=== PATIENT | female | born 1960 | race Caucasian/White ===

== ENCOUNTER 2018-09-25 16:36 | Inpatient (IN) | payer OTHER ==
[~2018-09-25] VITALS: Ht 165.1 cm; Wt 156.5 kg
[2018-09-25] VITALS (13 sets, daily range): BP systolic 122–160; BP diastolic 60–96
--- NOTE | 2018-09-25 16:57 | NUR ---
ED Nurse Note: pt walked in to ER from home due to signs of infection on Rt knee surgical site. pt aao x4 and ambulatory with a cane. skin clean and intact. calm and cooperative. Rt knee has 3 stitches and no redness but scant amount of white drainage noted. no four odor or not warm to touch. pt is in gown.
--- NOTE | 2018-09-25 17:46 | Emergency Room Report ---
History of Present Illness General Chief Complaint: Lower Extremity Injury Source: Patient Present Illness HPI Patient had recent right knee arthroscopic surgery. Since surgery a few days afterwards patient started to have oozing serous fluid from the surgical site at the right knee. Patient denies any erythema fever nausea vomiting diarrhea chills. Patient saw her orthopedic surgeon Dr. Del Angel and he put a stitch in the laparoscopic site but it continues to drain serous fluid. Therefore patient was sent here for further evaluation. Patient denies any fever nausea vomiting diarrhea chills. No other complaints are noted patient noted to be moderate. Patient does complain of pain in the area. Denies any pus discharge of bloody discharge. Denies any recent trauma. No other modifying factors. No other associated signs and symptoms. No other complaints were noted. Allergies: Coded Allergies: CELECOXIB (Verified Allergy, Severe, dyspnea, 09/25/18) HYDROCODONE (Verified Allergy, Severe, Rash, 09/25/18) Patient History Past Medical History: asthma PSxH Narrative Right knee meniscus surgery Social History: Denies: smoking, alcohol use, drug use Last Menstrual Period: na Now: No Reviewed Nursing Documentation: PMH: Agreed; PSxH: Agreed Review of Systems All Other Systems: negative except mentioned in HPI Physical Exam Vital Signs Date Time Temp Pulse Resp B/P (MAP) Pulse Ox O2 Delivery O2 Flow Rate FiO2 09/25/18 16:41 98.2 102 20 160/96 (117) 100 Room Air Sp02 EP Interpretation: reviewed, normal General Appearance: normal inspection, well appearing, no apparent distress, alert Head: atraumatic Eyes: bilateral eye normal inspection ENT: normal ENT inspection, hearing grossly normal, normal voice Neck: normal inspection, full range of motion, supple, no bony tend Respiratory: normal inspection, lungs clear, normal breath sounds, no respiratory distress, no retraction, no wheezing Cardiovascular #1: regular rate, rhythm, no edema Gastrointestinal: normal inspection, normal bowel sounds, non tender, soft, no guarding, no hernia Genitourinary: no CVA tenderness Musculoskeletal: back normal, other - Right knee status post arthroscopic surgery. Surgical wound draining serous fluid. No erythema. Neurologic: normal inspection, alert, responsive, speech normal Psychiatric: normal inspection, judgement/insight normal, mood/affect normal Medical Decision Making Diagnostic Impression: Primary Impression: Postoperative complication Additional Impression: Infection of right knee ER Course Patient presents emergency department today complaint right knee pain. Differential considerations include infections strain, seroma. Given patient's presentation patient will require admission for further evaluation. Patient amatory work-up was negative however. Patient will be cleared for surgery. I discussed this case with Dr. Vladimir Stern and Dr. Del Angel. Patient [facility] be [facility] for further treatment. Patient has been n.p.o. since last night. Labs Test 09/25/18 18:00 White Blood Count 4.5 K/UL (4.8-10.8) Red Blood Count 4.90 M/UL (4.20-5.40) Hemoglobin 14.2 G/DL (12.0-16.0) Hematocrit 42.6 % (37.0-47.0) Mean Corpuscular Volume 87 FL (80-99) Mean Corpuscular Hemoglobin 28.9 PG (27.0-31.0) Mean Corpuscular Hemoglobin Concent 33.2 G/DL (32.0-36.0) Red Cell Distribution Width 11.8 % (11.6-14.8) Platelet Count 383 K/UL (150-450) Mean Platelet Volume 5.7 FL (6.5-10.1) Neutrophils (%) (Auto) 50.8 % (45.0-75.0) Lymphocytes (%) (Auto) 35.6 % (20.0-45.0) Monocytes (%) (Auto) 7.4 % (1.0-10.0) Eosinophils (%) (Auto) 4.2 % (0.0-3.0) Basophils (%) (Auto) 2.0 % (0.0-2.0) Prothrombin Time 10.8 SEC (9.30-11.50) Prothromb Time International Ratio 1.0 (0.9-1.1) Activated Partial Thromboplast Time 31 SEC (23-33) Sodium Level 143 MMOL/L (136-145) Potassium Level 3.7 MMOL/L (3.5-5.1) Chloride Level 107 MMOL/L (98-107) Carbon Dioxide Level 25 MMOL/L (21-32) Anion Gap 11 mmol/L (5-15) Blood Urea Nitrogen 12 mg/dL (7-18) Creatinine 0.8 MG/DL (0.55-1.30) Estimat Glomerular Filtration Rate > 60 mL/min (>60) Glucose Level 133 MG/DL (74-106) Calcium Level 9.6 MG/DL (8.5-10.1) Total Bilirubin 0.3 MG/DL (0.2-1.0) Aspartate Amino Transf (AST/SGOT) 14 U/L (15-37) Alanine Aminotransferase (ALT/SGPT) 15 U/L (12-78) Alkaline Phosphatase 90 U/L (46-116) Total Protein 7.4 G/DL (6.4-8.2) Albumin 4.0 G/DL (3.4-5.0) Globulin 3.4 g/dL Albumin/Globulin Ratio 1.2 (1.0-2.7) EKG Diagnostic Results Rate: normal Rhythm: NSR ST Segments: no acute changes Rhythm Strip Diag. Results EP Interpretation: yes Rate: 89 Rhythm: NSR, no PVC's, no ectopy Chest X-Ray Diagnostic Results Chest X-Ray Diagnostic Results : Chest X-Ray Ordered: Yes # of Views/Limited/Complete: 1 View Indication: Chest Pain EP Interpretation: Yes Interpretation: no consolidation, no effusion, no pneumothorax Impression: No acute disease Electronically Signed by: Electronically signed by Bernardo Kowalski MD Last Vital Signs Date Time Temp Pulse Resp B/P (MAP) Pulse Ox O2 Delivery O2 Flow Rate FiO2 09/25/18 16:41 98.2 102 20 160/96 (117) 100 Room Air Status: improved Disposition: ADMITTED INPATIENT Condition: Serious Bernardo Kowalski MD Sep 25, 2018 17:46
[2018-09-25] MEDS ORDERED: LR 1000ml ONE ×2 (18:00→19:00)
--- NOTE | 2018-09-25 18:10 | NUR ---
ED Nurse Note: chest x-ray at bedside.
--- NOTE | 2018-09-25 18:15 | NUR ---
ED Nurse Note: pt went down for surgery by martin Engel in stable condition.
[2018-09-25 18:25] LABS: ANION GAP 11 mmol/L (5-15); BLOOD UREA NITROGEN 12 mg/dL (7-18); CALCIUM 9.6 MG/DL (8.5-10.1); CARBON DIOXIDE 25 MMOL/L (21-32); CHLORIDE 107 MMOL/L (98-107); CREATININE 0.8 MG/DL (0.55-1.30); POTASSIUM 3.7 MMOL/L (3.5-5.1); SODIUM 143 MMOL/L (136-145)
[2018-09-25 18:26] LABS: EOSINOPHILS % (AUTO) 4.2 % (0.0-3.0); HEMATOCRIT 42.6 % (37.0-47.0); HEMOGLOBIN 14.2 G/DL (12.0-16.0); LYMPHOCYTES % (AUTO) 35.6 % (20.0-45.0); MEAN CORPUSCULAR VOLUME 87 FL (80-99); MONOCYTES % (AUTO) 7.4 % (1.0-10.0); NEUTROPHILS % (AUTO) 50.8 % (45.0-75.0); PLATELET COUNT 383 K/UL (150-450); RED CELL DISTRIBUTION WIDTH 11.8 % (11.6-14.8); WHITE BLOOD COUNT 4.5 K/UL (4.8-10.8)
[2018-09-25 18:29] LABS: ALANINE AMINOTRANSFERASE 15 U/L (12-78); ALBUMIN/GLOBULIN RATIO 1.2 (1.0-2.7); ALKALINE PHOSPHATASE 90 U/L (46-116); ASPARTATE AMINO TRANSFERASE 14 U/L (15-37); BILIRUBIN,TOTAL 0.3 MG/DL (0.2-1.0)
[2018-09-25] MEDS ORDERED: fentaNYL 100 mcg/2 mL IV ONE (18:34)
[2018-09-25] MEDS ORDERED: Bacitracin 50000 Units Vial ONE (18:37)
--- NOTE | 2018-09-25 18:41 | Anethesia Preoperative Eval ---
Anesthesia Pre-op PMH/ROS General Date of Evaluation: Sep 25, 2018 Time of Evaluation: 18:51 Anesthesiologist: Domi ASA Score: ASA 3 Mallampati Score Class I : Soft palate, uvula, fauces, pillars visible Class II: Soft palate, uvula, fauces visible Class III: Soft palate, base of uvula visible Class IV: Only hard plate visible Mallampati Classification: Class III Surgeon: Bean Diagnosis: R Knee Pain Surgical Procedure: R KKnee Arthroscopy I and D Family History: no anesthesia problems Allergies: Coded Allergies: CELECOXIB (Verified Allergy, Severe, dyspnea, 09/25/18) HYDROCODONE (Verified Allergy, Severe, Rash, 09/25/18) Medications: see eMAR Patient NPO?: Yes Past Medical History Cardiovascular: Reports: HTN Pulmonary: Reports: asthma Other: obesity - Morbid BMI 56 Anesthesia Pre-op Phys. Exam Physician Exam Last Vital Signs Date Time Temp Pulse Resp B/P (MAP) Pulse Ox O2 Delivery O2 Flow Rate FiO2 09/25/18 18:20 98.2 86 19 155/78 98 Room Air Constitutional: NAD Neurologic: CN 2-12 intact Cardiovascular: RRR Respiratory: CTA Gastrointestinal: S/NT/ND Airway Exam Mallampati Score: Class III MO: limited ROM: limited Teeth: missing, intact Anesthesia Pre-op A/P Labs Hematology Test 09/25/18 18:00 White Blood Count 4.5 K/UL (4.8-10.8) L Red Blood Count 4.90 M/UL (4.20-5.40) Hemoglobin 14.2 G/DL (12.0-16.0) Hematocrit 42.6 % (37.0-47.0) Mean Corpuscular Volume 87 FL (80-99) Mean Corpuscular Hemoglobin 28.9 PG (27.0-31.0) Mean Corpuscular Hemoglobin Concent 33.2 G/DL (32.0-36.0) Red Cell Distribution Width 11.8 % (11.6-14.8) Platelet Count 383 K/UL (150-450) Mean Platelet Volume 5.7 FL (6.5-10.1) L Neutrophils (%) (Auto) 50.8 % (45.0-75.0) Lymphocytes (%) (Auto) 35.6 % (20.0-45.0) Monocytes (%) (Auto) 7.4 % (1.0-10.0) Eosinophils (%) (Auto) 4.2 % (0.0-3.0) H Basophils (%) (Auto) 2.0 % (0.0-2.0) Coagulation Test 09/25/18 18:00 Prothrombin Time 10.8 SEC (9.30-11.50) Prothromb Time International Ratio 1.0 (0.9-1.1) Activated Partial Thromboplast Time 31 SEC (23-33) Chemistry Test 09/25/18 18:00 Sodium Level 143 MMOL/L (136-145) Potassium Level 3.7 MMOL/L (3.5-5.1) Chloride Level 107 MMOL/L (98-107) Carbon Dioxide Level 25 MMOL/L (21-32) Anion Gap 11 mmol/L (5-15) Blood Urea Nitrogen 12 mg/dL (7-18) Creatinine 0.8 MG/DL (0.55-1.30) Estimat Glomerular Filtration Rate > 60 mL/min (>60) Glucose Level 133 MG/DL (74-106) H Calcium Level 9.6 MG/DL (8.5-10.1) Total Bilirubin 0.3 MG/DL (0.2-1.0) Aspartate Amino Transf (AST/SGOT) 14 U/L (15-37) L Alanine Aminotransferase (ALT/SGPT) 15 U/L (12-78) Alkaline Phosphatase 90 U/L (46-116) Total Protein 7.4 G/DL (6.4-8.2) Albumin 4.0 G/DL (3.4-5.0) Globulin 3.4 g/dL Albumin/Globulin Ratio 1.2 (1.0-2.7) Risk Assessment & Plan Assessment: ASA 3 Plan: GA, SED Pre-Antibiotics Dru Gram Vancomycin IV Given Within 1 Hr of Incision: Yes Time Given: 20:11 Josh Duron MD Sep 25, 2018 18:41
--- NOTE | 2018-09-25 18:41 | Pre-Procedure Note/Attestation ---
Pre-Procedure Note/Attestation Complete Prior to Procedure Planned Procedure: right Procedure Narrative: knee arthroscopic incision and drainage Indications for Procedure Pre-Operative Diagnosis: right knee drainage Attestation I attest that I discussed the nature of the procedure; its benefits; risks and complications; and alternatives (and the risks and benefits of such alternatives ), prior to the procedure, with the patient (or the patient's legal sales representative printing paper). I attest that, if there was a reasonable possibility of needing a blood transfusion, the patient (or the patient's legal sales representative printing paper) was given the [facility] standardized written summary, pursuant to the Jasen Monette Blood Safety Act ([place] Health and Safety Code # 1645, as amended). I attest that I re-evaluated the patient just prior to the surgery and that there has been no change in the patient's H&P, except as documented below: Atif Del Angel MD Sep 25, 2018 18:41
[2018-09-25] MEDS ORDERED: LR 1000ml 1,000 ML IVLG SCH (18:42)
--- NOTE | 2018-09-25 18:42 | Operative Note - PDOC ---
Operative Note Operative Note Pre-op Diagnosis: right knee drainage Procedure: see op report Post-op Diagnosis: same as pre-op plus Operative Findings: consistent w/pre-op dx studies Anesthesia: regional Specimen: none Complications: none Condition: stable Estimated Blood Loss: none Implant(s) used?: No Atif Del Angel MD Sep 25, 2018 18:42
[2018-09-25] MEDS ORDERED: Lidocaine 1% MPF 10mg/ml 5ml ONE (18:43)
[2018-09-25] MEDS ORDERED: Sodium Chloride 10ml vial INJ ONE (18:43)
[2018-09-25] MEDS ORDERED: Dexamethasone 4mg/ml vial ONE (18:43)
[2018-09-25] MEDS ORDERED: Propofol 200mg/20ml IV ONE (18:43)
[2018-09-25] MEDS ORDERED: Midazolam 2mg/2ml Inj IVP PRN ×2 (18:45→20:45)
[2018-09-25] MEDS ORDERED: Labetalol 5mg/ml 20ml vial IV PRN ×2 (18:45→20:45)
[2018-09-25] MEDS ORDERED: Metoclopramide 10mg/2ml Inj IVP PRN ×2 (18:45→20:45)
[2018-09-25] MEDS ORDERED: D5 1/2NS 1,000 ML IV SCH ×2 (18:45→19:00)
[2018-09-25] MEDS ORDERED: DiphenhydrAMINE 50mg/ml Inj IVP PRN ×2 (18:45→20:45)
[2018-09-25] MEDS ORDERED: LORazepam Inj 2mg/ml 1ml IV PRN ×2 (18:45→20:45)
[2018-09-25] MEDS ORDERED: HYDROcodone/Acetamin 5/325 tab ORAL PRN ×2 (18:45→19:00)
[2018-09-25] MEDS ORDERED: fentaNYL 100 mcg/2 mL IV PRN ×3 (18:45→20:45)
[2018-09-25] MEDS ORDERED: Atropine Sulfate 0.4mg/ml inj IVP PRN ×2 (18:45→20:45)
[2018-09-25] MEDS ORDERED: Meperidine 50mg/ml Inj(FOR RIGORS ONLY) IVP PRN ×2 (18:45→20:45)
[2018-09-25] MEDS ORDERED: NS Irrig 4000ml IRRIG ONE (18:45)
[2018-09-25] MEDS ORDERED: Vancomycin 1gm vial IVPB ONE ×2 (19:36→23:46)
--- NOTE | 2018-09-25 20:16 | Immediate Post-Op Evaluation ---
Immediate Post-Op Evalulation Immediate Post-Op Evalulation Procedure: R Knee Arthroscopy, I and D Date of Evaluation: Sep 25, 2018 Time of Evaluation: 20:28 IV Fluids: 100 LR Blood Products: 0 Estimated Blood Loss: 10 Urinary Output: 0 Blood Pressure Systolic: 158 Blood Pressure Diastolic: 89 Pulse Rate: 89 Respiratory Rate: 16 O2 Sat by Pulse Oximetry: 100 Temperature (Fahrenheit): 97.8 Pain Score (1-10): 2 Nausea: No Vomiting: No Complications 0 Patient Status: awake, reacts, patent, none Hydration Status: adequate Dru Graqm Vancomycin IV Given Within 1 Hr of Incision: Yes Time Given: 20:11 Josh Duron MD Sep 25, 2018 20:16
--- NOTE | 2018-09-25 21:30 | NUR ---
NURSE NOTES: Received patient from PACU. PACU staff brought patient onto the unit. No report was given prior. Patient awake and oriented x4. Pain 6/8 on right knee. PACU nurse did not have information on patient background, no admitting orders, no pain medication orders. Checked patient chart, patient not in the system. Registration notified. Placed order to admit inpatient.
--- NOTE | 2018-09-25 22:00 | NUR ---
NURSE NOTES: Notified by registration that patient is now in the system and orders can be placed on the patient.
--- NOTE | 2018-09-25 22:15 | Consultation ---
DATE OF CONSULTATION: 09/25/2018 CHIEF COMPLAINT: Right knee drainage. HISTORY OF PRESENT ILLNESS: The patient is a pleasant 58-year-old female, who has had persistent drainage along the arthroscopic portal that continued drainage despite conservative treatment to close the area, she still had persistent drainage. No signs of infection; however given the persistent drainage she was indicative of operative irrigation and debridement of the knee as well as intraoperative cultures to make sure there is no infection. The patient was told to present herself to the ER for admission and surgery. She presented to the ER earlier today and surgery is recommended. PAST MEDICAL HISTORY: Reviewed per intake chart PAST SURGICAL HISTORY: Reviewed per intake chart. MEDICATIONS: Reviewed per intake chart. PHYSICAL EXAMINATION: EXTREMITIES: Examination shows serous drainage along the inferolateral portal site. Posterior calf is soft. No fluctuance. No erythema. ASSESSMENT: Status post right knee arthroscopic medial meniscectomy, synovectomy, chondroplasty to her right knee, persistent drainage, possible infection. DISCUSSION: At this point, I am going to proceed with arthroscopic I and D of the right knee, take intraoperative cultures, and start her antibiotics. Monitor from clinical point of view to make sure that she is healing well. Risks, limitations, expectations, complications of procedure were discussed in detail. All questions addressed. Atif Del Angel M.D. DR: Tamar JOB#: [id number] CC:
--- NOTE | 2018-09-25 22:30 | NUR ---
NURSE NOTES: Received call back from Dr. Stern for admitting orders, routine med orders and percocet for pain. Placed orders in [facility].
[2018-09-25] MEDS ORDERED: Albuterol 90mcg Inhaler 8gm INH PRN (22:45)
[2018-09-25] MEDS ORDERED: traMADol 50mg tab ORAL PRN (22:45)
[2018-09-25] MEDS ORDERED: Vancomycin 1gm in D5W 275ml IVPB SCH (23:00)
--- NOTE | 2018-09-25 23:00 | NUR ---
NURSE NOTES: Notified pipeline to expedite orders for the patient.
--- NOTE | 2018-09-25 23:30 | NUR ---
NURSE NOTES: Received call from Dr. Del Angel, informed him that patient is very angry because she is in pain and orders were not given prior to patient arrival on unit. Received orders for routine medications as well as more pain medications, dilauded 0.6mg IV now and 0.4mg ivp q2hrs prn. Will place in systems and notify pipeline again.
[2018-09-26] MEDS ORDERED: Ketorolac 30mg Inj IV SCH
--- NOTE | 2018-09-26 | NUR ---
NURSE NOTES: Patient upset, states pain is now 8/10 and "it's been 2 hours and there are no fucking pain meds." Reassured patient that staff will keep checking and get her her pain meds.
--- NOTE | 2018-09-26 | NUR ---
NURSE NOTES: Notified pipeline to expedite orders in the pyxis.
--- NOTE | 2018-09-26 00:18 | NUR ---
NURSE NOTES: Notifiedd pipeline again to place orders inc pyxis so patient can get her pain medications.
--- NOTE | 2018-09-26 00:20 | NUR ---
NURSE NOTES: Advised by [employer] that there is nothing further they can do in regards to pyxis. Advised to notify corrections unit supervisor to call the hospital pharmacist. Charge nurse notified and called corrections unit supervisor. Addendum: 09/26/18 at 0155 by Keshawn Redding RN NURSE NOTES: 0120 Advised by [employer] that there is nothing further they can do in regards to pyxis. Advised to notify corrections unit supervisor to call the hospital pharmacist. Charge nurse notified and called corrections unit supervisor. Addendum: 09/26/18 at 0158 by Keshawn Redding RN Disregard the time on the amended note
--- NOTE | 2018-09-26 00:30 | NUR ---
NURSE NOTES: Attempted to place ice packs on patient, patient refused.
[2018-09-26] MEDS ORDERED: Hydromorphone 0.5mg/0.5ml inj IVP SCH ×2 (00:45)
[2018-09-26] MEDS ORDERED: HYDROmorphone 1mg/ml Carpuject ONE ×4 (01:00→06:31)
[2018-09-26] MEDS ORDERED: HYDROmorphone 1mg/ml Carpuject IVP SCH (01:00)
--- NOTE | 2018-09-26 01:37 | NUR ---
NURSE NOTES: Charge nurse from the telemetry unit was able to overide pyxis and dispense dilauded iv pain medication. Dilauded 0.6mg IVP x 1 administered to the patient as ordered. Addendum: 09/26/18 at 0618 by Keshawn Redding RN NURSE NOTES: Dilauded was administered at 0107, see MAR.
[2018-09-26] MEDS: D5 1/2NS 1,000 ML IV SCH ×2 (01:40→14:15)
[2018-09-26] MEDS ORDERED: HYDROmorphone 1mg/ml Carpuject IVP PRN (02:00)
--- NOTE | 2018-09-26 02:00 | NUR ---
NURSE NOTES: Patient laying still in bed, eyes closed, no s/s of respiratory distress or respiratory depression. Will continue to monitor.
[2018-09-26] MEDS: HYDROmorphone 1mg/ml Carpuject IVP PRN ×3 (02:42→06:53)
--- NOTE | 2018-09-26 02:42 | NUR ---
NURSE NOTES: Patient stated that the first dose of pain medication helped and she was able to sleep for awhile, administered dilauded 0.4mg IVP PRN for right knee pain.
--- NOTE | 2018-09-26 03:30 | Operative Note - Dictated ---
DATE OF OPERATION: 09/25/2018 PREOPERATIVE DIAGNOSIS: Possible right knee infection. POSTOPERATIVE DIAGNOSIS: Possible right knee infection. PROCEDURES: 1. Right knee arthroscopic I and D and lavage, bacitracin irrigation. 2. Revision partial medial meniscectomy, medial meniscus. 3. Revision chondroplasty of medial femoral condyle. 4. Revision synovectomy of medial and patellofemoral compartment. SURGEON: Atif Del Angel M.D. ANESTHESIA: General. INDICATION FOR PROCEDURE: The patient is a 58-year-old female, who underwent uncomplicated right knee arthroscopic medial meniscectomy, synovectomy, and chondroplasty. Postoperatively, she was doing relatively well. However, she had a walk back and forth and subsequently a small wound dehisced as well as she popped the suture. She continued to have persistent drainage despite conservative treatment. Therefore, it was felt that I and D and appropriate infection workup was reasonable. Risks, limitations, expectations, and complications of the procedure were discussed in detail. All questions addressed. DESCRIPTION OF PROCEDURE: After informed consent was obtained, the patient was brought to the operative room. The patient was placed under general anesthesia. Ancef was held. The right leg was prepped and draped in a sterile manner. An inferolateral stab incision was then made. Trocar introduced in the knee joint. The synovial tissue was sent off for aerobic and anaerobic cultures and Gram stain. Once that was done, Ancef was administered along with vancomycin. At this point, 6 liters of bacitracin irrigation was then used to irrigate the knee. A shaver was then placed and a complete diagnostic arthroscopy was performed. There was grade 3 and grade 4 chondral damage in the patellofemoral compartment. The medial gutter was entered free from loose bodies. Medial compartment was entered. There was some fraying of the chondral with some chondral flaps. Therefore, gentle chondroplasty of medial femoral condyle was performed. The previous meniscectomy was evaluated and partial meniscectomy was performed of the anterior edge of the leading portion of the meniscus. The synovectomy was completed in the anterior leading to the intercondylar notch. The ACL was probed and noted to be intact. Lateral compartment was entered free of meniscal chondral damage. At this point, liters of irrigation was then used to further irrigate and lavage the knee. The portal sites were closed using inverted mattress sutures. Compression dressing was applied. The patient was awoken and taken to recovery room with stable vital signs. ESTIMATED BLOOD LOSS: None. COMPLICATIONS: None. SPECIMENS: None. IMPLANTS: None. Atif Del Angel M.D. DR: HADLEY JOB#: [id number] CC:
[2018-09-26 04:00] VITALS: BP 120/70
--- NOTE | 2018-09-26 04:55 | NUR ---
NURSE NOTES: Patient states a pain level of 5/10 on right knee. Continues to refuse ice packs on the right knee.
[2018-09-26] MEDS ORDERED: traMADol 50mg tab ONE (06:35)
[2018-09-26] MEDS ORDERED: Vancomycin 1 GM in D5W 275 ML IVPB SCH ×2 (07:15→08:00)
[2018-09-26] MEDS ORDERED: traMADol 50mg tab ORAL PRN (07:30)
[2018-09-26 08:00] VITALS: BP 135/82
[2018-09-26] MEDS ORDERED: Vancomycin 1gm in D5W 275ml IVPB SCH (08:00)
[2018-09-26] MEDS ORDERED: D5 1/2NS 1,000 ML IV SCH (08:00)
--- NOTE | 2018-09-26 08:00 | NUR ---
NURSE NOTES: Report received from Keshawn RN, rounds made. Patient resting in semi-fowlers position in bed. No distress on RA. IVF infusing to left hand (D5 1/2 at 150 ml/hr), will start Vanco as ordered. Right knee dressing, CDI, secured with denis wrap, ice pack applied. Right pedal +2 pitting edema noted. Pain 2/10 to right knee. Bilateral SCDs on. Call light in reach, bed in lowest position, will continue to monitor.
[2018-09-26] MEDS: Docusate 100mg cap ORAL SCH ×3 (08:57→18:05)
[2018-09-26] MEDS: Heparin 5000 units/ml inj SUBQ SCH ×2 (08:57→21:07)
[2018-09-26] MEDS: Wixela 250/50 Inhaler - 60 dose INH SCH ×2 (09:00→18:00)
[2018-09-26] MEDS ORDERED: Enoxaparin 40mg Inj SUBQ SCH (09:00)
[2018-09-26] MEDS ORDERED: Docusate 100mg cap ORAL SCH (09:00)
[2018-09-26] MEDS ORDERED: celeBREX 200mg Cap **SURGERY PATIENTS ONLY ORAL SCH ×2 (09:00)
--- NOTE | 2018-09-26 09:13 | General Progress Note ---
Progress Note Progress Note hp dictated r/o septic knee morbid obese asthma Vladimir Stern MD Sep 26, 2018 09:13
[2018-09-26 12:00] VITALS: BP 136/81
--- NOTE | 2018-09-26 12:06 | Diagnostic Imaging Report ---
Indication: Cough Comparison: None A single view chest radiograph was obtained. Findings: Cardiomediastinal appearance is within normal limits for age. The lungs are clear. Pulmonary vascularity is appropriate. The diaphragmatic contour is smooth and costophrenic angles are sharp. No pleural effusions are identified. The bones are unremarkable. Impression: No acute findings
--- NOTE | 2018-09-26 12:30 | 48 Hour Post Anesthesia Eval ---
Post Anesthesia Evaluation Procedure: R Knee Arthroscopy, I and D Date of Evaluation: Sep 26, 2018 Time of Evaluation: 12:29 Blood Pressure Systolic: 127 0: 68 Pulse Rate: 82 Respiratory Rate: 22 Temperature (Fahrenheit): 97.6 O2 Sat by Pulse Oximetry: 98 Airway: patent Nausea: No Vomiting: No Pain Intensity: 3 Hydration Status: adequate Cardiopulmonary Status: stable Mental Status/LOC: patient returned to baseline Follow-up Care/Observations: n/a Post-Anesthesia Complications: none Follow-up care needed: N/A Christopher Pugh MD Sep 26, 2018 12:30
[2018-09-26] MEDS ORDERED: Heparin1,000 units/500ml Premix(Conc:2 units/ml) IV PRN (14:45)
[2018-09-26] MEDS ORDERED: Lidocaine 1% Plain 30 ml INJ PRN (14:45)
--- NOTE | 2018-09-26 14:45 | NUR ---
NURSE NOTES: Dr. Stern notified by Clare OWENS, unable to restart IV, orders received for PICC line placement. Will review consent with patient.
--- NOTE | 2018-09-26 15:06 | NUR ---
CASE MANAGEMENT: INITIAL REVIEW 58 YO F PRESENTED TO OUR ED FROM HOME CC: LOWER EXTREMITY INJURY PMHx: ASTHMA. SI:DRAINAGE FROM RIGHT KNEE. T 98.2 HR 102 RR 20 B/P 160/96 SATS 100% ON RA WBC 4.5 GLU 133 AST 14 CRP 2.4 IS: OR MEDS PATIENT ADMITTED TO MED/SURG 09/25/2018 @ 1700 DCP: PATIENT TO BE DISCHARGED TO HOME ONCE MEDICALLY CLEARED. PLAN OF CARE: DATE OF OPERATION: 09/25/2018 PREOPERATIVE DIAGNOSIS: Possible right knee infection. POSTOPERATIVE DIAGNOSIS: Possible right knee infection. PROCEDURES: 1. Right knee arthroscopic I and D and lavage, bacitracin irrigation. 2. Revision partial medial meniscectomy, medial meniscus. 3. Revision chondroplasty of medial femoral condyle. 4. Revision synovectomy of medial and patellofemoral compartment. 09/26/2018 SI:DRAINAGE FROM RIGHT KNEE. T 98.4 HR 98 RR 16 B/P 120/70 SATS 96% ON RA NO LABS TODAY IS: ADVAIR INH BID CELEBREX PO QD VANCO IV Q12H IVF @ 150 mL/HR TORADOL IV Q8H MED/SURG STATUS DCP: PATIENT TO BE DISCHARGED TO HOME ONCE MEDICALLY CLEARED. PLAN OF CARE: POST OP CARE Addendum: 09/27/18 at 0834 by Essence Vela CM INTERQUAL MET
--- NOTE | 2018-09-26 15:13 | NUR ---
iNSURANCE CLINICALS AND REVIEWS FAXED TO AUTH# [id number] CARPET LOOM FIXER: MARCO De La Vega FAX CLINICALS TO: [phone]
[2018-09-26 16:00] VITALS: BP 136/74
--- NOTE | 2018-09-26 17:30 | NUR ---
NURSE NOTES: Pharmacy notified of no IV access, unable to give Vancomycin. PICC line consent signed by patient. Plans for PICC line placement tomorrow 09/27, patient aware.
[2018-09-26] MEDS: Vancomycin 1.5gm Premix IVPB SCH (18:00)
[2018-09-26] MEDS: Montelukast 10mg tablet ORAL SCH (18:05)
--- NOTE | 2018-09-26 19:45 | NUR ---
NURSE NOTES:Patient received from Kateryna Krishnan Patient denies any pain at this time . no s.s of distress noted . safety. / fall Implemented call light within reach . bed in low position at all times . will continue to monitor.
--- NOTE | 2018-09-26 19:45 | NUR ---
HAND-OFF: Report given to Milagros PENA.
--- NOTE | 2018-09-26 19:50 | NUR ---
NURSE NOTES: Right knee dressing changed by Dr. Del Angel . And new orders Benadryl 50 mg po every 8 hrs as ordered by . will continue to monitor. Addendum: 09/27/18 at 0438 by ESCOBAR SHAIKH LVN Continuous ice pack applied right knee .
[2018-09-26 20:00] VITALS: BP 144/79
[2018-09-26] MEDS: Dyna-Hex 2% Top Sol 2oz TOPIC SCH (20:00)
--- NOTE | 2018-09-26 20:00 | Progress Note ---
DATE: 09/26/2018 SUBJECTIVE: The patient had no issues overnight. She did have moderate pain, which was better controlled. She has some sensitivity along the incision site which she reports previously did respond to Benadryl. No additional issues, may be able to bear weight. PHYSICAL EXAMINATION: GENERAL: The patient is alert and oriented. VITAL SIGNS: Afebrile. Stable vital signs. EXTREMITIES: Incision is clean, dry, intact. No drainage. No fluctuance. Posterior calf is soft. ASSESSMENT: Status post incision and drainage, right knee. DISCUSSION: At this point, her Gram stain results were unremarkable. Final cultures are still pending. The patient's white count is not elevated. She has normal ESR, slight elevation of C-reactive protein. Her pre-albumin was 20. At this point, what I am going do is recommend protein shakes with her meals. I am going to give her Benadryl 50 mg q. 8 h to decrease the sensitivity along the incision site. The Toradol is going to be discontinued at this point given her previous history of gastritis. We will continue narcotic medication which include Percocet as well as the morphine. We will re-evaluate the patient and follow up with the final culture results. Atif Del Angel M.D. DR: Tamar JOB#: [id number] CC:
[2018-09-26 23:43] VITALS: BP 118/65
[2018-09-27] MEDS: D5 1/2NS 1,000 ML IV SCH ×3 (03:15→18:22)
[2018-09-27 04:00] VITALS: BP 135/93
--- NOTE | 2018-09-27 04:15 | History and Physical Report ---
DATE OF ADMISSION: 09/25/2018 HISTORY OF PRESENT ILLNESS: The patient is a 58-year-old female, who was admitted secondary to drainage after having arthroscopic knee surgery. The patient apparently did not keep the wound dry after the surgery. This is a morbidly obese female with a history of PCOS. She was draining. She was on Keflex prior to getting admitted to the hospital. She denies any nausea or vomiting. She denies any chest pain. She denies any palpitation. She was seen in the emergency room. PAST MEDICAL HISTORY: Include morbid obesity, has lost 100 pounds. She was 425 pounds, now is 325 pounds. History of asthma. Internal knee derangement. Polycystic ovarian syndrome. PAST SURGICAL HISTORY: Includes arthroscopic knee surgery. FAMILY HISTORY: Noncontributory. PHYSICAL EXAMINATION: GENERAL: An obese female. LUNGS: Distant breath sounds. HEART: S1, S2. ABDOMEN: Soft. Positive bowel sounds. EXTREMITIES: Right knee has bandage around it. NEUROLOGICAL: Alert, awake, and oriented x4. LABORATORY DATA: Microbiology, laboratories are still pending on the patient, and WBC was 4.5 on admission, hematocrit 42.6. CMP was within normal range. IMPRESSION: Morbidly obese female, who at this time admitted for further evaluation status post arthroscopic knee surgery. Subsequently, the drainage coming in on Keflex might not have good culture results. Await Gram stain and culture of the joint fluid on vancomycin. Follow the patient closely. Monitor electrolytes. Case was discussed with the patient at length. Vladimir Stern M.D. DR: JORDEN JOB#: [id number] CC:
[2018-09-27] MEDS: Vancomycin 1.5gm Premix IVPB SCH ×3 (06:00→18:25)
--- NOTE | 2018-09-27 07:10 | NUR ---
NURSE NOTES: Report received from Milagros PEAN, rounds made. Patient resting in semi-fowlers position in bed, alert oriented x4, calm. Left hand heplock in place, however, painful with flushes, called down to radiology for approximate time of PICC line placement, time unknown, radiology will call with updates. No distress on RA. Pain to Right Knee 3/10, denies need for pain medication at this time. Right knee dressing remains CDI, ice pack in place, CMS+ skin warm, wiggles, +1 pitting edema to right pedal, no NT. Bilateral SCDs off. Denies NV, tolerating breakfast fair. Call light in reach, bed in lowest position, will continue to monitor.
--- NOTE | 2018-09-27 07:15 | NUR ---
HAND-OFF: Report given to Kateryna Robertson Patient on stable
[2018-09-27 08:00] VITALS: BP 121/66
--- NOTE | 2018-09-27 08:25 | NUR ---
NURSE NOTES: Patient voiced that she does not want PICC line placement for IV antibiotics because she was told she does not have an infection, explained that IV antibiotics are used in precautious measures as well, but will get clarification from Dr. Stern/Bean. Notified Dr. Stern (original order for Vancomycin), reviewed synovial fluid culture results (no white blood cells/no organisms) and WBC 4.5 on 09/25, Dr. Stern said patient still requires IV antibiotics until final culture is resulted.
[2018-09-27] MEDS: Wixela 250/50 Inhaler - 60 dose INH SCH ×2 (09:00→18:00)
[2018-09-27] MEDS: Docusate 100mg cap ORAL SCH ×3 (09:00→18:00)
--- NOTE | 2018-09-27 09:00 | NUR ---
NURSE NOTES: Called RT to assess patient and administer scheduled Advair, if needed.
[2018-09-27] MEDS: Heparin 5000 units/ml inj SUBQ SCH ×2 (09:09→21:25)
--- NOTE | 2018-09-27 09:15 | General Progress Note ---
Assessment/Plan Status Narrative s/p I an D knee had antibiotic preop keflex might get negative culture due to the fact that has been on antibiotic willfollow Subjective Date patient seen: Sep 27, 2018 Time patient seen: 09:13 Constitutional: Reports: no symptoms HEENT: Reports: no symptoms Cardiovascular: Reports: no symptoms Allergies: Coded Allergies: CELECOXIB (Verified Allergy, Severe, dyspnea, 09/25/18) HYDROCODONE (Verified Allergy, Severe, Rash, 09/25/18) Objective Last 24 Hour Vital Signs Date Time Temp Pulse Resp B/P (MAP) Pulse Ox O2 Delivery O2 Flow Rate FiO2 09/27/18 05:55 98.3 09/27/18 04:00 98.3 73 18 135/93 (107) 98 09/27/18 00:10 Room Air 09/26/18 23:43 98.4 97 18 118/65 (82) 98 09/26/18 21:00 Room Air 09/26/18 20:00 98.4 98 20 144/79 (100) 96 09/26/18 16:00 99.2 85 20 136/74 (94) 97 09/26/18 12:30 82 22 98 09/26/18 12:00 98.0 87 20 136/81 (99) 97 Intake and Output 09/26/18 09/27/18 18:59 06:59 Intake Total 748 ml 320 ml Balance 748 ml 320 ml Intake Oral 598 ml 320 ml IV Total 150 ml # Voids 3 5 Height (Feet): 5 Height (Inches): 5.00 Weight (Pounds): 326 Edema: trace edema Objective obese cta distnat s1,s2, distant heart sound soft Vladimir Stern MD Sep 27, 2018 09:14
--- NOTE | 2018-09-27 09:25 | NUR ---
NURSE NOTES: Dietary curious as to why patient on Ensure drinks, clarified that patient has poor appetite, denies NV, states she just is tired and doesn't have much of an appetite. Patient states Dr. Del Angel ordered Ensure. Encouraged patient to drink as ordered and stay hydrated, verbalized understanding.
--- NOTE | 2018-09-27 11:14 | NUR ---
CASE MANAGEMENT: REVIEW 09/27/2018 SI:DRAINAGE FROM RIGHT KNEE. POD #2 Right knee arthroscopic I and D and lavage. T 98.2 HR 73 RR 18 B/P 135/93 SATS 98% ON RA NO LABS TODAY IS: ADVAIR INH BID CELEBREX PO QD VANCO IV Q12H IVF @ 150 mL/HR TORADOL IV Q8H MED/SURG STATUS DCP: PATIENT TO BE DISCHARGED TO HOME ONCE MEDICALLY CLEARED. PLAN OF CARE: POST OP CARE IV ANTIBx
--- NOTE | 2018-09-27 11:18 | NUR ---
iNSURANCE REVIEWS FAXED TO AUTH# [id number] DRILLING ASSISTANT: MARCO De La Vega FAX CLINICALS TO: [phone]
[2018-09-27 12:00] VITALS: BP 119/65
--- NOTE | 2018-09-27 13:30 | NUR ---
NURSE NOTES: Patient refused Colace this AM and 1300 dose, last BM today at 0300 (brown, soft, moderate) per patient report. Patient states she would like to hold off on Colace doses today. Instructed patient on pain medication SE (constipation), verbalized understanding. Will endorse to next shift.
--- NOTE | 2018-09-27 14:36 | NUR ---
RD ASSESSMENT & RECOMMENDATIONS SEE CARE ACTIVITY FOR COMPLETE ASSESSMENT DAILY ESTIMATED NEEDS: Needs based on Surgery, morbid obesity 79kg adj 20-25 kcals/kg 2527-3018 total kcals 1-2 g protein/kg 79-158 g total protein 25-30 mL/kg 3999-2663 total fluid mLs NUTRITION DIAGNOSIS: 1) Increased pro needs r/t surgical wound healing as evidenced by s/p R knee I&D. 2) Obesity etiology unknown as evidenced by h/o PCOS, previous wt of 425 lbs, now 324#, @259% of [place] body weight. PO DIET RECOMMENDATIONS: Regular as tolerated ADDITIONAL RECOMMENDATIONS: 1) With >75% po intake, rec to DC order for Ensure Enlive daily 2) Monitor BG (last chem 133) 3) Add SRINI BID for surgical wound healing 4) Weekly weights as able
[2018-09-27 16:00] VITALS: BP 145/71
--- NOTE | 2018-09-27 16:02 | Cardiology Report ---
APPROVED REPORT EKG Measurement Heart [id number] Normal sinus rhythm Normal ECG
--- NOTE | 2018-09-27 17:04 | Infectious Diseases Prog Note ---
Assessment/Plan Assessment/Plan Full consult dictated: A) 1) possible right knee infection, ? wound infection with drainage, ? osteomyelitis/septic arthritis -s/p 2) DM, HTN, asthma 3) fh-+ dm, allergies - celecoxib, hydrocodone, mar noted, sh-negative 4) d/w RN 5) d/w patient P) 1) empiric vancomycin 2) f/u on cultures 3) d/w Dr. Del Angel 4) thank you Subjective Allergies: Coded Allergies: CELECOXIB (Verified Allergy, Severe, dyspnea, 09/25/18) HYDROCODONE (Verified Allergy, Severe, Rash, 09/25/18) Objective Vital Signs Last 24 Hour Vital Signs Date Time Temp Pulse Resp B/P (MAP) Pulse Ox O2 Delivery O2 Flow Rate FiO2 09/27/18 12:00 98.1 102 20 119/65 (83) 96 09/27/18 09:00 Room Air 09/27/18 08:00 98.2 89 20 121/66 (84) 94 09/27/18 05:55 98.3 09/27/18 04:00 98.3 73 18 135/93 (107) 98 09/27/18 00:10 Room Air 09/26/18 23:43 98.4 97 18 118/65 (82) 98 09/26/18 21:00 Room Air 09/26/18 20:00 98.4 98 20 144/79 (100) 96 Height (Feet): 5 Height (Inches): 5.00 Weight (Pounds): 326 Microbiology Date/Time Source Procedure Growth Status 09/25/18 19:30 Synovial Fluid Gram Stain - Final Resulted 09/25/18 19:30 Synovial Fluid Body Fluid Culture - Preliminary Resulted Current Medications Medications (Trade) Dose Ordered Sig/Andres Route PRN Reason Start Time Stop Time Status Last Admin Dose Admin Acetaminophen/ Hydrocodone Bitart ([place] 5/325) 1 tab Q4H PRN ORAL For Pain 09/25/18 19:00 10/02/18 18:44 Albuterol Sulfate (Proventil MDI) 2 puff Q6HR PRN INH Shortness of Breath 09/25/18 22:45 10/25/18 22:44 Celecoxib (CeleBREX) 200 mg DAILY ORAL 09/26/18 09:00 10/26/18 08:59 UNV Chlorhexidine Gluconate (Laverne-Hex 2%) 1 applic DAILY@2000 TOPIC 09/26/18 20:00 10/26/18 19:59 Dextrose/Sodium Chloride 1,000 ml @ 150 mls/hr Q13H IV 09/26/18 01:15 10/25/18 18:44 09/26/18 01:40 Diphenhydramine HCl (Benadryl) 50 mg Q8H ORAL 09/26/18 20:00 10/26/18 19:59 09/27/18 11:39 Docusate Sodium (Colace) 100 mg THREE TIMES A DAY ORAL 09/26/18 09:00 10/26/18 08:59 09/26/18 18:05 Heparin Sodium (Porcine) (Heparin 5000 units/ml) 5,000 units EVERY 12 HOURS SUBQ 09/26/18 09:00 10/26/18 08:59 09/27/18 09:09 Heparin Sodium/ Sodium Chloride (Heparin 1000 units/500ml Premix) 1,000 unit ONCE PRN IV PICC PLACEMENT 09/26/18 14:45 09/28/18 23:59 Hydromorphone HCl (Dilaudid) 0.4 mg Q2H PRN IVP severe pain 09/26/18 02:45 10/03/18 02:44 09/26/18 06:53 Ketorolac Tromethamine (Toradol 30mg) 30 mg Q8H IV 09/26/18 00:00 09/26/18 16:01 UNV Lidocaine HCl (Xylocaine 1% 30ml) 30 ml ONCE PRN INJ PICC PLACEMENT 09/26/18 14:45 09/28/18 23:59 Montelukast Sodium (Singulair) 10 mg QPM ORAL 09/26/18 16:30 10/26/18 16:29 09/26/18 18:05 Ondansetron HCl (Zofran) 4 mg Q6H PRN IVP Nausea & Vomiting 09/25/18 19:00 10/25/18 18:44 Oxycodone/ Acetaminophen (Percocet 10/325) 1 tab Q4H PRN ORAL Pain 09/25/18 22:45 10/02/18 22:44 09/27/18 11:40 Salmeterol Xinafoate/ Fluticasone (Advair 250/50 Diskus) 1 puffs BID INH 09/26/18 09:00 10/26/18 08:59 Temazepam (Restoril) 7.5 mg HSPRN PRN ORAL Insomnia 09/25/18 19:00 10/02/18 18:44 Tramadol HCl (Ultram) 50 mg TIDPRN PRN ORAL Severe Breakthru Pain (>7) 09/26/18 07:30 10/02/18 22:44 Vancomycin HCl (Vanco rx to dose) 1 ea DAILY PRN MISC Per rx protocol 09/25/18 19:00 10/25/18 18:44 Vancomycin HCl/ Dextrose 275 ml @ 137.5 mls/ hr Q12H IVPB 09/27/18 16:00 10/02/18 15:59 Mary Ellen Jaimes MD Sep 27, 2018 17:04
[2018-09-27] MEDS: Montelukast 10mg tablet ORAL SCH (17:24)
--- NOTE | 2018-09-27 17:55 | NUR ---
NURSE NOTES: Patient remains hesitant about having PICC line inserted. Dr. Stern discussed plan with patient. At 1430, patient changed her mind about PICC line placement again, radiology was bedside to pick her up. human service technician and RN explained need for IV access for IV antibiotic and still waiting on pending culture results. Peripheral IV insertion attempted once more, to JOSE ARMANDO, patent initially, but when flushed, was unable to push through with ease, discontinued due to discomfort for patient and unable to flush. Restarted to LW at this time, will attempt to use for IVF/Vancomycin IV.
--- NOTE | 2018-09-27 19:30 | NUR ---
NURSE NOTES:RECEIVED PATIENT LYING IN BED, AWAKE, ALERT/ORIENTED X4, ABLE TO EFFECTIVELY VERBALIZE NEEDS, IV INTACT TO LEFT WRIST, NO REDNESS/SWELLING NOTED, TOLERATING IV FLUIDS. NO SIGNS AND SYMPTOMS OF ACUTE CARDIO RESPIRATORY DISTRESS/SHORTNESS OF BREATH, DENIES CHEST PAIN, NOTED WITH +1 NON PITTED EDEMA TO BILATERAL LOWER EXTREMITIES; S/P RIGHT KNEE ARTHROSCOPY/I AND D, AMY WRAP INTACT WITH ICE PACK. NO REPORT OF GI DISCOMFORT, LAST REPORTABLE BM 09/27/18, DENIES DIARRHEA. DISCHARGE PLAN ONCE MEDICALLY CLEARED, PATIENT AWARE. SIDE RAILS UP X2 FOR MOBILITY, BED IN LOWEST POSITION FOR SAFETY, ENCOURAGED PATIENT TO UTILIZE CALL LIGHT FOR ASSISTANCE, VERBALIZED UNDERSTANDING. NAD.
--- NOTE | 2018-09-27 19:50 | NUR ---
HAND-OFF: Report given to Stephanie RODRÍGUEZ.
[2018-09-27 20:00] VITALS: BP 140/74
[2018-09-27] MEDS: Dyna-Hex 2% Top Sol 2oz TOPIC SCH (20:00)
--- NOTE | 2018-09-27 20:30 | Progress Note ---
DATE: 09/27/2018 ORTHOPEDIC CONSULT PROGRESS NOTE HISTORY OF PRESENT ILLNESS: The patient is doing relatively well. She had no issues overnight. OBJECTIVE: VITAL SIGNS: Afebrile. Stable vital signs. There is mild drainage along the incision site. No erythema. No fluctuance. ASSESSMENT: I and D, right knee. DISCUSSION: At this point, culture is negative, but she has been partially treated with Keflex. Although the Gram stain was unremarkable, oncerning as the most reasonable thing to do is treat her for possibilities of infection with intravenous antibiotics for 6 weeks. We will go ahead and set her up for a PICC line. We will await final culture results and placed her on 6 weeks intravenous antibiotics and now follow up as outpatient. Atif Del Angel M.D. DR: AURELIANO JOB#: [id number] CC:
--- NOTE | 2018-09-27 21:15 | Consultation ---
DATE OF CONSULTATION: 09/27/2018 INFECTIOUS DISEASE CONSULTATION CONSULTING PHYSICIAN: Mary Ellen Jaimes M.D. ATTENDING PHYSICIAN: Vladimir Stern M.D. REFERRING PHYSICIAN: 1. Atif Del Angel M.D. 2. Vladimir Stern M.D. REASON FOR CONSULTATION: Possible infected right knee. CHIEF COMPLAINT: The patient's chief complaint coming into the hospital is possible right knee infection. HISTORY OF PRESENT ILLNESS: This is a very pleasant 58-year-old female who comes in to [facility] with right knee drainage of possible infection. The patient had a history of a right knee arthroscopy, meniscectomy, synovectomy, and chondroplasty. Postoperatively, she noted to have drainage and was given Keflex. The patient had continued to have drainage. The patient was admitted for incision and drainage of the right knee for possible infection. An Infectious Disease consultation is requested. She is currently on vancomycin. Intraoperative cultures are pending. Case discussed with Dr. Del Angel. REVIEW OF SYSTEMS: CONSTITUTIONAL: Main issue is the right knee drainage and pain. She said there was no pussy drainage, but there was some drainage at the right knee. I discussed the history of present illness. She denies any fever or chills. HEAD AND NECK: No head pain or neck pain. CARDIAC: No chest pain. GASTROINTESTINAL: No nausea, vomiting, or diarrhea. GENITOURINARY: No dysuria or frequency. PULMONARY: No congestion or shortness of breath. SKIN: No rash. PAST MEDICAL HISTORY: The patient's past medical history includes the following. She has a history of diabetes and hypertension, both are controlled at this time. She has history of asthma. She has a history of obesity, history of right knee arthroscopy, history of polycystic ovarian syndrome, and internal knee derangement. In regards to her diabetes and hypertension, it is unclear if she still has, but she did have a history of elevated blood sugars and blood pressure, but seems to be controlled currently and I do not believe the patient to be controlled at this time, but she does have history of obesity and asthma and internal knee derangement and polycystic ovarian syndrome. MEDICATIONS: Upon reviewing the MAR, she is on the following medications. She is on vancomycin. She is on chlorhexidine. She is on Singulair. She is on heparin. She is on Celebrex. She is on Colace. She is on tramadol. She is on Dilaudid, intravenous fluids, oxycodone, albuterol, hydrocodone, and Restoril. Outside medications were noted and reconciliated. ALLERGIES: Include celecoxib and hydrocodone. SOCIAL HISTORY: Negative for smoking, alcohol, or drug abuse. 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 FAMILY HISTORY: Positive for diabetes. PHYSICAL EXAMINATION: VITAL SIGNS: Temperature 98.1, pulse 72, respiratory rate 20, blood pressure 119/65, and saturation 96%. GENERAL: Alert and responsive, in no acute distress. She is oriented x3. HEAD AND NECK: Oral exam, no thrush. Eye exam, no icterus. Neck is supple. No jugular venous distention. LUNGS: Clear bilaterally. No rhonchi or rales. HEART: Regular. No gallop or murmur. ABDOMEN: Soft. Positive bowel sounds. Nontender. SKIN: No rash. MUSCULOSKELETAL: Right knee is covered postsurgically. Legs are without cellulitis. No other rash. PERIPHERAL VASCULAR: No gangrene. NEUROLOGIC: Intact. LINE SITES: Without phlebitis. GENITOURINARY: No Casanova. LABORATORY DATA: Laboratory data is as follows: Creatinine 0.8. White count 4.5 and hemoglobin 14.2. Sedimentation rate is 20. CRP is 2.4. Right knee synovial fluid showed 91% of mononuclear cells and only 28 cells total. Body fluid cultures are negative to date. Body fluid culture is pending. Intraoperative cultures are pending. Chest x-ray is negative. No white cells or organisms seen in the aspiration. ASSESSMENT AND PLAN: 1. Possible right knee infection, rule out infected wound. Fluid analysis is not consistent with septic arthritis, questionable underlying osteo. The patient is status post recent right knee arthroscopic medial meniscectomy, synovectomy, and chondroplasty. The patient was on outpatient Keflex. At this time, continue intravenous vancomycin for the possibility of right knee infection. Follow up on intraoperative cultures. The patient again is status post debridement and revision of the right knee and I and D of the right knee. Continue vancomycin. Check cultures. Watch creatinine closely. In regards to the length of antibiotic treatment course, we will depend on the cultures and again, we will discuss with Orthopedic Surgery and also Dr. Del Angel and also Dr. Stern from primary care team and Internal Medicine. Continue vancomycin for possible right knee infected wound and possible osteo. Again, a septic arthritis is less likely. Follow up on intraoperative cultures. Monitor creatinine. 2. Questionable history of diabetes and hypertension. Per the patient, she did have a history of elevated blood pressure and blood sugars, but now controlled. 3. History of obesity, but the patient has lost weight. 4. Asthma. 5. History of right knee arthroscopy. 6. History of internal knee derangement. 7. History of polycystic ovarian syndrome. 8. Social history is negative. 9. Family history is noncontributory. 10. MAR was noted. 11. Case was discussed with RN. 12. Allergies include celecoxib and hydrocodone. 13. MAR was noted. 14. Case was discussed with the patient. 15. Continue treatment per primary consultants and Orthopedic Surgery follow up. Mary Ellen Jaimes M.D. DR: JALYN JOB#: [id number] CC:
[2018-09-28] VITALS: BP 138/74
[2018-09-28 04:00] VITALS: BP 141/72
[2018-09-28] MEDS ORDERED: D5 1/2NS 1000ml IV ONE ×3 (05:54→16:20)
[2018-09-28] MEDS ORDERED: Tubing IV Secondary IV ONE (05:54)
[2018-09-28] MEDS: Vancomycin 1.5gm Premix IVPB SCH ×2 (06:21→17:46)
--- NOTE | 2018-09-28 06:52 | NUR ---
NURSE NOTES: RESTED WELL THROUGHOUT THE NIGHT, NO SIGNIFICANT CHANGE OF CONDITION NOTED. DRESSING REMAIN DRY AND INTACT TO RIGHT KNEE. SAFETY MAINTAINED. NAD. CONTINUE WITH CURRENT PLAN OF CARE.
[2018-09-28 07:11] LABS: BASOPHILS % (AUTO) 1.2 % (0.0-2.0); EOSINOPHILS % (AUTO) 7.4 % (0.0-3.0); HEMATOCRIT 38.4 % (37.0-47.0); HEMOGLOBIN 12.8 G/DL (12.0-16.0); LYMPHOCYTES % (AUTO) 32.6 % (20.0-45.0); MEAN CORPUSCULAR VOLUME 89 FL (80-99); MONOCYTES % (AUTO) 11.1 % (1.0-10.0); NEUTROPHILS % (AUTO) 47.7 % (45.0-75.0); PLATELET COUNT 292 K/UL (150-450); RED BLOOD COUNT 4.33 M/UL (4.20-5.40); RED CELL DISTRIBUTION WIDTH 12.3 % (11.6-14.8); WHITE BLOOD COUNT 4.7 K/UL (4.8-10.8)
[2018-09-28 07:25] LABS: ANION GAP 9 mmol/L (5-15); BLOOD UREA NITROGEN 10 mg/dL (7-18); CALCIUM 8.6 MG/DL (8.5-10.1); CARBON DIOXIDE 27 MMOL/L (21-32); CHLORIDE 104 MMOL/L (98-107); CREATININE 0.7 MG/DL (0.55-1.30); POTASSIUM 3.3 MMOL/L (3.5-5.1); SODIUM 140 MMOL/L (136-145)
--- NOTE | 2018-09-28 07:31 | NUR ---
NURSE NOTES: ASLEEP. RT KNEE DRESSING DRY AND INTACT PAIN SCALE 3/10. IN NO ACUTE DISTRESS.
[2018-09-28 08:00] VITALS: BP 140/84
--- NOTE | 2018-09-28 08:17 | NUR ---
NURSE NOTES: K 3.3 DR Homer WESTON CALLED LEFT MESSAGE TO RETURN CALL.
[2018-09-28] MEDS: Docusate 100mg cap ORAL SCH ×4 (08:49→17:46)
[2018-09-28] MEDS: Heparin 5000 units/ml inj SUBQ SCH ×2 (08:51→20:08)
[2018-09-28] MEDS: Wixela 250/50 Inhaler - 60 dose INH SCH ×2 (09:53→22:48)
[2018-09-28 12:00] VITALS: BP 130/69
--- NOTE | 2018-09-28 14:17 | NUR ---
CASE MANAGEMENT: REVIEW 09/28/2018 SI:DRAINAGE FROM RIGHT KNEE. Right knee arthroscopic I and D and lavage. T 98.3 HR 91 RR 20 B/P 130/69 SATS 92% ON RA WBC 4.7 K 3.3 GLU 176 IS: ADVAIR INH BID CELEBREX PO QD VANCO IV Q12H IVF @ 150 mL/HR TORADOL IV Q8H MED/SURG STATUS DCP: PATIENT TO BE DISCHARGED TO HOME ONCE MEDICALLY CLEARED. PLAN OF CARE: POST OP CARE IV ANTIBx
[2018-09-28] MEDS: D5 1/2NS 1,000 ML IV SCH (14:18)
--- NOTE | 2018-09-28 15:07 | NUR ---
NURSE NOTES: dr heriberto boles called re k 3.3 with order.
[2018-09-28 16:00] VITALS: BP 124/78
[2018-09-28] MEDS: Montelukast 10mg tablet ORAL SCH (16:32)
--- NOTE | 2018-09-28 19:07 | NUR ---
NURSE NOTES: resting in bed. in no apparent distress.
--- NOTE | 2018-09-28 19:08 | NUR ---
HAND-OFF: Report given to Homer RODRIGUEZ.BECKY.
--- NOTE | 2018-09-28 19:30 | NUR ---
NURSE NOTES: RECEIVED PATIENT LYING IN BED, AWAKE, ALERT/ORIENTED X4, VERBALLY RESPONSIVE, DENIES PAIN. NO SIGNS AND SYMPTOMS OF ACUTE CARDIO RESPIRATORY DISTRESS/SHORTNESS OF BREATH, DENIES CHEST PAIN. S/P RIGHT KNEE ARTHROSCOPY, I AND D/ DRESSING DRY AND INTACT / ICE PACK REINFORCED. NO COMPLAINTS OF GI DISCOMFORT, NO N/V/D, BEDSIDE COMMODE AVAILABLE. SIDE RAILS UP X2 FOR MOBILITY, BED IN LOWEST POSITION FOR SAFETY, ENCOURAGED PATIENT TO UTILIZE CALL LIGHT FOR ASSISTANCE, VERBALIZED UNDERSTANDING. NAD.
[2018-09-28 20:00] VITALS: BP 129/78
[2018-09-28] MEDS: Dyna-Hex 2% Top Sol 2oz TOPIC SCH (20:00)
--- NOTE | 2018-09-28 21:35 | General Progress Note ---
Assessment/Plan Assessment/Plan: monoarthritis post knee arthroscopy on antibotic oper id willfollow renal parameters donig ok dvt ptrophyalxis. picc line sunday Subjective Date patient seen: Sep 28, 2018 Time patient seen: 21:33 Constitutional: Reports: no symptoms HEENT: Reports: no symptoms Cardiovascular: Reports: no symptoms Respiratory: Reports: no symptoms Allergies: Coded Allergies: CELECOXIB (Verified Allergy, Severe, dyspnea, 09/25/18) HYDROCODONE (Verified Allergy, Severe, Rash, 09/25/18) Objective Last 24 Hour Vital Signs Date Time Temp Pulse Resp B/P (MAP) Pulse Ox O2 Delivery O2 Flow Rate FiO2 09/28/18 20:00 98.7 101 18 129/78 (95) 94 09/28/18 16:00 98.5 103 18 124/78 (93) 93 09/28/18 12:00 98.3 91 20 130/69 (89) 92 09/28/18 10:46 97.8 09/28/18 09:33 Room Air 09/28/18 08:00 97.8 96 140/84 (102) 94 09/28/18 04:00 98.7 95 19 141/72 (95) 93 09/28/18 00:00 98.0 91 18 138/74 (95) 94 Intake and Output 09/27/18 09/28/18 19:00 07:00 Intake Total 1430 ml 1140 ml Balance 1430 ml 1140 ml Intake Oral 1430 ml 240 ml IV Total 900 ml # Voids 3 3 # Bowel Movements 1 Laboratory Tests 09/28/18 06:20: White Blood Count 4.7L, Red Blood Count 4.33, Hemoglobin 12.8, Hematocrit 38.4, Mean Corpuscular Volume 89, Mean Corpuscular Hemoglobin 29.7, Mean Corpuscular Hemoglobin Concent 33.4, Red Cell Distribution Width 12.3, Platelet Count 292, Mean Platelet Volume 5.9L, Neutrophils (%) (Auto) 47.7, Lymphocytes (%) (Auto) 32.6, Monocytes (%) (Auto) 11.1H, Eosinophils (%) (Auto) 7.4H, Basophils (%) ( Auto) 1.2, Sodium Level 140, Potassium Level 3.3L, Chloride Level 104, Carbon Dioxide Level 27, Anion Gap 9, Blood Urea Nitrogen 10, Creatinine 0.7, Estimat Glomerular Filtration Rate > 60, Glucose Level 176H, Calcium Level 8.6 Height (Feet): 5 Height (Inches): 5.00 Weight (Pounds): 326 Objective obese female not in cute diostress s1,s2,rrr distant breat sounds no clubbing Vladimir Stern MD Sep 28, 2018 21:35
[2018-09-29] VITALS: BP 109/66
[2018-09-29 04:00] VITALS: BP 114/72
[2018-09-29] MEDS: Vancomycin 1.5gm Premix IVPB SCH (06:04)
--- NOTE | 2018-09-29 07:30 | NUR ---
HAND-OFF: Report given to ANNE DELGADILLO.
--- NOTE | 2018-09-29 07:51 | NUR ---
NURSE NOTES: received report from BECKY Lopez. patient in bed. alert. oriented. verbally responsive. no respiratory distress noted on room air. pain on rt knee. IV on Lt hand 24g heplock. intact. vanco tx 1700. bed in the lowest position . call light within reach. will continue to provide plan of care.
[2018-09-29 08:00] VITALS: BP 124/79
[2018-09-29] MEDS: Docusate 100mg cap ORAL SCH ×4 (09:00→17:28)
[2018-09-29] MEDS: Heparin 5000 units/ml inj SUBQ SCH ×2 (09:14→20:29)
--- NOTE | 2018-09-29 09:53 | NUR ---
SENIOR MATERIALS PLANNERFINISHED GOODS STOCK CLERK SI:ACHROMOBACTER RIGHT KNEE INFECTED WOUND VS: BP 148/79, P 92, T 97.4, RR 20 SpO2 94 IS:VANCOMYCIN 275ml IVPB CEFEPIME 100ml IVPB SINGULAIR 10mg MEROPENEM 55ml IVPB OXYCODONE 1tab FLUTICASONE 1puff INH 3E MED/SURG STATUS
[2018-09-29] MEDS: Wixela 250/50 Inhaler - 60 dose INH SCH ×2 (10:20→20:25)
--- NOTE | 2018-09-29 11:24 | NUR ---
NURSE NOTES: received call from pharmacy for clarifying medications. patient has order of Celecoxib and toradol PRN. patient has allergy with those medications. notified Bean De Jesus regarding medication order and waiting for further directions.
[2018-09-29 12:00] VITALS: BP 136/88
[2018-09-29] MEDS: Meropenem 1gm in NS 55ml IVPB SCH ×2 (14:00→21:30)
--- NOTE | 2018-09-29 14:31 | Infectious Diseases Prog Note ---
Assessment/Plan Assessment/Plan ASSESSMENT AND PLAN: 1. achromobacter right knee infected wound with possible septic arthritis and ? osteomyelitis - meropenem started - day # 1 - check on ertapenem sensitivities - monitor labs - likely will need 4-6 weeks iv antibiotics - d/w pharmacy 2. Questionable history of diabetes and hypertension. Per the patient, she did have a history of elevated blood pressure and blood sugars, but now controlled. 3. History of obesity, but the patient has lost weight. 4. Asthma. 5. History of right knee arthroscopy. 6. History of internal knee derangement. 7. History of polycystic ovarian syndrome. 8. Social history is negative. 9. Family history is noncontributory. 10. MAR was noted. 11. Case was discussed with RN. 12. Allergies include celecoxib and hydrocodone. 13. MAR was noted. 14. Case was discussed with the patient and answered questions Subjective Constitutional: Reports: other - no fevers ; Denies: fever HEENT: Denies: congestion Respiratory: Denies: shortness of breath Cardiovascular: Denies: chest pain Gastrointestinal/Abdominal: Denies: nausea, vomiting, diarrhea Genitourinary: Reports: other - no novoa Neurologic: Denies: headache Psychiatric: Denies: depression Skin: Denies: rash Hematologic: Denies: bleeding Musculoskeletal: Reports: pain - controlled Allergies: Coded Allergies: CELECOXIB (Verified Allergy, Severe, dyspnea, 09/25/18) HYDROCODONE (Verified Allergy, Severe, Rash, 09/25/18) Objective Vital Signs Last 24 Hour Vital Signs Date Time Temp Pulse Resp B/P (MAP) Pulse Ox O2 Delivery O2 Flow Rate FiO2 09/29/18 12:00 97.5 92 20 136/88 (104) 94 09/29/18 10:22 86 18 97 Room Air 21 09/29/18 10:20 85 18 97 Room Air 21 09/29/18 09:00 Room Air 09/29/18 08:00 97.9 94 18 124/79 (94) 96 09/29/18 04:00 98.3 98 18 114/72 (86) 94 09/29/18 00:00 98.0 100 18 109/66 (80) 93 09/28/18 21:00 Room Air 09/28/18 20:00 98.7 101 18 129/78 (95) 94 09/28/18 16:00 98.5 103 18 124/78 (93) 93 Height (Feet): 5 Height (Inches): 5.00 Weight (Pounds): 326 General Appearance: no acute distress HEENT: normocephalic, atraumatic, anicteric, mucous membranes moist Respiratory/Chest: lungs clear, normal breath sounds, no respiratory distress, no accessory muscle use Cardiovascular: normal rate, regular rhythm, no gallop/murmur, no JVD Abdomen: normal bowel sounds, non distended Genitourinary: other - no novoa Extremities: no cyanosis, other - no cellulitis Skin: no rash Neurologic/Psychiatric: 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 grossly normal, alert, oriented x 3, responsive Lymphatic: no neck adenopathy Musculoskeletal: other - right knee covered Objective Chest x-ray - nad Microbiology Date/Time Source Procedure Growth Status 09/25/18 19:31 Synovial Fluid Anaerobic Culture - Preliminary NO GROWTH AFTER 72 HOURS Resulted Microbiology Date/Time Source Procedure Growth Status 09/25/18 19:31 Synovial Fluid Anaerobic Culture - Preliminary NO GROWTH AFTER 72 HOURS Resulted Labs Test 09/28/18 06:20 White Blood Count 4.7 K/UL (4.8-10.8) Red Blood Count 4.33 M/UL (4.20-5.40) Hemoglobin 12.8 G/DL (12.0-16.0) Hematocrit 38.4 % (37.0-47.0) Mean Corpuscular Volume 89 FL (80-99) Mean Corpuscular Hemoglobin 29.7 PG (27.0-31.0) Mean Corpuscular Hemoglobin Concent 33.4 G/DL (32.0-36.0) Red Cell Distribution Width 12.3 % (11.6-14.8) Platelet Count 292 K/UL (150-450) Mean Platelet Volume 5.9 FL (6.5-10.1) Neutrophils (%) (Auto) 47.7 % (45.0-75.0) Lymphocytes (%) (Auto) 32.6 % (20.0-45.0) Monocytes (%) (Auto) 11.1 % (1.0-10.0) Eosinophils (%) (Auto) 7.4 % (0.0-3.0) Basophils (%) (Auto) 1.2 % (0.0-2.0) Sodium Level 140 MMOL/L (136-145) Potassium Level 3.3 MMOL/L (3.5-5.1) Chloride Level 104 MMOL/L (98-107) Carbon Dioxide Level 27 MMOL/L (21-32) Anion Gap 9 mmol/L (5-15) Blood Urea Nitrogen 10 mg/dL (7-18) Creatinine 0.7 MG/DL (0.55-1.30) Estimat Glomerular Filtration Rate > 60 mL/min (>60) Glucose Level 176 MG/DL (74-106) Calcium Level 8.6 MG/DL (8.5-10.1) Current Medications Medications (Trade) Dose Ordered Sig/Andres Route PRN Reason Start Time Stop Time Status Last Admin Dose Admin Acetaminophen/ Hydrocodone Bitart ([place] 5/325) 1 tab Q4H PRN ORAL For Pain 09/25/18 19:00 10/02/18 18:44 Albuterol Sulfate (Proventil MDI) 2 puff Q6HR PRN INH Shortness of Breath 09/25/18 22:45 10/25/18 22:44 Celecoxib (CeleBREX) 200 mg DAILY ORAL 09/26/18 09:00 10/26/18 08:59 UNV Chlorhexidine Gluconate (Laverne-Hex 2%) 1 applic DAILY@1999 TOPIC 09/26/18 20:00 10/26/18 19:59 Diphenhydramine HCl (Benadryl) 50 mg Q8H ORAL 09/26/18 20:00 10/26/18 19:59 09/29/18 12:12 Docusate Sodium (Colace) 100 mg THREE TIMES A DAY ORAL 09/26/18 09:00 10/26/18 08:59 09/26/18 18:05 Heparin Sodium (Porcine) (Heparin 5000 units/ml) 5,000 units EVERY 12 HOURS SUBQ 09/26/18 09:00 10/26/18 08:59 09/29/18 09:14 Hydromorphone HCl (Dilaudid) 0.4 mg Q2H PRN IVP severe pain 09/26/18 02:45 10/03/18 02:44 09/26/18 06:53 Ketorolac Tromethamine (Toradol 30mg) 30 mg Q8H IV 09/26/18 00:00 09/26/18 16:01 UNV Meropenem 1 gm/ Sodium Chloride 55 ml @ 110 mls/hr Q8HR IVPB 09/29/18 14:00 10/04/18 13:59 09/29/18 14:00 Montelukast Sodium (Singulair) 10 mg QPM ORAL 09/26/18 16:30 10/26/18 16:29 09/28/18 16:32 Ondansetron HCl (Zofran) 4 mg Q6H PRN IVP Nausea & Vomiting 09/25/18 19:00 10/25/18 18:44 Oxycodone/ Acetaminophen (Percocet 10/325) 1 tab Q4H PRN ORAL Pain 09/25/18 22:45 10/02/18 22:44 09/29/18 07:38 Salmeterol Xinafoate/ Fluticasone (Advair 250/50 Diskus) 1 puffs Q12HR INH 09/28/18 21:00 10/26/18 08:59 09/29/18 10:20 Temazepam (Restoril) 7.5 mg HSPRN PRN ORAL Insomnia 09/25/18 19:00 10/02/18 18:44 Tramadol HCl (Ultram) 50 mg TIDPRN PRN ORAL Severe Breakthru Pain (>7) 09/26/18 07:30 10/02/18 22:44 Mary Ellen Jaimes MD Sep 29, 2018 14:31
[2018-09-29 16:00] VITALS: BP 130/70
--- NOTE | 2018-09-29 16:25 | NUR ---
NURSE NOTES: Dr. Stern ordered warm pack 5x a day on Lt. arm, Motrin 200mg BID for 5 days, Lactobacillus 1 tab BID. Noted and carried out.
--- NOTE | 2018-09-29 16:27 | General Progress Note ---
Assessment/Plan Assessment/Plan: septic knee ................................................................................ ................ Lashaun Romero MD, PhD, Laboratory Cnc Machine Setter Specimen Inquiry Report PATIENT: BARBARA JORDAN RIKA LOC: 3E U # : [id number] AGE/SX: 58/F ROOM: [facility] REG : 09/25/[address]: Vladimir Stern MD : 1960 BED: 1 DIS : STATUS: ADM IN TLOC: SPEC #: [id number] ALLEN: 09/25/18 STATUS: COMP REQ #: [id number] RECD: 09/25/[address]: Bernardo Kowalski MD SOURCE: SYN FLD ENTR: 09/25/[address]: NON PHYSICIAN SPDESC: TAYLOR RHODES ORDERED: BODY FLD CUL&GS QUERIES: SPECIMEN SOURCE RT KNEE ASPIRATION Procedure Result GRAM STAIN Final GRAM STAIN RESULT NO WHITE BLOOD CELLS NO ORGANISMS SEEN CULTURE BODY FLUID RESULT Final Organism 1 ACHROMOBACTER XYLOSOXIDANS GROWTH: 1+ A.XYLOSOXI M.I.C. RX --------- --- CEFTAZIDIME 4 S CEFTRIAXONE >=64 R CEFEPIME 16 I CIPROFLOXACIN 2 I GENTAMICIN >=16 R LEVOFLOXACIN 2 S IMIPENEM 1 S TRIMETHOPRIM/SULFA <=20 S AMIKACIN >=64 R PIPERACILLIN/TAZOBACTAM <=4 S above culture antibiotic per id no historyuof seizure disorder starther on probiotics ..................................................... monitor closely dvt prophyalxis ........................................................... RIGHT WRIST NOTED TO HAVE SUPERFICIAL PHELEBITIS WILL HAV EHR PLACED ON MOTRIN 200 BID FOR [address] WARM OPACK NAD FOLLOW ......................................................... Subjective Date patient seen: Sep 29, 2018 Time patient seen: 16:23 Allergies: Coded Allergies: CELECOXIB (Verified Allergy, Severe, dyspnea, 09/25/18) HYDROCODONE (Verified Allergy, Severe, Rash, 09/25/18) Subjective Lashaun Romero MD, PhD, Laboratory Cnc Machine Setter Specimen Inquiry Report PATIENT: BARBARA JORDAN LOC: 3E U # : [id number] AGE/SX: 58/F ROOM: [facility] REG : 09/25/[address]: Vladimir Stern MD : 1960 BED: 1 DIS : STATUS: ADM IN TLOC: SPEC #: [id number] ALLEN: 09/25/18 STATUS: COMP REQ #: [id number] RECD: 09/25/[address]: Bernardo Kowalski MD SOURCE: SYN FLD ENTR: 09/25/[address] [facility] [address]: [place] PHYSICIAN SPDESC: TAYLOR RHODES ORDERED: BODY FLD CUL&GS QUERIES: SPECIMEN SOURCE RT KNEE ASPIRATION Procedure Result GRAM STAIN Final GRAM STAIN RESULT NO WHITE BLOOD CELLS NO ORGANISMS SEEN CULTURE BODY FLUID RESULT Final Organism 1 ACHROMOBACTER XYLOSOXIDANS GROWTH: 1+ A.XYLOSOXI M.I.C. RX --------- --- CEFTAZIDIME 4 S CEFTRIAXONE >=64 R CEFEPIME 16 I CIPROFLOXACIN 2 I GENTAMICIN >=16 R LEVOFLOXACIN 2 S IMIPENEM 1 S TRIMETHOPRIM/SULFA <=20 S AMIKACIN >=64 R PIPERACILLIN/TAZOBACTAM <=4 S above culture is noted has no fever no chills no chest pain taking percocet for pain no chills Objective Last 24 Hour Vital Signs Date Time Temp Pulse Resp B/P (MAP) Pulse Ox O2 Delivery O2 Flow Rate FiO2 09/29/18 12:00 97.5 92 20 136/88 (104) 94 09/29/18 10:22 86 18 97 Room Air 21 09/29/18 10:20 85 18 97 Room Air 21 09/29/18 09:00 Room Air 09/29/18 08:00 97.9 94 18 124/79 (94) 96 09/29/18 04:00 98.3 98 18 114/72 (86) 94 09/29/18 00:00 98.0 100 18 109/66 (80) 93 09/28/18 21:00 Room Air 09/28/18 20:00 98.7 101 18 129/78 (95) 94 Intake and Output 09/28/18 09/29/18 19:00 07:00 Intake Total 1787.5 ml 460 ml Balance 1787.5 ml 460 ml Intake Oral 600 ml 360 ml IV Total 1187.5 ml 100 ml # Voids 4 3 Height (Feet): 5 Height (Inches): 5.00 Weight (Pounds): 326 General Appearance: WD/WN Cardiovascular: normal rate Respiratory/Chest: lungs clear Objective obese female not in cute diostress s1,s2,rrr distant breat sounds no clubbing Vladimir Stern MD Sep 29, 2018 16:26
--- NOTE | 2018-09-29 16:42 | NUR ---
NURSE NOTES: Seen by Dr. Stern. Dr. Stern ordered motrin for pain. patient said she has a severe allergy to NSAIDS medication. notified dr. stern and canceled the order.
[2018-09-29] MEDS: Montelukast 10mg tablet ORAL SCH (16:47)
[2018-09-29] MEDS: Lactobacillus-GG tablet ORAL SCH (17:28)
--- NOTE | 2018-09-29 19:02 | NUR ---
HAND-OFF: Report given to BECKY Lopez.
--- NOTE | 2018-09-29 19:43 | NUR ---
NURSE NOTES: RECEIVED PATIENT LYING IN BED, AWAKE, ALERT/ORIENTED X4, VERBALLY RESPONSIVE, DENIES PAIN. NO SIGNS AND SYMPTOMS OF ACUTE CARDIO RESPIRATORY DISTRESS/SHORTNESS OF BREATH, DENIES CHEST PAIN. S/P RIGHT KNEE ARTHROSCOPY, I AND D, AMY WRAP INTACT, REAPPLIED ICE PACK - WARM COMPRESS TO LEFT WRIST, TOLERATING WELL. NO REPOT OF GI DISCOMFORT, NO N/V/D. SIDE RAILS UP X2 FOR MOBILITY, BED IN LOWEST POSITION FOR SAFETY. ENCOURAGED PATIENT TO UTILIZE CALL LIGHT FOR ASSISTANCE, VERBALIZED UNDERSTANDING. NAD.
[2018-09-29 20:00] VITALS: BP 148/79
[2018-09-29] MEDS: Dyna-Hex 2% Top Sol 2oz TOPIC SCH (20:00)
--- NOTE | 2018-09-29 21:28 | NUR ---
NURSE NOTES: APPLIED WARM COMPRESS TO LEFT WRIST, TOLERATED WELL-
[2018-09-30] VITALS: BP 125/66
[2018-09-30 04:00] VITALS: BP 122/70
[2018-09-30] MEDS: Meropenem 1gm in NS 55ml IVPB SCH ×3 (05:18→21:34)
--- NOTE | 2018-09-30 06:46 | NUR ---
NURSE NOTES: RESTED WELL, NO SIGNIFICANT CHANGE OF CONDITION NOTED THROUGHOUT THE NIGHT. SAFETY MAINTAINED. NAD.
[2018-09-30 08:00] VITALS: BP 127/83
[2018-09-30 08:01] LABS: BASOPHILS % (AUTO) 1.3 % (0.0-2.0); EOSINOPHILS % (AUTO) 9.9 % (0.0-3.0); HEMATOCRIT 40.8 % (37.0-47.0); HEMOGLOBIN 13.5 G/DL (12.0-16.0); LYMPHOCYTES % (AUTO) 29.7 % (20.0-45.0); MEAN CORPUSCULAR VOLUME 90 FL (80-99); NEUTROPHILS % (AUTO) 52.2 % (45.0-75.0); PLATELET COUNT 273 K/UL (150-450); RED BLOOD COUNT 4.55 M/UL (4.20-5.40); RED CELL DISTRIBUTION WIDTH 12.4 % (11.6-14.8); WHITE BLOOD COUNT 6.1 K/UL (4.8-10.8)
--- NOTE | 2018-09-30 08:16 | NUR ---
NURSE NOTES: Pt awake able to verbalize known needs. Bandage is clean and intact , Denies pain at this time. Current plan of care , will be followed
[2018-09-30 08:26] LABS: ALANINE AMINOTRANSFERASE 22 U/L (12-78); ALBUMIN/GLOBULIN RATIO 0.9 (1.0-2.7); ALKALINE PHOSPHATASE 80 U/L (46-116); ANION GAP 9 mmol/L (5-15); ASPARTATE AMINO TRANSFERASE 23 U/L (15-37); BLOOD UREA NITROGEN 10 mg/dL (7-18); CALCIUM 9.1 MG/DL (8.5-10.1); CARBON DIOXIDE 26 MMOL/L (21-32); CHLORIDE 104 MMOL/L (98-107); CREATININE 0.8 MG/DL (0.55-1.30); POTASSIUM 4.1 MMOL/L (3.5-5.1); SODIUM 139 MMOL/L (136-145)
[2018-09-30] MEDS ORDERED: Lidocaine 1% Plain 30 ml INJ PRN (08:30)
[2018-09-30] MEDS ORDERED: Heparin1,000 units/500ml Premix(Conc:2 units/ml) IV PRN (08:30)
[2018-09-30] MEDS: Lactobacillus-GG tablet ORAL SCH ×2 (08:52→18:01)
[2018-09-30] MEDS: Heparin 5000 units/ml inj SUBQ SCH ×2 (08:52→20:27)
[2018-09-30 08:53] LABS: BILIRUBIN,TOTAL 0.5 MG/DL (0.2-1.0)
[2018-09-30] MEDS: Docusate 100mg cap ORAL SCH ×3 (09:00→18:00)
[2018-09-30] MEDS: Wixela 250/50 Inhaler - 60 dose INH SCH ×2 (09:03→20:23)
--- NOTE | 2018-09-30 10:00 | NUR ---
RADIOLOGY: RT SIDE PICC PLACED
--- NOTE | 2018-09-30 10:15 | NUR ---
CAPACITOR TESTERBOAT LABORER SI:ACHROMOBACTER RIGHT KNEE INFECTED WOUND VS: BP 127/83, P 101, T 98.0, RR 19, SpO2 93 Glucose 153, Albumin 3.0Total Protein 6.3 IS:FLUTICASONE 1puffs INH HEPARIN SUBQ PERCOCET 10/325 1tab MEROPENEM 55ml IVPB SINGULAIR 10mg 3E MED/SURG STATUS
--- NOTE | 2018-09-30 10:32 | Pre-Procedure Note/Attestation ---
Pre-Procedure Note/Attestation Complete Prior to Procedure Planned Procedure: not applicable Procedure Narrative: PICC Indications for Procedure Pre-Operative Diagnosis: iinfection Attestation I attest that I discussed the nature of the procedure; its benefits; risks and complications; and alternatives (and the risks and benefits of such alternatives ), prior to the procedure, with the patient (or the patient's legal surgical device sales representative). I attest that, if there was a reasonable possibility of needing a blood transfusion, the patient (or the patient's legal surgical device sales representative) was given the [facility] standardized written summary, pursuant to the Jasen [place] Blood Safety Act ([place] Health and Safety Code # 1645, as amended). I attest that I re-evaluated the patient just prior to the surgery and that there has been no change in the patient's H&P, except as documented below: Ben Duron MD Sep 30, 2018 10:32
--- NOTE | 2018-09-30 10:32 | NUR ---
NURSE NOTES: Pt returned from receiving PICC line.
--- NOTE | 2018-09-30 10:33 | Brief Operative Note ---
Immediate Post Operative Note Operative Note Pre-op Diagnosis: iinfection Procedure: PICC Post-op Diagnosis: same as pre-op Surgeon: Patricio White Anesthesia: local Specimen: none Complications: none Fluids: NONE Implant(s) used?: No Ben White MD Sep 30, 2018 10:33
--- NOTE | 2018-09-30 10:47 | Diagnostic Imaging Report ---
Indications: Needs long-term IV access Technique: Ultrasound confirms patent compressible right basilic vein. Total sterile technique, including sterile probe cover and sterile gel, hat, mask, sterile gown, large sterile drape, and preparation with 2% chlorhexidine utilized. Local anesthesia with 1% lidocaine. Under real-time ultrasound guidance, puncture basilic vein using 21-gauge needle, documented and archived, passage 0.018 guidewire under direct fluoroscopy, which was used to determine appropriate catheter length, exchange for 4 Albanian peel-away sheath. 4 Albanian Bard dual-lumen power PICC cut to 46 cm. It was inserted through the peel-away sheath. Peel-away sheath and guidewire removed. Catheter fixed to the skin. Both catheter ports aspirated and flushed. Patient tolerated procedure well, without immediate complication. Digital radiograph documents satisfactory catheter tip position, at the cavoatrial junction. Total fluoroscopy time 20.3 seconds. Total dose area product 6.2 mGym2 Total number of images: 1 Impression: Successful placement of right arm PICC under sonographic and fluoroscopic guidance, as described above.
[2018-09-30 12:00] VITALS: BP 129/75
--- NOTE | 2018-09-30 14:17 | NUR ---
iNSURANCE REVIEWS FAXED TO AUTH# [id number] ELEVATOR REPAIRER APPRENTICE: MARCO De La Vega FAX CLINICALS TO: [phone]
--- NOTE | 2018-09-30 15:00 | NUR ---
NURSE NOTES: Pt provided with antibiotic no possible side effects noted or reported. Skin is clear no presence of possible dermatological side effect
--- NOTE | 2018-09-30 15:35 | NUR ---
NURSE NOTES: Pt is doing well states feels better after oxygen is placed
[2018-09-30 16:00] VITALS: BP 144/88
--- NOTE | 2018-09-30 17:17 | Diagnostic Imaging Report ---
Indication: Shortness of breath Technique: One view of the chest Comparison: 09/25/2017 Findings: Heart is enlarged. Lungs and pleural spaces are clear. There is no significant interim change Impression: No acute process
[2018-09-30] MEDS: Montelukast 10mg tablet ORAL SCH (18:01)
--- NOTE | 2018-09-30 18:37 | NUR ---
NURSE NOTES: Dr Stern phoned to report abnormal EKG that states ischemia and sinus tachycardia. Pt stated that she might feel better with respiratory . Awaiting return phone call. Pt is breathing slightly labored , charge nurse made aware . Pt is not diaphoretic at this time and able to speak without catching her breathe. Call light is in reach.
--- NOTE | 2018-09-30 19:31 | NUR ---
HAND-OFF: Report given to Jm PENA made aware of abnormal EKG and that Dr Stern was phoned awaiting return phone call.
--- NOTE | 2018-09-30 19:31 | NUR ---
NURSE NOTES:Patient received from MADHAV Robertson patient A/A/A X4 . Patient denies any pain at this time . patient on o2 2 Lvia n/c in place .JOSE ARMANDO Picc line double lumen in place . Right knee dressing C/D/I patient assisted to BSC and assisted back to bed with out catching her breathing at this time and able to speak . safety . fall implemented .Call light within reach. bed in low position . Alarm on .will continue to monitor .
--- NOTE | 2018-09-30 19:53 | NUR ---
NURSE NOTES:DR. Stern called back stated "he's coming to see patient shortly":
[2018-09-30 20:00] VITALS: BP 138/78
[2018-09-30] MEDS ORDERED: Dyna-Hex 2% Top Sol 2oz TOPIC SCH (20:00)
--- NOTE | 2018-09-30 21:50 | General Progress Note ---
Assessment/Plan Assessment/Plan: shortness of breath in a female with abnormal ekg tachy cardic as well plan troponin q8 x3 transfer to monitor bed r/o pe get ct angio chest get venous douplex and will follow check bnp ... septic knee ................................................................................ ................ Lashaun Romero MD, PhD, Laboratory Loft Worker Specimen Inquiry Report PATIENT: BARBARA JORDAN LOC: 3E U # : [id number] AGE/SX: 58/F ROOM: [facility] REG : 09/25/[address]: Vladimir Stern MD : 1960 BED: 1 DIS : STATUS: ADM IN TLOC: SPEC #: [id number] ALLEN: 09/25/18 STATUS: COMP REQ #: [id number] RECD: 09/25/18 [facility] DR: Bernardo Kowalski MD SOURCE: SYN FLD ENTR: 09/25/18 [facility] DR: BIB[place] PHYSICIAN SPDESC: TAYLOR RHODES ORDERED: BODY FLD CUL&GS QUERIES: SPECIMEN SOURCE RT KNEE ASPIRATION Procedure Result GRAM STAIN Final GRAM STAIN RESULT NO WHITE BLOOD CELLS NO ORGANISMS SEEN CULTURE BODY FLUID RESULT Final Organism 1 ACHROMOBACTER XYLOSOXIDANS GROWTH: 1+ A.XYLOSOXI M.I.C. RX --------- --- CEFTAZIDIME 4 S CEFTRIAXONE >=64 R CEFEPIME 16 I CIPROFLOXACIN 2 I GENTAMICIN >=16 R LEVOFLOXACIN 2 S IMIPENEM 1 S TRIMETHOPRIM/SULFA <=20 S AMIKACIN >=64 R PIPERACILLIN/TAZOBACTAM <=4 S above culture antibiotic per id no historyuof seizure disorder starther on probiotics ..................................................... monitor closely dvt prophyalxis ........................................................... RIGHT WRIST NOTED TO HAVE SUPERFICIAL PHELEBITIS WILL HAV EHR PLACED ON MOTRIN 200 BID FOR [address] WARM OPACK NAD FOLLOW ......................................................... Subjective Date patient seen: Sep 30, 2018 Time patient seen: 21:47 Constitutional: Reports: no symptoms Allergies: Coded Allergies: CELECOXIB (Verified Allergy, Severe, dyspnea, 09/25/18) HYDROCODONE (Verified Allergy, Severe, Rash, 09/25/18) NSAIDS (NON-STEROIDAL ANTI-INFLAMMA (Verified Allergy, Severe, Shortness of Breath, 09/29/18) Subjective Lashaun Romero MD, PhD, Laboratory Loft Worker Specimen Inquiry Report PATIENT: BARBARA JORDAN RIKA LOC: 3E U # : [id number] AGE/SX: 58/F ROOM: 308 REG : 09/25/[address]: Vladimir Stern MD : 1960 BED: 1 DIS : STATUS: ADM IN TLOC: SPEC #: [id number] ALLEN: 09/25/18 STATUS: DIOGENES REQ #: [id number] RECD: 09/25/[address]: Bernardo Kowalski MD SOURCE: SYN FLD ENTR: 09/25/18 [facility] DR: NON PHYSICIAN SPDESC: TAYLOR RHODES ORDERED: BODY FLD CUL&GS QUERIES: SPECIMEN SOURCE RT KNEE ASPIRATION Procedure Result GRAM STAIN Final GRAM STAIN RESULT NO WHITE BLOOD CELLS NO ORGANISMS SEEN CULTURE BODY FLUID RESULT Final Organism 1 ACHROMOBACTER XYLOSOXIDANS GROWTH: 1+ A.XYLSVETLANAOXI M.I.C. RX --------- --- CEFTAZIDIME 4 S CEFTRIAXONE >=64 R CEFEPIME 16 I CIPROFLOXACIN 2 I GENTAMICIN >=16 R LEVOFLOXACIN 2 S IMIPENEM 1 S TRIMETHOPRIM/SULFA <=20 S AMIKACIN >=64 R PIPERACILLIN/TAZOBACTAM <=4 S has been short of breath no fever nohcills ches txray and ekg noted Objective Last 24 Hour Vital Signs Date Time Temp Pulse Resp B/P (MAP) Pulse Ox O2 Delivery O2 Flow Rate FiO2 09/30/18 21:13 Room Air 09/30/18 21:13 Room Air 09/30/18 20:58 Nasal Cannula 2.0 09/30/18 17:52 113 20 94 Nasal Cannula 3.0 09/30/18 17:50 113 20 94 Nasal Cannula 3.0 09/30/18 16:00 98.0 144/88 (106) 09/30/18 12:00 98.4 99 129/75 (93) 09/30/18 09:20 Room Air 09/30/18 09:20 Room Air 09/30/18 09:00 Room Air 09/30/18 08:00 98.9 99 19 127/83 (98) 09/30/18 04:00 98.3 100 20 122/70 (87) 93 09/30/18 01:08 98.0 09/30/18 00:00 98.0 101 20 125/66 (85) 93 Intake and Output 09/29/18 09/30/18 19:00 07:00 Intake Total 410 ml 535 ml Balance 410 ml 535 ml Intake Oral 300 ml 480 ml IV Total 110 ml 55 ml # Voids 2 4 Laboratory Tests 09/30/18 06:28: White Blood Count 6.1, Red Blood Count 4.55, Hemoglobin 13.5, Hematocrit 40.8, Mean Corpuscular Volume 90, Mean Corpuscular Hemoglobin 29.6, Mean Corpuscular Hemoglobin Concent 33.0, Red Cell Distribution Width 12.4, Platelet Count 273, Mean Platelet Volume 6.3L, Neutrophils (%) (Auto) 52.2, Lymphocytes (%) (Auto) 29.7, Monocytes (%) (Auto) 7.0, Eosinophils (%) (Auto) 9.9H, Basophils (%) (Auto ) 1.3, Sodium Level 139, Potassium Level 4.1, Chloride Level 104, Carbon Dioxide Level 26, Anion Gap 9, Blood Urea Nitrogen 10, Creatinine 0.8, Estimat Glomerular Filtration Rate > 60, Glucose Level 153H, Calcium Level 9.1, Total Bilirubin 0.5, Aspartate Amino Transf (AST/SGOT) 23, Alanine Aminotransferase ( ALT/SGPT) 22, Alkaline Phosphatase 80, Total Protein 6.3L, Albumin 3.0L, Globulin 3.3, Albumin/Globulin Ratio 0.9L Height (Feet): 5 Height (Inches): 5.00 Weight (Pounds): 326 General Appearance: WD/WN Objective obese female not in cute diostress s1,s2,rrr distant breat sounds no clubbing left hand the phelibits is reduced Vladimir Stern MD Sep 30, 2018 21:50
[2018-09-30] MEDS ORDERED: Isovue-300 100ml vial INJ PRN (22:00)
--- NOTE | 2018-09-30 22:00 | NUR ---
NURSE NOTES:Patient seen by DR. Jarred Gilbert with new orders transfer patient to [address] [place] [address] due to abnormal result EKG result sinus tachycardia and shortness of breath activity.
[2018-09-30] MEDS ORDERED: Isovue-370 150ml vial INJ PRN (22:15)
--- NOTE | 2018-09-30 22:30 | NUR ---
HAND-OFF: Report given to Alexia Krishnan Patient transfer from 308 bed 1 to 218 bed 2 .Endorsed Patient personal belongings and medications. family members notified patient location 218 bed 2.
--- NOTE | 2018-09-30 22:30 | NUR ---
NURSE NOTES:Patient Consent for injection of contrast and patient went down for CTA Chest with contrast . endorsed to Alexia Arnold
[2018-09-30 22:51] LABS: ANION GAP 8 mmol/L (5-15); BLOOD UREA NITROGEN 15 mg/dL (7-18); CALCIUM 9.2 MG/DL (8.5-10.1); CARBON DIOXIDE 28 MMOL/L (21-32); CHLORIDE 100 MMOL/L (98-107); CREATININE 0.9 MG/DL (0.55-1.30); POTASSIUM 4.3 MMOL/L (3.5-5.1); SODIUM 136 MMOL/L (136-145)
--- NOTE | 2018-09-30 23:00 | NUR ---
NURSE NOTES: received patient from John Paul Linares. patient in no acute distress at this time. patient complains of no pain at this time. patient awake alert and oriented x4. patient in no acute distress at this time. patient on 2L NC. patient short of breath. patient IV intact patient and asymptomatic. Patient dressing on knee dry and intact. ice is currently on surgical site. bed in lowest position and locked. call light within reach. bed alarm on. will continue to monitor.
--- NOTE | 2018-09-30 23:50 | NUR ---
NURSE NOTES: Dr. Stern was called. i let him know the troponin level is .249. said to recheck 6am and to have morning shift nurse inform him of the level. will endorse to morning shift nurse.
[2018-10-01] VITALS (14 sets, daily range): BP systolic 99–151; BP diastolic 61–119
--- NOTE | 2018-10-01 00:22 | NUR ---
NURSE NOTES: patient CTA came back positive for PE. Dr boles was informed. will put in the orders .
[2018-10-01] MEDS ORDERED: Heparin 25,000u/D5W 500ml 500 ML IV SCH ×2 (00:30→14:38)
[2018-10-01 01:02] LABS: INR 1.1 (0.9-1.1)
[2018-10-01] MEDS ORDERED: Heparin 25,000u/D5W 500ml (VTE/AF) IV SCH ×3 (01:30→09:35)
[2018-10-01] MEDS: Meropenem 1gm in NS 55ml IVPB SCH ×2 (05:46→13:46)
--- NOTE | 2018-10-01 07:24 | NUR ---
HAND-OFF: Report given to wolf hernández.
[2018-10-01 07:27] LABS: BASOPHILS % (AUTO) 1.5 % (0.0-2.0); EOSINOPHILS % (AUTO) 7.1 % (0.0-3.0); HEMATOCRIT 42.2 % (37.0-47.0); LYMPHOCYTES % (AUTO) 26.2 % (20.0-45.0); MEAN CORPUSCULAR VOLUME 89 FL (80-99); MONOCYTES % (AUTO) 9.6 % (1.0-10.0); NEUTROPHILS % (AUTO) 55.7 % (45.0-75.0); PLATELET COUNT 261 K/UL (150-450); RED BLOOD COUNT 4.72 M/UL (4.20-5.40); RED CELL DISTRIBUTION WIDTH 12.3 % (11.6-14.8); WHITE BLOOD COUNT 6.2 K/UL (4.8-10.8)
[2018-10-01 07:30] LABS: ALANINE AMINOTRANSFERASE 22 U/L (12-78); ALBUMIN 2.5 G/DL (3.4-5.0); ALBUMIN/GLOBULIN RATIO 0.7 (1.0-2.7); ALKALINE PHOSPHATASE 78 U/L (46-116); ANION GAP 8 mmol/L (5-15); ASPARTATE AMINO TRANSFERASE 23 U/L (15-37); BILIRUBIN,TOTAL 0.4 MG/DL (0.2-1.0); BLOOD UREA NITROGEN 10 mg/dL (7-18); CALCIUM 8.7 MG/DL (8.5-10.1); CARBON DIOXIDE 26 MMOL/L (21-32); CHLORIDE 100 MMOL/L (98-107); CREATININE 0.9 MG/DL (0.55-1.30); POTASSIUM 3.9 MMOL/L (3.5-5.1); SODIUM 134 MMOL/L (136-145)
[2018-10-01] MEDS ORDERED: Tubing IV Secondary IV ONE (07:31)
[2018-10-01] MEDS ORDERED: NS 500ML ONE (07:31)
--- NOTE | 2018-10-01 07:44 | NUR ---
NURSE NOTES: Left message with Dr. Matthew regarding troponin level of 0.316; awaiting response.
--- NOTE | 2018-10-01 07:53 | NUR ---
NURSE NOTES: Nurse report given by ANNE Austin. Patient is awake and at bedside. Denies pain. No sign of distress or SOB. PICC at Right upper arm. Bed at lowest position, break engaged, will continue to monitor. Addendum: 10/01/18 at 0757 by Sasha Peoples RN IV site is intact, patent and asymptomatic. Surgical site is dry and intact, no sign of redness or tenderness.
--- NOTE | 2018-10-01 08:11 | NUR ---
NURSE NOTES: Dr. Matthew returned phone call. He is aware of troponin and ordered a 2D echo for today.
[2018-10-01] MEDS: Docusate 100mg cap ORAL SCH ×3 (08:31→17:52)
[2018-10-01] MEDS: Lactobacillus-GG tablet ORAL SCH ×2 (08:31→17:58)
[2018-10-01] MEDS: Wixela 250/50 Inhaler - 60 dose INH SCH ×2 (09:00→21:14)
[2018-10-01] MEDS ORDERED: Heparin 5000 units/ml inj IV SCH (09:35)
--- NOTE | 2018-10-01 11:24 | Diagnostic Imaging Report ---
ndication: Shortness of breath and chest pain Technique: IV administration nonionic contrast. Spiral acquisitions obtained from the lung bases to the lung apices. Multiplanar and 3-D reconstructions were generated. Total dose length product 1207.47 mGycm. CTDIvol(s) 35.75 mGy. Dose reduction achieved using automated exposure control Comparison: none Findings: Body habitus limits evaluation. Pulmonary arterial evaluation is suboptimal, despite the use of PICC for injection. Despite the poor quality opacification, multiple bilateral pulmonary emboli are visible, seen within right upper lobe lobar branches, right lower lobe segmental branches, left lower lobe lobar branch and multiple segmental branches, and left upper lobe segmental branches. The main pulmonary artery is ectatic, measuring 13 mm diameter, as is the right main pulmonary artery which measures 29 mm in diameter. There is also dilatation of the right ventricle, with the right ventricular luminal diameter greater than the left ventricle suggestive of right heart strain. Focal area of patchy infiltrate is seen in the peripheral perihilar right lower lobe. Scattered small opacities are seen in the posterior inferior right lower lobe. The left lung and right upper lobe are clear. No effusions. There is minimal anterior wall pericardial thickening versus fluid. No mediastinal or hilar mass or adenopathy. The included thyroid demonstrates enlargement of the left lobe. There is a right arm PICC in place. No axillary or chest wall mass or adenopathy. Included upper abdominal anatomy demonstrates marked fatty replacement of the pancreas, hepatic low attenuation, and cholelithiasis. Impression: Bilateral pulmonary emboli. Presence of pulmonary arterial dilatation and right ventricular dilatation indicates right heart strain consistent with submassive pulmonary embolus Focal right lower lobe infiltrate. This could represent an area of pneumonia or could represent area of pulmonary infarction. Other patchy opacities are also seen in the right lower lobe, most likely representing focal areas of inflammation. Finding of pulmonary embolus and right lower lobe parenchymal disease is in agreement with the [facility] full report. Findings of possible right heart strain was not described on the preliminary report. This discrepant findings phoned to Dr. Bernal at the time of interpretation, and [facility] was notified via their website of the discrepancy The CT scanner at [facility] is accredited by the [employer] and the scans are performed using protocols designed to limit radiation exposure to as low as reasonably achievable to attain images of sufficient resolution adequate for diagnostic evaluation.
--- NOTE | 2018-10-01 11:44 | NUR ---
BILLIARD TABLE MECHANICADMINISTRATIVE MANAGER SI:SEPTIC RIGHT KNEE . VS: BP 107/71, P 117, T 98.7, RR 22, SpO2 92 on 3.0 NC NS 134, GLUCOSE 359 IS:BENADRYL 50mg HEPARIN SUBQ MEROPENEM 55ml IVPB PLAN: 4-6 WKS IV ANTIBIOTICS 2D ECHO VENOUS DUPLEX TELE STATUS Addendum: 10/01/18 at 1153 by Jina [facility] TROPONIN I 0.316
--- NOTE | 2018-10-01 11:56 | Cardiac Electrophysiology PN ---
Subjective Subjective [id number] Objective Last 24 Hour Vital Signs Date Time Temp Pulse Resp B/P (MAP) Pulse Ox O2 Delivery O2 Flow Rate FiO2 10/01/18 09:41 Room Air 10/01/18 09:41 Room Air 10/01/18 09:00 Nasal Cannula 2.0 10/01/18 08:00 97.6 100 19 120/75 (90) 95 10/01/18 08:00 104 10/01/18 04:00 98.2 110 20 107/71 (83) 95 10/01/18 04:00 109 10/01/18 00:00 98.7 117 22 122/72 (89) 96 10/01/18 00:00 115 09/30/18 21:15 100 20 92 Nasal Cannula 3.0 32 09/30/18 21:13 Room Air 09/30/18 21:13 Room Air 09/30/18 20:58 Nasal Cannula 2.0 09/30/18 20:00 97.9 22 138/78 (98) 95 09/30/18 17:52 113 20 94 Nasal Cannula 3.0 09/30/18 17:50 113 20 94 Nasal Cannula 3.0 09/30/18 16:00 98.0 144/88 (106) 09/30/18 12:00 98.4 99 129/75 (93) Intake and Output 09/30/18 10/01/18 19:00 07:00 Intake Total 295 ml 613 ml Output Total 650 ml Balance 295 ml -37 ml Intake Oral 240 ml 558 ml IV Total 55 ml 55 ml Output Urine Total 650 ml # Voids 1 2 # Bowel Movements 1 Laboratory Tests Test 09/30/18 22:20 10/01/18 00:33 10/01/18 06:20 10/01/18 06:35 Sodium Level 136 MMOL/L (136-145) 134 MMOL/L (136-145) L Potassium Level 4.3 MMOL/L (3.5-5.1) 3.9 MMOL/L (3.5-5.1) Chloride Level 100 MMOL/L (98-107) 100 MMOL/L (98-107) Carbon Dioxide Level 28 MMOL/L (21-32) 26 MMOL/L (21-32) Anion Gap 8 mmol/L (5-15) 8 mmol/L (5-15) Blood Urea Nitrogen 15 mg/dL (7-18) 10 mg/dL (7-18) Creatinine 0.9 MG/DL (0.55-1.30) 0.9 MG/DL (0.55-1.30) Estimat Glomerular Filtration Rate > 60 mL/min (>60) > 60 mL/min (>60) Glucose Level 183 MG/DL (74-106) H 359 MG/DL (74-106) #H Calcium Level 9.2 MG/DL (8.5-10.1) 8.7 MG/DL (8.5-10.1) Troponin I 0.249 ng/mL (0.000-0.056) 0.316 ng/mL (0.000-0.056) Pro-B-Type Natriuretic Peptide 1571 pg/mL (0-125) H Prothrombin Time 11.3 SEC (9.30-11.50) Prothromb Time International Ratio 1.1 (0.9-1.1) Activated Partial Thromboplast Time 32 SEC (23-33) Total Bilirubin 0.4 MG/DL (0.2-1.0) Aspartate Amino Transf (AST/SGOT) 23 U/L (15-37) Alanine Aminotransferase (ALT/SGPT) 22 U/L (12-78) Alkaline Phosphatase 78 U/L (46-116) Total Protein 6.3 G/DL (6.4-8.2) L Albumin 2.5 G/DL (3.4-5.0) L Globulin 3.8 g/dL Albumin/Globulin Ratio 0.7 (1.0-2.7) L White Blood Count 6.2 K/UL (4.8-10.8) Red Blood Count 4.72 M/UL (4.20-5.40) Hemoglobin 14.0 G/DL (12.0-16.0) Hematocrit 42.2 % (37.0-47.0) Mean Corpuscular Volume 89 FL (80-99) Mean Corpuscular Hemoglobin 29.6 PG (27.0-31.0) Mean Corpuscular Hemoglobin Concent 33.1 G/DL (32.0-36.0) Red Cell Distribution Width 12.3 % (11.6-14.8) Platelet Count 261 K/UL (150-450) Mean Platelet Volume 6.3 FL (6.5-10.1) L Neutrophils (%) (Auto) 55.7 % (45.0-75.0) Lymphocytes (%) (Auto) 26.2 % (20.0-45.0) Monocytes (%) (Auto) 9.6 % (1.0-10.0) Eosinophils (%) (Auto) 7.1 % (0.0-3.0) H Basophils (%) (Auto) 1.5 % (0.0-2.0) Test 10/01/18 09:00 Activated Partial Thromboplast Time 37 SEC (23-33) H Home Castaneda MD Oct 01, 2018 11:56
--- NOTE | 2018-10-01 12:09 | NUR ---
NURSE NOTES: Called Sandra the environmental field services technician about the venous duplex. She said patient refused it earlier when she came to see her. Asked the patient and she said she did say no because she did not understand what the test was. I explained the test to her again and she said she will take the test now. Called Sandra and she said she will be here shortly.
--- NOTE | 2018-10-01 12:55 | Consultation ---
History of Present Illness General Date patient seen: Oct 01, 2018 Chief Complaint: Lower Extremity Injury Present Illness HPI 58 year old lady who was admitted a few days ago to [place] for drainage of her right knee. She had acute onset of SOB yesterday. A CTA of chest showed massive PE. She was started on IV heparin. Currently she looks comfortable and doesn't have any dyspnea any more. Allergies: Coded Allergies: CELECOXIB (Verified Allergy, Severe, dyspnea, 09/25/18) HYDROCODONE (Verified Allergy, Severe, Rash, 09/25/18) NSAIDS (NON-STEROIDAL ANTI-INFLAMMA (Verified Allergy, Severe, Shortness of Breath, 09/29/18) Patient History Healthcare decision maker Resuscitation status Full Code Advanced Directive on File Past Medical/Surgical History Past Medical/Surgical History: (1) S/P right knee surgery Review of Systems All Other Systems: negative except mentioned in HPI Physical Exam General Appearance: WD/WN, alert Lines, tubes and drains: peripheral HEENT: normocephalic, atraumatic Neck: non-tender, normal alignment Respiratory/Chest: chest wall non-tender, lungs clear Cardiovascular/Chest: normal peripheral pulses, normal rate Abdomen: normal bowel sounds, non tender Extremities: normal range of motion, non-tender Skin Exam: normal pigmentation Last 24 Hour Vital Signs Date Time Temp Pulse Resp B/P (MAP) Pulse Ox O2 Delivery O2 Flow Rate FiO2 10/01/18 11:55 97.2 101 19 114/81 (92) 94 10/01/18 09:41 Room Air 10/01/18 09:41 Room Air 10/01/18 09:00 Nasal Cannula 2.0 10/01/18 08:00 97.6 100 19 120/75 (90) 95 10/01/18 08:00 104 10/01/18 04:00 98.2 110 20 107/71 (83) 95 10/01/18 04:00 109 10/01/18 00:00 98.7 117 22 122/72 (89) 96 10/01/18 00:00 115 09/30/18 21:15 100 20 92 Nasal Cannula 3.0 32 09/30/18 21:13 Room Air 09/30/18 21:13 Room Air 09/30/18 20:58 Nasal Cannula 2.0 09/30/18 20:00 97.9 22 138/78 (98) 95 09/30/18 17:52 113 20 94 Nasal Cannula 3.0 09/30/18 17:50 113 20 94 Nasal Cannula 3.0 09/30/18 16:00 98.0 144/88 (106) Intake and Output 09/30/18 10/01/18 19:00 07:00 Intake Total 295 ml 613 ml Output Total 650 ml Balance 295 ml -37 ml Intake Oral 240 ml 558 ml IV Total 55 ml 55 ml Output Urine Total 650 ml # Voids 1 2 # Bowel Movements 1 Laboratory Tests Test 09/30/18 22:20 10/01/18 00:33 10/01/18 06:20 10/01/18 06:35 Sodium Level 136 MMOL/L (136-145) 134 MMOL/L (136-145) L Potassium Level 4.3 MMOL/L (3.5-5.1) 3.9 MMOL/L (3.5-5.1) Chloride Level 100 MMOL/L (98-107) 100 MMOL/L (98-107) Carbon Dioxide Level 28 MMOL/L (21-32) 26 MMOL/L (21-32) Anion Gap 8 mmol/L (5-15) 8 mmol/L (5-15) Blood Urea Nitrogen 15 mg/dL (7-18) 10 mg/dL (7-18) Creatinine 0.9 MG/DL (0.55-1.30) 0.9 MG/DL (0.55-1.30) Estimat Glomerular Filtration Rate > 60 mL/min (>60) > 60 mL/min (>60) Glucose Level 183 MG/DL (74-106) H 359 MG/DL (74-106) #H Calcium Level 9.2 MG/DL (8.5-10.1) 8.7 MG/DL (8.5-10.1) Troponin I 0.249 ng/mL (0.000-0.056) 0.316 ng/mL (0.000-0.056) Pro-B-Type Natriuretic Peptide 1571 pg/mL (0-125) H Prothrombin Time 11.3 SEC (9.30-11.50) Prothromb Time International Ratio 1.1 (0.9-1.1) Activated Partial Thromboplast Time 32 SEC (23-33) Total Bilirubin 0.4 MG/DL (0.2-1.0) Aspartate Amino Transf (AST/SGOT) 23 U/L (15-37) Alanine Aminotransferase (ALT/SGPT) 22 U/L (12-78) Alkaline Phosphatase 78 U/L (46-116) Total Protein 6.3 G/DL (6.4-8.2) L Albumin 2.5 G/DL (3.4-5.0) L Globulin 3.8 g/dL Albumin/Globulin Ratio 0.7 (1.0-2.7) L White Blood Count 6.2 K/UL (4.8-10.8) Red Blood Count 4.72 M/UL (4.20-5.40) Hemoglobin 14.0 G/DL (12.0-16.0) Hematocrit 42.2 % (37.0-47.0) Mean Corpuscular Volume 89 FL (80-99) Mean Corpuscular Hemoglobin 29.6 PG (27.0-31.0) Mean Corpuscular Hemoglobin Concent 33.1 G/DL (32.0-36.0) Red Cell Distribution Width 12.3 % (11.6-14.8) Platelet Count 261 K/UL (150-450) Mean Platelet Volume 6.3 FL (6.5-10.1) L Neutrophils (%) (Auto) 55.7 % (45.0-75.0) Lymphocytes (%) (Auto) 26.2 % (20.0-45.0) Monocytes (%) (Auto) 9.6 % (1.0-10.0) Eosinophils (%) (Auto) 7.1 % (0.0-3.0) H Basophils (%) (Auto) 1.5 % (0.0-2.0) Test 10/01/18 09:00 Activated Partial Thromboplast Time 37 SEC (23-33) H Height (Feet): 5 Height (Inches): 5.00 Weight (Pounds): 326 Medications Current Medications Medications (Trade) Dose Ordered Sig/Andres Route PRN Reason Start Time Stop Time Status Last Admin Dose Admin Acetaminophen/ Hydrocodone Bitart ([place] 5/325) 1 tab Q4H PRN ORAL For Pain 09/25/18 19:00 10/02/18 18:44 Albuterol Sulfate (Proventil MDI) 2 puff Q6HR PRN INH Shortness of Breath 09/25/18 22:45 10/25/18 22:44 09/30/18 17:50 Chlorhexidine Gluconate (Laverne-Hex 2%) 1 applic DAILY@2000 TOPIC 09/30/18 20:00 10/30/18 19:59 09/30/18 20:22 Diphenhydramine HCl (Benadryl) 50 mg Q8H ORAL 09/26/18 20:00 10/26/18 19:59 10/01/18 11:33 Docusate Sodium (Colace) 100 mg THREE TIMES A DAY ORAL 09/26/18 09:00 10/26/18 08:59 10/01/18 08:31 Heparin Sodium/ Dextrose 500 ml @ 35.838 mls/ hr ADJUST PER PROTOCOL IV 10/01/18 09:35 10/31/18 09:34 10/01/18 09:54 Heparin Sodium/ Sodium Chloride (Heparin 1000 units/500ml Premix) 1,000 unit ONCE PRN IV PICC PLACEMENT 09/30/18 08:30 10/02/18 23:59 Hydromorphone HCl (Dilaudid) 0.4 mg Q2H PRN IVP severe pain 09/26/18 02:45 10/03/18 02:44 09/26/18 06:53 Iopamidol (Isovue-300 100ml) 100 ml NOW PRN INJ Radiology Procedure 09/30/18 22:00 10/02/18 21:53 Iopamidol (Isovue-370 150ml) 150 ml NOW PRN INJ Radiology Procedure 09/30/18 22:15 10/02/18 22:12 Lactobacillus Acidophilus (Culturelle) 1 tab TWICE A DAY ORAL 09/29/18 18:00 10/29/18 17:59 10/01/18 08:31 Lidocaine HCl (Xylocaine 1% 30ml) 30 ml ONCE PRN INJ PICC PLACEMENT 09/30/18 08:30 10/02/18 02:35 Meropenem 1 gm/ Sodium Chloride 55 ml @ 110 mls/hr Q8HR IVPB 09/29/18 14:00 10/27/18 23:59 10/01/18 05:46 Metoprolol Tartrate (Lopressor) 12.5 mg Q12HR ORAL 10/01/18 21:00 10/31/18 20:59 Montelukast Sodium (Singulair) 10 mg QPM ORAL 09/26/18 16:30 10/26/18 16:29 09/30/18 18:01 Ondansetron HCl (Zofran) 4 mg Q6H PRN IVP Nausea & Vomiting 09/25/18 19:00 10/25/18 18:44 Oxycodone/ Acetaminophen (Percocet 10/325) 1 tab Q4H PRN ORAL Pain 09/25/18 22:45 10/02/18 22:44 09/30/18 07:04 Salmeterol Xinafoate/ Fluticasone (Advair 250/50 Diskus) 1 puffs Q12HR INH 09/28/18 21:00 10/26/18 08:59 09/30/18 20:23 Temazepam (Restoril) 7.5 mg HSPRN PRN ORAL Insomnia 09/25/18 19:00 10/02/18 18:44 Tramadol HCl (Ultram) 50 mg TIDPRN PRN ORAL Severe Breakthru Pain (>7) 09/26/18 07:30 10/02/18 22:44 Assessment/Plan Problem List: (1) Acute massive pulmonary embolism ICD Codes: I26.99 - Other pulmonary embolism without acute cor pulmonale SNOMED: 603747929 (2) S/P right knee surgery ICD Codes: Z98.890 - Other specified postprocedural states SNOMED: 910881250 Assessment/Plan: transfer to ICU on Heparin drip already try to transfer to [facility] for embolectomy symptomatic treatment echo reviewed D/w attending. Mili Urbina MD Oct 01, 2018 12:55
--- NOTE | 2018-10-01 13:00 | NUR ---
NURSE NOTES: EKG done. Pt is
--- NOTE | 2018-10-01 13:17 | NUR ---
NURSE NOTES: Pt getting 2Decho done in room; will transfer when test is finished.
--- NOTE | 2018-10-01 13:55 | NUR ---
NURSE NOTES: Face sheet faxed to [facility].
--- NOTE | 2018-10-01 13:59 | General Progress Note ---
Assessment/Plan Assessment/Plan: massive pulmonary embolism on heparin drip pharmacy to dose try to transfer to [facility] await final result of venous douplex septic knee post arthroscopy with ACHROMOBACTER XYLOSOXIDANS per id ................................................................................ ................ Lashaun Romero MD, PhD, Laboratory Supervisor Evaporator Specimen Inquiry Report PATIENT: BARBARA JORDAN LOC: 3E U # : [id number] AGE/SX: 58/F ROOM: [facility] REG : 09/25/[address]: Vladimir Stern MD : 1960 BED: 1 DIS : STATUS: ADM IN TLOC: SPEC #: [id number] ALLEN: 09/25/18 STATUS: COMP REQ #: [id number] RECD: 09/25/[address]: Bernardo Kowalski MD SOURCE: SYN FLD ENTR: 09/25/[address]: NON PHYSICIAN SPDESC: TAYLOR RHODES ORDERED: BODY FLD CUL&GS QUERIES: SPECIMEN SOURCE RT KNEE ASPIRATION Procedure Result GRAM STAIN Final GRAM STAIN RESULT NO WHITE BLOOD CELLS NO ORGANISMS SEEN CULTURE BODY FLUID RESULT Final Organism 1 ACHROMOBACTER XYLOSOXIDANS GROWTH: 1+ A.XYLOSOXI M.I.C. RX --------- --- CEFTAZIDIME 4 S CEFTRIAXONE >=64 R CEFEPIME 16 I CIPROFLOXACIN 2 I GENTAMICIN >=16 R LEVOFLOXACIN 2 S IMIPENEM 1 S TRIMETHOPRIM/SULFA <=20 S AMIKACIN >=64 R PIPERACILLIN/TAZOBACTAM <=4 S ......................................................... Subjective Date patient seen: Oct 01, 2018 Time patient seen: 13:49 Allergies: Coded Allergies: CELECOXIB (Verified Allergy, Severe, dyspnea, 09/25/18) HYDROCODONE (Verified Allergy, Severe, Rash, 09/25/18) NSAIDS (NON-STEROIDAL ANTI-INFLAMMA (Verified Allergy, Severe, Shortness of Breath, 09/29/18) Subjective had severe sob was on heparin sub q dvt prophyalxis developed pulmonary embolism was transfered started on heparin drip she is massively morbidly obese and needs to be eval by pulmonary embolism team she is not short of breath how ever she does not allow us to remove the dressing from surgery to et ultrasound douplex of the leg below Lashaun Romero MD, PhD, Laboratory Supervisor Evaporator Specimen Inquiry Report PATIENT: BARBARA JORDAN LOC: 3E U # : [id number] AGE/SX: 58/F ROOM: [facility] REG : 09/25/[address]: Vladimir Stern MD : 1960 BED: 1 DIS : STATUS: ADM IN TLOC: SPEC #: [id number] ALLEN: 09/25/18 STATUS: COMP REQ #: [id number] RECD: 09/25/[address]: Bernardo Kowalski MD SOURCE: SYN FLD ENTR: 09/25/[address]: NON PHYSICIAN SPDESC: TAYLOR RHODES ORDERED: BODY FLD CUL&GS QUERIES: SPECIMEN SOURCE RT KNEE ASPIRATION Procedure Result GRAM STAIN Final GRAM STAIN RESULT NO WHITE BLOOD CELLS NO ORGANISMS SEEN CULTURE BODY FLUID RESULT Final Organism 1 ACHROMOBACTER XYLOSOXIDANS GROWTH: 1+ A.XYLOSOXI M.I.C. RX --------- --- CEFTAZIDIME 4 S CEFTRIAXONE >=64 R CEFEPIME 16 I CIPROFLOXACIN 2 I GENTAMICIN >=16 R LEVOFLOXACIN 2 S IMIPENEM 1 S TRIMETHOPRIM/SULFA <=20 S AMIKACIN >=64 R PIPERACILLIN/TAZOBACTAM <=4 S has been short of breath no fever no[place]ills ches txray and ekg noted Objective Last 24 Hour Vital Signs Date Time Temp Pulse Resp B/P (MAP) Pulse Ox O2 Delivery O2 Flow Rate FiO2 10/01/18 11:55 97.2 101 19 114/81 (92) 94 10/01/18 09:41 Room Air 10/01/18 09:41 Room Air 10/01/18 09:00 Nasal Cannula 2.0 10/01/18 08:00 97.6 100 19 120/75 (90) 95 10/01/18 08:00 104 10/01/18 04:00 98.2 110 20 107/71 (83) 95 10/01/18 04:00 109 10/01/18 00:00 98.7 117 22 122/72 (89) 96 10/01/18 00:00 115 09/30/18 21:15 100 20 92 Nasal Cannula 3.0 32 09/30/18 21:13 Room Air 09/30/18 21:13 Room Air 09/30/18 20:58 Nasal Cannula 2.0 09/30/18 20:00 97.9 22 138/78 (98) 95 09/30/18 17:52 113 20 94 Nasal Cannula 3.0 09/30/18 17:50 113 20 94 Nasal Cannula 3.0 09/30/18 16:00 98.0 144/88 (106) Intake and Output 09/30/18 10/01/18 19:00 07:00 Intake Total 295 ml 613 ml Output Total 650 ml Balance 295 ml -37 ml Intake Oral 240 ml 558 ml IV Total 55 ml 55 ml Output Urine Total 650 ml # Voids 1 2 # Bowel Movements 1 Laboratory Tests 09/30/18 22:20: Sodium Level 136, Potassium Level 4.3, Chloride Level 100, Carbon Dioxide Level 28, Anion Gap 8, Blood Urea Nitrogen 15, Creatinine 0.9, Estimat Glomerular Filtration Rate > 60, Glucose Level 183H, Calcium Level 9.2, Troponin I 0.249H, Pro-B-Type Natriuretic Peptide 1571H 10/01/18 00:33: Prothrombin Time 11.3, Prothromb Time International Ratio 1.1, Activated Partial Thromboplast Time 32 10/01/18 06:20: Sodium Level 134L, Potassium Level 3.9, Chloride Level 100, Carbon Dioxide Level 26, Anion Gap 8, Blood Urea Nitrogen 10, Creatinine 0.9, Estimat Glomerular Filtration Rate > 60, Glucose Level 359#H, Calcium Level 8.7, Troponin I 0.316H, Total Bilirubin 0.4, Aspartate Amino Transf (AST/SGOT) 23, Alanine Aminotransferase (ALT/SGPT) 22, Alkaline Phosphatase 78, Total Protein 6.3L, Albumin 2.5L, Globulin 3.8, Albumin/Globulin Ratio 0.7L 10/01/18 06:35: White Blood Count 6.2, Red Blood Count 4.72, Hemoglobin 14.0, Hematocrit 42.2, Mean Corpuscular Volume 89, Mean Corpuscular Hemoglobin 29.6, Mean Corpuscular Hemoglobin Concent 33.1, Red Cell Distribution Width 12.3, Platelet Count 261, Mean Platelet Volume 6.3L, Neutrophils (%) (Auto) 55.7, Lymphocytes (%) (Auto) 26.2, Monocytes (%) (Auto) 9.6, Eosinophils (%) (Auto) 7.1H, Basophils (%) (Auto ) 1.5 10/01/18 09:00: Activated Partial Thromboplast Time 37H Height (Feet): 5 Height (Inches): 5.00 Weight (Pounds): 326 Objective not in distress lying in bed falat s1,s2,rrr distant breat sounds soft no erythma of the legs MIPS Medication Reconciliation 130 Medication Reconciliation keep monitor bed will follow has right hear strain cards adn pulmonary seen elevated bnp Vladimir Stern MD Oct 01, 2018 13:59
--- NOTE | 2018-10-01 14:10 | NUR ---
INSURANCE UPDATED CLINICALS and REVIEW HAVE BEEN FAXED TO: [facility] PLEASE FAX THE REVIEW AND CLINICAL TO COURIER DRIVER: MARCO De La Vega FAX CLINICALS TO: [phone]
--- NOTE | 2018-10-01 14:15 | NUR ---
NURSE NOTES: Pt transferred safely to ICU. Pt has all of her belongings on transfer. Report given to Renato. Pt is in stable condition. Plan of care endorsed.
--- NOTE | 2018-10-01 14:16 | NUR ---
NURSE NOTES: RECEIVED PATIENT FROM [facility]IA HOSPITAL BED. REPORT RECEIVED FROM Miguel NICOLE RN. PATIENT IS SEEN LYING IN BED, AWAKE, ALERT AND ORIENTED. HOOKED TO PROTECTIVE SERVICES OFFICER. NOTED HR OF 107, MD AWARE. O2 ON 3L VIA NC. DENIES ANY PAIN OF THE MOMENT. SURGICAL SITE DRESSING ON RIGHT KNEE DRY AND INTACT. PICC ON R UA, INTACT AND RUNNING HEPARIN DRIP ON 12.111'U'/KG/HR FOLLOWING HOSPITAL PROTOCOL. ORIENTED TO ROOM. BELONGINGS CHECKED AND PATIENT REFUSED TO PUT BELONGINGS IN THE SAFE. AWAITING RESPONSE FROM [facility] FOR THE TRANSFER. CALL LIGHT WITHIN REACH. BED AT LOWEST POSITION. SIDE RAIL SUP. WILL CONTINUE TO MONITOR.
[2018-10-01] MEDS ORDERED: HYDROcodone/Acetamin 5/325 tab ORAL PRN (14:41)
[2018-10-01] MEDS ORDERED: HYDROmorphone 1mg/ml Carpuject IVP PRN (14:44)
[2018-10-01] MEDS ORDERED: traMADol 50mg tab ORAL PRN (14:44)
[2018-10-01] MEDS ORDERED: Lidocaine 1% Plain 30 ml INJ ONE (14:45)
[2018-10-01] MEDS ORDERED: Heparin1,000 units/500ml Premix(Conc:2 units/ml) IV ONE (14:45)
--- NOTE | 2018-10-01 14:57 | Infectious Diseases Prog Note ---
Assessment/Plan Assessment/Plan ASSESSMENT AND PLAN: 1. achromobacter right knee infected wound with possible septic arthritis and ? osteomyelitis massive PE - CT noted, ? pna but not presenting clinically like pna - meropenem started - day # 3 - await ertapenem sensitivities - monitor labs and chest x-ray - likely will need 4-6 weeks iv antibiotics - d/w pharmacy - PE treatment per primary and pulmonary medicine, heparin, transfer to [facility] for embolectomy 2. Questionable history of diabetes and hypertension. Per the patient, she did have a history of elevated blood pressure and blood sugars, but now controlled. 3. History of obesity, but the patient has lost weight. 4. Asthma. 5. History of right knee arthroscopy. 6. History of internal knee derangement. 7. History of polycystic ovarian syndrome. 8. Social history is negative. 9. Family history is noncontributory. 10. MAR was noted. 11. Case was discussed with RN. 12. Allergies include celecoxib and hydrocodone. 13. MAR was noted. 14. Case was discussed with the patient and answered questions Subjective Constitutional: Reports: fatigue; Denies: fever HEENT: Reports: congestion - mild Respiratory: Reports: shortness of breath - mild Cardiovascular: Reports: chest pain Gastrointestinal/Abdominal: Denies: nausea, vomiting, diarrhea Genitourinary: Reports: other - no novoa Neurologic: Denies: headache Psychiatric: Denies: depression Skin: Denies: rash Hematologic: Denies: bleeding Musculoskeletal: Denies: pain Allergies: Coded Allergies: CELECOXIB (Verified Allergy, Severe, dyspnea, 09/25/18) HYDROCODONE (Verified Allergy, Severe, Rash, 09/25/18) NSAIDS (NON-STEROIDAL ANTI-INFLAMMA (Verified Allergy, Severe, Shortness of Breath, 09/29/18) Objective Vital Signs Last 24 Hour Vital Signs Date Time Temp Pulse Resp B/P (MAP) Pulse Ox O2 Delivery O2 Flow Rate FiO2 10/01/18 12:00 103 10/01/18 11:55 97.2 101 19 114/81 (92) 94 10/01/18 09:41 Room Air 10/01/18 09:41 Room Air 10/01/18 09:00 Nasal Cannula 2.0 10/01/18 08:00 97.6 100 19 120/75 (90) 95 10/01/18 08:00 104 10/01/18 04:00 98.2 110 20 107/71 (83) 95 10/01/18 04:00 109 10/01/18 00:00 98.7 117 22 122/72 (89) 96 10/01/18 00:00 115 09/30/18 21:15 100 20 92 Nasal Cannula 3.0 32 09/30/18 21:13 Room Air 09/30/18 21:13 Room Air 09/30/18 20:58 Nasal Cannula 2.0 09/30/18 20:00 97.9 22 138/78 (98) 95 09/30/18 17:52 113 20 94 Nasal Cannula 3.0 09/30/18 17:50 113 20 94 Nasal Cannula 3.0 09/30/18 16:00 98.0 144/88 (106) Height (Feet): 5 Height (Inches): 5.00 Weight (Pounds): 326 General Appearance: no acute distress HEENT: normocephalic, atraumatic, anicteric, mucous membranes moist Respiratory/Chest: lungs clear, normal breath sounds, no respiratory distress, no accessory muscle use Cardiovascular: normal rate, regular rhythm, no gallop/murmur, no JVD Abdomen: normal bowel sounds, soft, non tender, no organomegaly, non distended Genitourinary: other - no novoa Extremities: no cyanosis Skin: no rash Neurologic/Psychiatric: seat installer II-XII grossly normal, alert, responsive Lymphatic: no neck adenopathy Musculoskeletal: no effusion Objective Chest x-ray - nad Microbiology Date/Time Source Procedure Growth Status 09/25/18 19:31 Synovial Fluid Anaerobic Culture - Final NO ANAEROBES ISOLATED Complete right knee culture - achromobacter - sensitivities noted Laboratory Tests Test 09/30/18 22:20 10/01/18 00:33 10/01/18 06:20 10/01/18 06:35 Sodium Level 136 MMOL/L (136-145) 134 MMOL/L (136-145) L Potassium Level 4.3 MMOL/L (3.5-5.1) 3.9 MMOL/L (3.5-5.1) Chloride Level 100 MMOL/L (98-107) 100 MMOL/L (98-107) Carbon Dioxide Level 28 MMOL/L (21-32) 26 MMOL/L (21-32) Anion Gap 8 mmol/L (5-15) 8 mmol/L (5-15) Blood Urea Nitrogen 15 mg/dL (7-18) 10 mg/dL (7-18) Creatinine 0.9 MG/DL (0.55-1.30) 0.9 MG/DL (0.55-1.30) Estimat Glomerular Filtration Rate > 60 mL/min (>60) > 60 mL/min (>60) Glucose Level 183 MG/DL (74-106) H 359 MG/DL (74-106) #H Calcium Level 9.2 MG/DL (8.5-10.1) 8.7 MG/DL (8.5-10.1) Troponin I 0.249 ng/mL (0.000-0.056) 0.316 ng/mL (0.000-0.056) Pro-B-Type Natriuretic Peptide 1571 pg/mL (0-125) H Prothrombin Time 11.3 SEC (9.30-11.50) Prothromb Time International Ratio 1.1 (0.9-1.1) Activated Partial Thromboplast Time 32 SEC (23-33) Total Bilirubin 0.4 MG/DL (0.2-1.0) Aspartate Amino Transf (AST/SGOT) 23 U/L (15-37) Alanine Aminotransferase (ALT/SGPT) 22 U/L (12-78) Alkaline Phosphatase 78 U/L (46-116) Total Protein 6.3 G/DL (6.4-8.2) L Albumin 2.5 G/DL (3.4-5.0) L Globulin 3.8 g/dL Albumin/Globulin Ratio 0.7 (1.0-2.7) L White Blood Count 6.2 K/UL (4.8-10.8) Red Blood Count 4.72 M/UL (4.20-5.40) Hemoglobin 14.0 G/DL (12.0-16.0) Hematocrit 42.2 % (37.0-47.0) Mean Corpuscular Volume 89 FL (80-99) Mean Corpuscular Hemoglobin 29.6 PG (27.0-31.0) Mean Corpuscular Hemoglobin Concent 33.1 G/DL (32.0-36.0) Red Cell Distribution Width 12.3 % (11.6-14.8) Platelet Count 261 K/UL (150-450) Mean Platelet Volume 6.3 FL (6.5-10.1) L Neutrophils (%) (Auto) 55.7 % (45.0-75.0) Lymphocytes (%) (Auto) 26.2 % (20.0-45.0) Monocytes (%) (Auto) 9.6 % (1.0-10.0) Eosinophils (%) (Auto) 7.1 % (0.0-3.0) H Basophils (%) (Auto) 1.5 % (0.0-2.0) Test 10/01/18 09:00 10/01/18 14:30 Activated Partial Thromboplast Time 37 SEC (23-33) H Troponin I Pending Current Medications Medications (Trade) Dose Ordered Sig/Andres Route PRN Reason Start Time Stop Time Status Last Admin Dose Admin Acetaminophen/ Hydrocodone Bitart ([place] 5/325) 1 tab Q4H PRN ORAL MILD PAIN 10/01/18 14:41 10/08/18 14:40 Albuterol Sulfate (Proventil MDI) 2 puff Q6H PRN INH Shortness of Breath 10/01/18 14:40 10/31/18 14:39 Chlorhexidine Gluconate (Laverne-Hex 2%) 1 applic DAILY@1999 TOPIC 10/01/18 20:00 10/30/18 19:59 Diphenhydramine HCl (Benadryl) 50 mg Q8H ORAL 10/01/18 20:00 10/26/18 19:59 Docusate Sodium (Colace) 100 mg THREE TIMES A DAY ORAL 10/01/18 18:00 10/26/18 08:59 Heparin Sodium/ Dextrose 500 ml @ 35.838 mls/ hr ADJUST PER PROTOCOL IV 10/01/18 14:38 10/31/18 14:37 Hydromorphone HCl (Dilaudid) 0.4 mg Q2H PRN IVP severe pain 10/01/18 14:44 10/08/18 14:43 Iopamidol (Isovue-300 100ml) 100 ml NOW PRN INJ Radiology Procedure 10/01/18 22:00 10/02/18 21:53 Iopamidol (Isovue-370 150ml) 150 ml NOW PRN INJ Radiology Procedure 10/01/18 22:15 10/02/18 22:12 Lactobacillus Acidophilus (Culturelle) 1 tab TWICE A DAY ORAL 10/01/18 18:00 10/29/18 17:59 Meropenem 1 gm/ Sodium Chloride 55 ml @ 110 mls/hr Q8HR IVPB 10/01/18 22:00 10/27/18 23:59 Metoprolol Tartrate (Lopressor) 12.5 mg Q12HR ORAL 10/01/18 21:00 10/31/18 20:59 Montelukast Sodium (Singulair) 10 mg QPM ORAL 10/01/18 16:30 10/26/18 16:29 Ondansetron HCl (Zofran) 4 mg Q6H PRN IVP Nausea & Vomiting 10/01/18 14:43 10/31/18 14:42 Oxycodone/ Acetaminophen (Percocet 10/325) 1 tab Q4H PRN ORAL moderate pain 10/01/18 14:45 10/02/18 22:44 Salmeterol Xinafoate/ Fluticasone (Advair 250/50 Diskus) 1 puffs Q12HR INH 10/01/18 21:00 10/26/18 08:59 Temazepam (Restoril) 7.5 mg HSPRN PRN ORAL Insomnia 10/01/18 19:00 10/02/18 18:44 Tramadol HCl (Ultram) 50 mg TIDPRN PRN ORAL Severe Breakthru Pain (>7) 10/01/18 14:44 10/08/18 14:43 Mary Ellen Jaimes MD Oct 01, 2018 14:57
[2018-10-01 16:16] LABS: BASOPHILS % (AUTO) 1.9 % (0.0-2.0); EOSINOPHILS % (AUTO) 7.6 % (0.0-3.0); HEMATOCRIT 42.3 % (37.0-47.0); HEMOGLOBIN 14.3 G/DL (12.0-16.0); LYMPHOCYTES % (AUTO) 30.6 % (20.0-45.0); MEAN CORPUSCULAR VOLUME 87 FL (80-99); MONOCYTES % (AUTO) 7.8 % (1.0-10.0); NEUTROPHILS % (AUTO) 52.1 % (45.0-75.0); PLATELET COUNT 265 K/UL (150-450); RED BLOOD COUNT 4.89 M/UL (4.20-5.40); RED CELL DISTRIBUTION WIDTH 11.8 % (11.6-14.8); WHITE BLOOD COUNT 7.4 K/UL (4.8-10.8)
--- NOTE | 2018-10-01 16:30 | NUR ---
NURSE NOTES: PATIENT SEEN RESTING COMFORTABLY IN THE BED. DENIES ANY PAIN OF THE MOMENT. STILL ON O2 3L VIA NC. WILL CONTINUE TO MONITOR.
[2018-10-01 16:31] LABS: ALANINE AMINOTRANSFERASE 23 U/L (12-78); ALBUMIN 2.8 G/DL (3.4-5.0); ALBUMIN/GLOBULIN RATIO 0.7 (1.0-2.7); ALKALINE PHOSPHATASE 88 U/L (46-116); ANION GAP 6 mmol/L (5-15); ASPARTATE AMINO TRANSFERASE 21 U/L (15-37); BILIRUBIN,TOTAL 0.5 MG/DL (0.2-1.0); BLOOD UREA NITROGEN 10 mg/dL (7-18); CALCIUM 9.3 MG/DL (8.5-10.1); CARBON DIOXIDE 26 MMOL/L (21-32); CHLORIDE 104 MMOL/L (98-107); CREATININE 0.8 MG/DL (0.55-1.30); POTASSIUM 3.9 MMOL/L (3.5-5.1); SODIUM 136 MMOL/L (136-145)
[2018-10-01] MEDS: Montelukast 10mg tablet ORAL SCH (16:45)
[2018-10-01] MEDS: Heparin 25,000u/D5W 500ml 500 ML IV SCH ×2 (17:51→22:08)
--- NOTE | 2018-10-01 18:06 | Cardiology Report ---
APPROVED REPORT EXAM: Two-dimensional and M-mode echocardiogram with Doppler and color Doppler. INDICATION S.O.B M-Mode DIMENSIONS IVSd1.1 (0.7-1.1cm)Left Atrium (MM)2.9 (1.6-4.0cm) LVDd4.6 (3.5-5.6cm)Aortic Root3.4 (2.0-3.7cm) PWd0.8 (0.7-1.1cm)Aortic Cusp Exc.2.1 (1.5-2.0cm) IVSs1.4 cm LVDs3.1 (2.5-4.0cm) PWs1.5 cm Other Information Technically limited study due to body habitus. Technically diffiuclt study Normal left ventricular chamber size, systolic function and wall motion . Left ventricular ejection fraction estimated to be 65-70%. Mild left ventricular hypertrophy by 2-D. Anterior Echo-free space, may be due to pericardial fat or effusion. Normal left atrial chamber size . Normal right atrial chamber size . Right ventricular appear hyokinetic and dilated Aortic valve calcification with normal cusp excursion . Mildly thickened mitral valve leaflets with normal excursion. Mild mitral annulus and aortic root calcification. Pulmonic valve not well visualized. IVC at normal size with physiologic collapse . A color flow and spectral Doppler study was performed and revealed: Trace aortic insufficiency . Mitral diastolic velocities suggest reduced left ventricular relaxation c/w mild LV diastolic dysfunction (Grade I ) Mild mitral regurgitation. Trace tricuspid regurgitation. Tricuspid systolic velocities suggests peak right ventricular systolic pressure of 20mmHg.
--- NOTE | 2018-10-01 18:46 | NUR ---
NURSE NOTES: PATIENT C/O N/V, IV ZOFRAN WAS GIVEN. VITALS TAKEN, NOTED HR OF 112. BG TAKEN AT 219. NO SIGNS OF RESPI DISTRESS OF THE MOMENT. WILL CONTINUE TO MONITOR.
--- NOTE | 2018-10-01 18:49 | Cardiology Report ---
APPROVED REPORT EKG Measurement Heart [id number] 130P55 [id number] Sinus tachycardia Abnormal ECG
--- NOTE | 2018-10-01 18:51 | Cardiology Report ---
APPROVED REPORT EKG Measurement Heart [id number] [id number] [id number] Sinus tachycardia Abnormal ECG
--- NOTE | 2018-10-01 19:30 | Consultation ---
DATE OF CONSULTATION: 10/01/2018 CARDIAC ELECTROPHYSIOLOGY CONSULTATION CONSULTING PHYSICIAN: Home Castaneda M.D. REFERRING PHYSICIAN: Vladimir Stern M.D. REASON FOR CONSULTATION: Tachycardia in the setting of acute bilateral pulmonary embolism. HISTORY OF PRESENT ILLNESS: The patient is a very pleasant 58-year-old lady who presented to [facility] with right knee drainage and possible infection. The patient has history of right knee arthroscopy with meniscectomy, synovectomy, and chondroplasty. Postoperatively, the patient was noted to have drainage and was given Keflex, but continued to have drainage. The patient was admitted for incision and drainage of the right knee for possible infection. While the patient was on non-monitored bed yesterday, she developed acute shortness of breath and tachycardia. A stat chest CT angio was ordered that is suggestive of bilateral pulmonary embolism. The patient was started on heparin drip. Cardiac electrophysiology consultation was obtained for further evaluation and management. REVIEW OF SYSTEMS: Review of systems was negative other than what was mentioned in history of present illness. PAST MEDICAL HISTORY: Hypertension, borderline diabetes controlled, history of asthma, obesity, and history of right knee arthroscopy, history of polycystic ovarian syndrome. PHYSICAL EXAMINATION: VITAL SIGNS: Show blood pressure of 110/75, pulse 110, respirations 18, and temperature 97.6. HEAD AND NECK: Showed no JVD. LUNGS: Clear. CARDIOVASCULAR: Tachycardic. S1 and S2 regular. ABDOMEN: Soft. EXTREMITIES: No pitting edema, status post right knee surgery. LABORATORY AND DIAGNOSTIC DATA: Her labs show white count of 6.2, hemoglobin of 14, hematocrit 42.2, and platelet count of 261. Sodium is 134, potassium 3.9, BUN of 10, creatinine 0.9, and glucose of 359. Troponin September 30, 2018 at 22:20 was 0.249 and today at 06:20 . Her echocardiogram showed normal left ventricular systolic function with ejection fraction of 55%, right ventricular systolic pressure was 20. Her CT angio of the chest showed multiple bilateral pulmonary emboli in the bilateral distal right and left main pulmonary arteries. Her EKG shows sinus tachycardia, rate of [address]-T wave abnormality. ASSESSMENT AND PLAN: 1. Tachycardia, sinus tachycardia with no evidence of atrial fibrillation or supraventricular tachycardia. This is likely due to the patient's acute pulmonary embolism. The patient already on heparin drip. 2. Acute pulmonary embolism, on heparin drip. The patient Bilateral lower extremity duplex is pending. 3. Troponin elevation, levels are low. EKG has nonischemic ST wave abnormality, likely due to the patient's acute bilateral pulmonary embolism. Troponin will be repeated as well as EKG will be repeated. At this time, start the patient on low-dose beta-felice as well as aspirin. We will check a fasting lipid profile as well. 4. Right knee infection with possible septic arthritis. The patient on IV antibiotic per ID, status post incision and drainage by Dr. Del Angel on September 25, 2018. Thank you very much, Dr. Stern, for allowing me to participate in the care of this patient. Please do not hesitate to contact me for any questions regarding my evaluation. Sincerely, Home Castaneda M.D. DR: Patrick JOB#: [id number] CC:
--- NOTE | 2018-10-01 19:30 | NUR ---
NURSE NOTES:resceived pt awake and alert AOx4. craig x4,ST low 100s on the monitor. Bp stable. afebrile.Pt on at 2L/nc resp. even and spont, 02 sat >92%. pt on Heparin drip at 9.111u/kg /hr, infusing to JOSE ARMANDO PICC line. Site with drsg dry and intact. NO SOB noted at this time, RT knee drsg dry and intact. pts call light within reach. place on fall precaution. Will continue to monitor.
--- NOTE | 2018-10-01 19:38 | NUR ---
HAND-OFF: Report given to Patience Brown RN. Patient is still noxious after zofran was given. Not in respi or cardio stress as of the moment. Endorsed accordingly.
[2018-10-01] MEDS: Dyna-Hex 2% Top Sol 2oz TOPIC SCH (20:15)
[2018-10-01] MEDS ORDERED: Metoprolol Tartrate 12.5mg TAB ORAL SCH (21:00)
[2018-10-01] MEDS: Albuterol 90mcg Inhaler 8gm INH PRN (21:19)
[2018-10-01] MEDS: Metoprolol Tartrate 12.5mg TAB ORAL SCH (21:23)
--- NOTE | 2018-10-01 21:30 | NUR ---
NURSE NOTES:voiding well per bedpan adequate amt of isamar yellow urine. , HS care done.
[2018-10-01] MEDS: Meropenem 1 GM in NS 55 ML IVPB SCH (21:46)
[2018-10-01] MEDS ORDERED: Isovue-300 100ml vial INJ PRN (22:00)
[2018-10-01] MEDS ORDERED: Isovue-370 150ml vial INJ PRN (22:15)
[2018-10-02] VITALS (24 sets, daily range): BP systolic 101–130; BP diastolic 61–91
--- NOTE | 2018-10-02 00:10 | NUR ---
NURSE NOTES:Heparin protocol was followed per PTT result.
--- NOTE | 2018-10-02 00:30 | NUR ---
NURSE NOTES:Spoke to [facility] candelario and aware pharm. that PTT is 50. pharm. verbalized that she has to figure out first the amt of heparin to bolus the Pt.
[2018-10-02] MEDS ORDERED: Heparin 5000 units/ml inj IV ONE (01:00)
[2018-10-02] MEDS ORDERED: Heparin 25,000u/D5W 500ml 500 ML IV SCH ×2 (01:15→09:30)
--- NOTE | 2018-10-02 02:00 | NUR ---
NURSE NOTES:Dozing on and off VSS.
--- NOTE | 2018-10-02 04:00 | NUR ---
NURSE NOTES:Heparin drip at 13.1 u/kg /hr on progress. no sob noted.
[2018-10-02] MEDS: Meropenem 1 GM in NS 55 ML IVPB SCH ×3 (05:43→22:23)
--- NOTE | 2018-10-02 06:00 | NUR ---
NURSE NOTES: No CP nor SOB, vss.
--- NOTE | 2018-10-02 07:13 | NUR ---
HAND-OFF: Report given to Jackelyn RODRÍGUEZ.
--- NOTE | 2018-10-02 07:30 | NUR ---
NURSE NOTES: Received report from Page RODRÍGUEZ. pt resting in bed. responsive to name. AOx4. connected to school lunch monitor HR 90, BP 122/91, RR 27, 02SAT 90. afebrile AT 98. Pt on 2L NC. bilateral lungs diminished. pt report coughing phlegm clear with pink streaks. abdomen round, non tender. no bm. bladder non distended. voids. JOSE ARMANDO PICC. pt on Heparin drip at 9.1u/kg /hr. Site with drsg dry and intact. NO SOB noted at this time, RT knee drsg dry and intact, elevated on pillow. pts call light within reach. fall precautions in place. Will continue to monitor.
--- NOTE | 2018-10-02 08:30 | NUR ---
NURSE NOTES: Heparin drip changed to 9.1 u/kg /hr per pharm adjustment. no sob noted. pt in no distress.
[2018-10-02] MEDS: Lactobacillus-GG tablet ORAL SCH ×2 (08:38→17:18)
[2018-10-02] MEDS: Docusate 100mg cap ORAL SCH ×3 (08:38→17:18)
[2018-10-02] MEDS: Metoprolol Tartrate 12.5mg TAB ORAL SCH ×2 (08:39→20:42)
[2018-10-02] MEDS ORDERED: Aspirin EC 81mg tab ORAL SCH (09:00)
[2018-10-02] MEDS: Wixela 250/50 Inhaler - 60 dose INH SCH ×2 (09:07→21:13)
--- NOTE | 2018-10-02 10:14 | Pulmonolgy Critical Care Note ---
Critical Care - Asmt/Plan Problems: (1) Acute massive pulmonary embolism (2) S/P right knee surgery Respiratory: monitor respiratory rate, adjust FIO2, CXR Cardiac: continue to monitor HR/BP Renal: F/U I&O Infectious Disease: check cultures, continue antibiotics Gastrointestinal: continue feedings/current rate Hematologic: monitor H/H, transfuse if hgb<8.5 Neurologic: PRN Morphine, keep patient comfortable Prophylaxis: Protonix, Heparin Time Spent (Minutes): 40 Notes Reviewed: pick up operator, cardio Discussed with: nurses, consultants, wrapper casercattle manager - Objective Last 24 Hour Vital Signs Date Time Temp Pulse Resp B/P (MAP) Pulse Ox O2 Delivery O2 Flow Rate FiO2 10/02/18 09:00 83 26 122/91 (101) 93 10/02/18 08:39 91 122/75 10/02/18 08:00 90 28 122/75 (91) 96 10/02/18 07:00 93 27 114/74 (87) 97 10/02/18 06:00 95 27 118/73 (88) 97 10/02/18 05:00 94 27 110/77 (88) 98 10/02/18 04:00 98.2 95 27 111/77 (88) 98 10/02/18 04:00 95 10/02/18 03:00 95 27 102/66 (78) 98 10/02/18 02:00 96 29 104/64 (77) 93 10/02/18 01:00 97 28 101/63 (76) 93 10/02/18 00:00 100 28 102/65 (77) 94 10/02/18 00:00 98.4 97 30 106/63 (77) 93 10/02/18 00:00 97 10/01/18 23:00 98 30 99/63 (75) 94 10/01/18 22:00 98.6 100 28 102/65 (77) 94 10/01/18 21:23 105 107/65 10/01/18 21:22 108 26 95 Nasal Cannula 3.0 32 10/01/18 21:19 112 25 95 Nasal Cannula 2.0 28 10/01/18 21:16 102 30 95 Nasal Cannula 2.0 28 10/01/18 21:14 102 26 94 Nasal Cannula 2.0 28 10/01/18 21:13 94 Nasal Cannula 2.0 28 10/01/18 21:00 Nasal Cannula 2.0 10/01/18 21:00 106 27 107/65 (79) 92 10/01/18 20:00 98.6 106 30 122/75 (91) 93 10/01/18 20:00 106 10/01/18 19:00 113 28 110/67 (81) 93 10/01/18 18:00 108 26 119/86 (97) 95 10/01/18 17:00 99.3 105 33 111/61 (78) 97 10/01/18 16:00 Nasal Cannula 3.0 10/01/18 16:00 104 29 142/119 (127) 97 10/01/18 15:43 105 10/01/18 15:00 106 27 151/69 (96) 96 10/01/18 14:15 97.5 108 29 143/77 (99) 94 10/01/18 14:15 Nasal Cannula 3.0 10/01/18 14:13 109 10/01/18 12:00 103 10/01/18 11:55 97.2 101 19 114/81 (92) 94 Status: awake Condition: critical, improving HEENT: atraumatic Neck: full ROM Heart: HR/BP stable Abdomen: soft, non-tender, active bowel sounds Extremities: no C/C/E Decubiti: location Critical Care - Subjective ROS Limited/Unobtainable: No Interval Events: no new complains Condition: critical FI02: 32 Sputum Amount: None I&O: Intake and Output 10/01/18 10/02/18 19:00 07:00 Intake Total 355.3771 ml 792.389 ml Output Total 420 ml Balance 355.3771 ml 372.389 ml Intake Oral 150 ml 370 ml IV Total 205.3771 ml 422.389 ml Output Urine Total 420 ml # Voids 1 2 CXR: echo reviewed Labs: Laboratory Tests Test 10/01/18 14:30 10/01/18 16:00 10/02/18 00:10 10/02/18 07:27 Troponin I 0.185 ng/mL (0.000-0.056) 0.057 ng/mL (0.000-0.056) White Blood Count 7.4 K/UL (4.8-10.8) Red Blood Count 4.89 M/UL (4.20-5.40) Hemoglobin 14.3 G/DL (12.0-16.0) Hematocrit 42.3 % (37.0-47.0) Mean Corpuscular Volume 87 FL (80-99) Mean Corpuscular Hemoglobin 29.3 PG (27.0-31.0) Mean Corpuscular Hemoglobin Concent 33.9 G/DL (32.0-36.0) Red Cell Distribution Width 11.8 % (11.6-14.8) Platelet Count 265 K/UL (150-450) Mean Platelet Volume 6.1 FL (6.5-10.1) L Neutrophils (%) (Auto) 52.1 % (45.0-75.0) Lymphocytes (%) (Auto) 30.6 % (20.0-45.0) Monocytes (%) (Auto) 7.8 % (1.0-10.0) Eosinophils (%) (Auto) 7.6 % (0.0-3.0) H Basophils (%) (Auto) 1.9 % (0.0-2.0) Activated Partial Thromboplast Time 145 SEC (23-33) H 50 SEC (23-33) H > 150 SEC (23-33) *H Sodium Level 136 MMOL/L (136-145) Potassium Level 3.9 MMOL/L (3.5-5.1) Chloride Level 104 MMOL/L (98-107) Carbon Dioxide Level 26 MMOL/L (21-32) Anion Gap 6 mmol/L (5-15) Blood Urea Nitrogen 10 mg/dL (7-18) Creatinine 0.8 MG/DL (0.55-1.30) Estimat Glomerular Filtration Rate > 60 mL/min (>60) Glucose Level 196 MG/DL (74-106) #H Calcium Level 9.3 MG/DL (8.5-10.1) Total Bilirubin 0.5 MG/DL (0.2-1.0) Aspartate Amino Transf (AST/SGOT) 21 U/L (15-37) Alanine Aminotransferase (ALT/SGPT) 23 U/L (12-78) Alkaline Phosphatase 88 U/L (46-116) Total Protein 6.7 G/DL (6.4-8.2) Albumin 2.8 G/DL (3.4-5.0) L Globulin 3.9 g/dL Albumin/Globulin Ratio 0.7 (1.0-2.7) L Mili Urbina MD Oct 02, 2018 10:14
--- NOTE | 2018-10-02 10:20 | NUR ---
NURSE NOTES: MD VALENCIA HERE TO SEE PT. RECEIVED ORDER TO PLACE PROTONIX DAILY 40MG, A1C AND DIET ORDER CCHO MEDIUM. BASED ON SLAG MOTOR OPERATOR RECOMMENDATIONS.
--- NOTE | 2018-10-02 11:00 | NUR ---
NURSE NOTES: voiding per bedpan adequate amt of isamar yellow urine. hob>30. pt resting in bed, t.v on. call light in place. will continue to monitor pt.
--- NOTE | 2018-10-02 11:36 | NUR ---
SCOOP MACHINE OPERATORPOWER LINE LINEMAN SI:ACUTE MASSIVE PULMONARY EMBOLISM . S/P RIGHT KNEE SURGERY . RIGHT KNEE INFECTION VS: BP 122/91, P 100, T 98.4, RR 30, SpO2 93 on 2.0L O2 NC TROPONIN I 0.057 CHEST/THORAX CTA: Bilateral pulmonary emboli. IS:HEPARIN 500ml IV ADVAIR 1puff INH LOPRESSOR 12.5mg CULTURELLE 1tab MEROPENEM 55ml IVPB PLAN: TRANSFER TO [facility] FOR HIGHER LEVEL OF CARE REPEAT EKG START ON LOW DOSE BETA RYAN START ON ASPIRIN FASTING LIPID PROFILE HEPARIN DRIP CONT. ABX ICU STATUS
--- NOTE | 2018-10-02 11:44 | NUR ---
*-* INSURANCE *-* ALL CLINICALS AND REVIEWS HAVE BEEN FAXED TO: [employer] AUTH# [id number] AFTER SCHOOL COUNSELOR: MARCO De La Vega FAX CLINICALS TO: [phone]
--- NOTE | 2018-10-02 11:52 | NUR ---
INSURANCE FAXED REVIEWS AND CLINICALS FOR SEPTEMBER 28, , 15, & TO MARCO Monique [phone]
--- NOTE | 2018-10-02 12:03 | NUR ---
RD ASSESSMENT & RECOMMENDATIONS SEE CARE ACTIVITY FOR COMPLETE ASSESSMENT DAILY ESTIMATED NEEDS: Needs based on Surgery, morbid obesity 79kg adj 20-25 kcals/kg 8151-3268 total kcals 1-2 g protein/kg 79-158 g total protein 25-30 mL/kg 0276-5479 total fluid mLs NUTRITION DIAGNOSIS: 1) Increased pro needs r/t surgical wound healing as evidenced by s/p R knee I&D. 2) Obesity etiology unknown as evidenced by h/o PCOS, previous wt of 425 lbs, now 324#, @259% of [place] body weight. 3) Altered nutrition related lab values R/T hyperglycemia as evidenced by elev BGs (196 359 183) CURRENT DIET: Regular PO DIET RECOMMENDATIONS: CHANGE -> CCHO MED ADDITIONAL RECOMMENDATIONS: 1) With >75% po intake, rec to DC HPN 2) A1C for eval of glycemic control 3) Rec Accucheck w/ SSI: BGs elev @ 196, 359, 183 4) Jm 1pkt BID for surgical wound healing 5) Weekly weights as able
--- NOTE | 2018-10-02 13:13 | NUR ---
NURSE NOTES: MD Castaneda here to see pt. no new orders at this time.
--- NOTE | 2018-10-02 13:24 | NUR ---
SECTION [employer]ANG DEBRA RECEIVED AUTHORIZATION FOR PATIENT TO TRANSFER TO [facility] [id number], CALLED DOROTHEA AT [facility] FINANCIAL OFFICE AND PROVIDED HER THAT AUTHORIZATION CODE AND THE SECTION GANG ADONAY AT [facility] PHONE NUMBER [phone] [id number]. NOW AWAITING A CALL BACK WITH PATIENTS BED NUMBER.
--- NOTE | 2018-10-02 13:40 | Cardiac Electrophysiology PN ---
Assessment/Plan Assessment/Plan 1. Sinus tachycardia with no evidence of atrial fibrillation or supraventricular tachycardia. This is likely due to the patient's acute pulmonary embolism. 2. Acute pulmonary embolism, on heparin drip. Bilateral lower extremity duplex showed no PE 3. Troponin elevation, levels are low. EKG has nonischemic ST wave abnormality, likely due to the patient's acute bilateral pulmonary embolism. EKG No cute ischemia. On low-dose beta-felice 4. Right knee infection with possible septic arthritis. The patient on IV antibiotic per ID, status post incision and drainage by Dr. Del Angel on September 25, 2018. Subjective Subjective In ICU on heparin drip for acute bilateral PE. LE duplex no DVT. NoCP or SOB Objective Last 24 Hour Vital Signs Date Time Temp Pulse Resp B/P (MAP) Pulse Ox O2 Delivery O2 Flow Rate FiO2 10/02/18 13:00 91 25 121/79 (93) 98 10/02/18 12:00 89 10/02/18 12:00 97.8 88 32 116/68 (84) 99 10/02/18 11:00 84 25 111/72 (85) 98 10/02/18 10:00 82 26 122/91 (101) 97 10/02/18 09:10 96 20 96 Nasal Cannula 2.0 28 10/02/18 09:10 96 Nasal Cannula 2.0 28 10/02/18 09:10 96 20 96 Nasal Cannula 2.0 28 10/02/18 09:00 Nasal Cannula 2.0 10/02/18 09:00 83 26 122/91 (101) 93 10/02/18 08:39 91 122/75 10/02/18 08:00 92 10/02/18 08:00 90 28 122/75 (91) 96 10/02/18 07:00 93 27 114/74 (87) 97 10/02/18 06:00 95 27 118/73 (88) 97 10/02/18 05:00 94 27 110/77 (88) 98 10/02/18 04:00 98.2 95 27 111/77 (88) 98 10/02/18 04:00 95 10/02/18 03:00 95 27 102/66 (78) 98 10/02/18 02:00 96 29 104/64 (77) 93 10/02/18 01:00 97 28 101/63 (76) 93 10/02/18 00:00 100 28 102/65 (77) 94 10/02/18 00:00 98.4 97 30 106/63 (77) 93 10/02/18 00:00 97 10/01/18 23:00 98 30 99/63 (75) 94 10/01/18 22:00 98.6 100 28 102/65 (77) 94 10/01/18 21:23 105 107/65 10/01/18 21:22 108 26 95 Nasal Cannula 3.0 32 10/01/18 21:19 112 25 95 Nasal Cannula 2.0 28 10/01/18 21:16 102 30 95 Nasal Cannula 2.0 28 10/01/18 21:14 102 26 94 Nasal Cannula 2.0 28 10/01/18 21:13 94 Nasal Cannula 2.0 28 10/01/18 21:00 Nasal Cannula 2.0 10/01/18 21:00 106 27 107/65 (79) 92 10/01/18 20:00 98.6 106 30 122/75 (91) 93 10/01/18 20:00 106 10/01/18 19:00 113 28 110/67 (81) 93 10/01/18 18:00 108 26 119/86 (97) 95 10/01/18 17:00 99.3 105 33 111/61 (78) 97 10/01/18 16:00 Nasal Cannula 3.0 10/01/18 16:00 104 29 142/119 (127) 97 10/01/18 15:43 105 10/01/18 15:00 106 27 151/69 (96) 96 10/01/18 14:15 97.5 108 29 143/77 (99) 94 10/01/18 14:15 Nasal Cannula 3.0 10/01/18 14:13 109 Intake and Output 10/01/18 10/02/18 19:00 07:00 Intake Total 355.3771 ml 792.389 ml Output Total 420 ml Balance 355.3771 ml 372.389 ml Intake Oral 150 ml 370 ml IV Total 205.3771 ml 422.389 ml Output Urine Total 420 ml # Voids 1 2 Laboratory Tests Test 10/01/18 14:30 10/01/18 16:00 10/02/18 00:10 10/02/18 07:27 Troponin I 0.185 ng/mL (0.000-0.056) 0.057 ng/mL (0.000-0.056) White Blood Count 7.4 K/UL (4.8-10.8) Red Blood Count 4.89 M/UL (4.20-5.40) Hemoglobin 14.3 G/DL (12.0-16.0) Hematocrit 42.3 % (37.0-47.0) Mean Corpuscular Volume 87 FL (80-99) Mean Corpuscular Hemoglobin 29.3 PG (27.0-31.0) Mean Corpuscular Hemoglobin Concent 33.9 G/DL (32.0-36.0) Red Cell Distribution Width 11.8 % (11.6-14.8) Platelet Count 265 K/UL (150-450) Mean Platelet Volume 6.1 FL (6.5-10.1) L Neutrophils (%) (Auto) 52.1 % (45.0-75.0) Lymphocytes (%) (Auto) 30.6 % (20.0-45.0) Monocytes (%) (Auto) 7.8 % (1.0-10.0) Eosinophils (%) (Auto) 7.6 % (0.0-3.0) H Basophils (%) (Auto) 1.9 % (0.0-2.0) Activated Partial Thromboplast Time 145 SEC (23-33) H 50 SEC (23-33) H > 150 SEC (23-33) *H Sodium Level 136 MMOL/L (136-145) Potassium Level 3.9 MMOL/L (3.5-5.1) Chloride Level 104 MMOL/L (98-107) Carbon Dioxide Level 26 MMOL/L (21-32) Anion Gap 6 mmol/L (5-15) Blood Urea Nitrogen 10 mg/dL (7-18) Creatinine 0.8 MG/DL (0.55-1.30) Estimat Glomerular Filtration Rate > 60 mL/min (>60) Glucose Level 196 MG/DL (74-106) #H Calcium Level 9.3 MG/DL (8.5-10.1) Total Bilirubin 0.5 MG/DL (0.2-1.0) Aspartate Amino Transf (AST/SGOT) 21 U/L (15-37) Alanine Aminotransferase (ALT/SGPT) 23 U/L (12-78) Alkaline Phosphatase 88 U/L (46-116) Total Protein 6.7 G/DL (6.4-8.2) Albumin 2.8 G/DL (3.4-5.0) L Globulin 3.9 g/dL Albumin/Globulin Ratio 0.7 (1.0-2.7) L Objective HEAD AND NECK: Showed no JVD. LUNGS: Clear. CARDIOVASCULAR: Tachycardic. S1 and S2 regular. ABDOMEN: Soft. EXTREMITIES: No pitting edema, status post right knee surgery. Home Castaneda MD Oct 02, 2018 13:40
--- NOTE | 2018-10-02 16:00 | NUR ---
NURSE NOTES: Heparin drip changed to 11.1 u/kg /hr per pharm adjustment. no sob noted. pt in no distress. Addendum: 10/02/18 at 1934 by Jackelyn Duff RN 6,000 u hep ivp bolus given. next timed aptt for 2300
[2018-10-02] MEDS ORDERED: Heparin 5000 units/ml inj IV SCH (17:00)
--- NOTE | 2018-10-02 17:07 | Cardiology Report ---
APPROVED REPORT EKG Measurement Heart [id number] Sinus tachycardia Rightward axis Abnormal ECG
[2018-10-02] MEDS: Montelukast 10mg tablet ORAL SCH (17:18)
[2018-10-02] MEDS: Heparin 25,000u/D5W 500ml 500 ML IV SCH (17:23)
--- NOTE | 2018-10-02 18:38 | Diagnostic Imaging Report ---
APPROVED REPORT CPT Code: 12227 Present Symptoms Lower Extremity Pain: Right Comments: Post Op right knee Past History Pulmonary Embolism RIGHT LEG: Venous imaging reveals a patent deep venous system. There is no evidence of thrombus within the femoral, and tibial segments. The greater saphenous vein is also within normal limits. Doppler indicates normal spontaneous flow within these segments. The popliteal vein was not imaged. Free fluid was seen near anterior right knee area. LEFT LEG: Venous imaging reveals a patent deep venous system. There is no evidence of thrombus within the femoral, popliteal or tibial segments. The greater saphenous vein is also within normal limits. Doppler indicates normal spontaneous flow within these segments. Note: Patient refused to be scanned, right popliteal area.
--- NOTE | 2018-10-02 19:00 | NUR ---
HAND-OFF: Report given to Page RODRÍGUEZ. pt in no acute distress.
--- NOTE | 2018-10-02 19:30 | NUR ---
NURSE NOTES:Received pt awake and alert AOx4 COLLIER x4,, On Heparin drip at 11.1 u/kg/hr infusing to RUAS PICC line. site with drsg dry and intact, SR on the monitor, bp stable afebrile. NO cp nor sob noted. Pt on 02 at 2l/nc, 02 sat >92%. HOB kept elevated watch for any resp. distress. Will continue to monitor.
[2018-10-02] MEDS: Dyna-Hex 2% Top Sol 2oz TOPIC SCH (20:08)
--- NOTE | 2018-10-02 21:00 | NUR ---
NURSE NOTES:Voiding well per bedpan lg amt of isamar yellow color urine. Partial bath given after voiding.
--- NOTE | 2018-10-02 22:45 | NUR ---
NURSE NOTES:Dr Stern was here and Examined pt. with orders given and carried out.
--- NOTE | 2018-10-02 23:02 | Critical Care Progress Note ---
Assessment/Plan Assessment/Plan massive pulmonary embolism on heparin drip pharmacy to dose try to transfer to [facility] they mihg tnot accept her on heparin drip ? ronaldo will keep in icu has she has right side collapse septic knee post arthroscopy with ACHROMOBACTER XYLOSOXIDANS per id ................................................................................ ................ Lashaun Romero MD, PhD, Laboratory Pipe Stem Aligner Specimen Inquiry Report PATIENT: BARBARA JORDAN LOC: 3E U # : [id number] AGE/SX: 58/F ROOM: [facility] REG : 09/25/[address]: Vladimir Stern MD : 1960 BED: 1 DIS : STATUS: ADM IN TLOC: SPEC #: [id number] ALLEN: 09/25/18 STATUS: COMP REQ #: [id number] RECD: 09/25/[address]: Bernardo Kowalski MD SOURCE: SYN FLD ENTR: 09/25/[address]: NON PHYSICIAN SPDESC: TAYLOR RHODES ORDERED: BODY FLD CUL&GS QUERIES: SPECIMEN SOURCE RT KNEE ASPIRATION Procedure Result GRAM STAIN Final GRAM STAIN RESULT NO WHITE BLOOD CELLS NO ORGANISMS SEEN CULTURE BODY FLUID RESULT Final Organism 1 ACHROMOBACTER XYLOSOXIDANS GROWTH: 1+ A.XYLOSOXI M.I.C. RX --------- --- CEFTAZIDIME 4 S CEFTRIAXONE >=64 R CEFEPIME 16 I CIPROFLOXACIN 2 I GENTAMICIN >=16 R LEVOFLOXACIN 2 S IMIPENEM 1 S TRIMETHOPRIM/SULFA <=20 S AMIKACIN >=64 R PIPERACILLIN/TAZOBACTAM <=4 S ......................................................... antibiotic as is ................................................. she will benenfit from continuous rehab will monito rnad follow Critical Care - Subjective Interval Events: all noted discussed case with ICU staff gettign another heparin ROS Limited/Unobtainable: Yes I&O: Intake and Output 10/01/18 10/02/18 18:59 06:59 Intake Total 328.4161 ml 780.586 ml Output Total 420 ml Balance 328.4161 ml 360.586 ml Intake Oral 150 ml 370 ml IV Total 178.4161 ml 410.586 ml Output Urine Total 420 ml # Voids 1 2 Critical Care - Objective Last 24 Hour Vital Signs Date Time Temp Pulse Resp B/P (MAP) Pulse Ox O2 Delivery O2 Flow Rate FiO2 10/02/18 21:13 93 39 98 Nasal Cannula 2.0 28 10/02/18 21:13 91 21 99 Nasal Cannula 2.0 28 10/02/18 21:00 89 10/02/18 20:42 95 124/63 10/02/18 19:41 96 17 100 Nasal Cannula 2.0 28 10/02/18 19:34 100 Nasal Cannula 2.0 28 10/02/18 19:00 99 37 122/84 (97) 98 10/02/18 18:00 99 25 122/82 (95) 95 10/02/18 17:00 94 29 125/75 (92) 98 10/02/18 16:00 98.9 90 37 130/75 (93) 97 10/02/18 16:00 91 10/02/18 15:00 90 36 121/79 (93) 96 10/02/18 14:00 91 25 121/79 (93) 98 10/02/18 13:00 91 25 121/79 (93) 98 10/02/18 12:00 89 10/02/18 12:00 97.8 88 32 116/68 (84) 99 10/02/18 11:00 84 25 111/72 (85) 98 10/02/18 10:00 82 26 122/91 (101) 97 10/02/18 09:10 96 20 96 Nasal Cannula 2.0 28 10/02/18 09:10 96 Nasal Cannula 2.0 28 10/02/18 09:10 96 20 96 Nasal Cannula 2.0 28 10/02/18 09:00 Nasal Cannula 2.0 10/02/18 09:00 83 26 122/91 (101) 93 10/02/18 08:39 91 122/75 10/02/18 08:00 92 10/02/18 08:00 90 28 122/75 (91) 96 10/02/18 07:00 93 27 114/74 (87) 97 10/02/18 06:00 95 27 118/73 (88) 97 10/02/18 05:00 94 27 110/77 (88) 98 10/02/18 04:00 98.2 95 27 111/77 (88) 98 10/02/18 04:00 95 10/02/18 03:00 95 27 102/66 (78) 98 10/02/18 02:00 96 29 104/64 (77) 93 10/02/18 01:00 97 28 101/63 (76) 93 10/02/18 00:00 100 28 102/65 (77) 94 10/02/18 00:00 98.4 97 30 106/63 (77) 93 10/02/18 00:00 97 Status: awake Lungs: other - distatn breat shound Heart: other - noraml rate distant heart sound Vladimir Stern MD Oct 02, 2018 23:02
--- NOTE | 2018-10-02 23:53 | NUR ---
NURSE NOTES:PTT 91 secs- pharmacy [facility] was notified. Spoke to Pharmacist Althea and verbalized to do another ptt Sunday morning.10/04/18. aware auditor in charge Smitha.
[2018-10-03] VITALS (24 sets, daily range): BP systolic 90–135; BP diastolic 55–85
--- NOTE | 2018-10-03 01:11 | NUR ---
NURSE NOTES:Sleeping well at this time. No SOB noted.
--- NOTE | 2018-10-03 02:00 | NUR ---
NURSE NOTES:[facility] called updated with pts condition. No bed available.
--- NOTE | 2018-10-03 03:30 | NUR ---
NURSE NOTES:Sleeping well at this time VSS.
--- NOTE | 2018-10-03 04:55 | NUR ---
NURSE NOTES:Tramadol 50 mg PO was given per pt request for RT knee pain scale of 8.
[2018-10-03 04:57] LABS: BASOPHILS % (AUTO) 1.8 % (0.0-2.0); EOSINOPHILS % (AUTO) 11.1 % (0.0-3.0); HEMATOCRIT 38.9 % (37.0-47.0); LYMPHOCYTES % (AUTO) 34.5 % (20.0-45.0); MEAN CORPUSCULAR VOLUME 90 FL (80-99); MONOCYTES % (AUTO) 8.2 % (1.0-10.0); NEUTROPHILS % (AUTO) 44.3 % (45.0-75.0); PLATELET COUNT 272 K/UL (150-450); RED BLOOD COUNT 4.33 M/UL (4.20-5.40); RED CELL DISTRIBUTION WIDTH 12.4 % (11.6-14.8); WHITE BLOOD COUNT 6.7 K/UL (4.8-10.8)
[2018-10-03 05:21] LABS: ALANINE AMINOTRANSFERASE 21 U/L (12-78); ALBUMIN/GLOBULIN RATIO 1.1 (1.0-2.7); ALKALINE PHOSPHATASE 76 U/L (46-116); ANION GAP 9 mmol/L (5-15); ASPARTATE AMINO TRANSFERASE 22 U/L (15-37); BILIRUBIN,TOTAL 0.4 MG/DL (0.2-1.0); BLOOD UREA NITROGEN 11 mg/dL (7-18); CARBON DIOXIDE 26 MMOL/L (21-32); CHLORIDE 103 MMOL/L (98-107); CREATININE 0.7 MG/DL (0.55-1.30); PHOSPHORUS 3.8 MG/DL (2.5-4.9); POTASSIUM 4.1 MMOL/L (3.5-5.1); SODIUM 138 MMOL/L (136-145)
--- NOTE | 2018-10-03 05:32 | NUR ---
NURSE NOTES:Pain meds re assesment , pain level is 3
[2018-10-03] MEDS: Meropenem 1 GM in NS 55 ML IVPB SCH ×3 (05:33→21:27)
--- NOTE | 2018-10-03 06:00 | NUR ---
NURSE NOTES:No resp. distress noted. vSS
--- NOTE | 2018-10-03 07:21 | NUR ---
HAND-OFF: Report given to Jackelyn RODRÍGUEZ.
--- NOTE | 2018-10-03 07:26 | NUR ---
NURSE NOTES: radiology here to do CXR
--- NOTE | 2018-10-03 07:34 | NUR ---
NURSE NOTES: Received report from Page RODRÍGUEZ. pt awake in bed. no c/o pain. AOx4. connected to hospital monitor HR 91, BP 122/74, RR 29, 02SAT 96. afebrile. Pt on 2L NC. bilateral lungs diminished. no phlegm at this time. abdomen round, non tender. no bm. bladder non distended. voids, uses bedpan. JOSE ARMANDO PICC. pt on Heparin drip at 11.1u/kg /hr. Site with drsg dry and intact. NO SOB noted at this time, RT knee drsg dry and intact, elevated on pillow. pts call light within reach. fall precautions in place. Will continue to monitor.
[2018-10-03] MEDS: Docusate 100mg cap ORAL SCH ×3 (08:28→17:34)
[2018-10-03] MEDS: Lactobacillus-GG tablet ORAL SCH ×2 (08:29→17:32)
[2018-10-03] MEDS: Metoprolol Tartrate 12.5mg TAB ORAL SCH ×2 (08:29→21:27)
[2018-10-03] MEDS: Wixela 250/50 Inhaler - 60 dose INH SCH ×2 (08:34→20:48)
--- NOTE | 2018-10-03 08:58 | NUR ---
RADIOLOGY DEPT., CHEST X-RAY DONE.-P.DYE
--- NOTE | 2018-10-03 09:30 | NUR ---
NURSE NOTES: Sleeping well at this time VSS.
[2018-10-03] MEDS: Heparin 25,000u/D5W 500ml 500 ML IV SCH (10:42)
--- NOTE | 2018-10-03 12:00 | NUR ---
NURSE NOTES: Pt in bed, vss. Hep drip @ 11.1u/kg/h. No s/s of bleeding. pt requested bedpan. Voided 1x large amt of isamar yellow color urine. Partial bath given after voiding. Pt refused noon medications. Lunch tray given. HOB>30. Pt in no acute distress. will continue to monitor pt and implement plan of care.
--- NOTE | 2018-10-03 13:18 | Diagnostic Imaging Report ---
Indication: Dyspnea Comparison: 09/30/2018 A single view chest radiograph was obtained. Findings: No definite infiltrate or pulmonary vascular congestion identified. PICC line is stable. The heart is enlarged. The aorta is mildly enlarged consistent with atherosclerotic vascular disease. The bones are osteopenic. Impression: No acute disease
--- NOTE | 2018-10-03 14:39 | NUR ---
*-* INSURANCE *-* UPDATED CLINICALS HAVE BEEN FAXED TO: [facility] AUTH# [id number] [employer]: MARCO De La Vega FAX CLINICALS TO: [phone]
--- NOTE | 2018-10-03 15:00 | NUR ---
NURSE NOTES: Pt resting in bed. Bed bath complete. Tolerating 2L NC. No c/o chest pain or SOB. Afebrile, BP stable. NSR.
--- NOTE | 2018-10-03 15:30 | NUR ---
Social Service Note Patient from home prior to admission status post rt knee surgery. Patient returned to ER due to drainage of surgical site per patient. Patient may require transfer to a higher level of care. CM working with insurance. Once medically stable patient will require rehab services. Emotional support provided to patient. Will continue to monitor and be available as needed.
--- NOTE | 2018-10-03 16:56 | Cardiac Electrophysiology PN ---
Assessment/Plan Assessment/Plan 1. Sinus tachycardia with no evidence of atrial fibrillation or supraventricular tachycardia due to acute pulmonary embolism. 2. Acute pulmonary embolism, on heparin drip. Bilateral lower extremity duplex showed no DVT 3. Troponin elevation, levels are low. EKG has nonischemic ST wave abnormality, likely due to the patient's acute bilateral pulmonary embolism. EKG No cute ischemia. On low-dose beta-felice 4. Right knee infection with possible septic arthritis. The patient on IV antibiotic per ID, status post incision and drainage by Dr. Del Angel on September 25, 2018. Subjective Subjective In ICU on heparin drip. No CP or SOB Objective Last 24 Hour Vital Signs Date Time Temp Pulse Resp B/P (MAP) Pulse Ox O2 Delivery O2 Flow Rate FiO2 10/03/18 15:00 93 35 124/73 (90) 94 10/03/18 14:00 96 35 120/71 (87) 94 10/03/18 13:00 95 32 110/65 (80) 96 10/03/18 12:00 86 10/03/18 12:00 98.6 86 26 103/55 (71) 96 10/03/18 11:00 85 30 110/62 (78) 98 10/03/18 10:00 84 32 115/73 (87) 95 10/03/18 09:00 98.7 90 34 120/72 (88) 95 10/03/18 09:00 Nasal Cannula 2.0 10/03/18 08:36 87 20 97 Nasal Cannula 2.0 28 10/03/18 08:36 97 Nasal Cannula 2.0 28 10/03/18 08:35 93 20 97 Nasal Cannula 2.0 28 10/03/18 08:29 89 122/74 10/03/18 08:00 90 32 122/74 (90) 95 10/03/18 08:00 90 10/03/18 07:00 91 31 122/74 (90) 95 10/03/18 06:00 89 27 118/67 (84) 95 10/03/18 05:00 90 32 115/67 (83) 95 10/03/18 04:00 98.0 91 32 123/71 (88) 95 10/03/18 04:00 88 10/03/18 03:00 90 28 115/74 (88) 95 10/03/18 02:00 87 28 112/74 (87) 95 10/03/18 01:00 87 27 90/62 (71) 94 10/03/18 00:00 98.2 87 28 110/69 (83) 93 10/02/18 23:00 89 31 109/65 (80) 95 10/02/18 22:00 90 28 115/61 (79) 96 10/02/18 21:13 93 39 98 Nasal Cannula 2.0 28 10/02/18 21:13 91 21 99 Nasal Cannula 2.0 28 10/02/18 21:00 90 35 115/61 (79) 95 10/02/18 21:00 Nasal Cannula 2.0 10/02/18 21:00 89 10/02/18 20:42 95 124/63 10/02/18 20:00 95 34 122/78 (93) 97 10/02/18 19:41 96 17 100 Nasal Cannula 2.0 28 10/02/18 19:34 100 Nasal Cannula 2.0 28 10/02/18 19:00 99 37 122/84 (97) 98 10/02/18 18:00 99 25 122/82 (95) 95 10/02/18 17:00 94 29 125/75 (92) 98 Intake and Output 10/02/18 10/03/18 19:00 07:00 Intake Total 627.668 ml 553.2 ml Output Total 770 ml Balance 627.668 ml -216.8 ml Intake Oral 345 ml 420 ml IV Total 282.668 ml 133.2 ml Output Urine Total 770 ml # Voids 2 1 Laboratory Tests Test 10/02/18 22:50 10/03/18 04:00 Activated Partial Thromboplast Time 91 SEC (23-33) H 75 SEC (23-33) H White Blood Count 6.7 K/UL (4.8-10.8) Red Blood Count 4.33 M/UL (4.20-5.40) Hemoglobin 13.0 G/DL (12.0-16.0) Hematocrit 38.9 % (37.0-47.0) Mean Corpuscular Volume 90 FL (80-99) Mean Corpuscular Hemoglobin 30.0 PG (27.0-31.0) Mean Corpuscular Hemoglobin Concent 33.4 G/DL (32.0-36.0) Red Cell Distribution Width 12.4 % (11.6-14.8) Platelet Count 272 K/UL (150-450) Mean Platelet Volume 5.9 FL (6.5-10.1) L Neutrophils (%) (Auto) 44.3 % (45.0-75.0) L Lymphocytes (%) (Auto) 34.5 % (20.0-45.0) Monocytes (%) (Auto) 8.2 % (1.0-10.0) Eosinophils (%) (Auto) 11.1 % (0.0-3.0) H Basophils (%) (Auto) 1.8 % (0.0-2.0) Erythrocyte Sedimentation Rate 25 MM/HR (0-30) Sodium Level 138 MMOL/L (136-145) Potassium Level 4.1 MMOL/L (3.5-5.1) Chloride Level 103 MMOL/L (98-107) Carbon Dioxide Level 26 MMOL/L (21-32) Anion Gap 9 mmol/L (5-15) Blood Urea Nitrogen 11 mg/dL (7-18) Creatinine 0.7 MG/DL (0.55-1.30) Estimat Glomerular Filtration Rate > 60 mL/min (>60) Glucose Level 161 MG/DL (74-106) H Hemoglobin A1c 7.1 % (4.3-6.0) H Calcium Level 9.0 MG/DL (8.5-10.1) Phosphorus Level 3.8 MG/DL (2.5-4.9) Magnesium Level 2.3 MG/DL (1.8-2.4) Total Bilirubin 0.4 MG/DL (0.2-1.0) Aspartate Amino Transf (AST/SGOT) 22 U/L (15-37) Alanine Aminotransferase (ALT/SGPT) 21 U/L (12-78) Alkaline Phosphatase 76 U/L (46-116) Troponin I 0.029 ng/mL (0.000-0.056) Total Protein 5.7 G/DL (6.4-8.2) L Albumin 3.0 G/DL (3.4-5.0) L Globulin 2.7 g/dL Albumin/Globulin Ratio 1.1 (1.0-2.7) Objective HEAD AND NECK: No JVD. LUNGS: Clear. CARDIOVASCULAR: Tachycardic. S1 and S2 regular. ABDOMEN: Soft. EXTREMITIES: No pitting edema, status post right knee surgery. Home Castaneda MD Oct 03, 2018 16:56
--- NOTE | 2018-10-03 17:00 | NUR ---
NURSE NOTES: pt requested bedpan. cleaned and repositioned. hob>30. will continue to monitor pt.
--- NOTE | 2018-10-03 17:04 | Pulmonolgy Critical Care Note ---
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 Discussed with: nurses, consultants, community case managermanager personal - Objective Last 24 Hour Vital Signs Date Time Temp Pulse Resp B/P (MAP) Pulse Ox O2 Delivery O2 Flow Rate FiO2 10/03/18 15:00 93 35 124/73 (90) 94 10/03/18 14:00 96 35 120/71 (87) 94 10/03/18 13:00 95 32 110/65 (80) 96 10/03/18 12:00 86 10/03/18 12:00 98.6 86 26 103/55 (71) 96 10/03/18 11:00 85 30 110/62 (78) 98 10/03/18 10:00 84 32 115/73 (87) 95 10/03/18 09:00 98.7 90 34 120/72 (88) 95 10/03/18 09:00 Nasal Cannula 2.0 10/03/18 08:36 87 20 97 Nasal Cannula 2.0 28 10/03/18 08:36 97 Nasal Cannula 2.0 28 10/03/18 08:35 93 20 97 Nasal Cannula 2.0 28 10/03/18 08:29 89 122/74 10/03/18 08:00 90 32 122/74 (90) 95 10/03/18 08:00 90 10/03/18 07:00 91 31 122/74 (90) 95 10/03/18 06:00 89 27 118/67 (84) 95 10/03/18 05:00 90 32 115/67 (83) 95 10/03/18 04:00 98.0 91 32 123/71 (88) 95 10/03/18 04:00 88 10/03/18 03:00 90 28 115/74 (88) 95 10/03/18 02:00 87 28 112/74 (87) 95 10/03/18 01:00 87 27 90/62 (71) 94 10/03/18 00:00 98.2 87 28 110/69 (83) 93 10/02/18 23:00 89 31 109/65 (80) 95 10/02/18 22:00 90 28 115/61 (79) 96 10/02/18 21:13 93 39 98 Nasal Cannula 2.0 28 10/02/18 21:13 91 21 99 Nasal Cannula 2.0 28 10/02/18 21:00 90 35 115/61 (79) 95 10/02/18 21:00 Nasal Cannula 2.0 10/02/18 21:00 89 10/02/18 20:42 95 124/63 10/02/18 20:00 95 34 122/78 (93) 97 10/02/18 19:41 96 17 100 Nasal Cannula 2.0 28 10/02/18 19:34 100 Nasal Cannula 2.0 28 10/02/18 19:00 99 37 122/84 (97) 98 10/02/18 18:00 99 25 122/82 (95) 95 Status: awake Condition: critical HEENT: atraumatic, normocephalic Neck: full ROM Lungs: clear Heart: HR/BP stable Abdomen: soft, non-tender Extremities: no C/C/E Accucheck: 154 Critical Care - Subjective ROS Limited/Unobtainable: Yes FI02: 28 Sputum Amount: None I&O: Intake and Output 10/02/18 10/03/18 19:00 07:00 Intake Total 627.668 ml 553.2 ml Output Total 770 ml Balance 627.668 ml -216.8 ml Intake Oral 345 ml 420 ml IV Total 282.668 ml 133.2 ml Output Urine Total 770 ml # Voids 2 1 Labs: Laboratory Tests Test 10/02/18 22:50 10/03/18 04:00 Activated Partial Thromboplast Time 91 SEC (23-33) H 75 SEC (23-33) H White Blood Count 6.7 K/UL (4.8-10.8) Red Blood Count 4.33 M/UL (4.20-5.40) Hemoglobin 13.0 G/DL (12.0-16.0) Hematocrit 38.9 % (37.0-47.0) Mean Corpuscular Volume 90 FL (80-99) Mean Corpuscular Hemoglobin 30.0 PG (27.0-31.0) Mean Corpuscular Hemoglobin Concent 33.4 G/DL (32.0-36.0) Red Cell Distribution Width 12.4 % (11.6-14.8) Platelet Count 272 K/UL (150-450) Mean Platelet Volume 5.9 FL (6.5-10.1) L Neutrophils (%) (Auto) 44.3 % (45.0-75.0) L Lymphocytes (%) (Auto) 34.5 % (20.0-45.0) Monocytes (%) (Auto) 8.2 % (1.0-10.0) Eosinophils (%) (Auto) 11.1 % (0.0-3.0) H Basophils (%) (Auto) 1.8 % (0.0-2.0) Erythrocyte Sedimentation Rate 25 MM/HR (0-30) Sodium Level 138 MMOL/L (136-145) Potassium Level 4.1 MMOL/L (3.5-5.1) Chloride Level 103 MMOL/L (98-107) Carbon Dioxide Level 26 MMOL/L (21-32) Anion Gap 9 mmol/L (5-15) Blood Urea Nitrogen 11 mg/dL (7-18) Creatinine 0.7 MG/DL (0.55-1.30) Estimat Glomerular Filtration Rate > 60 mL/min (>60) Glucose Level 161 MG/DL (74-106) H Hemoglobin A1c 7.1 % (4.3-6.0) H Calcium Level 9.0 MG/DL (8.5-10.1) Phosphorus Level 3.8 MG/DL (2.5-4.9) Magnesium Level 2.3 MG/DL (1.8-2.4) Total Bilirubin 0.4 MG/DL (0.2-1.0) Aspartate Amino Transf (AST/SGOT) 22 U/L (15-37) Alanine Aminotransferase (ALT/SGPT) 21 U/L (12-78) Alkaline Phosphatase 76 U/L (46-116) Troponin I 0.029 ng/mL (0.000-0.056) Total Protein 5.7 G/DL (6.4-8.2) L Albumin 3.0 G/DL (3.4-5.0) L Globulin 2.7 g/dL Albumin/Globulin Ratio 1.1 (1.0-2.7) Mili Urbina MD Oct 03, 2018 17:04
[2018-10-03] MEDS: Albuterol 90mcg Inhaler 8gm INH PRN (17:12)
--- NOTE | 2018-10-03 17:32 | NUR ---
FIBERGLASS FINISHERCARPENTRY PROFESSIONAL SI:ACUTE MASSIVE PULMONARY EMBOLISM . S/P RIGHT KNEE SURGERY . RIGHT KNEE INFECTION VS: BP 103/55,P 96, T 98.6, RR 36, SpO2 94 on 2.0 NC A1c 7.1 IS:PROVENTIL INH MEROPENEM 55ml IVPB FLUTICASONE INH LOPRESSOR 12.5mg ULTRAM 50mg PLAN: CONT. HEPARIN DRIP CONT. ABX ICU STATUS
[2018-10-03] MEDS: Montelukast 10mg tablet ORAL SCH (17:33)
--- NOTE | 2018-10-03 17:58 | Infectious Diseases Prog Note ---
Assessment/Plan Assessment/Plan ASSESSMENT AND PLAN: 1. achromobacter right knee infected wound with possible septic arthritis and ? osteomyelitis massive PE - CT noted, ? pna but not presenting clinically like pna - meropenem started - day # 5 - await ertapenem sensitivities - d/w micro to set up - monitor labs and chest x-ray - likely will need 4-6 weeks iv antibiotics - d/w pharmacy - PE treatment per primary and pulmonary medicine, heparin, transfer to [facility] for embolectomy 2. Questionable history of diabetes and hypertension. Per the patient, she did have a history of elevated blood pressure and blood sugars, but now controlled. 3. History of obesity, but the patient has lost weight. 4. Asthma. 5. History of right knee arthroscopy. 6. History of internal knee derangement. 7. History of polycystic ovarian syndrome. 8. Social history is negative. 9. Family history is noncontributory. 10. MAR was noted. 11. Case was discussed with RN. 12. Allergies include celecoxib and hydrocodone. 13. MAR was noted. 14. Case was discussed with the patient and answered questions Subjective Constitutional: Denies: fever HEENT: Denies: congestion Respiratory: Denies: shortness of breath Cardiovascular: Denies: chest pain Gastrointestinal/Abdominal: Denies: nausea, vomiting, diarrhea Neurologic: Denies: headache Psychiatric: Denies: depression Skin: Denies: rash Hematologic: Denies: bleeding Musculoskeletal: Reports: pain - right knee pain controlled Allergies: Coded Allergies: CELECOXIB (Verified Allergy, Severe, dyspnea, 09/25/18) HYDROCODONE (Verified Allergy, Severe, Rash, 09/25/18) NSAIDS (NON-STEROIDAL ANTI-INFLAMMA (Verified Allergy, Severe, Shortness of Breath, 09/29/18) Objective Vital Signs Last 24 Hour Vital Signs Date Time Temp Pulse Resp B/P (MAP) Pulse Ox O2 Delivery O2 Flow Rate FiO2 10/03/18 17:13 89 20 99 Nasal Cannula 3.0 32 10/03/18 17:12 92 20 97 Nasal Cannula 2.0 28 10/03/18 15:00 93 35 124/73 (90) 94 10/03/18 14:00 96 35 120/71 (87) 94 10/03/18 13:00 95 32 110/65 (80) 96 10/03/18 12:00 86 10/03/18 12:00 98.6 86 26 103/55 (71) 96 18 11:00 85 30 110/62 (78) 98 18 10:00 84 32 115/73 (87) 95 10/03/18 09:00 98.7 90 34 120/72 (88) 95 10/03/18 09:00 Nasal Cannula 2.0 10/03/18 08:36 87 20 97 Nasal Cannula 2.0 28 10/03/18 08:36 97 Nasal Cannula 2.0 28 10/03/18 08:35 93 20 97 Nasal Cannula 2.0 28 10/03/18 08:29 89 122/74 10/03/18 08:00 90 32 122/74 (90) 95 10/03/18 08:00 90 10/03/18 07:00 91 31 122/74 (90) 95 10/03/18 06:00 89 27 118/67 (84) 95 10/03/18 05:00 90 32 115/67 (83) 95 10/03/18 04:00 98.0 91 32 123/71 (88) 95 10/03/18 04:00 88 10/03/18 03:00 90 28 115/74 (88) 95 10/03/ 02:00 87 28 112/74 (87) 95 10/03/18 01:00 87 27 90/62 (71) 94 18 00:00 98.2 87 28 110/69 (83) 93 10/02/18 23:00 89 31 109/65 (80) 95 10/02/18 22:00 90 28 115/61 (79) 96 10/02/18 21:13 93 39 98 Nasal Cannula 2.0 28 10/02/18 21:13 91 21 99 Nasal Cannula 2.0 28 10/02/18 21:00 90 35 115/61 (79) 95 10/02/18 21:00 Nasal Cannula 2.0 10/02/18 21:00 89 19 20:42 95 124/63 10/02/18 20:00 95 34 122/78 (93) 97 10/02/18 19:41 96 17 100 Nasal Cannula 2.0 28 10/02/18 19:34 100 Nasal Cannula 2.0 28 10/02/18 19:00 99 37 122/84 (97) 98 10/02/18 18:00 99 25 122/82 (95) 95 Height (Feet): 5 Height (Inches): 5.00 Weight (Pounds): 321 General Appearance: no acute distress HEENT: normocephalic, atraumatic, anicteric Respiratory/Chest: lungs clear, normal breath sounds, no respiratory distress, no accessory muscle use Cardiovascular: normal rate, regular rhythm, no gallop/murmur, no JVD Abdomen: normal bowel sounds, soft, non tender, no organomegaly, non distended Genitourinary: other - no novoa Extremities: no cyanosis, other - right knee - covered Skin: no rash Neurologic/Psychiatric: bean viner II-XII grossly normal, alert, responsive Lymphatic: no neck adenopathy Musculoskeletal: no effusion Objective Chest x-ray - nad Microbiology Date/Time Source Procedure Growth Status 09/25/18 19:31 Synovial Fluid Anaerobic Culture - Final NO ANAEROBES ISOLATED Complete right knee culture - achromobacter Laboratory Tests Test 10/02/18 22:50 10/03/18 04:00 Activated Partial Thromboplast Time 91 SEC (23-33) H 75 SEC (23-33) H White Blood Count 6.7 K/UL (4.8-10.8) Red Blood Count 4.33 M/UL (4.20-5.40) Hemoglobin 13.0 G/DL (12.0-16.0) Hematocrit 38.9 % (37.0-47.0) Mean Corpuscular Volume 90 FL (80-99) Mean Corpuscular Hemoglobin 30.0 PG (27.0-31.0) Mean Corpuscular Hemoglobin Concent 33.4 G/DL (32.0-36.0) Red Cell Distribution Width 12.4 % (11.6-14.8) Platelet Count 272 K/UL (150-450) Mean Platelet Volume 5.9 FL (6.5-10.1) L Neutrophils (%) (Auto) 44.3 % (45.0-75.0) L Lymphocytes (%) (Auto) 34.5 % (20.0-45.0) Monocytes (%) (Auto) 8.2 % (1.0-10.0) Eosinophils (%) (Auto) 11.1 % (0.0-3.0) H Basophils (%) (Auto) 1.8 % (0.0-2.0) Erythrocyte Sedimentation Rate 25 MM/HR (0-30) Sodium Level 138 MMOL/L (136-145) Potassium Level 4.1 MMOL/L (3.5-5.1) Chloride Level 103 MMOL/L (98-107) Carbon Dioxide Level 26 MMOL/L (21-32) Anion Gap 9 mmol/L (5-15) Blood Urea Nitrogen 11 mg/dL (7-18) Creatinine 0.7 MG/DL (0.55-1.30) Estimat Glomerular Filtration Rate > 60 mL/min (>60) Glucose Level 161 MG/DL (74-106) H Hemoglobin A1c 7.1 % (4.3-6.0) H Calcium Level 9.0 MG/DL (8.5-10.1) Phosphorus Level 3.8 MG/DL (2.5-4.9) Magnesium Level 2.3 MG/DL (1.8-2.4) Total Bilirubin 0.4 MG/DL (0.2-1.0) Aspartate Amino Transf (AST/SGOT) 22 U/L (15-37) Alanine Aminotransferase (ALT/SGPT) 21 U/L (12-78) Alkaline Phosphatase 76 U/L (46-116) Troponin I 0.029 ng/mL (0.000-0.056) Total Protein 5.7 G/DL (6.4-8.2) L Albumin 3.0 G/DL (3.4-5.0) L Globulin 2.7 g/dL Albumin/Globulin Ratio 1.1 (1.0-2.7) Current Medications Medications (Trade) Dose Ordered Sig/Andres Route PRN Reason Start Time Stop Time Status Last Admin Dose Admin Acetaminophen/ Hydrocodone Bitart ([place] 5/325) 1 tab Q4H PRN ORAL MILD PAIN 10/01/18 14:41 10/08/18 14:40 Albuterol Sulfate (Proventil MDI) 2 puff Q6H PRN INH Shortness of Breath 10/01/18 14:40 10/31/18 14:39 10/03/18 17:12 Chlorhexidine Gluconate (Laverne-Hex 2%) 1 applic DAILY@1999 TOPIC 10/01/18 20:00 10/30/18 19:59 10/02/18 20:08 Diphenhydramine HCl (Benadryl) 50 mg Q8H ORAL 10/01/18 20:00 10/26/18 19:59 10/03/18 03:36 Docusate Sodium (Colace) 100 mg THREE TIMES A DAY ORAL 10/01/18 18:00 10/26/18 08:59 10/03/18 08:28 Heparin Sodium/ Dextrose 500 ml @ 32.846 mls/ hr ADJUST PER PROTOCOL IV 10/02/18 17:00 11/01/18 16:59 10/03/18 10:42 Hydromorphone HCl (Dilaudid) 0.4 mg Q2H PRN IVP severe pain 10/01/18 14:44 10/08/18 14:43 Lactobacillus Acidophilus (Culturelle) 1 tab TWICE A DAY ORAL 10/01/18 18:00 10/29/18 17:59 10/03/18 17:32 Meropenem 1 gm/ Sodium Chloride 55 ml @ 110 mls/hr Q8HR IVPB 10/01/18 22:00 10/27/18 23:59 10/03/18 14:42 Metoprolol Tartrate (Lopressor) 12.5 mg Q12HR ORAL 10/01/18 21:00 10/31/18 20:59 10/03/18 08:29 Montelukast Sodium (Singulair) 10 mg QPM ORAL 10/01/18 16:30 10/26/18 16:29 10/03/18 17:33 Ondansetron HCl (Zofran) 4 mg Q6H PRN IVP Nausea & Vomiting 10/01/18 14:43 10/31/18 14:42 10/01/18 18:41 Pantoprazole (Protonix) 40 mg DAILY ORAL 10/03/18 09:00 11/02/18 08:59 10/03/18 08:29 Salmeterol Xinafoate/ Fluticasone (Advair 250/50 Diskus) 1 puffs Q12HR INH 10/01/18 21:00 10/26/18 08:59 10/03/18 08:34 Tramadol HCl (Ultram) 50 mg TIDPRN PRN ORAL Severe Breakthru Pain (>7) 10/01/18 14:44 10/08/18 14:43 10/03/18 04:55 Mary Ellen Jaimes MD Oct 03, 2018 17:58
--- NOTE | 2018-10-03 19:26 | NUR ---
HAND-OFF: Report given to Elaine RODRÍGUEZ. pt in no acute distress.
--- NOTE | 2018-10-03 19:27 | NUR ---
NURSE NOTES: Endorsement received from ANNE Hayden. Patient awake and oriented x4. No complain of pain at this time. On oxygen 2LPM. No shortness of breath. With right upper arm PICC. On Heparin 11.1 units/kg/hr. Settings at infusion pump rechecked. Right knee covered with denis bandage, dry and intact. Elevated leg on pillow. Head of bed elevated. Call light within reach, reminded patient to use call light for assistance. Verbalized understanding. Bed alarm on. Bed locked and in low position.
[2018-10-03] MEDS: Dyna-Hex 2% Top Sol 2oz TOPIC SCH (20:02)
--- NOTE | 2018-10-03 21:00 | NUR ---
NURSE NOTES: Blood sugar checked for monitorinmg/dl. No sliding scale.
--- NOTE | 2018-10-03 22:41 | General Progress Note ---
Assessment/Plan Assessment/Plan: massive pulmonary embolism on heparin drip pharmacy to dose she is on therapeutic dose she hashfaby right heart collapse will continue to monitor in ICU setting supplement oxygen ? xarelto she will need [facility] post arthroscopy with ACHROMOBACTER XYLOSOXIDANS per id ................................................................................ ................ Lashaun Romero MD, PhD, [facility] [place] [facility] [employer]imen Inquiry Report PATIENT: BARBARA JORDAN LOC: 3E U # : [id number] AGE/SX: 58/F ROOM: [facility] REG : 09/25/[address]: Vladimir Stern MD : 1960 BED: 1 DIS : STATUS: ADM IN TLOC: SPEC #: [id number] ALLEN: 09/25/18 STATUS: COMP REQ #: [id number] RECD: 09/25/[address]: Bernardo Kowalski MD SOURCE: SYN FLD ENTR: 09/25/[address]: NON PHYSICIAN [facility]: [facility]AYL[facility] RHODES ORDERED: BODY FLD CUL&GS QUERIES: SPECIMEN SOURCE RT KNEE ASPIRATION Procedure Result GRAM STAIN Final GRAM STAIN RESULT NO WHITE BLOOD CELLS NO ORGANISMS SEEN CULTURE BODY FLUID RESULT Final Organism 1 ACHROMOBACTER XYLOSOXIDANS GROWTH: 1+ A.XYLOSOXI M.I.C. RX --------- --- CEFTAZIDIME 4 S CEFTRIAXONE >=64 R CEFEPIME 16 I CIPROFLOXACIN 2 I GENTAMICIN >=16 R LEVOFLOXACIN 2 S IMIPENEM 1 S TRIMETHOPRIM/SULFA <=20 S AMIKACIN >=64 R PIPERACILLIN/TAZOBACTAM <=4 S ......................................................... antibiotic as is ................................................. she will benenfit from continuous rehab will monito rnad follow ........................................ diabetes hgba1c is 7.1 start her on januvia 100 daily she is a good candidate for victoza as out patinet. Subjective Date patient seen: Oct 03, 2018 Time patient seen: 22:38 Constitutional: Reports: no symptoms HEENT: Reports: no symptoms Allergies: Coded Allergies: CELECOXIB (Verified Allergy, Severe, dyspnea, 09/25/18) HYDROCODONE (Verified Allergy, Severe, Rash, 09/25/18) NSAIDS (NON-STEROIDAL ANTI-INFLAMMA (Verified Allergy, Severe, Shortness of Breath, 09/29/18) Subjective shorntess of berath is less in ICU no chills has minimal drain from the knee. Objective Last 24 Hour Vital Signs Date Time Temp Pulse Resp B/P (MAP) Pulse Ox O2 Delivery O2 Flow Rate FiO2 10/03/18 21:27 91 108/62 10/03/18 20:48 90 30 97 Nasal Cannula 2.0 28 10/03/18 20:48 92 26 98 Nasal Cannula 2.0 28 10/03/18 20:00 Nasal Cannula 2.0 10/03/18 19:02 97 Nasal Cannula 2.0 28 10/03/18 18:00 99 29 135/85 (102) 96 10/03/18 17:13 89 20 99 Nasal Cannula 3.0 32 10/03/18 17:12 92 20 97 Nasal Cannula 2.0 28 10/03/18 17:00 98.5 91 26 116/74 (88) 96 10/03/18 16:00 94 10/03/18 16:00 95 10/03/18 16:00 93 35 124/73 (90) 94 10/03/18 15:00 93 35 124/73 (90) 94 10/03/18 14:00 96 35 120/71 (87) 94 10/03/18 13:00 95 32 110/65 (80) 96 10/03/18 12:00 86 10/03/18 12:00 98.6 86 26 103/55 (71) 96 10/03/18 11:00 85 30 110/62 (78) 98 10/03/18 10:00 84 32 115/73 (87) 95 10/03/18 09:00 98.7 90 34 120/72 (88) 95 10/03/18 09:00 Nasal Cannula 2.0 10/03/18 08:36 87 20 97 Nasal Cannula 2.0 28 10/03/18 08:36 97 Nasal Cannula 2.0 28 10/03/18 08:35 93 20 97 Nasal Cannula 2.0 28 10/03/18 08:29 89 122/74 10/03/18 08:00 90 32 122/74 (90) 95 10/03/18 08:00 90 10/03/18 07:00 91 31 122/74 (90) 95 10/03/18 06:00 89 27 118/67 (84) 95 10/03/18 05:00 90 32 115/67 (83) 95 10/03/18 04:00 98.0 91 32 123/71 (88) 95 10/03/18 04:00 88 10/03/18 03:00 90 28 115/74 (88) 95 10/03/18 02:00 87 28 112/74 (87) 95 10/03/18 01:00 87 27 90/62 (71) 94 10/03/18 00:00 98.2 87 28 110/69 (83) 93 10/02/18 23:00 89 31 109/65 (80) 95 Intake and Output 10/02/18 10/03/18 18:59 06:59 Intake Total 666.432 ml 542.1 ml Output Total 770 ml Balance 666.432 ml -227.9 ml Intake Oral 345 ml 420 ml IV Total 321.432 ml 122.1 ml Output Urine Total 770 ml # Voids 2 1 Laboratory Tests 10/02/18 22:50: Activated Partial Thromboplast Time 91H 10/03/18 04:00: Activated Partial Thromboplast Time 75H, White Blood Count 6.7, Red Blood Count 4.33, Hemoglobin 13.0, Hematocrit 38.9, Mean Corpuscular Volume 90, Mean Corpuscular Hemoglobin 30.0, Mean Corpuscular Hemoglobin Concent 33.4, Red Cell Distribution Width 12.4, Platelet Count 272, Mean Platelet Volume 5.9L, Neutrophils (%) (Auto) 44.3L, Lymphocytes (%) (Auto) 34.5, Monocytes (%) (Auto) 8.2, Eosinophils (%) (Auto) 11.1H, Basophils (%) (Auto) 1.8, Erythrocyte Sedimentation Rate 25, Sodium Level 138, Potassium Level 4.1, Chloride Level 103 , Carbon Dioxide Level 26, Anion Gap 9, Blood Urea Nitrogen 11, Creatinine 0.7, Estimat Glomerular Filtration Rate > 60, Glucose Level 161H, Hemoglobin A1c 7.1H , Calcium Level 9.0, Phosphorus Level 3.8, Magnesium Level 2.3, Total Bilirubin 0.4, Aspartate Amino Transf (AST/SGOT) 22, Alanine Aminotransferase (ALT/SGPT) 21, Alkaline Phosphatase 76, Troponin I 0.029, Total Protein 5.7L, Albumin 3.0L , Globulin 2.7, Albumin/Globulin Ratio 1.1 Height (Feet): 5 Height (Inches): 5.00 Weight (Pounds): 321 Objective some distress unable to assess JV pulse s1,s2,regular distant breath sound soft knee minimal Vladimir Benitez MD Oct 03, 2018 22:41
--- NOTE | 2018-10-03 23:00 | NUR ---
NURSE NOTES: Patient seen and examined by Dr. Stern, with new order for Januvia before breakfast.
[2018-10-04] VITALS (24 sets, daily range): BP systolic 58–129; BP diastolic 49–88
--- NOTE | 2018-10-04 | NUR ---
NURSE NOTES: Patient awake, watching TV. Calm and comfortable, reported no pain. Assisted with bedpan and perineal care.
[2018-10-04] MEDS: Heparin 25,000u/D5W 500ml 500 ML IV SCH ×2 (01:58→17:43)
--- NOTE | 2018-10-04 02:00 | NUR ---
NURSE NOTES: Patient asleep at this time. No bleeding, no shortness of breath.
--- NOTE | 2018-10-04 04:00 | NUR ---
NURSE NOTES: Patient asleep. Vital signs stable. Right leg kept elevated, denis bandage intact, clean and dry.
[2018-10-04 04:41] LABS: BASOPHILS % (AUTO) 1.5 % (0.0-2.0); EOSINOPHILS % (AUTO) 11.7 % (0.0-3.0); HEMATOCRIT 36.8 % (37.0-47.0); HEMOGLOBIN 12.3 G/DL (12.0-16.0); LYMPHOCYTES % (AUTO) 36.1 % (20.0-45.0); MEAN CORPUSCULAR VOLUME 89 FL (80-99); NEUTROPHILS % (AUTO) 41.7 % (45.0-75.0); PLATELET COUNT 272 K/UL (150-450); RED BLOOD COUNT 4.12 M/UL (4.20-5.40); RED CELL DISTRIBUTION WIDTH 12.2 % (11.6-14.8)
--- NOTE | 2018-10-04 05:00 | NUR ---
NURSE NOTES: Patient awake. Assisted with morning care, oral care and change of linens.
[2018-10-04 05:04] LABS: ANION GAP 8 mmol/L (5-15); BLOOD UREA NITROGEN 11 mg/dL (7-18); CALCIUM 8.9 MG/DL (8.5-10.1); CARBON DIOXIDE 27 MMOL/L (21-32); CHLORIDE 105 MMOL/L (98-107); CREATININE 0.6 MG/DL (0.55-1.30); POTASSIUM 4.1 MMOL/L (3.5-5.1); SODIUM 140 MMOL/L (136-145)
--- NOTE | 2018-10-04 05:30 | NUR ---
NURSE NOTES: PTT 67. No rate change for the heparin drip and next PTT tomorrow morning as confirmed by [employer] Pharmacist TIFFANY CARRASCO.
[2018-10-04] MEDS: Meropenem 1 GM in NS 55 ML IVPB SCH ×3 (05:33→21:36)
--- NOTE | 2018-10-04 07:25 | NUR ---
NURSE NOTES: Received report from Elaine RODRÍGUEZ. pt resting in bed. opens eyes spontaneously. No c/o pain. AOx4. Pt connected to monitor worker HR 84 , BP 104/61, RR 27, 02SAT 97%. Afebrile. Pt on 2L NC. Bilateral lungs diminished. No secretions. Abdomen round, non tender. No bm since 09/27/18. Bladder non distended. Voids via bedpan. JOSE ARMANDO PICC, dressing dry and intact, running Heparin drip at 11.1u/kg /hr. Next PTT 10/05 @0400. RT knee drsg dry and intact, denis bandage in place. leg elevated on pillow. Call light within reach. Fall precautions in place. Bed alarm on. Informed of plan of care. pt states understanding. Will continue to monitor.
--- NOTE | 2018-10-04 07:25 | NUR ---
HAND-OFF: Report given to ANNE Hayden.
--- NOTE | 2018-10-04 08:00 | NUR ---
NURSE NOTES: pt very drowsy c/o not being able to sleep last night d/t noise level. willing to take A.M medications but requests not to be disturbed unless absolutely have t, very tired today. Informed pt monitoring on hourly basis is necessary but will cluster activities/procedures/interactions as much as possible today. Efforts made to decrease environmental stimuli to promote rest: lights out, doors closed, TV off. HOB>30. VSS. Will monitor pt and implement plan of care. Addendum: 10/04/18 at 0936 by Jackelyn Duff RN pt refused colace and breakfast tray. r/o not much appetite.
[2018-10-04] MEDS: Wixela 250/50 Inhaler - 60 dose INH SCH ×2 (08:41→21:33)
[2018-10-04] MEDS: Lactobacillus-GG tablet ORAL SCH ×2 (08:45→17:20)
[2018-10-04] MEDS: Metoprolol Tartrate 12.5mg TAB ORAL SCH ×2 (08:46→21:36)
[2018-10-04] MEDS: Docusate 100mg cap ORAL SCH ×3 (08:48→17:20)
--- NOTE | 2018-10-04 10:08 | NUR ---
NURSE NOTES: MD VALENCIA HERE TO SEE PT. PT C/O LOUD NOISES AND BEEPING AND INABILITY TO GET REST. WOULD LIKE A CHANGE. MD WILL CONSIDER TRANSFER TO SHORTY FOR SPACE, DIFFERENT STIMULI AND NOISE CONTROL FROM MONITORS. PREVENTION OF ICU DELIRIUM. PT CURRENT MOOD MORE WITHDRAWN, INCREASED DROWSINESS.
--- NOTE | 2018-10-04 10:25 | Pulmonolgy Critical Care Note ---
Critical Care - Asmt/Plan Problems: (1) Acute massive pulmonary embolism (2) S/P right knee surgery Respiratory: monitor respiratory rate, adjust FIO2, CXR Cardiac: continue to monitor HR/BP Renal: F/U I&O, keep IV fluid, check electrolytes Infectious Disease: check cultures, continue antibiotics Gastrointestinal: continue feedings/current rate Endocrine: monitor blood sugar Hematologic: monitor H/H, transfuse if hgb<8.5 Neurologic: PRN Ativan, keep patient comfortable Affect: PRN ativan Prophylaxis: Protonix Time Spent (Minutes): 40 Notes Reviewed: cardio, renal Discussed with: consultants, case briefersub plant manager - Objective Last 24 Hour Vital Signs Date Time Temp Pulse Resp B/P (MAP) Pulse Ox O2 Delivery O2 Flow Rate FiO2 10/04/18 08:46 84 104/61 10/04/18 08:42 88 20 100 Nasal Cannula 2.0 28 10/04/18 08:42 100 Nasal Cannula 2.0 28 10/04/18 08:41 85 20 99 Nasal Cannula 2.0 28 10/04/18 08:00 84 10/04/18 08:00 Nasal Cannula 2.0 10/04/18 08:00 98.8 87 30 104/61 (75) 97 10/04/18 07:00 82 26 108/67 (81) 95 10/04/18 06:00 83 27 118/64 (82) 97 10/04/18 05:00 84 27 110/61 (77) 100 10/04/18 04:00 98.8 86 27 111/81 (91) 98 10/04/18 04:00 Nasal Cannula 2.0 10/04/18 04:00 82 10/04/18 04:00 86 27 111/81 (91) 98 10/04/18 03:00 84 28 106/51 (69) 98 10/04/18 02:00 81 26 96/54 (68) 96 10/04/18 01:00 75 26 112/88 (96) 94 10/04/18 00:00 Nasal Cannula 2.0 10/04/18 00:00 99.0 85 29 109/56 (73) 96 10/04/18 00:00 89 10/03/18 23:00 88 30 112/63 (79) 95 10/03/18 22:00 91 34 117/64 (81) 96 10/03/18 21:27 91 108/62 10/03/18 21:00 92 33 107/59 (75) 96 10/03/18 20:48 90 30 97 Nasal Cannula 2.0 28 10/03/18 20:48 92 26 98 Nasal Cannula 2.0 28 10/03/18 20:00 Nasal Cannula 2.0 10/03/18 20:00 94 10/03/18 20:00 99.1 93 31 116/65 (82) 95 10/03/18 19:02 97 Nasal Cannula 2.0 28 10/03/18 19:00 94 33 107/60 (76) 96 10/03/18 18:00 99 29 135/85 (102) 96 10/03/18 17:13 89 20 99 Nasal Cannula 3.0 32 10/03/18 17:12 92 20 97 Nasal Cannula 2.0 28 10/03/18 17:00 98.5 91 26 116/74 (88) 96 10/03/18 16:00 94 10/03/18 16:00 95 10/03/18 16:00 93 35 124/73 (90) 94 10/03/18 15:00 93 35 124/73 (90) 94 10/03/18 14:00 96 35 120/71 (87) 94 10/03/18 13:00 95 32 110/65 (80) 96 10/03/18 12:00 86 10/03/18 12:00 98.6 86 26 103/55 (71) 96 10/03/18 11:00 85 30 110/62 (78) 98 Status: awake Condition: improving Lungs: clear Heart: HR/BP stable Abdomen: soft, non-tender, feeding tube Extremities: edema Accucheck: 151 Critical Care - Subjective ROS Limited/Unobtainable: No Interval Events: no new complains FI02: 28 Sputum Amount: None I&O: Intake and Output 10/03/18 10/04/18 19:00 07:00 Intake Total 985.254 ml 704.152 ml Balance 985.254 ml 704.152 ml Intake Oral 580 ml 200 ml IV Total 405.254 ml 504.152 ml # Voids 3 2 Labs: Laboratory Tests Test 10/04/18 04:10 White Blood Count 6.0 K/UL (4.8-10.8) Red Blood Count 4.12 M/UL (4.20-5.40) L Hemoglobin 12.3 G/DL (12.0-16.0) Hematocrit 36.8 % (37.0-47.0) L Mean Corpuscular Volume 89 FL (80-99) Mean Corpuscular Hemoglobin 29.9 PG (27.0-31.0) Mean Corpuscular Hemoglobin Concent 33.5 G/DL (32.0-36.0) Red Cell Distribution Width 12.2 % (11.6-14.8) Platelet Count 272 K/UL (150-450) Mean Platelet Volume 5.7 FL (6.5-10.1) L Neutrophils (%) (Auto) 41.7 % (45.0-75.0) L Lymphocytes (%) (Auto) 36.1 % (20.0-45.0) Monocytes (%) (Auto) 9.0 % (1.0-10.0) Eosinophils (%) (Auto) 11.7 % (0.0-3.0) H Basophils (%) (Auto) 1.5 % (0.0-2.0) Activated Partial Thromboplast Time 67 SEC (23-33) H Sodium Level 140 MMOL/L (136-145) Potassium Level 4.1 MMOL/L (3.5-5.1) Chloride Level 105 MMOL/L (98-107) Carbon Dioxide Level 27 MMOL/L (21-32) Anion Gap 8 mmol/L (5-15) Blood Urea Nitrogen 11 mg/dL (7-18) Creatinine 0.6 MG/DL (0.55-1.30) Estimat Glomerular Filtration Rate > 60 mL/min (>60) Glucose Level 145 MG/DL (74-106) H Hemoglobin A1c 6.8 % (4.3-6.0) H Calcium Level 8.9 MG/DL (8.5-10.1) Mili Urbina MD Oct 04, 2018 10:24
[2018-10-04 10:49] LABS: INR 1.1 (0.9-1.1)
[2018-10-04] MEDS ORDERED: Tubing IV Secondary IV ONE (11:03)
[2018-10-04] MEDS ORDERED: NS 275ml ONE (11:03)
--- NOTE | 2018-10-04 12:12 | NUR ---
NURSE NOTES: Pt in bed, VSS. Hep drip @ 11.1u/kg/h. No s/s of bleeding. Pt requested bedpan. Voided 1x large amt of isamar yellow color urine. Partial bath given after voiding. Pt accepted noon medication. Lunch tray given. HOB>30. Pt in no acute distress. Will continue to monitor pt and implement plan of care.
--- NOTE | 2018-10-04 13:33 | NUR ---
*-* INSURANCE *-* UPDATED CLINICALS HAVE BEEN FAXED TO: [employer] AUTH# [id number] [employer] ARCHITECT: MARCO De La Vega FAX CLINICALS TO: [phone]
--- NOTE | 2018-10-04 13:59 | NUR ---
NURSE NOTES: HERE TO SEE PT. NO C/O CHEST PAIN, SOB. MILD COUGH, NO SPUTUM. FEELING BETTER SINCE RESTING. 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 MD WAS INFORMED PT HAS STEPDOWN ORDER, WAITING TO GET APPROVAL FROM PRIMARY MD WESTON.
--- NOTE | 2018-10-04 14:23 | Cardiac Electrophysiology PN ---
Assessment/Plan Assessment/Plan 1. Sinus tachycardia with no evidence of atrial fibrillation or supraventricular tachycardia due to acute pulmonary embolism. HR betetr now 2. Acute pulmonary embolism, on heparin drip and coumadin Bilateral lower extremity duplex showed no DVT 3. Troponin elevation, levels are low. EKG has nonischemic ST wave abnormality, likely due to the patient's acute bilateral pulmonary embolism. EKG No cute ischemia. On Lopressor 25 bid 4. Right knee infection with possible septic arthritis. The patient on IV antibiotic per ID, status post incision and drainage by Dr. Del Angel on September 25, 2018. AZEEM RN Subjective Subjective In ICU on heparin drip. No CP or SOB. In SR Objective Last 24 Hour Vital Signs Date Time Temp Pulse Resp B/P (MAP) Pulse Ox O2 Delivery O2 Flow Rate FiO2 10/04/18 13:00 90 29 73/60 (64) 94 112/62 (79) 10/04/18 12:00 Nasal Cannula 2.0 10/04/18 12:00 85 10/04/18 12:00 98.7 83 31 111/70 (84) 94 10/04/18 11:00 86 23 119/73 (88) 95 10/04/18 10:00 84 32 89/53 (65) 97 10/04/18 09:00 83 27 108/67 (81) 95 10/04/18 08:46 84 104/61 10/04/18 08:42 88 20 100 Nasal Cannula 2.0 28 10/04/18 08:42 100 Nasal Cannula 2.0 28 10/04/18 08:41 85 20 99 Nasal Cannula 2.0 28 10/04/18 08:00 84 10/04/18 08:00 Nasal Cannula 2.0 10/04/18 08:00 98.8 87 30 104/61 (75) 97 10/04/18 07:00 82 26 108/67 (81) 95 10/04/18 06:00 83 27 118/64 (82) 97 10/04/18 05:00 84 27 110/61 (77) 100 10/04/18 04:00 98.8 86 27 111/81 (91) 98 10/04/18 04:00 Nasal Cannula 2.0 10/04/18 04:00 82 10/04/18 04:00 86 27 111/81 (91) 98 10/04/18 03:00 84 28 106/51 (69) 98 10/04/18 02:00 81 26 96/54 (68) 96 10/04/18 01:00 75 26 112/88 (96) 94 10/04/18 00:00 Nasal Cannula 2.0 10/04/18 00:00 99.0 85 29 109/56 (73) 96 10/04/18 00:00 89 10/03/18 23:00 88 30 112/63 (79) 95 10/03/18 22:00 91 34 117/64 (81) 96 10/03/18 21:27 91 108/62 10/03/18 21:00 92 33 107/59 (75) 96 10/03/18 20:48 90 30 97 Nasal Cannula 2.0 28 10/03/18 20:48 92 26 98 Nasal Cannula 2.0 28 10/03/18 20:00 Nasal Cannula 2.0 10/03/18 20:00 94 10/03/18 20:00 99.1 93 31 116/65 (82) 95 10/03/18 19:02 97 Nasal Cannula 2.0 28 10/03/18 19:00 94 33 107/60 (76) 96 10/03/18 18:00 99 29 135/85 (102) 96 10/03/18 17:13 89 20 99 Nasal Cannula 3.0 32 10/03/18 17:12 92 20 97 Nasal Cannula 2.0 28 10/03/18 17:00 98.5 91 26 116/74 (88) 96 10/03/18 16:00 94 10/03/18 16:00 95 10/03/18 16:00 93 35 124/73 (90) 94 10/03/18 15:00 93 35 124/73 (90) 94 Intake and Output 10/03/18 10/04/18 19:00 07:00 Intake Total 985.254 ml 704.152 ml Balance 985.254 ml 704.152 ml Intake Oral 580 ml 200 ml IV Total 405.254 ml 504.152 ml # Voids 3 2 Laboratory Tests Test 10/04/18 04:10 White Blood Count 6.0 K/UL (4.8-10.8) Red Blood Count 4.12 M/UL (4.20-5.40) L Hemoglobin 12.3 G/DL (12.0-16.0) Hematocrit 36.8 % (37.0-47.0) L Mean Corpuscular Volume 89 FL (80-99) Mean Corpuscular Hemoglobin 29.9 PG (27.0-31.0) Mean Corpuscular Hemoglobin Concent 33.5 G/DL (32.0-36.0) Red Cell Distribution Width 12.2 % (11.6-14.8) Platelet Count 272 K/UL (150-450) Mean Platelet Volume 5.7 FL (6.5-10.1) L Neutrophils (%) (Auto) 41.7 % (45.0-75.0) L Lymphocytes (%) (Auto) 36.1 % (20.0-45.0) Monocytes (%) (Auto) 9.0 % (1.0-10.0) Eosinophils (%) (Auto) 11.7 % (0.0-3.0) H Basophils (%) (Auto) 1.5 % (0.0-2.0) Prothrombin Time 11.3 SEC (9.30-11.50) Prothromb Time International Ratio 1.1 (0.9-1.1) Activated Partial Thromboplast Time 67 SEC (23-33) H Sodium Level 140 MMOL/L (136-145) Potassium Level 4.1 MMOL/L (3.5-5.1) Chloride Level 105 MMOL/L (98-107) Carbon Dioxide Level 27 MMOL/L (21-32) Anion Gap 8 mmol/L (5-15) Blood Urea Nitrogen 11 mg/dL (7-18) Creatinine 0.6 MG/DL (0.55-1.30) Estimat Glomerular Filtration Rate > 60 mL/min (>60) Glucose Level 145 MG/DL (74-106) H Hemoglobin A1c 6.8 % (4.3-6.0) H Calcium Level 8.9 MG/DL (8.5-10.1) Objective HEAD AND NECK: No JVD. LUNGS: Clear. CARDIOVASCULAR: Tachycardic. S1 and S2 regular. ABDOMEN: Soft. EXTREMITIES: No pitting edema, status post right knee surgery. Home Castaneda MD Oct 04, 2018 14:23
--- NOTE | 2018-10-04 15:27 | NUR ---
CASE MANAGEMENT:REVIEW 10/04/18 SI: ACUTE MASSIVE PULMONARY EMBOLISM 98.7 85 31 117/74 94% ON 2L/NC PT=11.3 INR-1.1 APTT+67 IS: HEPARIN GTT COUMADIN 7.5MG PO X1 IV MEROPENEM Q8HRS : ICU STATUS
[2018-10-04] MEDS: Montelukast 10mg tablet ORAL SCH (16:09)
--- NOTE | 2018-10-04 16:24 | NUR ---
NURSE NOTES: Pt resting in bed. Bed bath complete. Tolerating 2L NC. No c/o chest pain or SOB. Afebrile, BP stable. NSR. Accuck 122, trending down. Appetite improving.
[2018-10-04] MEDS ORDERED: Warfarin Sodium 7.5mg ORAL ONE (17:00)
--- NOTE | 2018-10-04 17:33 | NUR ---
NURSE NOTES: Patient awake in bed watching tv. Vital signs stable. Right leg kept elevated, denis bandage intact, clean and dry. assisted with dinner tray. pm medications administered. call light in reach. bed alarm on. fall precautions in place.
--- NOTE | 2018-10-04 19:30 | NUR ---
NURSE NOTES: Patient seen and examined by Dr. Stern, with new order for Echo, venous duplex, and CBC and CMP in the morning.
--- NOTE | 2018-10-04 19:42 | NUR ---
HAND-OFF: Report given to Elaine RODRÍGUEZ. pt in no acute distress
--- NOTE | 2018-10-04 19:43 | NUR ---
NURSE NOTES: Endorsement received from ANNE Hayden. Patient awake and oriented x4. On oxygen 2LPM. With right upper arm PICC. On Heparin 11.1 units/kg/hr. Settings at infusion pump rechecked. Right knee covered with denis bandage, dry and intact. Kept elevated leg on pillow. Head of bed elevated. Call light within reach, reminded patient to use call light for assistance. Verbalized understanding. Bed alarm on. Bed locked and in low position.
[2018-10-04] MEDS: Dyna-Hex 2% Top Sol 2oz TOPIC SCH (20:14)
--- NOTE | 2018-10-04 21:00 | NUR ---
NURSE NOTES: Painter Spring at bedside for venous duplex.
--- NOTE | 2018-10-04 23:00 | NUR ---
NURSE NOTES: Assisted patient with bed castellon. Pericare done.
[2018-10-05] VITALS (20 sets, daily range): BP systolic 95–130; BP diastolic 46–89
--- NOTE | 2018-10-05 01:00 | NUR ---
NURSE NOTES: Patient asleep. Vital signs stable.
--- NOTE | 2018-10-05 02:56 | NUR ---
NURSE NOTES: Patient asleep. Continues on Heparin 11.1 unit/kg/hr. No signs and symptoms of bleeding. Head of bed kept elevated. Call light within reach.
--- NOTE | 2018-10-05 04:00 | NUR ---
NURSE NOTES: Lobby Porter at bedside for PTT and morning labs.
--- NOTE | 2018-10-05 05:00 | NUR ---
NURSE NOTES: Assisted patient with oral care, sponge bath and change of linens.
--- NOTE | 2018-10-05 05:30 | NUR ---
NURSE NOTES: [employer] pharmacist called about any update for the PTT, informed her that blood sample has been drawn but no results yet.
--- NOTE | 2018-10-05 05:45 | NUR ---
NURSE NOTES: Account Underwriter in the unit, followed up regarding PTT result.
--- NOTE | 2018-10-05 06:16 | NUR ---
NURSE NOTES: Followed up with the lab, spoke with Page regarding result for PTT, timed draw at 0400H. As per her she will call me back.
[2018-10-05] MEDS: Meropenem 1 GM in NS 55 ML IVPB SCH ×3 (06:27→21:42)
--- NOTE | 2018-10-05 07:00 | NUR ---
NURSE NOTES: Received pt from ANNE Henry. Pt is A/Ox4 watching television. Denies any discomfort or pain at this time. 2LNC, spo2 100%. Breathing even and unlabored. Bilateral b/s clear. x2 steri-strips on right knee, clean and intact. Sinus rhythm on phototypesetting equipment monitor. Wrapped with denis wrap. JOSE ARMANDO PICC running heparin at 11.1 units/hr. Next PTT draw tomorrow 0400. No signs of bleeding. Bed locked, alarmed and in lowest position. Will continue to plan of care.
--- NOTE | 2018-10-05 07:00 | NUR ---
HAND-OFF: Report given to ANNE Neal.
[2018-10-05 07:07] LABS: ALANINE AMINOTRANSFERASE 19 U/L (12-78); ALBUMIN 3.2 G/DL (3.4-5.0); ALBUMIN/GLOBULIN RATIO 0.8 (1.0-2.7); ALKALINE PHOSPHATASE 81 U/L (46-116); ANION GAP 12 mmol/L (5-15); ASPARTATE AMINO TRANSFERASE 22 U/L (15-37); BILIRUBIN,TOTAL 0.5 MG/DL (0.2-1.0); BLOOD UREA NITROGEN 13 mg/dL (7-18); CALCIUM 9.7 MG/DL (8.5-10.1); CARBON DIOXIDE 25 MMOL/L (21-32); CHLORIDE 102 MMOL/L (98-107); CREATININE 0.8 MG/DL (0.55-1.30); POTASSIUM 3.8 MMOL/L (3.5-5.1); SODIUM 139 MMOL/L (136-145)
[2018-10-05 07:09] LABS: BASOPHILS % (AUTO) 1.4 % (0.0-2.0); EOSINOPHILS % (AUTO) 8.9 % (0.0-3.0); HEMATOCRIT 41.2 % (37.0-47.0); HEMOGLOBIN 13.5 G/DL (12.0-16.0); LYMPHOCYTES % (AUTO) 36.1 % (20.0-45.0); MEAN CORPUSCULAR VOLUME 90 FL (80-99); MONOCYTES % (AUTO) 6.5 % (1.0-10.0); NEUTROPHILS % (AUTO) 47.1 % (45.0-75.0); PLATELET COUNT 305 K/UL (150-450); RED BLOOD COUNT 4.57 M/UL (4.20-5.40); RED CELL DISTRIBUTION WIDTH 12.5 % (11.6-14.8); WHITE BLOOD COUNT 6.3 K/UL (4.8-10.8)
[2018-10-05] MEDS: Lactobacillus-GG tablet ORAL SCH ×2 (08:13→17:29)
[2018-10-05] MEDS: Docusate 100mg cap ORAL SCH ×3 (08:14→17:29)
[2018-10-05] MEDS: Wixela 250/50 Inhaler - 60 dose INH SCH ×2 (08:14→21:22)
[2018-10-05] MEDS: Metoprolol Tartrate 12.5mg TAB ORAL SCH ×2 (08:14→20:17)
--- NOTE | 2018-10-05 08:23 | NUR ---
NURSE NOTES: Clarified with SEAN Enriquez regarding transfer to [facility]. Received orders to carry out order. She will talk to Dr. Stern and Dr. Urbina.
--- NOTE | 2018-10-05 09:05 | NUR ---
NURSE NOTES: Patient refused Colace this morning, educated risks and benefits x3 but patient still refused.
--- NOTE | 2018-10-05 09:42 | Pulmonolgy Critical Care Note ---
Critical Care - Asmt/Plan Assessment/Plan: ASSESSMENT Acute massive PE Right knee infection with Achromobacter Possible septic arthritis Status post right knee arthroscopic I&D Prior history of right knee arthroscopy Elevated troponin Right heart strain Sinus tachycardia-resolved Asthma Diabetes mellitus Morbid obesity PLAN OF CARE ICU CTA chest bilateral PE Heparin drip and Coumadin to bring INR to therapeutic range (still subtherapeutic) Consider switching to Xarelto soon Echocardiogram with pEF 65-70%, RV hypokinetic and dilatated Troponin minimally elevated, levels flat, last normal, likely due to acute massive PE Abx as per ID, likely will need 6 weeks of antibiotic, has PICC Supplemental oxygen, HHN as needed Advair, Singular-continue Doubt pneumonia ST resolved, on low dose BB BS management with Januvia, HgbA1c at goal Pain management GI prophylaxis Bowel regimen transfer to [facility] case discussed and evaluated by supervising physician Critical Care - Objective Last 24 Hour Vital Signs Date Time Temp Pulse Resp B/P (MAP) Pulse Ox O2 Delivery O2 Flow Rate FiO2 10/05/18 09:10 Nasal Cannula 2.0 28 10/05/18 09:10 Nasal Cannula 2.0 28 10/05/18 08:14 81 102/89 10/05/18 08:00 Nasal Cannula 2.0 10/05/18 07:03 97 Nasal Cannula 2.0 28 10/05/18 06:00 81 32 102/89 (93) 95 10/05/18 05:00 82 31 124/68 (86) 98 10/05/18 04:00 98.7 82 29 126/62 (83) 96 10/05/18 04:00 81 10/05/18 04:00 Nasal Cannula 2.0 10/05/18 03:00 79 18 100/64 (76) 97 10/05/18 02:00 81 27 95/59 (71) 93 10/05/18 01:00 82 28 110/64 (79) 96 10/05/18 00:00 84 10/05/18 00:00 98.9 80 27 106/68 (81) 93 10/05/18 00:00 Nasal Cannula 2.0 10/04/18 23:00 88 33 124/64 (84) 94 10/04/18 22:00 92 32 117/69 (85) 97 10/04/18 21:36 91 120/65 10/04/18 21:34 93 22 99 Nasal Cannula 2.0 28 10/04/18 21:33 92 22 99 Nasal Cannula 2.0 28 10/04/18 21:00 93 33 125/73 (90) 94 10/04/18 20:00 95 10/04/18 20:00 Nasal Cannula 2.0 10/04/18 20:00 98.7 95 38 129/84 (99) 94 10/04/18 19:09 96 Nasal Cannula 2.0 28 10/04/18 19:00 97 37 123/80 (94) 93 10/04/18 18:00 97 29 121/73 (89) 94 10/04/18 17:00 94 29 112/65 (81) 94 10/04/18 16:00 93 10/04/18 16:00 98.5 91 29 58/49 (52) 99 10/04/18 16:00 Nasal Cannula 2.0 10/04/18 15:00 92 29 112/62 (79) 94 10/04/18 14:00 90 35 112/62 (79) 95 10/04/18 13:00 90 29 73/60 (64) 94 112/62 (79) 10/04/18 12:00 Nasal Cannula 2.0 10/04/18 12:00 85 10/04/18 12:00 98.7 83 31 111/70 (84) 94 10/04/18 11:00 86 23 119/73 (88) 95 10/04/18 10:00 84 32 89/53 (65) 97 Status: other - A/A/O x 4 female in NAD Condition: improving HEENT: atraumatic, normocephalic Neck: full ROM Lungs: clear Heart: HR/BP stable Abdomen: soft, non-tender - obese, active bowel sounds Extremities: other - R knee with edema, dressing and AMY wrap, C/D/I, incision itself with small 2 steri-strips, no drainage Accucheck: 127 Critical Care - Subjective Interval Events: denies CP, some SOB no fever, no leukocytosis still on heparin gtt, INR subtherapeutic Condition: improving IV Access: PICC - RUE intact EKG Rhythm: Sinus Rhythm FI02: 28 Sputum Amount: None Drips: heparin gtt I&O: Intake and Output 10/04/18 10/05/18 19:00 07:00 Intake Total 914.152 ml 478.460 ml Output Total 1 ml Balance 913.152 ml 478.460 ml Intake Oral 310 ml 95 ml IV Total 504.152 ml 383.460 ml Other 100 ml Output Urine Total 1 ml # Voids 1 2 CXR: 10/03 -No acute disease Zoe Austin NP Oct 05, 2018 09:42
[2018-10-05] MEDS ORDERED: Albuterol/Ipratropium 3ml neb HHN PRN ×2 (09:45→17:45)
[2018-10-05] MEDS: Heparin 25,000u/D5W 500ml 500 ML IV SCH ×2 (09:45→16:44)
--- NOTE | 2018-10-05 10:30 | NUR ---
NURSE NOTES: Pt watching television. No signs of distress noted. Denies any discomfort at this time.
--- NOTE | 2018-10-05 13:44 | NUR ---
NURSE NOTES: Tolerated 75% of lunch. On going heparin drip at 11.1units/kg/hr, no signs of bleeding.
--- NOTE | 2018-10-05 14:16 | NUR ---
NURSE NOTES: Pt voided in bedpan, complete linen change provided. Kept dry and clean.
--- NOTE | 2018-10-05 14:52 | Cardiac Electrophysiology PN ---
Assessment/Plan Assessment/Plan 1. Sinus tachycardia with no evidence of atria fibrillation or SVT due to acute pulmonary embolism. HR better now 2. Acute pulmonary embolism, on heparin drip and Coumadin Bilateral lower extremity duplex showed no DVT 3. Troponin elevation, levels are low. EKG has nonischemic ST wave abnormality, likely due to the patient's acute bilateral pulmonary embolism. EKG No cute ischemia. On Lopressor 25 bid 4. Right knee infection with possible septic arthritis. The patient on IV antibiotic per ID, status post incision and drainage by Dr. Del Angel on September 25, 2018. AZEEM RN Subjective Subjective In ICU on heparin drip and coumadin. No CP or SOB. In SR Objective Last 24 Hour Vital Signs Date Time Temp Pulse Resp B/P (MAP) Pulse Ox O2 Delivery O2 Flow Rate FiO2 10/05/18 13:00 83 29 107/46 (66) 98 10/05/18 12:00 98.9 81 22 123/73 (90) 98 10/05/18 12:00 80 10/05/18 12:00 Nasal Cannula 2.0 10/05/18 11:00 78 29 115/67 (83) 98 10/05/18 10:00 77 29 111/66 (81) 97 10/05/18 09:10 Nasal Cannula 2.0 28 10/05/18 09:10 Nasal Cannula 2.0 28 10/05/18 09:00 81 29 120/69 (86) 97 10/05/18 08:14 81 102/89 10/05/18 08:00 83 10/05/18 08:00 84 32 123/78 (93) 95 10/05/18 08:00 Nasal Cannula 2.0 10/05/18 07:03 97 Nasal Cannula 2.0 28 10/05/18 07:00 98.2 84 29 105/56 (72) 97 10/05/18 06:00 81 32 102/89 (93) 95 10/05/18 05:00 82 31 124/68 (86) 98 10/05/18 04:00 98.7 82 29 126/62 (83) 96 10/05/18 04:00 81 10/05/18 04:00 Nasal Cannula 2.0 10/05/18 03:00 79 18 100/64 (76) 97 10/05/18 02:00 81 27 95/59 (71) 93 10/05/18 01:00 82 28 110/64 (79) 96 10/05/18 00:00 84 10/05/18 00:00 98.9 80 27 106/68 (81) 93 10/05/18 00:00 Nasal Cannula 2.0 10/04/18 23:00 88 33 124/64 (84) 94 10/04/18 22:00 92 32 117/69 (85) 97 10/04/18 21:36 91 120/65 10/04/18 21:34 93 22 99 Nasal Cannula 2.0 28 10/04/18 21:33 92 22 99 Nasal Cannula 2.0 28 10/04/18 21:00 93 33 125/73 (90) 94 10/04/18 20:00 95 10/04/18 20:00 Nasal Cannula 2.0 10/04/18 20:00 98.7 95 38 129/84 (99) 94 10/04/18 19:09 96 Nasal Cannula 2.0 28 10/04/18 19:00 97 37 123/80 (94) 93 10/04/18 18:00 97 29 121/73 (89) 94 10/04/18 17:00 94 29 112/65 (81) 94 10/04/18 16:00 93 10/04/18 16:00 98.5 91 29 58/49 (52) 99 10/04/18 16:00 Nasal Cannula 2.0 10/04/18 15:00 92 29 112/62 (79) 94 Intake and Output 10/04/18 10/05/18 19:00 07:00 Intake Total 914.152 ml 478.460 ml Output Total 1 ml Balance 913.152 ml 478.460 ml Intake Oral 310 ml 95 ml IV Total 504.152 ml 383.460 ml Other 100 ml Output Urine Total 1 ml # Voids 1 2 Laboratory Tests Test 10/05/18 04:08 White Blood Count 6.3 K/UL (4.8-10.8) Red Blood Count 4.57 M/UL (4.20-5.40) Hemoglobin 13.5 G/DL (12.0-16.0) Hematocrit 41.2 % (37.0-47.0) Mean Corpuscular Volume 90 FL (80-99) Mean Corpuscular Hemoglobin 29.5 PG (27.0-31.0) Mean Corpuscular Hemoglobin Concent 32.7 G/DL (32.0-36.0) Red Cell Distribution Width 12.5 % (11.6-14.8) Platelet Count 305 K/UL (150-450) Mean Platelet Volume 5.0 FL (6.5-10.1) L Neutrophils (%) (Auto) 47.1 % (45.0-75.0) Lymphocytes (%) (Auto) 36.1 % (20.0-45.0) Monocytes (%) (Auto) 6.5 % (1.0-10.0) Eosinophils (%) (Auto) 8.9 % (0.0-3.0) H Basophils (%) (Auto) 1.4 % (0.0-2.0) Prothrombin Time 11.0 SEC (9.30-11.50) Prothromb Time International Ratio 1.0 (0.9-1.1) Activated Partial Thromboplast Time 69 SEC (23-33) H Sodium Level 139 MMOL/L (136-145) Potassium Level 3.8 MMOL/L (3.5-5.1) Chloride Level 102 MMOL/L (98-107) Carbon Dioxide Level 25 MMOL/L (21-32) Anion Gap 12 mmol/L (5-15) Blood Urea Nitrogen 13 mg/dL (7-18) Creatinine 0.8 MG/DL (0.55-1.30) Estimat Glomerular Filtration Rate > 60 mL/min (>60) Glucose Level 136 MG/DL (74-106) H Calcium Level 9.7 MG/DL (8.5-10.1) Total Bilirubin 0.5 MG/DL (0.2-1.0) Aspartate Amino Transf (AST/SGOT) 22 U/L (15-37) Alanine Aminotransferase (ALT/SGPT) 19 U/L (12-78) Alkaline Phosphatase 81 U/L (46-116) Total Protein 7.0 G/DL (6.4-8.2) Albumin 3.2 G/DL (3.4-5.0) L Globulin 3.8 g/dL Albumin/Globulin Ratio 0.8 (1.0-2.7) L Objective HEAD AND NECK: No JVD. LUNGS: Clear. CARDIOVASCULAR: Tachycardic. S1 and S2 regular. ABDOMEN: Soft. EXTREMITIES: No pitting edema, status post right knee surgery. Home Castaneda MD Oct 05, 2018 14:52
--- NOTE | 2018-10-05 14:59 | NUR ---
NURSE NOTES: [facility] Bed available for patient. Notified Dr. Stern, he said its okay for transfer.
--- NOTE | 2018-10-05 16:13 | Infectious Diseases Prog Note ---
Assessment/Plan Assessment/Plan ASSESSMENT AND PLAN: 1. achromobacter right knee infected wound with possible septic arthritis and ? osteomyelitis massive PE - CT noted, ? pna but not presenting clinically like pna - meropenem started - day # 7 - await ertapenem sensitivities - d/w micro to set up - monitor labs and chest x-ray - likely will need 4-6 weeks iv antibiotics - d/w pharmacy - PE treatment per primary and pulmonary medicine, heparin, transfer to [facility] for embolectomy 2. Questionable history of diabetes and hypertension. Per the patient, she did have a history of elevated blood pressure and blood sugars, but now controlled. 3. History of obesity, but the patient has lost weight. 4. Asthma. 5. History of right knee arthroscopy. 6. History of internal knee derangement. 7. History of polycystic ovarian syndrome. 8. Social history is negative. 9. Family history is noncontributory. 10. MAR was noted. 11. Case was discussed with RN. 12. Allergies include celecoxib and hydrocodone. 13. MAR was noted. 14. Case was discussed with the patient and answered questions Subjective Constitutional: Reports: fatigue; Denies: fever HEENT: Denies: congestion Respiratory: Denies: shortness of breath Cardiovascular: Denies: chest pain Gastrointestinal/Abdominal: Denies: nausea, vomiting, diarrhea Genitourinary: Reports: other - no novoa Neurologic: Denies: headache Psychiatric: Denies: depression Skin: Denies: rash Hematologic: Denies: bleeding Musculoskeletal: Denies: pain Allergies: Coded Allergies: CELECOXIB (Verified Allergy, Severe, dyspnea, 09/25/18) HYDROCODONE (Verified Allergy, Severe, Rash, 09/25/18) NSAIDS (NON-STEROIDAL ANTI-INFLAMMA (Verified Allergy, Severe, Shortness of Breath, 09/29/18) Objective Vital Signs Last 24 Hour Vital Signs Date Time Temp Pulse Resp B/P (MAP) Pulse Ox O2 Delivery O2 Flow Rate FiO2 10/05/18 16:00 Nasal Cannula 2.0 10/05/18 15:00 80 29 112/58 (76) 98 10/05/18 14:00 83 29 118/62 (80) 98 10/05/18 13:00 83 29 107/46 (66) 98 10/05/18 12:00 98.9 81 22 123/73 (90) 98 10/05/18 12:00 80 10/05/18 12:00 Nasal Cannula 2.0 10/05/18 11:00 78 29 115/67 (83) 98 10/05/18 10:00 77 29 111/66 (81) 97 10/05/18 09:10 Nasal Cannula 2.0 28 10/05/18 09:10 Nasal Cannula 2.0 28 10/05/18 09:00 81 29 120/69 (86) 97 10/05/18 08:14 81 102/89 10/05/18 08:00 83 10/05/18 08:00 84 32 123/78 (93) 95 10/05/18 08:00 Nasal Cannula 2.0 10/05/18 07:03 97 Nasal Cannula 2.0 28 10/05/18 07:00 98.2 84 29 105/56 (72) 97 10/05/18 06:00 81 32 102/89 (93) 95 10/05/18 05:00 82 31 124/68 (86) 98 10/05/18 04:00 98.7 82 29 126/62 (83) 96 10/05/18 04:00 81 10/05/18 04:00 Nasal Cannula 2.0 10/05/18 03:00 79 18 100/64 (76) 97 10/05/18 02:00 81 27 95/59 (71) 93 10/05/18 01:00 82 28 110/64 (79) 96 10/05/18 00:00 84 10/05/18 00:00 98.9 80 27 106/68 (81) 93 10/05/18 00:00 Nasal Cannula 2.0 10/04/18 23:00 88 33 124/64 (84) 94 10/04/18 22:00 92 32 117/69 (85) 97 10/04/18 21:36 91 120/65 10/04/18 21:34 93 22 99 Nasal Cannula 2.0 28 10/04/18 21:33 92 22 99 Nasal Cannula 2.0 28 10/04/18 21:00 93 33 125/73 (90) 94 10/04/18 20:00 95 10/04/18 20:00 Nasal Cannula 2.0 10/04/18 20:00 98.7 95 38 129/84 (99) 94 10/04/18 19:09 96 Nasal Cannula 2.0 28 10/04/18 19:00 97 37 123/80 (94) 93 10/04/18 18:00 97 29 121/73 (89) 94 10/04/18 17:00 94 29 112/65 (81) 94 Height (Feet): 5 Height (Inches): 5.00 Weight (Pounds): 322 General Appearance: no acute distress HEENT: normocephalic, atraumatic, anicteric, mucous membranes moist Respiratory/Chest: lungs clear, normal breath sounds, no respiratory distress, no accessory muscle use Cardiovascular: normal rate, regular rhythm, no gallop/murmur, no JVD Abdomen: normal bowel sounds, soft, non tender, no organomegaly, non distended Genitourinary: other - no novoa Extremities: other - right knee covered Skin: no rash Neurologic/Psychiatric: campus recruiting intern II-XII grossly normal, alert, oriented x 3, responsive Lymphatic: no neck adenopathy Musculoskeletal: no effusion Objective Chest x-ray - nad knee culture - + achromobacter Laboratory Tests Test 10/05/18 04:08 White Blood Count 6.3 K/UL (4.8-10.8) Red Blood Count 4.57 M/UL (4.20-5.40) Hemoglobin 13.5 G/DL (12.0-16.0) Hematocrit 41.2 % (37.0-47.0) Mean Corpuscular Volume 90 FL (80-99) Mean Corpuscular Hemoglobin 29.5 PG (27.0-31.0) Mean Corpuscular Hemoglobin Concent 32.7 G/DL (32.0-36.0) Red Cell Distribution Width 12.5 % (11.6-14.8) Platelet Count 305 K/UL (150-450) Mean Platelet Volume 5.0 FL (6.5-10.1) L Neutrophils (%) (Auto) 47.1 % (45.0-75.0) Lymphocytes (%) (Auto) 36.1 % (20.0-45.0) Monocytes (%) (Auto) 6.5 % (1.0-10.0) Eosinophils (%) (Auto) 8.9 % (0.0-3.0) H Basophils (%) (Auto) 1.4 % (0.0-2.0) Prothrombin Time 11.0 SEC (9.30-11.50) Prothromb Time International Ratio 1.0 (0.9-1.1) Activated Partial Thromboplast Time 69 SEC (23-33) H Sodium Level 139 MMOL/L (136-145) Potassium Level 3.8 MMOL/L (3.5-5.1) Chloride Level 102 MMOL/L (98-107) Carbon Dioxide Level 25 MMOL/L (21-32) Anion Gap 12 mmol/L (5-15) Blood Urea Nitrogen 13 mg/dL (7-18) Creatinine 0.8 MG/DL (0.55-1.30) Estimat Glomerular Filtration Rate > 60 mL/min (>60) Glucose Level 136 MG/DL (74-106) H Calcium Level 9.7 MG/DL (8.5-10.1) Total Bilirubin 0.5 MG/DL (0.2-1.0) Aspartate Amino Transf (AST/SGOT) 22 U/L (15-37) Alanine Aminotransferase (ALT/SGPT) 19 U/L (12-78) Alkaline Phosphatase 81 U/L (46-116) Total Protein 7.0 G/DL (6.4-8.2) Albumin 3.2 G/DL (3.4-5.0) L Globulin 3.8 g/dL Albumin/Globulin Ratio 0.8 (1.0-2.7) L Current Medications Medications (Trade) Dose Ordered Sig/Andres Route PRN Reason Start Time Stop Time Status Last Admin Dose Admin Acetaminophen/ Hydrocodone Bitart ([place] 5/325) 1 tab Q4H PRN ORAL MILD PAIN 10/05/18 18:45 10/08/18 14:40 UNV Albuterol/ Ipratropium (Albuterol/ Ipratropium) 3 ml Q4H PRN HHN Shortness of Breath 10/05/18 17:45 10/10/18 09:44 UNV Chlorhexidine Gluconate ([place]-Hex 2%) 1 applic DAILY@1999 TOPIC 10/05/18 20:00 10/30/18 19:59 UNV Diphenhydramine HCl (Benadryl) 50 mg Q8H ORAL 10/05/18 20:00 10/26/18 19:59 UNV Docusate Sodium (Colace) 100 mg THREE TIMES A DAY ORAL 10/05/18 18:00 10/26/18 08:59 UNV Heparin Sodium/ Dextrose 500 ml @ 32.846 mls/ hr ADJUST PER PROTOCOL IV 10/05/18 17:00 11/01/18 16:59 Hydromorphone HCl (Dilaudid) 0.4 mg Q2H PRN IVP severe pain 10/05/18 16:45 10/08/18 14:43 UNV Lactobacillus Acidophilus (Culturelle) 1 tab TWICE A DAY ORAL 10/05/18 18:00 10/29/18 17:59 UNV Meropenem 1 gm/ Sodium Chloride 55 ml @ 110 mls/hr Q8HR IVPB 10/05/18 22:00 10/27/18 23:59 UNV Metoprolol Tartrate (Lopressor) 12.5 mg Q12HR ORAL 10/05/18 21:00 10/31/18 20:59 UNV Montelukast Sodium (Singulair) 10 mg QPM ORAL 10/05/18 16:30 10/26/18 16:29 Ondansetron HCl (Zofran) 4 mg Q6H PRN IVP Nausea & Vomiting 10/05/18 20:45 10/31/18 14:42 UNV Pantoprazole (Protonix) 40 mg DAILY ORAL 10/06/18 09:00 11/02/18 08:59 UNV Salmeterol Xinafoate/ Fluticasone (Advair 250/50 Diskus) 1 puffs Q12HR INH 10/05/18 21:00 10/26/18 08:59 UNV Sitagliptin Phosphate (Januvia) 100 mg ACBREAKFAST ORAL 10/06/18 06:30 11/03/18 06:29 UNV Tramadol HCl (Ultram) 50 mg TIDPRN PRN ORAL Severe Breakthru Pain (>7) 10/06/18 14:45 10/08/18 14:43 UNV Warfarin Sodium (Coumadin per pharmacy) 1 ea DAILY PRN MISC Per rx protocol 10/06/18 09:00 11/03/18 10:29 UNV Warfarin Sodium (Coumadin) 7.5 mg COUMADIN ONCE ORAL 10/05/18 17:00 7/20/19 17:01 Alkasspooles,Salam MD Oct 05, 2018 16:13
[2018-10-05] MEDS: Montelukast 10mg tablet ORAL SCH (16:44)
[2018-10-05] MEDS ORDERED: HYDROmorphone 1mg/ml Carpuject IVP PRN (16:45)
[2018-10-05] MEDS ORDERED: Warfarin Sodium 7.5mg ORAL ONE ×2 (17:00)
--- NOTE | 2018-10-05 17:41 | NUR ---
NURSE NOTES: Transfer to [facility] will occur next shift per warehouse manager. Pt had x2 void in bedpan total during shift. Addendum: 10/05/18 at 1756 by JOSS JASON RN correction: will transfer at 6:45pm and give report to night nurse.
[2018-10-05] MEDS ORDERED: HYDROcodone/Acetamin 5/325 tab ORAL PRN (18:45)
[2018-10-05] MEDS ORDERED: traMADol 50mg tab ORAL PRN (19:00)
--- NOTE | 2018-10-05 19:17 | NUR ---
TRANSFER TO FLOOR: Patient transferred to [facility], per . Report given to ANNE Henry. Belongings checklist gone through with patient and receiving nurse. Patient said one of her earring was misplaced after I&D surgery in OR.
--- NOTE | 2018-10-05 19:18 | NUR ---
NURSE NOTES: Endorsement received from ANNE Neal. Patient awake and oriented x4. On oxygen 2LPM. With right upper arm PICC. On Heparin 11.1 units/kg/hr. Settings at infusion pump rechecked. No signs and symptoms of bleeding. No complain of pain at this time. No shortness of breath. Right knee covered with denis bandage, dry and intact. Kept elevated leg on pillow. Head of bed elevated. Call light within reach, reminded patient to use call light for assistance. Verbalized understanding. Bed alarm on. Bed locked and in low position.
--- NOTE | 2018-10-05 19:20 | NUR ---
NURSE NOTES: Patient continues on heparin 11.1 unit/kg/hr, heparin bag from ICU not yet finished.
[2018-10-05] MEDS: Dyna-Hex 2% Top Sol 2oz TOPIC SCH (20:17)
[2018-10-06] VITALS: BP 118/65
--- NOTE | 2018-10-06 | NUR ---
NURSE NOTES: Patient awake, watching TV. No shortness of breath. No complains of pain at this time. Right knee dressing changed, steristrips intact,covered with gauze. Assisted with bedpan, passed good amount of urine. Bed locked and in low position, call light within reach. Bed alarm on.
[2018-10-06] MEDS: Heparin 25,000u/D5W 500ml 500 ML IV SCH ×2 (01:03→15:12)
[2018-10-06 04:00] VITALS: BP 106/61
--- NOTE | 2018-10-06 04:00 | NUR ---
NURSE NOTES: Necktie Turner at bedside to draw blood for timed PTT.
--- NOTE | 2018-10-06 05:00 | NUR ---
NURSE NOTES: Assisted patient with morning care and oral care. Passed urine per bedpan. Pericare done, change of linens.
[2018-10-06] MEDS: Meropenem 1 GM in NS 55 ML IVPB SCH ×3 (05:51→21:56)
[2018-10-06 06:08] LABS: BASOPHILS % (AUTO) 1.3 % (0.0-2.0); EOSINOPHILS % (AUTO) 7.6 % (0.0-3.0); HEMATOCRIT 39.2 % (37.0-47.0); HEMOGLOBIN 12.9 G/DL (12.0-16.0); LYMPHOCYTES % (AUTO) 35.9 % (20.0-45.0); MEAN CORPUSCULAR VOLUME 89 FL (80-99); MONOCYTES % (AUTO) 7.3 % (1.0-10.0); NEUTROPHILS % (AUTO) 47.9 % (45.0-75.0); PLATELET COUNT 258 K/UL (150-450); RED BLOOD COUNT 4.41 M/UL (4.20-5.40); RED CELL DISTRIBUTION WIDTH 12.4 % (11.6-14.8); WHITE BLOOD COUNT 6.2 K/UL (4.8-10.8)
[2018-10-06 06:24] LABS: ANION GAP 9 mmol/L (5-15); BLOOD UREA NITROGEN 13 mg/dL (7-18); CALCIUM 9.1 MG/DL (8.5-10.1); CARBON DIOXIDE 26 MMOL/L (21-32); CHLORIDE 106 MMOL/L (98-107); CREATININE 0.6 MG/DL (0.55-1.30); POTASSIUM 3.7 MMOL/L (3.5-5.1); SODIUM 141 MMOL/L (136-145)
[2018-10-06 06:50] LABS: INR 1.1 (0.9-1.1)
--- NOTE | 2018-10-06 06:57 | NUR ---
NURSE NOTES: PTT result: 81. To continue same dose and next PTT tomorrow morning as verified by Kemi pharmacist: MADELINE HANEY
--- NOTE | 2018-10-06 07:02 | NUR ---
HAND-OFF: Report given to ANNE Guardado.
--- NOTE | 2018-10-06 07:30 | NUR ---
NURSE NOTES: received patient report from Elaine RODRÍGUEZ. patient is on bed asleep. not in acute distress. comfortable. no arrythmias reported during the night. bed is low and locked for safety. will follow plan of care.
--- NOTE | 2018-10-06 07:33 | NUR ---
NURSE NOTES: patient is noted to be on hep drip running at prescribed rate. aptt ordered on 10/07 @ 0400. no active bleeding. will continue to monitor.
--- NOTE | 2018-10-06 07:55 | Pulmonology Progress Note ---
Assessment/Plan Assessment/Plan ASSESSMENT Acute massive PE Right knee infection with Achromobacter Possible septic arthritis Status post right knee arthroscopic I&D Prior history of right knee arthroscopy Elevated troponin Right heart strain Sinus tachycardia-resolved Asthma Diabetes mellitus Morbid obesity PLAN OF CARE SHORTY CTA chest bilateral PE Heparin drip and Coumadin to bring INR to therapeutic range (still subtherapeutic) Consider switching to Xarelto soon Echocardiogram with pEF 65-70%, RV hypokinetic and dilatated Troponin minimally elevated, levels flat, last normal, likely due to acute massive PE Abx as per ID, likely will need 6 weeks of antibiotic, has PICC Supplemental oxygen, HHN as needed Advair, Singular-continue Doubt pneumonia ST resolved, on low dose BB BS management with Januvia, HgbA1c at goal Pain management GI prophylaxis Bowel regimen case discussed and evaluated by supervising physician Subjective Allergies: Coded Allergies: CELECOXIB (Verified Allergy, Severe, dyspnea, 09/25/18) HYDROCODONE (Verified Allergy, Severe, Rash, 09/25/18) NSAIDS (NON-STEROIDAL ANTI-INFLAMMA (Verified Allergy, Severe, Shortness of Breath, 09/29/18) Subjective transferred to SHORTY remains afebrile, no leukocytosis no signs of resp distress, no chest pain INR still subtherapeutic Objective Last 24 Hour Vital Signs Date Time Temp Pulse Resp B/P (MAP) Pulse Ox O2 Delivery O2 Flow Rate FiO2 10/06/18 07:07 68 16 97 Nasal Cannula 2.0 28 10/06/18 07:07 97 Nasal Cannula 2.0 28 10/06/18 04:00 84 10/06/18 04:00 Nasal Cannula 2.0 10/06/18 04:00 98.3 80 20 106/61 (76) 97 10/06/18 00:00 98.8 85 20 118/65 (82) 97 10/06/18 00:00 Nasal Cannula 2.0 10/06/18 00:00 84 10/05/18 21:23 76 20 99 Nasal Cannula 2.0 10/05/18 21:22 78 18 98 Nasal Cannula 2.0 28 10/05/18 21:22 98 Nasal Cannula 2.0 28 10/05/18 21:22 78 20 98 Nasal Cannula 2.0 28 10/05/18 20:17 91 126/79 10/05/18 20:00 98.0 91 20 126/79 (95) 96 10/05/18 20:00 95 10/05/18 20:00 Nasal Cannula 2.0 10/05/18 18:00 94 18 130/79 (96) 99 10/05/18 17:00 96 29 97/65 (76) 98 10/05/18 16:00 88 10/05/18 16:00 Nasal Cannula 2.0 10/05/18 16:00 98.6 88 18 112/69 (83) 98 10/05/18 15:00 80 29 112/58 (76) 98 10/05/18 14:00 83 29 118/62 (80) 98 10/05/18 13:00 83 29 107/46 (66) 98 10/05/18 12:00 98.9 81 22 123/73 (90) 98 10/05/18 12:00 80 10/05/18 12:00 Nasal Cannula 2.0 10/05/18 11:00 78 29 115/67 (83) 98 10/05/18 10:00 77 29 111/66 (81) 97 10/05/18 09:10 Nasal Cannula 2.0 28 10/05/18 09:10 Nasal Cannula 2.0 28 10/05/18 09:00 81 29 120/69 (86) 97 10/05/18 08:14 81 102/89 10/05/18 08:00 83 10/05/18 08:00 84 32 123/78 (93) 95 10/05/18 08:00 Nasal Cannula 2.0 Intake and Output 10/05/18 10/06/18 18:59 06:59 Intake Total 380 ml 394.152 ml Output Total 800 ml Balance -420 ml 394.152 ml Intake Oral 380 ml 0 ml IV Total 394.152 ml Output Urine Total 800 ml # Voids 2 2 Objective Status: A/A/O x 4 female in NAD Condition: improving HEENT: atraumatic, normocephalic, EOMI, sclera anicteric, OP clear, Neck: supple, full ROM Lungs: CTAB Heart: Regular, SR on monitor Abdomen: soft, non-tender - obese, active bowel sounds Extremities: R knee with edema, dressing and AMY wrap, C/D/I, incision itself with small 2 steri-strips, no drainage Laboratory Tests 10/06/18 04:00: White Blood Count 6.2, Red Blood Count 4.41, Hemoglobin 12.9, Hematocrit 39.2, Mean Corpuscular Volume 89, Mean Corpuscular Hemoglobin 29.2, Mean Corpuscular Hemoglobin Concent 32.9, Red Cell Distribution Width 12.4, Platelet Count 258, Mean Platelet Volume 5.5L, Neutrophils (%) (Auto) 47.9, Lymphocytes (%) (Auto) 35.9, Monocytes (%) (Auto) 7.3, Eosinophils (%) (Auto) 7.6H, Basophils (%) (Auto ) 1.3, Prothrombin Time 11.9H, Prothromb Time International Ratio 1.1, Activated Partial Thromboplast Time 81H, Sodium Level 141, Potassium Level 3.7, Chloride Level 106, Carbon Dioxide Level 26, Anion Gap 9, Blood Urea Nitrogen 13 , Creatinine 0.6, Estimat Glomerular Filtration Rate > 60, Glucose Level 133H, Calcium Level 9.1 Current Medications Medications (Trade) Dose Ordered Sig/Andres Route PRN Reason Start Time Stop Time Status Last Admin Dose Admin Acetaminophen/ Hydrocodone Bitart ([place] 5/325) 1 tab Q4H PRN ORAL MILD PAIN 10/05/18 18:45 10/08/18 14:40 Albuterol/ Ipratropium (Albuterol/ Ipratropium) 3 ml Q4H PRN HHN Shortness of Breath 10/05/18 17:45 10/10/18 09:44 10/05/18 21:13 Chlorhexidine Gluconate (Laverne-Hex 2%) 1 applic DAILY@2000 TOPIC 10/05/18 20:00 10/30/18 19:59 10/05/18 20:17 Diphenhydramine HCl (Benadryl) 50 mg Q8H ORAL 10/05/18 20:00 10/26/18 19:59 10/06/18 04:19 Docusate Sodium (Colace) 100 mg THREE TIMES A DAY ORAL 10/05/18 18:00 10/26/18 08:59 Heparin Sodium/ Dextrose 500 ml @ 32.846 mls/ hr ADJUST PER PROTOCOL IV 10/05/18 17:00 11/01/18 16:59 10/06/18 01:03 Hydromorphone HCl (Dilaudid) 0.4 mg Q2H PRN IVP severe pain 10/05/18 16:45 10/08/18 14:43 Lactobacillus Acidophilus (Culturelle) 1 tab TWICE A DAY ORAL 10/05/18 18:00 10/29/18 17:59 Meropenem 1 gm/ Sodium Chloride 55 ml @ 110 mls/hr Q8HR IVPB 10/05/18 22:00 10/27/18 23:59 10/06/18 05:51 Metoprolol Tartrate (Lopressor) 12.5 mg Q12HR ORAL 10/05/18 21:00 10/31/18 20:59 10/05/18 20:17 Montelukast Sodium (Singulair) 10 mg QPM ORAL 10/05/18 16:30 10/26/18 16:29 10/05/18 16:44 Ondansetron HCl (Zofran) 4 mg Q6H PRN IVP Nausea & Vomiting 10/05/18 20:45 10/31/18 14:42 Pantoprazole (Protonix) 40 mg DAILY ORAL 10/06/18 09:00 11/02/18 08:59 Salmeterol Xinafoate/ Fluticasone (Advair 250/50 Diskus) 1 puffs Q12HR INH 10/05/18 21:00 10/26/18 08:59 10/05/18 21:22 Sitagliptin Phosphate (Januvia) 100 mg ACBREAKFAST ORAL 10/06/18 06:30 11/03/18 06:29 10/06/18 05:52 Tramadol HCl (Ultram) 50 mg TIDPRN PRN ORAL Severe Breakthru Pain (>7) 10/05/18 19:00 10/12/18 18:59 Warfarin Sodium (Coumadin per pharmacy) 1 ea DAILY PRN MISC Per rx protocol 10/06/18 09:00 11/03/18 10:29 Warfarin Sodium (Coumadin) 9 mg COUMADIN ONCE PO 10/06/18 17:00 10/06/18 17:01 Zoe Austin NP Oct 06, 2018 07:55
[2018-10-06 08:00] VITALS: BP 101/64
[2018-10-06] MEDS: Docusate 100mg cap ORAL SCH (08:23)
[2018-10-06] MEDS: Metoprolol Tartrate 12.5mg TAB ORAL SCH ×2 (08:24→20:04)
[2018-10-06] MEDS: Lactobacillus-GG tablet ORAL SCH ×2 (08:24→17:07)
--- NOTE | 2018-10-06 08:37 | NUR ---
RESPIRATORY NOTE: Went to admin Advair, pt states that she refuses to take it because she wants to wait an hour. Pt is very rude and dismissive. Will re-attempt administration of rx at later time. RnDebby fully aware.
[2018-10-06] MEDS: Wixela 250/50 Inhaler - 60 dose INH SCH ×2 (09:43→21:45)
--- NOTE | 2018-10-06 10:56 | General Progress Note ---
Assessment/Plan Assessment/Plan: massive pulmonary embolism on heparin drip pharmacy to dose she is on therapeutic dose she has had right heart collapse out of icu supplement oxygen On heparin driop and coumadin she will need to be placed [facility] discussed with nursing staff constipated start mom prn and colace 1250 bid septic knee post arthroscopy with ACHROMOBACTER XYLOSOXIDANS per id ................................................................................ ................ Lashaun Romero MD, PhD, Laboratory Pumping Station Supervisor Specimen Inquiry Report PATIENT: BARBARA JORDAN LOC: 3E U # : [id number] AGE/SX: 58/F ROOM: [facility] REG : 09/25/[address]: Vladimir Stern MD : [id number] BED: 1 DIS : STATUS: ADM IN TLOC: SPEC #: [id number] ALLEN: 09/25/18 STATUS: COMP REQ #: [id number] RECD: 09/25/[address]: Bernardo Kowalski MD SOURCE: SYN FLD ENTR: 09/25/[address]: NON PHYSICIAN [facility]: TAYLOR RHODES ORDERED: BODY FLD CUL&GS QUERIES: SPECIMEN SOURCE RT KNEE ASPIRATION Procedure Result GRAM STAIN Final GRAM STAIN RESULT NO WHITE BLOOD CELLS NO ORGANISMS SEEN CULTURE BODY FLUID RESULT Final Organism 1 ACHROMOBACTER XYLOSOXIDANS GROWTH: 1+ A.XYLOSOXI M.I.C. RX --------- --- CEFTAZIDIME 4 S CEFTRIAXONE >=64 R CEFEPIME 16 I CIPROFLOXACIN 2 I GENTAMICIN >=16 R LEVOFLOXACIN 2 S IMIPENEM 1 S TRIMETHOPRIM/SULFA <=20 S AMIKACIN >=64 R PIPERACILLIN/TAZOBACTAM <=4 S ......................................................... antibiotic as is ................................................. she will benenfit from continuous rehab will monito rnad follow ........................................ diabetes hgba1c is 7.1 start her on januvia 100 daily she is a good candidate for victoza as out patinet. Subjective Date patient seen: Oct 06, 2018 Time patient seen: 10:53 Allergies: Coded Allergies: CELECOXIB (Verified Allergy, Severe, dyspnea, 09/25/18) HYDROCODONE (Verified Allergy, Severe, Rash, 09/25/18) NSAIDS (NON-STEROIDAL ANTI-INFLAMMA (Verified Allergy, Severe, Shortness of Breath, 09/29/18) Subjective out of oicu has bveen started on coum,filipe has not ssat inthe chair constipated Objective Last 24 Hour Vital Signs Date Time Temp Pulse Resp B/P (MAP) Pulse Ox O2 Delivery O2 Flow Rate FiO2 10/06/18 09:43 80 20 98 Nasal Cannula 2.0 28 10/06/18 09:43 80 20 98 Nasal Cannula 2.0 28 10/06/18 08:24 82 101/64 10/06/18 08:00 Nasal Cannula 2.0 10/06/18 08:00 96.3 82 19 101/64 (76) 99 10/06/18 07:52 81 10/06/18 07:07 68 16 97 Nasal Cannula 2.0 28 10/06/18 07:07 97 Nasal Cannula 2.0 28 10/06/18 04:00 84 10/06/18 04:00 Nasal Cannula 2.0 10/06/18 04:00 98.3 80 20 106/61 (76) 97 10/06/18 00:00 98.8 85 20 118/65 (82) 97 10/06/18 00:00 Nasal Cannula 2.0 10/06/18 00:00 84 10/05/18 21:23 76 20 99 Nasal Cannula 2.0 28 10/05/18 21:22 78 18 98 Nasal Cannula 2.0 28 10/05/18 21:22 98 Nasal Cannula 2.0 28 10/05/18 21:22 78 20 98 Nasal Cannula 2.0 28 10/05/18 20:17 91 126/79 10/05/18 20:00 98.0 91 20 126/79 (95) 96 10/05/18 20:00 95 10/05/18 20:00 Nasal Cannula 2.0 10/05/18 18:00 94 18 130/79 (96) 99 10/05/18 17:00 96 29 97/65 (76) 98 10/05/18 16:00 88 10/05/18 16:00 Nasal Cannula 2.0 10/05/18 16:00 98.6 88 18 112/69 (83) 98 10/05/18 15:00 80 29 112/58 (76) 98 10/05/18 14:00 83 29 118/62 (80) 98 10/05/18 13:00 83 29 107/46 (66) 98 10/05/18 12:00 98.9 81 22 123/73 (90) 98 10/05/18 12:00 80 10/05/18 12:00 Nasal Cannula 2.0 10/05/18 11:00 78 29 115/67 (83) 98 Intake and Output 10/05/18 10/06/18 18:59 06:59 Intake Total 380 ml 394.152 ml Output Total 800 ml Balance -420 ml 394.152 ml Intake Oral 380 ml 0 ml IV Total 394.152 ml Output Urine Total 800 ml # Voids 2 2 Laboratory Tests 10/06/18 04:00: White Blood Count 6.2, Red Blood Count 4.41, Hemoglobin 12.9, Hematocrit 39.2, Mean Corpuscular Volume 89, Mean Corpuscular Hemoglobin 29.2, Mean Corpuscular Hemoglobin Concent 32.9, Red Cell Distribution Width 12.4, Platelet Count 258, Mean Platelet Volume 5.5L, Neutrophils (%) (Auto) 47.9, Lymphocytes (%) (Auto) 35.9, Monocytes (%) (Auto) 7.3, Eosinophils (%) (Auto) 7.6H, Basophils (%) (Auto ) 1.3, Prothrombin Time 11.9H, Prothromb Time International Ratio 1.1, Activated Partial Thromboplast Time 81H, Sodium Level 141, Potassium Level 3.7, Chloride Level 106, Carbon Dioxide Level 26, Anion Gap 9, Blood Urea Nitrogen 13 , Creatinine 0.6, Estimat Glomerular Filtration Rate > 60, Glucose Level 133H, Calcium Level 9.1 Height (Feet): 5 Height (Inches): 5.00 Weight (Pounds): 320 Objective has nasal canula getting oxygen supplement distant heart sound distant brat sounds soft Vladimir Stern MD Oct 06, 2018 10:56
[2018-10-06] MEDS ORDERED: Milk of Magnesia 30ml Ud ORAL SCH (11:15)
--- NOTE | 2018-10-06 11:49 | NUR ---
NURSE NOTES: patient remains stable. dr boles came by to seee the patient. no active bleeding. not in acute distress. will continue to monitor.
[2018-10-06 12:00] VITALS: BP 107/57
--- NOTE | 2018-10-06 12:53 | Cardiac Electrophysiology PN ---
Assessment/Plan Assessment/Plan 1. Sinus tachycardia. No evidence of atrial fibrillation or SVT due to acute pulmonary embolism. 2. Acute pulmonary embolism, on heparin drip and Coumadin Bilateral lower extremity duplex showed no DVT 3. Troponin elevation, levels are low. EKG has nonischemic ST wave abnormality, likely due to the patient's acute bilateral pulmonary embolism. EKG No cute ischemia. On Lopressor 25 bid 4. Right knee infection with possible septic arthritis. The patient on IV antibiotic per ID, status post incision and drainage by Dr. Del Angel on September 25, 2018. AZEEM RN Subjective Subjective In SDU on heparin drip and Coumadin. No CP or SOB. In SR Objective Last 24 Hour Vital Signs Date Time Temp Pulse Resp B/P (MAP) Pulse Ox O2 Delivery O2 Flow Rate FiO2 10/06/18 12:00 Nasal Cannula 2.0 10/06/18 09:43 80 20 98 Nasal Cannula 2.0 28 10/06/18 09:43 80 20 98 Nasal Cannula 2.0 28 10/06/18 08:24 82 101/64 10/06/18 08:00 Nasal Cannula 2.0 10/06/18 08:00 96.3 82 19 101/64 (76) 99 10/06/18 07:52 81 10/06/18 07:07 68 16 97 Nasal Cannula 2.0 10/06/18 07:07 97 Nasal Cannula 2.0 28 10/06/18 04:00 84 10/06/18 04:00 Nasal Cannula 2.0 10/06/18 04:00 98.3 80 20 106/61 (76) 97 10/06/18 00:00 98.8 85 20 118/65 (82) 97 10/06/18 00:00 Nasal Cannula 2.0 10/06/18 00:00 84 10/05/18 21:23 76 20 99 Nasal Cannula 2.0 28 10/05/18 21:22 78 18 98 Nasal Cannula 2.0 28 10/05/18 21:22 98 Nasal Cannula 2.0 28 10/05/18 21:22 78 20 98 Nasal Cannula 2.0 28 10/05/18 20:17 91 126/79 10/05/18 20:00 98.0 91 20 126/79 (95) 96 10/05/18 20:00 95 10/05/18 20:00 Nasal Cannula 2.0 10/05/18 18:00 94 18 130/79 (96) 99 10/05/18 17:00 96 29 97/65 (76) 98 10/05/18 16:00 88 10/05/18 16:00 Nasal Cannula 2.0 10/05/18 16:00 98.6 88 18 112/69 (83) 98 10/05/18 15:00 80 29 112/58 (76) 98 10/05/18 14:00 83 29 118/62 (80) 98 10/05/18 13:00 83 29 107/46 (66) 98 Intake and Output 10/05/18 10/06/18 19:00 07:00 Intake Total 377.846 ml 394.152 ml Output Total 800 ml Balance -422.154 ml 394.152 ml Intake Oral 345 ml IV Total 32.846 ml 394.152 ml Output Urine Total 800 ml # Voids 2 2 Laboratory Tests Test 10/06/18 04:00 White Blood Count 6.2 K/UL (4.8-10.8) Red Blood Count 4.41 M/UL (4.20-5.40) Hemoglobin 12.9 G/DL (12.0-16.0) Hematocrit 39.2 % (37.0-47.0) Mean Corpuscular Volume 89 FL (80-99) Mean Corpuscular Hemoglobin 29.2 PG (27.0-31.0) Mean Corpuscular Hemoglobin Concent 32.9 G/DL (32.0-36.0) Red Cell Distribution Width 12.4 % (11.6-14.8) Platelet Count 258 K/UL (150-450) Mean Platelet Volume 5.5 FL (6.5-10.1) L Neutrophils (%) (Auto) 47.9 % (45.0-75.0) Lymphocytes (%) (Auto) 35.9 % (20.0-45.0) Monocytes (%) (Auto) 7.3 % (1.0-10.0) Eosinophils (%) (Auto) 7.6 % (0.0-3.0) H Basophils (%) (Auto) 1.3 % (0.0-2.0) Prothrombin Time 11.9 SEC (9.30-11.50) H Prothromb Time International Ratio 1.1 (0.9-1.1) Activated Partial Thromboplast Time 81 SEC (23-33) H Sodium Level 141 MMOL/L (136-145) Potassium Level 3.7 MMOL/L (3.5-5.1) Chloride Level 106 MMOL/L (98-107) Carbon Dioxide Level 26 MMOL/L (21-32) Anion Gap 9 mmol/L (5-15) Blood Urea Nitrogen 13 mg/dL (7-18) Creatinine 0.6 MG/DL (0.55-1.30) Estimat Glomerular Filtration Rate > 60 mL/min (>60) Glucose Level 133 MG/DL (74-106) H Calcium Level 9.1 MG/DL (8.5-10.1) Objective HEAD AND NECK: No JVD. LUNGS: Clear. CARDIOVASCULAR: Tachycardic. S1 and S2 regular. ABDOMEN: Soft. EXTREMITIES: No pitting edema, status post right knee surgery. Home Castaneda MD Oct 06, 2018 12:53
--- NOTE | 2018-10-06 14:23 | NUR ---
NURSE NOTES: patient is up on chair per order by dr boles. had 1 normal bm. no presence of blood. negative bleeding so far. SR on the monitor. patient is comfortable watching TV. will continue to monitor.
[2018-10-06] MEDS ORDERED: Milk of Magnesia 30ml Ud ORAL PRN (15:00)
--- NOTE | 2018-10-06 15:25 | Diagnostic Imaging Report ---
APPROVED REPORT CPT Code: 56476 Present Symptoms Comments: BILATERAL LEGS PAIN. RIGHT LEG: Venous imaging reveals a patent deep venous system. There is no evidence of thrombus within the femoral or tibial segments. The greater saphenous vein is also within normal limits. Doppler indicates normal spontaneous flow within these segments. popliteal segments not imaged due to the bandage. LEFT LEG: Venous imaging reveals a patent deep venous system. There is no evidence of thrombus within the femoral, popliteal or tibial segments. The greater saphenous vein is also within normal limits. Doppler indicates normal spontaneous flow within these segments.
[2018-10-06 16:00] VITALS: BP 121/83
[2018-10-06] MEDS ORDERED: Warfarin Sod 4 MG, Warfarin Sod 5 MG PO ONE ×2 (17:00)
[2018-10-06] MEDS: Montelukast 10mg tablet ORAL SCH (17:06)
[2018-10-06] MEDS: Docusate 250mg cap ORAL SCH (17:07)
--- NOTE | 2018-10-06 17:51 | NUR ---
NURSE NOTES: patient still up on chair, comfortably eating breakfast. had another BM. negative bleeding. will continue to monitor. Addendum: 10/06/18 at 1813 by RAHEL BACK RN disregard above note. entered in error.
--- NOTE | 2018-10-06 18:13 | NUR ---
NURSE NOTES: patient still up on chair, comfortably eating dinner. had another BM. negative bleeding. will continue to monitor.
--- NOTE | 2018-10-06 19:13 | NUR ---
HAND-OFF: Report given to catherine bloom.
--- NOTE | 2018-10-06 19:14 | NUR ---
NURSE NOTES: Received bedside report from ANNE Hart.Patient stable,in a bed watching TV,A&Ox4,no c/o pain,no respiratory distress noted,SR on school traffic guard,2 L/min via N/C tolerated well,BS active in all quadrants,IV on JOSE ARMANDO PICC line heparin drips 11.1ml/kg/hr or 32.846 ml/hr,next PTT 10/07@0400,bed secured,call light within a reach,will continue to monitor and follow POC.
[2018-10-06 20:00] VITALS: BP 130/56
[2018-10-06] MEDS: Dyna-Hex 2% Top Sol 2oz TOPIC SCH (20:03)
[2018-10-07] VITALS: BP 136/61
[2018-10-07 04:00] VITALS: BP 118/60
[2018-10-07 04:52] LABS: HEMATOCRIT 37.7 % (37.0-47.0); HEMOGLOBIN 12.4 G/DL (12.0-16.0); LYMPHOCYTES % (AUTO) 31.4 % (20.0-45.0); MEAN CORPUSCULAR VOLUME 90 FL (80-99); MONOCYTES % (AUTO) 9.5 % (1.0-10.0); NEUTROPHILS % (AUTO) 50.1 % (45.0-75.0); PLATELET COUNT 251 K/UL (150-450); RED CELL DISTRIBUTION WIDTH 12.3 % (11.6-14.8); WHITE BLOOD COUNT 6.4 K/UL (4.8-10.8)
[2018-10-07 04:58] LABS: ANION GAP 7 mmol/L (5-15); BLOOD UREA NITROGEN 13 mg/dL (7-18); CALCIUM 9.2 MG/DL (8.5-10.1); CARBON DIOXIDE 27 MMOL/L (21-32); CHLORIDE 105 MMOL/L (98-107); CREATININE 0.6 MG/DL (0.55-1.30); POTASSIUM 4.4 MMOL/L (3.5-5.1); SODIUM 139 MMOL/L (136-145)
[2018-10-07 05:07] LABS: INR 1.3 (0.9-1.1)
--- NOTE | 2018-10-07 05:30 | NUR ---
NURSE NOTES: Received PTT result 85 and called [facility],received an order from pharmacy for next PTT 10/08/18 @ 0400,charge nurse aware,will endorse next shift.
[2018-10-07] MEDS: Meropenem 1 GM in NS 55 ML IVPB SCH ×3 (06:13→21:53)
[2018-10-07] MEDS: Heparin 25,000u/D5W 500ml 500 ML IV SCH ×2 (06:44→20:07)
--- NOTE | 2018-10-07 07:17 | NUR ---
HAND-OFF: Report given to ANNE Garcia.Patient stable,in a bed ,no c/o pain.
--- NOTE | 2018-10-07 07:18 | NUR ---
NURSE NOTES: Received pt from ANNE Wells in stable condition with no cardiopulmonary distress noted. Pt is awake in bed, AAOx4, hooked to surveillance system monitor currently SR 76 bpm, on 2L O2 via NC. Bedside commode noted at bedside; however, pt instructed to use call light before getting up from bed and educated on fall education and bleeding precaution- pt verbalized understanding. Sterile strips noted on right knee- pt is s/p R knee surgery, Pt has a JOSE ARMANDO PICC running Heparin drip at 11.1 units/kg/hr (32.846 cc/hr). Bed is in lowest position with alarm on, side rails up x 2, call light within reach. Will continue to monitor pt.
[2018-10-07 08:00] VITALS: BP 111/62
[2018-10-07] MEDS: Lactobacillus-GG tablet ORAL SCH ×2 (08:07→17:26)
[2018-10-07] MEDS: Docusate 250mg cap ORAL SCH ×2 (08:07→16:25)
[2018-10-07] MEDS: Metoprolol Tartrate 12.5mg TAB ORAL SCH ×2 (08:07→20:05)
--- NOTE | 2018-10-07 09:00 | NUR ---
NURSE NOTES: Called Dr. Del Angel's office to clarify PT order and request order for surgical wound dressing change. Spoke to Shahnaz who [place] for [place], she states "Dr. Del Angel doesn't have any patients in the hospital." I called Dr. Stern (attending) at [phone] however I was directed to an automated message and waited for someone to pick out hand the phone for 10 minutes. Will reattempt phone call in an hour. PT is currently in the room w/ pt.
--- NOTE | 2018-10-07 09:30 | NUR ---
NURSE NOTES: Clarified attending physician is Vladimir Hassan. correct phone number is [phone]. Was able to get in touch with Dr. Stern with new orders.
--- NOTE | 2018-10-07 09:30 | NUR ---
PT EVALUATION NOTE Patient seen for initial evaluation, see complete evaluation for details. Patient presents with impaired functional mobility and weakness s/p R knee arthroscopic I & D. Patient requires SBA for bed mobility and transfers and was able to ambulate 15 ft with a FWW and CGA. Patient will benefit from skilled inpatient PT intervention to address strength, safety and mobility to improve level of function. Recommend discharge to ARU as patient lives alone and has multiple stairs in her townhouse once medically cleared by MD. Patient will benefit from FWW for home use. Addendum: 10/07/18 at 1327 by IRVING KOENIG PT Amended: Links added.
[2018-10-07] MEDS: Wixela 250/50 Inhaler - 60 dose INH SCH ×2 (09:51→21:44)
--- NOTE | 2018-10-07 10:51 | Pulmonology Progress Note ---
Assessment/Plan Problems: (1) Acute massive pulmonary embolism (2) S/P right knee surgery Assessment/Plan on heparin drip and Coumadin check INR daily once INR is 2.5. will dc heparin drip 24 hours later. symptomatic treatment wound care Subjective ROS Limited/Unobtainable: No Constitutional: Reports: no symptoms HEENT: Repors: no symptoms Respiratory: Reports: no symptoms Cardiovascular: Reports: no symptoms Allergies: Coded Allergies: CELECOXIB (Verified Allergy, Severe, dyspnea, 09/25/18) HYDROCODONE (Verified Allergy, Severe, Rash, 09/25/18) NSAIDS (NON-STEROIDAL ANTI-INFLAMMA (Verified Allergy, Severe, Shortness of Breath, 09/29/18) Objective Last 24 Hour Vital Signs Date Time Temp Pulse Resp B/P (MAP) Pulse Ox O2 Delivery O2 Flow Rate FiO2 10/07/18 09:50 71 20 98 Nasal Cannula 2.0 10/07/18 09:48 98 Nasal Cannula 2.0 10/07/18 09:48 72 20 98 Nasal Cannula 2.0 10/07/18 09:47 72 20 98 Nasal Cannula 2.0 10/07/18 08:07 80 111/62 10/07/18 08:00 97.7 80 18 111/62 (78) 97 10/07/18 08:00 Nasal Cannula 2.0 10/07/18 08:00 77 10/07/18 04:00 97.3 77 18 118/60 (79) 96 10/07/18 04:00 Nasal Cannula 2.0 10/07/18 03:49 78 10/07/18 00:00 Nasal Cannula 2.0 10/07/18 00:00 97.7 81 22 136/61 (86) 96 10/06/18 23:25 76 10/06/18 21:48 83 20 97 Nasal Cannula 2.0 10/06/18 21:48 83 20 97 Nasal Cannula 2.0 10/06/18 20:04 87 130/56 10/06/18 20:00 97.9 87 20 130/56 (80) 97 10/06/18 20:00 Nasal Cannula 2.0 10/06/18 19:28 96 Nasal Cannula 2.0 10/06/18 19:28 79 16 96 Nasal Cannula 2.0 10/06/18 19:24 85 10/06/18 16:00 89 10/06/18 16:00 98.0 90 22 121/83 (96) 95 10/06/18 16:00 Nasal Cannula 2.0 10/06/18 12:00 97.5 83 23 107/57 (74) 96 10/06/18 12:00 Nasal Cannula 2.0 10/06/18 11:45 90 Intake and Output 10/06/18 10/07/18 19:00 07:00 Intake Total 1271.306 ml 566.340 ml Balance 1271.306 ml 566.340 ml Intake Oral 800 ml 60 ml IV Total 471.306 ml 506.340 ml # Voids 3 1 # Bowel Movements 2 1 General Appearance: WD/WN HEENT: normocephalic, atraumatic Respiratory/Chest: chest wall non-tender, lungs clear Cardiovascular: normal peripheral pulses, normal rate Abdomen: normal bowel sounds, soft, non tender Genitourinary: normal external genitalia Extremities: no cyanosis Skin: no rash Neurologic/Psychiatric: skid man II-XII grossly normal Laboratory Tests 10/07/18 03:50: White Blood Count 6.4, Red Blood Count 4.20, Hemoglobin 12.4, Hematocrit 37.7, Mean Corpuscular Volume 90, Mean Corpuscular Hemoglobin 29.6, Mean Corpuscular Hemoglobin Concent 33.0, Red Cell Distribution Width 12.3, Platelet Count 251, Mean Platelet Volume 5.6L, Neutrophils (%) (Auto) 50.1, Lymphocytes (%) (Auto) 31.4, Monocytes (%) (Auto) 9.5, Eosinophils (%) (Auto) 7.0H, Basophils (%) (Auto ) 2.0, Prothrombin Time 14.0H, Prothromb Time International Ratio 1.3H, Activated Partial Thromboplast Time 85H, Sodium Level 139, Potassium Level 4.4, Chloride Level 105, Carbon Dioxide Level 27, Anion Gap 7, Blood Urea Nitrogen 13 , Creatinine 0.6, Estimat Glomerular Filtration Rate > 60, Glucose Level 130H, Calcium Level 9.2 Current Medications Medications (Trade) Dose Ordered Sig/Andres Route PRN Reason Start Time Stop Time Status Last Admin Dose Admin Albuterol/ Ipratropium (Albuterol/ Ipratropium) 3 ml Q4H PRN HHN Shortness of Breath 10/05/18 17:45 10/10/18 09:44 10/05/18 21:13 Chlorhexidine Gluconate (Laverne-Hex 2%) 1 applic DAILY@2000 TOPIC 10/05/18 20:00 10/30/18 19:59 10/06/18 20:03 Docusate Sodium (Colace) 250 mg BID ORAL 10/06/18 18:00 11/05/18 17:59 Heparin Sodium/ Dextrose 500 ml @ 32.846 mls/ hr ADJUST PER PROTOCOL IV 10/05/18 17:00 11/01/18 16:59 10/07/18 06:44 Hydromorphone HCl (Dilaudid) 0.4 mg Q2H PRN IVP severe pain 10/05/18 16:45 10/08/18 14:43 10/06/18 20:05 Lactobacillus Acidophilus (Culturelle) 1 tab TWICE A DAY ORAL 10/05/18 18:00 10/29/18 17:59 10/07/18 08:07 Magnesium Hydroxide (Mom) 30 ml DAILYPRN PRN ORAL Constipation 10/06/18 15:00 11/05/18 14:59 Meropenem 1 gm/ Sodium Chloride 55 ml @ 110 mls/hr Q8HR IVPB 10/05/18 22:00 10/27/18 23:59 10/07/18 06:13 Metoprolol Tartrate (Lopressor) 12.5 mg Q12HR ORAL 10/05/18 21:00 10/31/18 20:59 10/07/18 08:07 Montelukast Sodium (Singulair) 10 mg QPM ORAL 10/05/18 16:30 10/26/18 16:29 10/06/18 17:06 Ondansetron HCl (Zofran) 4 mg Q6H PRN IVP Nausea & Vomiting 10/05/18 20:45 10/31/18 14:42 Pantoprazole (Protonix) 40 mg DAILY ORAL 10/06/18 09:00 11/02/18 08:59 10/07/18 08:07 Salmeterol Xinafoate/ Fluticasone (Advair 250/50 Diskus) 1 puffs Q12HR INH 10/05/18 21:00 10/26/18 08:59 10/07/18 09:51 Sitagliptin Phosphate (Januvia) 100 mg ACBREAKFAST ORAL 10/07/18 06:30 11/06/18 06:29 10/07/18 06:13 Tramadol HCl (Ultram) 50 mg TIDPRN PRN ORAL Severe Breakthru Pain (>7) 10/05/18 19:00 10/12/18 18:59 Warfarin Sodium (Coumadin per pharmacy) 1 ea DAILY PRN MISC Per rx protocol 10/06/18 09:00 11/03/18 10:29 Warfarin Sodium (Coumadin) 10 mg ONCE ORAL 10/07/18 17:00 10/07/18 19:00 Mili Urbina MD Oct 07, 2018 10:51
--- NOTE | 2018-10-07 10:56 | NUR ---
RD ASSESSMENT & RECOMMENDATIONS SEE CARE ACTIVITY FOR COMPLETE ASSESSMENT DAILY ESTIMATED NEEDS: Needs based on Surgery, morbid obesity 79kg adj 20-25 kcals/kg 4163-2837 total kcals 1-2 g protein/kg 79-158 g total protein 25-30 mL/kg 7574-6191 total fluid mLs NUTRITION DIAGNOSIS: 1) Increased pro needs r/t surgical wound healing as evidenced by s/p R knee I&D. 2) Obesity etiology unknown as evidenced by h/o PCOS, previous wt of 425 lbs, now 324#, @259% of [place] body weight. 3) Altered nutrition related lab values R/T diabetes as evidenced by elev BGs (196 359 183), A1C 7.1. CURRENT DIET: CCHO MED + glucerna PO DIET RECOMMENDATIONS--->>> CCHO LOW w/ DOUBLE PROTEIN PORTIONS ADDITIONAL RECOMMENDATIONS: 1) With >75% po intake, rec to DC HPN 2) A1C for eval of glycemic control (7.1, 6.8) 3) Rec Accucheck w/ SSI: BGs elev @ 196, 359, 183 4) Jm 1pkt BID for surgical wound healing 5) Weekly weights as able
[2018-10-07 12:00] VITALS: BP 112/60
--- NOTE | 2018-10-07 12:20 | Infectious Diseases Prog Note ---
Assessment/Plan Assessment/Plan ASSESSMENT AND PLAN: 1. achromobacter right knee infected wound with possible septic arthritis and ? osteomyelitis massive PE - CT noted, ? pna but not presenting clinically like pna - meropenem started - day # 9 - sensitive to ertapenem - can give at home once patient stable clinically - monitor labs and chest x-ray - likely will need 4-6 weeks iv antibiotics - d/w microbiology - PE treatment per primary and pulmonary medicine, heparin, transfer to [facility] for embolectomy 2. Questionable history of diabetes and hypertension. Per the patient, she did have a history of elevated blood pressure and blood sugars, but now controlled. 3. History of obesity, but the patient has lost weight. 4. Asthma. 5. History of right knee arthroscopy. 6. History of internal knee derangement. 7. History of polycystic ovarian syndrome. 8. Social history is negative. 9. Family history is noncontributory. 10. MAR was noted. 11. Case was discussed with RN. 12. Allergies include celecoxib and hydrocodone. 13. MAR was noted. 14. Case was discussed with the patient and answered questions Subjective Constitutional: Denies: fever Respiratory: Denies: shortness of breath Cardiovascular: Denies: chest pain Gastrointestinal/Abdominal: Denies: nausea, vomiting Genitourinary: Reports: other - no novoa Neurologic: Denies: headache Psychiatric: Denies: depression Skin: Denies: rash Hematologic: Denies: bleeding Musculoskeletal: Reports: pain - right knee without significant pain Allergies: Coded Allergies: CELECOXIB (Verified Allergy, Severe, dyspnea, 09/25/18) HYDROCODONE (Verified Allergy, Severe, Rash, 09/25/18) NSAIDS (NON-STEROIDAL ANTI-INFLAMMA (Verified Allergy, Severe, Shortness of Breath, 09/29/18) Objective Vital Signs Last 24 Hour Vital Signs Date Time Temp Pulse Resp B/P (MAP) Pulse Ox O2 Delivery O2 Flow Rate FiO2 10/07/18 12:00 97.9 77 16 112/60 (77) 97 10/07/18 09:50 71 20 98 Nasal Cannula 2.0 28 10/07/18 09:48 98 Nasal Cannula 2.0 28 10/07/18 09:48 72 20 98 Nasal Cannula 2.0 28 10/07/18 09:47 72 20 98 Nasal Cannula 2.0 28 10/07/18 08:07 80 111/62 7/22/19 08:00 97.7 80 18 111/62 (78) 97 10/07/18 08:00 Nasal Cannula 2.0 10/07/18 08:00 77 10/07/18 04:00 97.3 77 18 118/60 (79) 96 10/07/18 04:00 Nasal Cannula 2.0 10/07/18 03:49 78 10/07/18 00:00 Nasal Cannula 2.0 10/07/18 00:00 97.7 81 22 136/61 (86) 96 10/06/18 23:25 76 10/06/18 21:48 83 20 97 Nasal Cannula 2.0 28 10/06/18 21:48 83 20 97 Nasal Cannula 2.0 28 10/06/18 20:04 87 130/56 10/06/18 20:00 97.9 87 20 130/56 (80) 97 10/06/18 20:00 Nasal Cannula 2.0 10/06/18 19:28 96 Nasal Cannula 2.0 28 10/06/18 19:28 79 16 96 Nasal Cannula 2.0 28 10/06/18 19:24 85 10/06/18 16:00 89 10/06/18 16:00 98.0 90 22 121/83 (96) 95 10/06/18 16:00 Nasal Cannula 2.0 Height (Feet): 5 Height (Inches): 5.00 Weight (Pounds): 344 General Appearance: no acute distress HEENT: normocephalic, atraumatic, anicteric, mucous membranes moist Respiratory/Chest: lungs clear, normal breath sounds, no respiratory distress, no accessory muscle use Cardiovascular: normal rate, regular rhythm, no gallop/murmur, no JVD Abdomen: normal bowel sounds, soft, non tender, no organomegaly, non distended Genitourinary: other - no novoa Extremities: no cyanosis Skin: no rash Neurologic/Psychiatric: javascript front end developer II-XII grossly normal, alert, responsive Lymphatic: no neck adenopathy Musculoskeletal: no effusion Objective Chest x-ray - nad Microbiology Date/Time Source Procedure Growth Status 09/25/18 19:31 Synovial Fluid Anaerobic Culture - Final NO ANAEROBES ISOLATED Complete right knee culture - + achromobacter, sensitivities noted Laboratory Tests Test 10/07/18 03:50 White Blood Count 6.4 K/UL (4.8-10.8) Red Blood Count 4.20 M/UL (4.20-5.40) Hemoglobin 12.4 G/DL (12.0-16.0) Hematocrit 37.7 % (37.0-47.0) Mean Corpuscular Volume 90 FL (80-99) Mean Corpuscular Hemoglobin 29.6 PG (27.0-31.0) Mean Corpuscular Hemoglobin Concent 33.0 G/DL (32.0-36.0) Red Cell Distribution Width 12.3 % (11.6-14.8) Platelet Count 251 K/UL (150-450) Mean Platelet Volume 5.6 FL (6.5-10.1) L Neutrophils (%) (Auto) 50.1 % (45.0-75.0) Lymphocytes (%) (Auto) 31.4 % (20.0-45.0) Monocytes (%) (Auto) 9.5 % (1.0-10.0) Eosinophils (%) (Auto) 7.0 % (0.0-3.0) H Basophils (%) (Auto) 2.0 % (0.0-2.0) Prothrombin Time 14.0 SEC (9.30-11.50) H Prothromb Time International Ratio 1.3 (0.9-1.1) H Activated Partial Thromboplast Time 85 SEC (23-33) H Sodium Level 139 MMOL/L (136-145) Potassium Level 4.4 MMOL/L (3.5-5.1) Chloride Level 105 MMOL/L (98-107) Carbon Dioxide Level 27 MMOL/L (21-32) Anion Gap 7 mmol/L (5-15) Blood Urea Nitrogen 13 mg/dL (7-18) Creatinine 0.6 MG/DL (0.55-1.30) Estimat Glomerular Filtration Rate > 60 mL/min (>60) Glucose Level 130 MG/DL (74-106) H Calcium Level 9.2 MG/DL (8.5-10.1) Current Medications Medications (Trade) Dose Ordered Sig/Andres Route PRN Reason Start Time Stop Time Status Last Admin Dose Admin Albuterol/ Ipratropium (Albuterol/ Ipratropium) 3 ml Q4H PRN HHN Shortness of Breath 7/20/19 17:45 10/10/18 09:44 10/05/18 21:13 Chlorhexidine Gluconate (Laverne-Hex 2%) 1 applic DAILY@2000 TOPIC 10/05/18 20:00 10/30/18 19:59 10/06/18 20:03 Docusate Sodium (Colace) 250 mg BID ORAL 10/06/18 18:00 11/05/18 17:59 Heparin Sodium/ Dextrose 500 ml @ 32.846 mls/ hr ADJUST PER PROTOCOL IV 10/05/18 17:00 11/01/18 16:59 10/07/18 06:44 Hydromorphone HCl (Dilaudid) 0.4 mg Q2H PRN IVP severe pain 10/05/18 16:45 10/08/18 14:43 10/06/18 20:05 Lactobacillus Acidophilus (Culturelle) 1 tab TWICE A DAY ORAL 10/05/18 18:00 10/29/18 17:59 10/07/18 08:07 Magnesium Hydroxide (Mom) 30 ml DAILYPRN PRN ORAL Constipation 10/06/18 15:00 11/05/18 14:59 Meropenem 1 gm/ Sodium Chloride 55 ml @ 110 mls/hr Q8HR IVPB 10/05/18 22:00 10/27/18 23:59 10/07/18 06:13 Metoprolol Tartrate (Lopressor) 12.5 mg Q12HR ORAL 10/05/18 21:00 10/31/18 20:59 10/07/18 08:07 Montelukast Sodium (Singulair) 10 mg QPM ORAL 10/05/18 16:30 10/26/18 16:29 10/06/18 17:06 Ondansetron HCl (Zofran) 4 mg Q6H PRN IVP Nausea & Vomiting 10/05/18 20:45 10/31/18 14:42 Pantoprazole (Protonix) 40 mg DAILY ORAL 10/06/18 09:00 11/02/18 08:59 10/07/18 08:07 Salmeterol Xinafoate/ Fluticasone (Advair 250/50 Diskus) 1 puffs Q12HR INH 10/05/18 21:00 8/10/19 08:59 10/07/18 09:51 Sitagliptin Phosphate (Januvia) 100 mg ACBREAKFAST ORAL 10/07/18 06:30 11/06/18 06:29 10/07/18 06:13 Tramadol HCl (Ultram) 50 mg TIDPRN PRN ORAL Severe Breakthru Pain (>7) 10/05/18 19:00 10/12/18 18:59 Warfarin Sodium (Coumadin per pharmacy) 1 ea DAILY PRN MISC Per rx protocol 10/06/18 09:00 11/03/18 10:29 Warfarin Sodium (Coumadin) 10 mg ONCE ORAL 10/07/18 17:00 10/07/18 19:00 Mary Ellen Jaimes MD Oct 07, 2018 12:20
--- NOTE | 2018-10-07 12:52 | NUR ---
SCALES INSPECTORDYNAMOMETER TESTER SI: PULMONARY EMBOLI T. 97.9 HR 77 RR 16 B/P 112/60 N/C @ 2L PT 16.0 INR 1.3 PTT 85 IS: MEROPENEM IV HEPARIN GTT COUMADIN PO DUONEB HHN DCP TO CRI STEP DOWN STATUS
--- NOTE | 2018-10-07 15:49 | NUR ---
*-* INSURANCE *-* UPDATED CLINICALS HAVE BEEN FAXED TO: [facility] AUTH# [id number] [employer] MANAGER: MARCO De La Vega FAX CLINICALS TO: [phone]
[2018-10-07 15:52] VITALS: BP 116/58
[2018-10-07] MEDS: Montelukast 10mg tablet ORAL SCH (16:18)
[2018-10-07] MEDS ORDERED: Warfarin Sodium 10mg ORAL SCH (17:00)
--- NOTE | 2018-10-07 19:09 | NUR ---
HAND-OFF: Report given to ANNE Wells. Pt in stable condition.
--- NOTE | 2018-10-07 19:10 | NUR ---
NURSE NOTES: Received bedside report from ANNE Garcia.Patient stable,in a bed watching TV,A&Ox4,no c/o pain,no respiratory distress noted,SR on school lunch monitor,2 L/min via N/C tolerated well,BS active in all quadrants,IV on JOSE ARMANDO PICC line heparin drips 11.1 units/kg/hr or 32.846 ml/hr,next PTT 10/08@0400,bed secured,call light within a reach,will continue to monitor and follow POC.
--- NOTE | 2018-10-07 19:41 | Cardiac Electrophysiology PN ---
Assessment/Plan Assessment/Plan 1. Sinus tachycardia. No atrial fibrillation or SVT due to acute pulmonary embolism. 2. Acute pulmonary embolism, on heparin drip and Coumadin Bilateral lower extremity duplex showed no DVT 3. Troponin elevation, levels are low. EKG has nonischemic ST wave abnormality, likely due to the patient's acute bilateral pulmonary embolism. EKG No acute ischemia. On Lopressor 25 bid 4. Right knee infection with possible septic arthritis. The patient on IV antibiotic per ID, status post incision and drainage by Dr. Del Angel on September 25, 2018. AZEEM RN Subjective Subjective In SDU on heparin drip and Coumadin. No CP or SOB. In SR. INR not therapeutic yet. Objective Last 24 Hour Vital Signs Date Time Temp Pulse Resp B/P (MAP) Pulse Ox O2 Delivery O2 Flow Rate FiO2 10/07/18 16:00 96 10/07/18 16:00 Nasal Cannula 2.0 10/07/18 15:52 98.2 83 20 116/58 (77) 96 10/07/18 12:00 97.9 77 16 112/60 (77) 97 10/07/18 12:00 78 10/07/18 12:00 Nasal Cannula 2.0 10/07/18 09:50 71 20 98 Nasal Cannula 2.0 28 10/07/18 09:48 98 Nasal Cannula 2.0 28 10/07/18 09:48 72 20 98 Nasal Cannula 2.0 28 10/07/18 09:47 72 20 98 Nasal Cannula 2.0 28 10/07/18 08:07 80 111/62 10/07/18 08:00 97.7 80 18 111/62 (78) 97 10/07/18 08:00 Nasal Cannula 2.0 10/07/18 08:00 77 10/07/18 04:00 97.3 77 18 118/60 (79) 96 10/07/18 04:00 Nasal Cannula 2.0 10/07/18 03:49 78 10/07/18 00:00 Nasal Cannula 2.0 10/07/18 00:00 97.7 81 22 136/61 (86) 96 10/06/18 23:25 76 10/06/18 21:48 83 20 97 Nasal Cannula 2.0 28 10/06/18 21:48 83 20 97 Nasal Cannula 2.0 28 10/06/18 20:04 87 130/56 10/06/18 20:00 97.9 87 20 130/56 (80) 97 10/06/18 20:00 Nasal Cannula 2.0 Intake and Output 10/06/18 10/07/18 18:59 06:59 Intake Total 1304.152 ml 557.582 ml Balance 1304.152 ml 557.582 ml Intake Oral 800 ml 60 ml IV Total 504.152 ml 497.582 ml # Voids 3 1 # Bowel Movements 2 1 Laboratory Tests Test 10/07/18 03:50 White Blood Count 6.4 K/UL (4.8-10.8) Red Blood Count 4.20 M/UL (4.20-5.40) Hemoglobin 12.4 G/DL (12.0-16.0) Hematocrit 37.7 % (37.0-47.0) Mean Corpuscular Volume 90 FL (80-99) Mean Corpuscular Hemoglobin 29.6 PG (27.0-31.0) Mean Corpuscular Hemoglobin Concent 33.0 G/DL (32.0-36.0) Red Cell Distribution Width 12.3 % (11.6-14.8) Platelet Count 251 K/UL (150-450) Mean Platelet Volume 5.6 FL (6.5-10.1) L Neutrophils (%) (Auto) 50.1 % (45.0-75.0) Lymphocytes (%) (Auto) 31.4 % (20.0-45.0) Monocytes (%) (Auto) 9.5 % (1.0-10.0) Eosinophils (%) (Auto) 7.0 % (0.0-3.0) H Basophils (%) (Auto) 2.0 % (0.0-2.0) Prothrombin Time 14.0 SEC (9.30-11.50) H Prothromb Time International Ratio 1.3 (0.9-1.1) H Activated Partial Thromboplast Time 85 SEC (23-33) H Sodium Level 139 MMOL/L (136-145) Potassium Level 4.4 MMOL/L (3.5-5.1) Chloride Level 105 MMOL/L (98-107) Carbon Dioxide Level 27 MMOL/L (21-32) Anion Gap 7 mmol/L (5-15) Blood Urea Nitrogen 13 mg/dL (7-18) Creatinine 0.6 MG/DL (0.55-1.30) Estimat Glomerular Filtration Rate > 60 mL/min (>60) Glucose Level 130 MG/DL (74-106) H Calcium Level 9.2 MG/DL (8.5-10.1) Objective HEAD AND NECK: No JVD. LUNGS: Clear. CARDIOVASCULAR: Tachycardic. S1 and S2 regular. ABDOMEN: Soft. EXTREMITIES: No pitting edema, status post right knee surgery. Home Castaneda MD Oct 07, 2018 19:41
--- NOTE | 2018-10-07 19:54 | Cardiology Report ---
APPROVED REPORT EXAM: Two-dimensional and M-mode echocardiogram with Doppler and color Doppler. INDICATION Chest Pain M-Mode DIMENSIONS IVSd1.4 (0.7-1.1cm)Left Atrium (MM)3.3 (1.6-4.0cm) LVDd4.9 (3.5-5.6cm)Aortic Root3.7 (2.0-3.7cm) PWd1.1 (0.7-1.1cm)Aortic Cusp Exc.2.2 (1.5-2.0cm) LVDs2.8 (2.5-4.0cm) PWs1.8 cm Other Information Technically limited study due to patient body habitus Limited study. Poor apical windows. Normal left ventricular chamber size, systolic function and wall motion. Left ventricular ejection fraction estimated to be 60-65 %. Mild left ventricular hypertrophy. No evidence of pericardial effusion. All other cardiac chamber sizes are within normal limits. Focal aortic valve sclerosis with adequate cusp excursion. Thickened mitral valve leaflets with normal excursion. Mild mitral annulus and aortic root calcification. Normal pulmonic valve structure. Normal tricuspid valve structure. IVC is normal in size with physiological collapse. A color flow and spectral Doppler study was performed and revealed: No aortic regurgitation. No mitral regurgitation. Mitral diastolic velocities suggest mild left ventricular diastolic dysfunction (Grade I). Mild tricuspid regurgitation. Tricuspid systolic velocities suggests peak right ventricular systolic pressure of 37 mmHg, consistent with mild pulmonary hypertension. Mild pulmonic regurgitation present.
[2018-10-07 20:00] VITALS: BP 135/58
[2018-10-07] MEDS: Dyna-Hex 2% Top Sol 2oz TOPIC SCH (20:05)
--- NOTE | 2018-10-07 21:26 | General Progress Note ---
Assessment/Plan Assessment/Plan: massive pulmonary embolism on heparin drip pharmacy to dose she is on therapeutic dose she has had right heart collapse out of icu supplement oxygen On heparin driop and coumadin she will need to be [facility] discussed with nursing staff constipated start mom prn and colace 1250 bid septic knee post arthroscopy with ACHROMOBACTER XYLOSOXIDANS per id ................................................................................ ................ Lashaun Romero MD, PhD, Laboratory Egg Producer Specimen Inquiry Report PATIENT: BARBARA JORDAN LOC: 3E U # : [id number] AGE/SX: 58/F ROOM: [facility] REG : 09/25/[address]: Vladimir Stern MD : 1960 BED: 1 DIS : STATUS: ADM IN TLOC: SPEC #: [id number] ALLEN: 09/25/18 STATUS: COMP REQ #: [id number] RECD: 09/25/[address]: Bernardo Kowalski MD SOURCE: SYN FLD ENTR: 09/25/[address]: NON PHYSICIAN [facility]: TAYLOR RHODES ORDERED: BODY FLD CUL&GS QUERIES: SPECIMEN SOURCE RT KNEE ASPIRATION Procedure Result GRAM STAIN Final GRAM STAIN RESULT NO WHITE BLOOD CELLS NO ORGANISMS SEEN CULTURE BODY FLUID RESULT Final Organism 1 ACHROMOBACTER XYLOSOXIDANS GROWTH: 1+ A.XYLOSOXI M.I.C. RX --------- --- CEFTAZIDIME 4 S CEFTRIAXONE >=64 R CEFEPIME 16 I CIPROFLOXACIN 2 I GENTAMICIN >=16 R LEVOFLOXACIN 2 S IMIPENEM 1 S TRIMETHOPRIM/SULFA <=20 S AMIKACIN >=64 R PIPERACILLIN/TAZOBACTAM <=4 S ......................................................... antibiotic as is ................................................. she will benenfit from continuous rehab will monito rnad follow ........................................ diabetes hgba1c is 7.1 start her on januvia 100 daily she is a good candidate for victoza as out patinet. ...............................................................await lalitha to [facility] Subjective Date patient seen: Oct 07, 2018 Time patient seen: 21:25 Allergies: Coded Allergies: CELECOXIB (Verified Allergy, Severe, dyspnea, 09/25/18) HYDROCODONE (Verified Allergy, Severe, Rash, 09/25/18) NSAIDS (NON-STEROIDAL ANTI-INFLAMMA (Verified Allergy, Severe, Shortness of Breath, 09/29/18) Subjective doimng betteer had bm no fever Objective Last 24 Hour Vital Signs Date Time Temp Pulse Resp B/P (MAP) Pulse Ox O2 Delivery O2 Flow Rate FiO2 10/07/18 20:05 89 135/58 10/07/18 20:00 Nasal Cannula 2.0 10/07/18 20:00 98.6 89 20 135/58 (83) 100 10/07/18 19:58 88 10/07/18 16:00 96 10/07/18 16:00 Nasal Cannula 2.0 10/07/18 15:52 98.2 83 20 116/58 (77) 96 10/07/18 12:00 97.9 77 16 112/60 (77) 97 10/07/18 12:00 78 10/07/18 12:00 Nasal Cannula 2.0 10/07/18 09:50 71 20 98 Nasal Cannula 2.0 28 10/07/18 09:48 98 Nasal Cannula 2.0 28 10/07/18 09:48 72 20 98 Nasal Cannula 2.0 28 10/07/18 09:47 72 20 98 Nasal Cannula 2.0 28 10/07/18 08:07 80 111/62 10/07/18 08:00 97.7 80 18 111/62 (78) 97 10/07/18 08:00 Nasal Cannula 2.0 10/07/18 08:00 77 10/07/18 04:00 97.3 77 18 118/60 (79) 96 10/07/18 04:00 Nasal Cannula 2.0 10/07/18 03:49 78 10/07/18 00:00 Nasal Cannula 2.0 10/07/18 00:00 97.7 81 22 136/61 (86) 96 10/06/18 23:25 76 10/06/18 21:48 83 20 97 Nasal Cannula 2.0 28 10/06/18 21:48 83 20 97 Nasal Cannula 2.0 28 Intake and Output 10/06/18 10/07/18 18:59 06:59 Intake Total 1304.152 ml 557.582 ml Balance 1304.152 ml 557.582 ml Intake Oral 800 ml 60 ml IV Total 504.152 ml 497.582 ml # Voids 3 1 # Bowel Movements 2 1 Laboratory Tests 10/07/18 03:50: White Blood Count 6.4, Red Blood Count 4.20, Hemoglobin 12.4, Hematocrit 37.7, Mean Corpuscular Volume 90, Mean Corpuscular Hemoglobin 29.6, Mean Corpuscular Hemoglobin Concent 33.0, Red Cell Distribution Width 12.3, Platelet Count 251, Mean Platelet Volume 5.6L, Neutrophils (%) (Auto) 50.1, Lymphocytes (%) (Auto) 31.4, Monocytes (%) (Auto) 9.5, Eosinophils (%) (Auto) 7.0H, Basophils (%) (Auto ) 2.0, Prothrombin Time 14.0H, Prothromb Time International Ratio 1.3H, Activated Partial Thromboplast Time 85H, Sodium Level 139, Potassium Level 4.4, Chloride Level 105, Carbon Dioxide Level 27, Anion Gap 7, Blood Urea Nitrogen 13 , Creatinine 0.6, Estimat Glomerular Filtration Rate > 60, Glucose Level 130H, Calcium Level 9.2 Height (Feet): 5 Height (Inches): 5.00 Weight (Pounds): 344 General Appearance: WD/WN Respiratory/Chest: other - distant brearth sdound'/ Abdomen: soft Objective has nasal canula getting oxygen supplement distant heart sound distant brat sounds soft Vladimir Stern MD Oct 07, 2018 21:26
[2018-10-08] VITALS: BP 118/69
--- NOTE | 2018-10-08 02:09 | NUR ---
NURSE NOTES: Received Pt is sleeping on the bed and no sign of acute distress noted. Pt has PICC line on Rt. upper arm dressing clean and dry. On running with Heparin drip with 11.1u/ kg/hr. No sign of active bleeding noted. On tele monitor with SR and HR: 72's. On O2 2L via nasal cannula. Placed fall precaution. Will continue to care plan.
--- NOTE | 2018-10-08 02:09 | NUR ---
HAND-OFF: Report given to ANNE Richardson.Patient stable,sleeping,no c/o pain.
[2018-10-08 04:00] VITALS: BP 124/60
[2018-10-08 04:41] LABS: INR 1.6 (0.9-1.1)
--- NOTE | 2018-10-08 04:55 | NUR ---
NURSE NOTES: Noted PTT lab result is 107. Verified with pharmacist Gabe and will stop 30min's and decrease to 8.1 U/kg/hr. No sign of active bleeding. Will continue to monitor any change of condition.
[2018-10-08] MEDS: Heparin 25,000u/D5W 500ml 500 ML IV SCH ×2 (05:30→14:16)
[2018-10-08] MEDS: Meropenem 1 GM in NS 55 ML IVPB SCH ×3 (05:53→22:17)
--- NOTE | 2018-10-08 07:25 | NUR ---
NURSE NOTES: Received pt from ANNE Richardson in stable condition with no cardiopulmonary distress noted. Pt is asleep in bed, AAOx4, hooked to director of cardiac rehabilitation currently SR, on 2L O2 via NC. Bedside commode noted at bedside. Sterile strips noted on right knee covered in dry dressing- pt is s/p R knee I&D surgery, Pt has a JOSE ARMANDO PICC running Heparin drip at 8.1 units/kg/hr (23.969 cc/hr). Bed is in lowest position with alarm on, side rails up x 2, call light within reach. Will continue to monitor pt.
--- NOTE | 2018-10-08 07:25 | NUR ---
HAND-OFF: Report given to Calvin. Pt is resting on the bed and no sign of acute distress noted.
[2018-10-08 08:00] VITALS: BP 111/60
[2018-10-08] MEDS: Docusate 250mg cap ORAL SCH ×2 (09:00→17:36)
[2018-10-08] MEDS: Wixela 250/50 Inhaler - 60 dose INH SCH ×2 (09:00→21:39)
[2018-10-08] MEDS: Metoprolol Tartrate 12.5mg TAB ORAL SCH ×2 (09:35→20:27)
[2018-10-08] MEDS: Lactobacillus-GG tablet ORAL SCH ×2 (09:35→17:37)
--- NOTE | 2018-10-08 10:22 | Pulmonology Progress Note ---
Assessment/Plan Problems: (1) Acute massive pulmonary embolism (2) S/P right knee surgery Assessment/Plan on heparin drip and Coumadin check INR daily, today is 1.6 once INR is 2.5. will dc heparin drip 24 hours later. symptomatic treatment wound care working with PT very well Subjective ROS Limited/Unobtainable: No Constitutional: Reports: no symptoms HEENT: Repors: no symptoms Respiratory: Reports: no symptoms Allergies: Coded Allergies: CELECOXIB (Verified Allergy, Severe, dyspnea, 09/25/18) HYDROCODONE (Verified Allergy, Severe, Rash, 09/25/18) NSAIDS (NON-STEROIDAL ANTI-INFLAMMA (Verified Allergy, Severe, Shortness of Breath, 09/29/18) Objective Last 24 Hour Vital Signs Date Time Temp Pulse Resp B/P (MAP) Pulse Ox O2 Delivery O2 Flow Rate FiO2 10/08/18 09:40 96 Nasal Cannula 2.0 28 10/08/18 09:40 89 16 96 Nasal Cannula 2.0 28 10/08/18 09:39 89 18 96 Nasal Cannula 2.0 28 10/08/18 09:39 93 18 96 Nasal Cannula 2.0 28 10/08/18 09:35 75 111/60 10/08/18 08:00 Nasal Cannula 2.0 10/08/18 08:00 98.2 75 22 111/60 (77) 97 10/08/18 04:00 98.8 92 20 124/60 (81) 99 10/08/18 04:00 74 10/08/18 04:00 Nasal Cannula 2.0 10/08/18 00:00 Nasal Cannula 2.0 10/08/18 00:00 98.1 83 20 118/69 (85) 99 10/07/18 23:35 82 10/07/18 21:45 90 20 96 Nasal Cannula 2.0 28 10/07/18 21:45 90 20 96 Nasal Cannula 2.0 28 10/07/18 21:40 91 20 95 Nasal Cannula 2.0 10/07/18 21:39 95 Nasal Cannula 2.0 10/07/18 20:05 89 135/58 10/07/18 20:00 Nasal Cannula 2.0 10/07/18 20:00 98.6 89 20 135/58 (83) 100 10/07/18 19:58 88 10/07/18 16:00 96 10/07/18 16:00 Nasal Cannula 2.0 10/07/18 15:52 98.2 83 20 116/58 (77) 96 10/07/18 12:00 97.9 77 16 112/60 (77) 97 10/07/18 12:00 78 10/07/18 12:00 Nasal Cannula 2.0 Intake and Output 10/07/18 10/08/18 19:00 07:00 Intake Total 929.152 ml 577.849 ml Balance 929.152 ml 577.849 ml Intake Oral 480 ml 120 ml IV Total 449.152 ml 457.849 ml # Voids 2 3 # Bowel Movements 4 General Appearance: WD/WN HEENT: normocephalic, atraumatic Respiratory/Chest: chest wall non-tender, lungs clear Breasts: no masses Cardiovascular: normal peripheral pulses Abdomen: normal bowel sounds, soft, non tender Extremities: no cyanosis, no clubbing Skin: no lesions Laboratory Tests 10/08/18 04:07: Prothrombin Time 16.7H, Prothromb Time International Ratio 1.6H, Activated Partial Thromboplast Time 107H Current Medications Medications (Trade) Dose Ordered Sig/Andres Route PRN Reason Start Time Stop Time Status Last Admin Dose Admin Albuterol/ Ipratropium (Albuterol/ Ipratropium) 3 ml Q4H PRN HHN Shortness of Breath 10/05/18 17:45 10/10/18 09:44 10/05/18 21:13 Chlorhexidine Gluconate (Laverne-Hex 2%) 1 applic DAILY@2000 TOPIC 10/05/18 20:00 10/30/18 19:59 10/07/18 20:05 Docusate Sodium (Colace) 250 mg BID ORAL 10/06/18 18:00 11/05/18 17:59 Heparin Sodium/ Dextrose 500 ml @ 23.969 mls/ hr ADJUST PER PROTOCOL IV 10/08/18 05:30 11/07/18 05:29 10/08/18 05:30 Hydromorphone HCl (Dilaudid) 0.4 mg Q2H PRN IVP severe pain 10/05/18 16:45 10/08/18 14:43 10/06/18 20:05 Lactobacillus Acidophilus (Culturelle) 1 tab TWICE A DAY ORAL 10/05/18 18:00 10/29/18 17:59 10/08/18 09:35 Magnesium Hydroxide (Mom) 30 ml DAILYPRN PRN ORAL Constipation 10/06/18 15:00 11/05/18 14:59 Meropenem 1 gm/ Sodium Chloride 55 ml @ 110 mls/hr Q8HR IVPB 10/05/18 22:00 10/27/18 23:59 10/08/18 05:53 Metoprolol Tartrate (Lopressor) 12.5 mg Q12HR ORAL 10/05/18 21:00 10/31/18 20:59 10/08/18 09:35 Montelukast Sodium (Singulair) 10 mg QPM ORAL 10/05/18 16:30 10/26/18 16:29 10/07/18 16:18 Ondansetron HCl (Zofran) 4 mg Q6H PRN IVP Nausea & Vomiting 10/05/18 20:45 10/31/18 14:42 Pantoprazole (Protonix) 40 mg DAILY ORAL 10/06/18 09:00 11/02/18 08:59 10/08/18 09:35 Salmeterol Xinafoate/ Fluticasone (Advair 250/50 Diskus) 1 puffs Q12HR INH 10/05/18 21:00 10/26/18 08:59 10/08/18 09:00 Sitagliptin Phosphate (Januvia) 100 mg ACBREAKFAST ORAL 10/07/18 06:30 11/06/18 06:29 10/08/18 05:55 Tramadol HCl (Ultram) 50 mg TIDPRN PRN ORAL Severe Breakthru Pain (>7) 10/05/18 19:00 10/12/18 18:59 Warfarin Sodium (Coumadin per pharmacy) 1 ea DAILY PRN MISC Per rx protocol 10/06/18 09:00 11/03/18 10:29 Warfarin Sodium (Coumadin) 10 mg COUMADIN ORAL 10/08/18 17:00 10/08/18 18:00 Mili Urbina MD Oct 08, 2018 10:22
--- NOTE | 2018-10-08 10:49 | NUR ---
BOAT MOTOR MECHANICADMINISTRATIVE ANALYST SI: PULMONARY EMBOLI, POD#6 T. 98.2 HR 75 RR 22 B/P 111/60 2L NC O2 SAT @ 98% PT 16.7 INR 1.6 APTT 107 IS: HEPARIN GTT MEROPENEM IV COUMADIN PO LOPRESSOR PO STEP DOWN STATUS
[2018-10-08 12:00] VITALS: BP 106/56
--- NOTE | 2018-10-08 12:00 | Cardiac Electrophysiology PN ---
Assessment/Plan Assessment/Plan 1. Sinus tachycardia. No atrial fibrillation or SVT due to acute pulmonary embolism. 2. Acute pulmonary embolism, on heparin drip and Coumadin Bilateral lower extremity duplex showed no DVT INR still not therapeutic 3. Troponin elevation, levels are low. EKG has nonischemic ST wave abnormality, likely due to the patient's acute bilateral pulmonary embolism. EKG No acute ischemia. On Lopressor 25 bid 4. Right knee infection with possible septic arthritis. The patient on IV antibiotic per ID, status post incision and drainage by Dr. Del Angel on September. AZEEM RN Subjective Subjective Alert on heparin drip and Coumadin. No CP or SOB. In SR. INR still 1.6 Objective Last 24 Hour Vital Signs Date Time Temp Pulse Resp B/P (MAP) Pulse Ox O2 Delivery O2 Flow Rate FiO2 10/08/18 09:40 96 Nasal Cannula 2.0 28 10/08/18 09:40 89 16 96 Nasal Cannula 2.0 28 10/08/18 09:39 89 18 96 Nasal Cannula 2.0 28 10/08/18 09:39 93 18 96 Nasal Cannula 2.0 28 10/08/18 09:35 75 111/60 10/08/18 08:00 Nasal Cannula 2.0 10/08/18 08:00 98.2 75 22 111/60 (77) 97 10/08/18 07:50 73 10/08/18 04:00 98.8 92 20 124/60 (81) 99 10/08/18 04:00 74 10/08/18 04:00 Nasal Cannula 2.0 10/08/18 00:00 Nasal Cannula 2.0 10/08/18 00:00 98.1 83 20 118/69 (85) 99 10/07/18 23:35 82 10/07/18 21:45 90 20 96 Nasal Cannula 2.0 28 10/07/18 21:45 90 20 96 Nasal Cannula 2.0 28 10/07/18 21:40 91 20 95 Nasal Cannula 2.0 10/07/18 21:39 95 Nasal Cannula 2.0 10/07/18 20:05 89 135/58 10/07/18 20:00 Nasal Cannula 2.0 10/07/18 20:00 98.6 89 20 135/58 (83) 100 10/07/18 19:58 88 10/07/18 16:00 96 10/07/18 16:00 Nasal Cannula 2.0 10/07/18 15:52 98.2 83 20 116/58 (77) 96 10/07/18 12:00 97.9 77 16 112/60 (77) 97 10/07/18 12:00 78 10/07/18 12:00 Nasal Cannula 2.0 Intake and Output 10/07/18 10/08/18 19:00 07:00 Intake Total 929.152 ml 577.849 ml Balance 929.152 ml 577.849 ml Intake Oral 480 ml 120 ml IV Total 449.152 ml 457.849 ml # Voids 2 3 # Bowel Movements 4 Laboratory Tests Test 10/08/18 04:07 10/08/18 11:25 Prothrombin Time 16.7 SEC (9.30-11.50) H Prothromb Time International Ratio 1.6 (0.9-1.1) H Activated Partial Thromboplast Time 107 SEC (23-33) H Pending Objective HEAD AND NECK: No JVD. LUNGS: Clear. CARDIOVASCULAR: Tachycardic. S1 and S2 regular. ABDOMEN: Soft. EXTREMITIES: No pitting edema, status post right knee surgery. Home Castaneda MD Oct 08, 2018 12:00
--- NOTE | 2018-10-08 14:37 | NUR ---
*-* DISCHARGE PLANNING *-* [facility] [place]
--- NOTE | 2018-10-08 14:43 | NUR ---
*-* INSURANCE *-* UPDATED CLINICALS HAVE BEEN FAXED TO: [facility] AUTH# [id number] CREAM HAULER: MARCO De La Vega FAX CLINICALS TO: [phone]
[2018-10-08 16:00] VITALS: BP 109/61
[2018-10-08] MEDS: Montelukast 10mg tablet ORAL SCH (16:43)
[2018-10-08] MEDS ORDERED: Warfarin Sodium 10mg ORAL SCH (17:00)
--- NOTE | 2018-10-08 19:19 | NUR ---
HAND-OFF: Report given to ANNE Wells. Pt in stable condition.
--- NOTE | 2018-10-08 19:20 | NUR ---
NURSE NOTES: Received bedside report from ANNE Garcia.Patient stable,in a bed watching TV,A&Ox4,no c/o pain,no respiratory distress noted,SR on nuclear monitoring technician,2 L/min via N/C tolerated well,BS active in all quadrants,IV on JOSE ARMANDO PICC line heparin drips changed to 8.1 units/kg/hr or 23.969 ml/hr,next PTT 10/09@0400,bed secured,call light within a reach,will continue to monitor and follow POC.
[2018-10-08 20:00] VITALS: BP 152/58
[2018-10-08] MEDS: Dyna-Hex 2% Top Sol 2oz TOPIC SCH (20:26)
--- NOTE | 2018-10-08 22:45 | General Progress Note ---
Progress Note Progress Note doing better no fever no cvhills await transfer to [facility] s1,s2,[place] cta anetrioroly pr septic knee morbid obes e antibiotc anticoag Vladimir Stern MD Oct 08, 2018 22:45
[2018-10-09] VITALS: BP 114/68
[2018-10-09 04:00] VITALS: BP 108/58
[2018-10-09 04:19] LABS: INR 1.8 (0.9-1.1)
[2018-10-09] MEDS ORDERED: Heparin 25,000u/D5W 500ml 500 ML IV SCH ×3 (05:00→20:30)
[2018-10-09] MEDS ORDERED: Heparin 5000 units/ml inj IV SCH ×2 (05:00→20:30)
--- NOTE | 2018-10-09 05:04 | NUR ---
NURSE NOTES: Received a new result for PTT is 52,[facility] called and notified,received new adjustment order from vanessa Bauer 6000 bolus IV once and increase to 10.1 units/kg/hr 29.887 ml/hr.Next PTT 10/09 @ 1100.Charge nurse aware,next shift will inform.
[2018-10-09] MEDS: Meropenem 1 GM in NS 55 ML IVPB SCH ×3 (05:26→22:17)
--- NOTE | 2018-10-09 07:00 | NUR ---
NURSE NOTES: receive dpatient report from catherine bloom. patient is on bed asleep. comfortable. not in acute distress. on hep drip at prescribed rate. negative bleeding so far. bed is lwo and locked for safety. will follow plan of care.
--- NOTE | 2018-10-09 07:02 | NUR ---
HAND-OFF: Report given to ANNE Guardado.Patient stable,sleeping.
[2018-10-09 08:00] VITALS: BP 105/66
[2018-10-09] MEDS: Lactobacillus-GG tablet ORAL SCH ×2 (08:04→17:45)
[2018-10-09] MEDS: Metoprolol Tartrate 12.5mg TAB ORAL SCH ×2 (08:04→20:42)
[2018-10-09] MEDS: Docusate 250mg cap ORAL SCH ×2 (08:05→17:46)
[2018-10-09] MEDS: Wixela 250/50 Inhaler - 60 dose INH SCH ×2 (09:37→21:27)
--- NOTE | 2018-10-09 10:16 | Pulmonology Progress Note ---
Assessment/Plan Problems: (1) Acute massive pulmonary embolism (2) S/P right knee surgery Assessment/Plan on heparin drip and Coumadin check INR daily, today is 1.8 once INR is 2.5. will dc heparin drip 24 hours later. symptomatic treatment wound care working with PT very well Subjective ROS Limited/Unobtainable: No Constitutional: Reports: no symptoms HEENT: Repors: no symptoms Allergies: Coded Allergies: CELECOXIB (Verified Allergy, Severe, dyspnea, 09/25/18) HYDROCODONE (Verified Allergy, Severe, Rash, 09/25/18) NSAIDS (NON-STEROIDAL ANTI-INFLAMMA (Verified Allergy, Severe, Shortness of Breath, 09/29/18) Objective Last 24 Hour Vital Signs Date Time Temp Pulse Resp B/P (MAP) Pulse Ox O2 Delivery O2 Flow Rate FiO2 10/09/18 09:40 86 18 93 Room Air 10/09/18 09:40 94 Room Air 10/09/18 09:39 87 18 93 Room Air 10/09/18 09:38 83 18 93 Room Air 10/09/18 08:29 Room Air 10/09/18 08:04 87 125/58 10/09/18 08:00 80 10/09/18 08:00 98.0 80 19 105/66 (79) 97 10/09/18 04:00 Nasal Cannula 2.0 10/09/18 04:00 97.8 80 20 108/58 (75) 100 10/09/18 03:23 82 10/09/18 00:00 Nasal Cannula 2.0 10/09/18 00:00 97.9 81 22 114/68 (83) 100 10/08/18 23:27 81 10/08/18 21:41 87 18 96 Nasal Cannula 2.0 10/08/18 21:39 87 18 95 Nasal Cannula 2.0 10/08/18 20:27 83 152/58 10/08/18 20:00 97.8 83 24 152/58 (89) 100 10/08/18 19:29 97 Nasal Cannula 2.0 10/08/18 19:28 79 16 97 Nasal Cannula 2.0 10/08/18 19:27 85 10/08/18 19:16 Nasal Cannula 2.0 10/08/18 16:00 Nasal Cannula 2.0 10/08/18 16:00 79 7/23/19 16:00 98.4 80 24 109/61 (77) 97 10/08/18 12:00 97.9 80 28 106/56 (73) 100 10/08/18 12:00 Nasal Cannula 2.0 10/08/18 12:00 80 Intake and Output 10/08/18 10/09/18 19:00 07:00 Intake Total 823.7445 ml 388.159 ml Balance 823.7445 ml 388.159 ml Intake Oral 500 ml 24 ml IV Total 323.7445 ml 364.159 ml # Voids 2 3 # Bowel Movements 5 1 General Appearance: WD/WN HEENT: normocephalic, atraumatic Respiratory/Chest: lungs clear, normal breath sounds Cardiovascular: normal peripheral pulses, regular rhythm Abdomen: soft, non tender, no organomegaly Genitourinary: normal external genitalia Extremities: no clubbing Skin: no rash, no ulcers 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/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: 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 grossly normal Lymphatic: no neck adenopathy Laboratory Tests 10/08/18 11:25: Activated Partial Thromboplast Time 66H 10/09/18 04:00: Activated Partial Thromboplast Time 52H, Prothrombin Time 18.8H, Prothromb Time International Ratio 1.8H Current Medications Medications (Trade) Dose Ordered Sig/Andres Route PRN Reason Start Time Stop Time Status Last Admin Dose Admin Albuterol/ Ipratropium (Albuterol/ Ipratropium) 3 ml Q4H PRN HHN Shortness of Breath 10/05/18 17:45 10/10/18 09:44 10/05/18 21:13 Chlorhexidine Gluconate (Laverne-Hex 2%) 1 applic DAILY@2000 TOPIC 10/05/18 20:00 10/30/18 19:59 10/08/18 20:26 Docusate Sodium (Colace) 250 mg BID ORAL 10/06/18 18:00 11/05/18 17:59 Heparin Sodium/ Dextrose 500 ml @ 29.887 mls/ hr ADJUST PER PROTOCOL IV 10/09/18 05:00 11/08/18 04:59 10/09/18 05:29 Lactobacillus Acidophilus (Culturelle) 1 tab TWICE A DAY ORAL 10/05/18 18:00 10/29/18 17:59 10/09/18 08:04 Magnesium Hydroxide (Mom) 30 ml DAILYPRN PRN ORAL Constipation 10/06/18 15:00 11/05/18 14:59 Meropenem 1 gm/ Sodium Chloride 55 ml @ 110 mls/hr Q8HR IVPB 10/05/18 22:00 10/27/18 23:59 10/09/18 05:26 Metoprolol Tartrate (Lopressor) 12.5 mg Q12HR ORAL 10/05/18 21:00 10/31/18 20:59 10/09/18 08:04 Montelukast Sodium (Singulair) 10 mg QPM ORAL 10/05/18 16:30 10/26/18 16:29 10/08/18 16:43 Ondansetron HCl (Zofran) 4 mg Q6H PRN IVP Nausea & Vomiting 10/05/18 20:45 10/31/18 14:42 10/08/18 14:22 Pantoprazole (Protonix) 40 mg DAILY ORAL 10/06/18 09:00 11/02/18 08:59 10/09/18 08:04 Salmeterol Xinafoate/ Fluticasone (Advair 250/50 Diskus) 1 puffs Q12HR INH 10/05/18 21:00 10/26/18 08:59 10/09/18 09:37 Sitagliptin Phosphate (Januvia) 100 mg ACBREAKFAST ORAL 10/07/18 06:30 11/06/18 06:29 10/09/18 05:29 Tramadol HCl (Ultram) 50 mg TIDPRN PRN ORAL Severe Breakthru Pain (>7) 10/05/18 19:00 10/12/18 18:59 Warfarin Sodium (Coumadin per pharmacy) 1 ea DAILY PRN MISC Per rx protocol 10/06/18 09:00 11/03/18 10:29 Warfarin Sodium (Coumadin) 10 mg COUMADIN ONCE ORAL 10/09/18 17:00 10/09/18 17:01 Mili Urbina MD Oct 09, 2018 10:16
[2018-10-09 11:39] LABS: BASOPHILS % (AUTO) 0.9 % (0.0-2.0); HEMATOCRIT 37.9 % (37.0-47.0); HEMOGLOBIN 12.7 G/DL (12.0-16.0); LYMPHOCYTES % (AUTO) 20.9 % (20.0-45.0); MEAN CORPUSCULAR VOLUME 89 FL (80-99); MONOCYTES % (AUTO) 6.3 % (1.0-10.0); NEUTROPHILS % (AUTO) 65.9 % (45.0-75.0); PLATELET COUNT 276 K/UL (150-450); RED BLOOD COUNT 4.25 M/UL (4.20-5.40); RED CELL DISTRIBUTION WIDTH 12.5 % (11.6-14.8); WHITE BLOOD COUNT 6.4 K/UL (4.8-10.8)
--- NOTE | 2018-10-09 11:52 | Infectious Diseases Prog Note ---
Assessment/Plan Assessment/Plan ASSESSMENT AND PLAN: 1. achromobacter right knee infected wound with possible septic arthritis and ? osteomyelitis massive PE - CT noted, ? pna but not presenting clinically like pna - meropenem started - day # 11 - sensitive to ertapenem - can give at home once patient stable clinically - monitor labs and chest x-ray - likely will need 4-6 weeks iv antibiotics - d/w microbiology - PE treatment per primary and pulmonary medicine, heparin, transfer to [facility] for embolectomy 2. Questionable history of diabetes and hypertension. Per the patient, she did have a history of elevated blood pressure and blood sugars, but now controlled. 3. History of obesity, but the patient has lost weight. 4. Asthma. 5. History of right knee arthroscopy. 6. History of internal knee derangement. 7. History of polycystic ovarian syndrome. 8. Social history is negative. 9. Family history is noncontributory. 10. MAR was noted. 11. Case was discussed with RN. 12. Allergies include celecoxib and hydrocodone. 13. MAR was noted. 14. Case was discussed with the patient and answered questions Subjective Constitutional: Denies: fever HEENT: Denies: congestion Respiratory: Denies: shortness of breath Cardiovascular: Denies: chest pain Gastrointestinal/Abdominal: Denies: nausea, vomiting Genitourinary: Reports: other - no novoa Neurologic: Denies: headache Psychiatric: Denies: depression Skin: Denies: rash Hematologic: Denies: bleeding Musculoskeletal: Denies: pain Allergies: Coded Allergies: CELECOXIB (Verified Allergy, Severe, dyspnea, 09/25/18) HYDROCODONE (Verified Allergy, Severe, Rash, 09/25/18) NSAIDS (NON-STEROIDAL ANTI-INFLAMMA (Verified Allergy, Severe, Shortness of Breath, 09/29/18) Objective Vital Signs Last 24 Hour Vital Signs Date Time Temp Pulse Resp B/P (MAP) Pulse Ox O2 Delivery O2 Flow Rate FiO2 10/09/18 09:40 86 18 93 Room Air 10/09/18 09:40 94 Room Air 21 10/09/18 09:39 87 18 93 Room Air 21 10/09/18 09:38 83 18 93 Room Air 21 10/09/18 08:29 Room Air 10/09/18 08:04 87 125/58 10/09/18 08:00 80 10/09/18 08:00 98.0 80 19 105/66 (79) 97 10/09/18 04:00 Nasal Cannula 2.0 10/09/18 04:00 97.8 80 20 108/58 (75) 100 10/09/18 03:23 82 10/09/18 00:00 Nasal Cannula 2.0 10/09/18 00:00 97.9 81 22 114/68 (83) 100 10/08/18 23:27 81 10/08/18 21:41 87 18 96 Nasal Cannula 2.0 28 10/08/18 21:39 87 18 95 Nasal Cannula 2.0 28 10/08/18 20:27 83 152/58 10/08/18 20:00 97.8 83 24 152/58 (89) 100 10/08/18 19:29 97 Nasal Cannula 2.0 28 10/08/18 19:28 79 16 97 Nasal Cannula 2.0 28 10/08/18 19:27 85 10/08/18 19:16 Nasal Cannula 2.0 10/08/18 16:00 Nasal Cannula 2.0 10/08/18 16:00 79 10/08/18 16:00 98.4 80 24 109/61 (77) 97 10/08/18 12:00 97.9 80 28 106/56 (73) 100 10/08/18 12:00 Nasal Cannula 2.0 10/08/18 12:00 80 Height (Feet): 5 Height (Inches): 5.00 Weight (Pounds): 343 General Appearance: no acute distress HEENT: normocephalic, atraumatic, anicteric Respiratory/Chest: lungs clear, normal breath sounds, no accessory muscle use, respiratory distress Cardiovascular: normal peripheral pulses, normal rate, regular rhythm, no gallop/murmur, no JVD Abdomen: normal bowel sounds, soft, non tender, no organomegaly, non distended Genitourinary: other - no novoa Extremities: no cyanosis, other - right knee incision - c/d Skin: no rash Neurologic/Psychiatric: division director II-XII grossly normal, alert, responsive Lymphatic: no neck adenopathy Musculoskeletal: no effusion Objective Chest x-ray - nad right knee culture - achromobacter Laboratory Tests Test 10/09/18 04:00 10/09/18 11:30 Prothrombin Time 18.8 SEC (9.30-11.50) H Prothromb Time International Ratio 1.8 (0.9-1.1) H Activated Partial Thromboplast Time 52 SEC (23-33) H Pending White Blood Count 6.4 K/UL (4.8-10.8) Red Blood Count 4.25 M/UL (4.20-5.40) Hemoglobin 12.7 G/DL (12.0-16.0) Hematocrit 37.9 % (37.0-47.0) Mean Corpuscular Volume 89 FL (80-99) Mean Corpuscular Hemoglobin 29.8 PG (27.0-31.0) Mean Corpuscular Hemoglobin Concent 33.4 G/DL (32.0-36.0) Red Cell Distribution Width 12.5 % (11.6-14.8) Platelet Count 276 K/UL (150-450) Mean Platelet Volume 5.9 FL (6.5-10.1) L Neutrophils (%) (Auto) 65.9 % (45.0-75.0) Lymphocytes (%) (Auto) 20.9 % (20.0-45.0) Monocytes (%) (Auto) 6.3 % (1.0-10.0) Eosinophils (%) (Auto) 6.0 % (0.0-3.0) H Basophils (%) (Auto) 0.9 % (0.0-2.0) Sodium Level Pending Potassium Level Pending Chloride Level Pending Carbon Dioxide Level Pending Blood Urea Nitrogen Pending Creatinine Pending Estimat Glomerular Filtration Rate Pending Glucose Level Pending Calcium Level Pending Total Bilirubin Pending Aspartate Amino Transf (AST/SGOT) Pending Alanine Aminotransferase (ALT/SGPT) Pending Alkaline Phosphatase Pending Total Protein Pending Albumin Pending Globulin Pending Current Medications Medications (Trade) Dose Ordered Sig/Andres Route PRN Reason Start Time Stop Time Status Last Admin Dose Admin Albuterol/ Ipratropium (Albuterol/ Ipratropium) 3 ml Q4H PRN HHN Shortness of Breath 10/05/18 17:45 10/10/18 09:44 10/05/18 21:13 Chlorhexidine Gluconate (Laverne-Hex 2%) 1 applic DAILY@1999 TOPIC 10/05/18 20:00 10/30/18 19:59 10/08/18 20:26 Docusate Sodium (Colace) 250 mg BID ORAL 10/06/18 18:00 11/05/18 17:59 Heparin Sodium/ Dextrose 500 ml @ 29.887 mls/ hr ADJUST PER PROTOCOL IV 10/09/18 05:00 11/08/18 04:59 10/09/18 05:29 Lactobacillus Acidophilus (Culturelle) 1 tab TWICE A DAY ORAL 10/05/18 18:00 10/29/18 17:59 10/09/18 08:04 Magnesium Hydroxide (Mom) 30 ml DAILYPRN PRN ORAL Constipation 10/06/18 15:00 11/05/18 14:59 Meropenem 1 gm/ Sodium Chloride 55 ml @ 110 mls/hr Q8HR IVPB 10/05/18 22:00 10/27/18 23:59 10/09/18 05:26 Metoprolol Tartrate (Lopressor) 12.5 mg Q12HR ORAL 10/05/18 21:00 10/31/18 20:59 10/09/18 08:04 Montelukast Sodium (Singulair) 10 mg QPM ORAL 10/05/18 16:30 10/26/18 16:29 10/08/18 16:43 Ondansetron HCl (Zofran) 4 mg Q6H PRN IVP Nausea & Vomiting 10/05/18 20:45 10/31/18 14:42 10/08/18 14:22 Pantoprazole (Protonix) 40 mg DAILY ORAL 10/06/18 09:00 11/02/18 08:59 10/09/18 08:04 Salmeterol Xinafoate/ Fluticasone (Advair 250/50 Diskus) 1 puffs Q12HR INH 10/05/18 21:00 10/26/18 08:59 10/09/18 09:37 Sitagliptin Phosphate (Januvia) 100 mg ACBREAKFAST ORAL 10/07/18 06:30 11/06/18 06:29 10/09/18 05:29 Tramadol HCl (Ultram) 50 mg TIDPRN PRN ORAL Severe Breakthru Pain (>7) 10/05/18 19:00 10/12/18 18:59 Warfarin Sodium (Coumadin per pharmacy) 1 ea DAILY PRN MISC Per rx protocol 10/06/18 09:00 11/03/18 10:29 Warfarin Sodium (Coumadin) 10 mg COUMADIN ONCE ORAL 10/09/18 17:00 10/09/18 17:01 Mary Ellen Jaimes MD Oct 09, 2018 11:52
[2018-10-09 11:56] LABS: ALANINE AMINOTRANSFERASE 46 U/L (12-78); ALBUMIN 2.9 G/DL (3.4-5.0); ALBUMIN/GLOBULIN RATIO 0.9 (1.0-2.7); ALKALINE PHOSPHATASE 78 U/L (46-116); ANION GAP 10 mmol/L (5-15); ASPARTATE AMINO TRANSFERASE 40 U/L (15-37); BILIRUBIN,TOTAL 0.2 MG/DL (0.2-1.0); BLOOD UREA NITROGEN 10 mg/dL (7-18); CALCIUM 9.1 MG/DL (8.5-10.1); CARBON DIOXIDE 27 MMOL/L (21-32); CHLORIDE 103 MMOL/L (98-107); CREATININE 0.7 MG/DL (0.55-1.30); POTASSIUM 4.2 MMOL/L (3.5-5.1); SODIUM 140 MMOL/L (136-145)
--- NOTE | 2018-10-09 11:56 | NUR ---
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 98.0 HR 87 RR 18 B/P 125/58 RA 98% PT 18.8 INR 1.8 APTT 52 IS: MEROPENEM IV HEPARIN GTT COUMADIN PO DCP STEP DOWN STATUS
[2018-10-09 12:00] VITALS: BP 130/69
--- NOTE | 2018-10-09 12:30 | NUR ---
NURSE NOTES:lab just called and reported that aPTT came up more than 150. heparin will put on hold for 60 minutes per protocol. Suhas pharmacist was informed and rate will be adjusted. next aPTT will be today @ 1930. Negative bleeding, patient is stable. new rate will be adjusted @ 1330. will continue to monitor.
--- NOTE | 2018-10-09 12:59 | Cardiac Electrophysiology PN ---
Assessment/Plan Assessment/Plan 1. Sinus tachycardia. No fib or SVT due to acute pulmonary embolism. 2. Acute pulmonary embolism, on heparin drip and Coumadin Bilateral lower extremity duplex showed no DVT INR still not therapeutic 3. Troponin elevation, levels are low. EKG has nonischemic ST wave abnormality, likely due to the patient's acute bilateral pulmonary embolism. EKG No acute ischemia. On Lopressor 25 bid 4. Right knee infection with possible septic arthritis. The patient on IV antibiotic per ID, status post incision and drainage by Dr. Del Angel on September. AZEEM RN Subjective Subjective Alert on heparin drip and Coumadin INR still not therapeutic Objective Last 24 Hour Vital Signs Date Time Temp Pulse Resp B/P (MAP) Pulse Ox O2 Delivery O2 Flow Rate FiO2 10/09/18 12:00 Room Air 10/09/18 12:00 97.9 85 22 130/69 (89) 96 10/09/18 09:40 86 18 93 Room Air 10/09/18 09:40 94 Room Air 21 10/09/18 09:39 87 18 93 Room Air 21 10/09/18 09:38 83 18 93 Room Air 21 10/09/18 08:29 Room Air 10/09/18 08:04 87 125/58 10/09/18 08:00 80 10/09/18 08:00 98.0 80 19 105/66 (79) 97 10/09/18 04:00 Nasal Cannula 2.0 10/09/18 04:00 97.8 80 20 108/58 (75) 100 10/09/18 03:23 82 10/09/18 00:00 Nasal Cannula 2.0 10/09/18 00:00 97.9 81 22 114/68 (83) 100 10/08/18 23:27 81 10/08/18 21:41 87 18 96 Nasal Cannula 2.0 10/08/18 21:39 87 18 95 Nasal Cannula 2.0 10/08/18 20:27 83 152/58 10/08/18 20:00 97.8 83 24 152/58 (89) 100 10/08/18 19:29 97 Nasal Cannula 2.0 10/08/18 19:28 79 16 97 Nasal Cannula 2.0 10/08/18 19:27 85 10/08/18 19:16 Nasal Cannula 2.0 10/08/18 16:00 Nasal Cannula 2.0 10/08/18 16:00 79 10/08/18 16:00 98.4 80 24 109/61 (77) 97 Intake and Output 10/08/18 10/09/18 18:59 06:59 Intake Total 835.7285 ml 358.272 ml Balance 835.7285 ml 358.272 ml Intake Oral 500 ml 24 ml IV Total 335.7285 ml 334.272 ml # Voids 2 3 # Bowel Movements 5 1 Laboratory Tests Test 10/09/18 04:00 10/09/18 11:30 Prothrombin Time 18.8 SEC (9.30-11.50) H Prothromb Time International Ratio 1.8 (0.9-1.1) H Activated Partial Thromboplast Time 52 SEC (23-33) H > 150 SEC (23-33) *H White Blood Count 6.4 K/UL (4.8-10.8) Red Blood Count 4.25 M/UL (4.20-5.40) Hemoglobin 12.7 G/DL (12.0-16.0) Hematocrit 37.9 % (37.0-47.0) Mean Corpuscular Volume 89 FL (80-99) Mean Corpuscular Hemoglobin 29.8 PG (27.0-31.0) Mean Corpuscular Hemoglobin Concent 33.4 G/DL (32.0-36.0) Red Cell Distribution Width 12.5 % (11.6-14.8) Platelet Count 276 K/UL (150-450) Mean Platelet Volume 5.9 FL (6.5-10.1) L Neutrophils (%) (Auto) 65.9 % (45.0-75.0) Lymphocytes (%) (Auto) 20.9 % (20.0-45.0) Monocytes (%) (Auto) 6.3 % (1.0-10.0) Eosinophils (%) (Auto) 6.0 % (0.0-3.0) H Basophils (%) (Auto) 0.9 % (0.0-2.0) Sodium Level 140 MMOL/L (136-145) Potassium Level 4.2 MMOL/L (3.5-5.1) Chloride Level 103 MMOL/L (98-107) Carbon Dioxide Level 27 MMOL/L (21-32) Anion Gap 10 mmol/L (5-15) Blood Urea Nitrogen 10 mg/dL (7-18) Creatinine 0.7 MG/DL (0.55-1.30) Estimat Glomerular Filtration Rate > 60 mL/min (>60) Glucose Level 215 MG/DL (74-106) H Calcium Level 9.1 MG/DL (8.5-10.1) Total Bilirubin 0.2 MG/DL (0.2-1.0) Aspartate Amino Transf (AST/SGOT) 40 U/L (15-37) H Alanine Aminotransferase (ALT/SGPT) 46 U/L (12-78) Alkaline Phosphatase 78 U/L (46-116) Total Protein 6.3 G/DL (6.4-8.2) L Albumin 2.9 G/DL (3.4-5.0) L Globulin 3.4 g/dL Albumin/Globulin Ratio 0.9 (1.0-2.7) L Objective HEAD AND NECK: No JVD. LUNGS: Clear. CARDIOVASCULAR: Tachycardic. S1 and S2 regular. ABDOMEN: Soft. EXTREMITIES: No pitting edema, status post right knee surgery. Home Castaneda MD Oct 09, 2018 12:59
--- NOTE | 2018-10-09 13:04 | NUR ---
MATERIAL HAULER NOTES SPOKE WITH JORDYN AQUINO FROM [facility], MADE AWARE OF DCP FOR PATIENT. PER KENIA SHE WILL WORK ON THE AUTHORIZATION. PT CONTINUES ON HEPARIN GTT.WILL CONTINUE TO MONITOR. KENIA [phone] EXT [phone] Addendum: 10/09/18 at 1353 by MERE COTTON RN RN RECEIVED CALL FROM ADONAY FROM [facility], PT ACCEPTED TO [facility] WITH THE AUTHORIZATION NUMBER [id number]. ALL DAYS AT [facility] APPROVED PER ADONAY. PT MADE AWARE OF ACCEPTANCE TO [facility].
--- NOTE | 2018-10-09 14:05 | NUR ---
*-* INSURANCE *-* UPDATED CLINICALS HAVE BEEN FAXED TO: [facility] AUTH# [id number] COMPONENTS ENGINEER: MARCO De La Vega FAX CLINICALS TO: [phone]
--- NOTE | 2018-10-09 14:45 | NUR ---
NURSE NOTES: blood transfusion started per protocol. VS taken and recorded. not in acute distress. no fever. will continue to monitor. Addendum: 10/09/18 at 1445 by RAHEL BACK RN disregard above note.
--- NOTE | 2018-10-09 15:15 | NUR ---
NURSE NOTES: RECEIVED BED SIDE REPORT FROM SOPHIA CARPENTER PROTOTYPE.PT AWAKE AND ALERT ORIENTED X 4.DENIES CP OR SOB AT THIS TIME.PT RECEIVING HEPARIN DRIP 6U/KG/HR / 17.755 /HRS INFUSING WELL CONNECTED TO PICC-LINE ON RT UPPER ARM.NO ACUTE DISTRESS NOTED AT THIS TIME. WILL CONTINUE TO MONITOR.
--- NOTE | 2018-10-09 15:26 | NUR ---
HAND-OFF: Report given to alis bloom.
[2018-10-09 16:00] VITALS: BP 116/87
[2018-10-09] MEDS ORDERED: Warfarin Sodium 10mg ORAL ONE (17:00)
[2018-10-09] MEDS: Montelukast 10mg tablet ORAL SCH (17:45)
--- NOTE | 2018-10-09 19:25 | NUR ---
HAND-OFF: Report given to .JOSELITO RODRÍGUEZ.
--- NOTE | 2018-10-09 19:26 | NUR ---
NURSE NOTES: BEDSIDE REPORT RECEIVED FROM ANNE MCKNIGHT. PT IS X4, ABLE TO MAKE NEEDS KNOWN. HAND POTTER SHOWING NSR. ON RA, SATING WELL. BEDSIDE COMMODE AT BEDSIDE. SKIN IS CLEAN, DRY, INTACT. JOSE ARMANDO PICC, ASYMPTOMATIC RUNNING HEPARIN GTT 6U/KG/HR NOTED. LABS IN AM. SAFETY PRECAUTIONS CONTINUED. WILL CONTINUE TO MONITOR AND FOLLOW W/ PLAN OF CARE.
[2018-10-09 20:00] VITALS: BP 126/57
[2018-10-09] MEDS: Dyna-Hex 2% Top Sol 2oz TOPIC SCH (20:42)
--- NOTE | 2018-10-09 20:45 | NUR ---
NURSE NOTES: PT NOW CHANGED HEP GTT TO 10/U/KG/HR W/ 12 U LOADING DOSE. WILL CONTINUE TO MONITOR. EDUCATED PT ON HEP GTT, S/S OF BLEEDING, SIDE EFFECTS, ETC.
[2018-10-10] VITALS: BP 131/60
[2018-10-10 04:08] LABS: PARTIAL THROMBOPLASTIN TIME > 150 SEC (23-33)
--- NOTE | 2018-10-10 04:15 | NUR ---
NURSE NOTES: PTT CAME BACK >150, WILL STOP GTT FOR ONE HOUR, AND DECREASE BY 4U. WILL CONTINUE TO MONITOR.
[2018-10-10] MEDS ORDERED: Heparin 25,000u/D5W 500ml 500 ML IV SCH ×3 (05:15→22:00)
[2018-10-10] MEDS: Meropenem 1 GM in NS 55 ML IVPB SCH ×3 (05:23→21:01)
--- NOTE | 2018-10-10 07:05 | NUR ---
HAND-OFF: Report given to ANNE ESCAMILLA.
--- NOTE | 2018-10-10 07:06 | NUR ---
HAND-OFF: Report given to ANNE ESCAMILLA.
--- NOTE | 2018-10-10 07:08 | NUR ---
NURSE NOTES: Received report from ANNE Padilla. Observed patient in bed, asleep, but arousable. On room air, no acute respiratory distress noted. Right upper arm PICC line intact and patent with Heparin drip ongoing at prescribed rate. No s/s of pain at this time. Safety precautions in place, bed locked, alarmed, and in lowest position, call light left within reach. Will continue to monitor. Addendum: 10/10/18 at 0715 by Charity Rowley RN side rails up x3
[2018-10-10 08:00] VITALS: BP 110/60
[2018-10-10] MEDS: Lactobacillus-GG tablet ORAL SCH ×2 (08:31→17:47)
[2018-10-10] MEDS: Metoprolol Tartrate 12.5mg TAB ORAL SCH ×2 (08:31→21:01)
[2018-10-10] MEDS: Docusate 250mg cap ORAL SCH ×2 (08:33→17:52)
--- NOTE | 2018-10-10 08:43 | NUR ---
NURSE NOTES: Patient aaox4, able to make needs known. Denies CP/SOB at the moment. Denies pain/discomfort. Right knee dressing intact, no s/s of bleeding. Safety precautions in place. Reinforced teaching re:bleeding precautions, verbalized understanding. Will continue to monitor.
[2018-10-10] MEDS: Wixela 250/50 Inhaler - 60 dose INH SCH ×2 (09:20→21:26)
--- NOTE | 2018-10-10 09:47 | NUR ---
*-* INSURANCE *-* UPDATED CLINICALS HAVE BEEN FAXED TO: [facility]AVESH ROSS# [id number] CRM SPECIALIST: MARCO De La Vega FAX CLINICALS TO: [phone] Addendum: 10/10/18 at 1303 by CADEN SLOAN CM and Review
--- NOTE | 2018-10-10 10:39 | Pulmonology Progress Note ---
Assessment/Plan Problems: (1) Acute massive pulmonary embolism (2) S/P right knee surgery Assessment/Plan on heparin drip and Coumadin check INR daily, today is2 once INR is 2.5. will dc heparin drip 24 hours later. symptomatic treatment continue IV abx, Meropenem as per ID wound care working with PT very well Subjective Constitutional: Reports: no symptoms HEENT: Repors: no symptoms Allergies: Coded Allergies: CELECOXIB (Verified Allergy, Severe, dyspnea, 09/25/18) HYDROCODONE (Verified Allergy, Severe, Rash, 09/25/18) NSAIDS (NON-STEROIDAL ANTI-INFLAMMA (Verified Allergy, Severe, Shortness of Breath, 09/29/18) Objective Last 24 Hour Vital Signs Date Time Temp Pulse Resp B/P (MAP) Pulse Ox O2 Delivery O2 Flow Rate FiO2 10/10/18 09:21 80 12 92 Room Air 10/10/18 09:21 83 12 92 Nasal Cannula 2.0 28 10/10/18 08:31 80 110/60 10/10/18 08:00 Room Air 10/10/18 08:00 97.9 81 22 110/60 (77) 98 10/10/18 07:43 82 10/10/18 07:37 94 Room Air 10/10/18 07:37 82 18 94 Room Air 10/10/18 04:00 Room Air 10/10/18 04:00 77 10/10/18 00:00 98.2 79 18 131/60 (83) 97 10/10/18 00:00 Room Air 10/10/18 00:00 72 10/09/18 21:29 81 18 95 Room Air 10/09/18 21:27 80 18 95 Room Air 10/09/18 20:42 89 126/57 10/09/18 20:00 Room Air 10/09/18 20:00 98.7 89 18 126/57 (80) 96 10/09/18 20:00 86 10/09/18 19:02 85 18 95 Room Air 10/09/18 19:02 95 Room Air 21 10/09/18 16:00 97.7 86 21 116/87 (97) 98 10/09/18 16:00 86 10/09/18 16:00 Room Air 10/09/18 12:00 Room Air 10/09/18 12:00 97.9 85 22 130/69 (89) 96 10/09/18 11:50 84 Intake and Output 10/09/18 10/10/18 19:00 07:00 Intake Total 748.210 ml 863.575 ml Balance 748.210 ml 863.575 ml Intake Oral 400 ml 480 ml IV Total 348.210 ml 383.575 ml # Voids 1 3 General Appearance: WD/WN HEENT: normocephalic, atraumatic Respiratory/Chest: chest wall non-tender, normal breath sounds Breasts: no masses Cardiovascular: normal peripheral pulses, normal rate Abdomen: normal bowel sounds, no organomegaly Genitourinary: normal external genitalia Extremities: no cyanosis Skin: no lesions Neurologic/Psychiatric: teacher public health II-XII grossly normal Laboratory Tests 10/09/18 11:30: White Blood Count 6.4, Red Blood Count 4.25, Hemoglobin 12.7, Hematocrit 37.9, Mean Corpuscular Volume 89, Mean Corpuscular Hemoglobin 29.8, Mean Corpuscular Hemoglobin Concent 33.4, Red Cell Distribution Width 12.5, Platelet Count 276, Mean Platelet Volume 5.9L, Neutrophils (%) (Auto) 65.9, Lymphocytes (%) (Auto) 20.9, Monocytes (%) (Auto) 6.3, Eosinophils (%) (Auto) 6.0H, Basophils (%) (Auto ) 0.9, Activated Partial Thromboplast Time > 150*H, Sodium Level 140, Potassium Level 4.2, Chloride Level 103, Carbon Dioxide Level 27, Anion Gap 10, Blood Urea Nitrogen 10, Creatinine 0.7, Estimat Glomerular Filtration Rate > 60, Glucose Level 215H, Calcium Level 9.1, Total Bilirubin 0.2, Aspartate Amino Transf (AST/SGOT) 40H, Alanine Aminotransferase (ALT/SGPT) 46, Alkaline Phosphatase 78, Total Protein 6.3L, Albumin 2.9L, Globulin 3.4, Albumin/ Globulin Ratio 0.9L 10/09/18 19:35: Activated Partial Thromboplast Time 48H 10/10/18 02:49: Activated Partial Thromboplast Time > 150*H, Prothrombin Time 20.1H, Prothromb Time International Ratio 2.0H Current Medications Medications (Trade) Dose Ordered Sig/Andres Route PRN Reason Start Time Stop Time Status Last Admin Dose Admin Chlorhexidine Gluconate (Laverne-Hex 2%) 1 applic DAILY@2000 TOPIC 10/05/18 20:00 10/30/18 19:59 10/09/18 20:42 Docusate Sodium (Colace) 250 mg BID ORAL 10/06/18 18:00 11/05/18 17:59 Heparin Sodium/ Dextrose 500 ml @ 17.755 mls/ hr ADJUST PER PROTOCOL IV 10/10/18 05:15 11/09/18 05:14 10/10/18 05:24 Lactobacillus Acidophilus (Culturelle) 1 tab TWICE A DAY ORAL 10/05/18 18:00 10/29/18 17:59 10/10/18 08:31 Magnesium Hydroxide (Mom) 30 ml DAILYPRN PRN ORAL Constipation 10/06/18 15:00 11/05/18 14:59 Meropenem 1 gm/ Sodium Chloride 55 ml @ 110 mls/hr Q8HR IVPB 10/05/18 22:00 10/27/18 23:59 10/10/18 05:23 Metoprolol Tartrate (Lopressor) 12.5 mg Q12HR ORAL 10/05/18 21:00 10/31/18 20:59 10/10/18 08:31 Montelukast Sodium (Singulair) 10 mg QPM ORAL 10/05/18 16:30 10/26/18 16:29 10/09/18 17:45 Ondansetron HCl (Zofran) 4 mg Q6H PRN IVP Nausea & Vomiting 10/05/18 20:45 10/31/18 14:42 10/08/18 14:22 Pantoprazole (Protonix) 40 mg DAILY ORAL 10/06/18 09:00 11/02/18 08:59 10/10/18 08:31 Salmeterol Xinafoate/ Fluticasone (Advair 250/50 Diskus) 1 puffs Q12HR INH 10/05/18 21:00 10/26/18 08:59 10/10/18 09:20 Sitagliptin Phosphate (Januvia) 100 mg ACBREAKFAST ORAL 10/07/18 06:30 11/06/18 06:29 10/10/18 05:30 Tramadol HCl (Ultram) 50 mg TIDPRN PRN ORAL Severe Breakthru Pain (>7) 10/05/18 19:00 10/12/18 18:59 10/10/18 02:56 Warfarin Sodium (Coumadin per pharmacy) 1 ea DAILY PRN MISC Per rx protocol 10/06/18 09:00 11/03/18 10:29 Warfarin Sodium (Coumadin) 10 mg COUMADIN ORAL 10/10/18 17:00 10/15/18 16:59 Mili Urbina MD Oct 10, 2018 10:39
--- NOTE | 2018-10-10 10:45 | NUR ---
NURSE NOTES: Evelin from [facility] called, states patient has a room if approved for discharge.
--- NOTE | 2018-10-10 10:53 | Cardiac Electrophysiology PN ---
Assessment/Plan Assessment/Plan 1. Sinus tachycardia. No fib or SVT due to acute pulmonary embolism. 2. Acute pulmonary embolism, on heparin drip and Coumadin Bilateral lower extremity duplex showed no DVT INR today 2.0 3. Troponin elevation, levels are low. EKG has nonischemic ST wave abnormality, likely due to the patient's acute bilateral pulmonary embolism. EKG No acute ischemia. On Lopressor 12.5 bid 4. Right knee infection with possible septic arthritis. On IV antibiotic per ID, status post incision and drainage by Dr. Del Angel on September 25, 2018. AZEEM RN Subjective Subjective Alert on heparin drip and Coumadin INR still not therapeutic. No CP or SOB Objective Last 24 Hour Vital Signs Date Time Temp Pulse Resp B/P (MAP) Pulse Ox O2 Delivery O2 Flow Rate FiO2 10/10/18 09:21 80 12 92 Room Air 21 10/10/18 09:21 83 12 92 Nasal Cannula 2.0 28 10/10/18 08:31 80 110/60 10/10/18 08:00 Room Air 10/10/18 08:00 97.9 81 22 110/60 (77) 98 10/10/18 07:43 82 10/10/18 07:37 94 Room Air 10/10/18 07:37 82 18 94 Room Air 10/10/18 04:00 Room Air 10/10/18 04:00 77 10/10/18 00:00 98.2 79 18 131/60 (83) 97 10/10/18 00:00 Room Air 10/10/18 00:00 72 10/09/18 21:29 81 18 95 Room Air 10/09/18 21:27 80 18 95 Room Air 10/09/18 20:42 89 126/57 10/09/18 20:00 Room Air 10/09/18 20:00 98.7 89 18 126/57 (80) 96 10/09/18 20:00 86 10/09/18 19:02 85 18 95 Room Air 21 10/09/18 19:02 95 Room Air 21 10/09/18 16:00 97.7 86 21 116/87 (97) 98 10/09/18 16:00 86 10/09/18 16:00 Room Air 10/09/18 12:00 Room Air 10/09/18 12:00 97.9 85 22 130/69 (89) 96 10/09/18 11:50 84 Intake and Output 10/09/18 10/10/18 19:00 07:00 Intake Total 748.210 ml 863.575 ml Balance 748.210 ml 863.575 ml Intake Oral 400 ml 480 ml IV Total 348.210 ml 383.575 ml # Voids 1 3 Laboratory Tests Test 10/09/18 11:30 10/09/18 19:35 10/10/18 02:49 White Blood Count 6.4 K/UL (4.8-10.8) Red Blood Count 4.25 M/UL (4.20-5.40) Hemoglobin 12.7 G/DL (12.0-16.0) Hematocrit 37.9 % (37.0-47.0) Mean Corpuscular Volume 89 FL (80-99) Mean Corpuscular Hemoglobin 29.8 PG (27.0-31.0) Mean Corpuscular Hemoglobin Concent 33.4 G/DL (32.0-36.0) Red Cell Distribution Width 12.5 % (11.6-14.8) Platelet Count 276 K/UL (150-450) Mean Platelet Volume 5.9 FL (6.5-10.1) L Neutrophils (%) (Auto) 65.9 % (45.0-75.0) Lymphocytes (%) (Auto) 20.9 % (20.0-45.0) Monocytes (%) (Auto) 6.3 % (1.0-10.0) Eosinophils (%) (Auto) 6.0 % (0.0-3.0) H Basophils (%) (Auto) 0.9 % (0.0-2.0) Activated Partial Thromboplast Time > 150 SEC (23-33) *H 48 SEC (23-33) H > 150 SEC (23-33) *H Sodium Level 140 MMOL/L (136-145) Potassium Level 4.2 MMOL/L (3.5-5.1) Chloride Level 103 MMOL/L (98-107) Carbon Dioxide Level 27 MMOL/L (21-32) Anion Gap 10 mmol/L (5-15) Blood Urea Nitrogen 10 mg/dL (7-18) Creatinine 0.7 MG/DL (0.55-1.30) Estimat Glomerular Filtration Rate > 60 mL/min (>60) Glucose Level 215 MG/DL (74-106) H Calcium Level 9.1 MG/DL (8.5-10.1) Total Bilirubin 0.2 MG/DL (0.2-1.0) Aspartate Amino Transf (AST/SGOT) 40 U/L (15-37) H Alanine Aminotransferase (ALT/SGPT) 46 U/L (12-78) Alkaline Phosphatase 78 U/L (46-116) Total Protein 6.3 G/DL (6.4-8.2) L Albumin 2.9 G/DL (3.4-5.0) L Globulin 3.4 g/dL Albumin/Globulin Ratio 0.9 (1.0-2.7) L Prothrombin Time 20.1 SEC (9.30-11.50) H Prothromb Time International Ratio 2.0 (0.9-1.1) H Objective HEAD AND NECK: No JVD. LUNGS: Clear. CARDIOVASCULAR: Tachycardic S1 and S2 regular. ABDOMEN: Soft. EXTREMITIES: No pitting edema, status post right knee surgery. Home Castaneda MD Oct 10, 2018 10:53
--- NOTE | 2018-10-10 11:55 | NUR ---
NURSE NOTES: Accounts Payable Administrator at bedside for PT blood draw.
[2018-10-10 12:00] VITALS: BP 132/68
--- NOTE | 2018-10-10 13:00 | NUR ---
HACKSAW INSPECTORFILTER CLEANER SI; PULMONARY EMBOLI T. 98.0 HR 84 RR 22 B/P 132/68 RA O2 SAT @ 100% PT 20.1 INR 2.0 APTT >150 IS: HEPARIN GTT MEROPENEM IV COUMADIN PO STEP DOWN STATUS DCP TO [facility] ONCE PT INR IS THERAPEUTIC @ 2.5
[2018-10-10] MEDS ORDERED: Heparin 5000 units/ml inj IV SCH (13:15)
[2018-10-10 16:00] VITALS: BP 131/69
[2018-10-10] MEDS: Montelukast 10mg tablet ORAL SCH (17:00)
[2018-10-10] MEDS ORDERED: Warfarin Sodium 10mg ORAL SCH (17:00)
[2018-10-10] MEDS ORDERED: Tubing IV Secondary IV ONE ×2 (18:04→18:05)
[2018-10-10] MEDS ORDERED: NS 275ml ONE ×2 (18:04→18:05)
[2018-10-10] MEDS ORDERED: Tubing Blood Filter IV ONE (18:05)
--- NOTE | 2018-10-10 19:10 | NUR ---
HAND-OFF: Report given to ANNE Padilla. Patient in stable condition.
--- NOTE | 2018-10-10 19:15 | NUR ---
NURSE NOTES: BEDSIDE REPORT RECEIVED FROM ANNE ESCAMILLA. PT IS X4, ABLE TO MAKE NEEDS KNOWN. MARINE SCIENTIST SHOWING NSR. ON RA, SATING WELL. BEDSIDE COMMODE AT BEDSIDE. SKIN IS CLEAN, DRY, INTACT. JOSE ARMANDO PICC, ASYMPTOMATIC RUNNING HEPARIN GTT 10U/KG/HR NOTED. NEXT PTT FOR 1926. LABS IN AM. SAFETY PRECAUTIONS CONTINUED. WILL CONTINUE TO MONITOR AND FOLLOW W/ PLAN OF CARE
[2018-10-10 20:00] VITALS: BP 130/85
--- NOTE | 2018-10-10 20:25 | NUR ---
NURSE NOTES: SPOKE W/ DR. WESTON. HE ASKED WHEN THE PT WAS LEAVING TO [facility]. PT IS CURRENTLY ON HEPARIN GTT, AND UNABLE TO DC UNLESS STOPPED. HE MENTIONED HE IS ON HIS WAY TO DISCONTINUE EVERYTHING. WILL CONTINUE TO MONITOR AND FOLLOW W/ PLAN OF CARE.
[2018-10-10] MEDS: Dyna-Hex 2% Top Sol 2oz TOPIC SCH (21:01)
[2018-10-11] VITALS: BP 142/74
[2018-10-11 04:00] VITALS: BP 123/60
--- NOTE | 2018-10-11 04:45 | Discharge Summary ---
DATE OF ADMISSION: 09/25/2018 DATE OF DISCHARGE: 10/11/2018 HISTORY OF PRESENT ILLNESS: The patient was admitted to the hospital after having an arthroscopic surgery, had a septic knee. She grew achromobacter of right knee. She is on ertapenem, she is on day #11. She needs antibiotics. She needs 30 days more of this antibiotic. While she was in the hospital, she suddenly became short of breath. Noted to have pulmonary embolism active bilaterally due to right heart strain. She was placed in a heparin drip and she has been on Coumadin. Her INR is 2.0 and her heparin has been therapeutic. She will be on heparin and Coumadin at least 24 hours, and after that will just be on Coumadin. She will be transferred to [facility]. PHYSICAL EXAMINATION: VITAL SIGNS: At this time are stable. She is off O2 at room air. NECK: Thick neck. LUNGS: Distant breath sounds. HEART: Distant heart sounds. ABDOMEN: Soft. Wound, nondraining, dry. IMPRESSION: Status post arthroscopic knee surgery, subsequently having a septic knee, status post I and D and status post antibiotic treatment with . She needs 42 days of antibiotics. She has had 11 days so far, she needs 31 more days. She has pulmonary embolism. She has been on Coumadin. INR needs to be repeated in two to three days. Because of her massive weight, it might be easier to just keep her on Coumadin rather than switching to Xarelto. However, consideration changing to Xarelto . Case was discussed with the patient. Plan to send to [facility] in the morning. Vladimir Stern M.D. DR: LANIE JOB#: [id number] CC: AIDA
[2018-10-11 04:58] LABS: INR 2.5 (0.9-1.1)
[2018-10-11] MEDS ORDERED: Heparin 5000 units/ml inj IV ONE (05:15)
[2018-10-11] MEDS ORDERED: Heparin 25,000u/D5W 500ml 500 ML IV SCH (05:15)
[2018-10-11] MEDS: Meropenem 1 GM in NS 55 ML IVPB SCH ×2 (05:36→15:07)
--- NOTE | 2018-10-11 07:36 | NUR ---
HAND-OFF: Report given to ANNE BORJA.
--- NOTE | 2018-10-11 07:40 | NUR ---
NURSE NOTES: Report received from Vaelrie Dean RN.Pt awake sitting up on side of bed eating breakfast ,noted no resp distress,denies any c/o pain or discomfort,SR on the monitor,IV site to JOSE ARMANDO PICC line intact,skin warm and dry,HOB elevated,SR up x2 call nichols within reach at bedside,bed lock in lowest position,will continue with plans of care.
[2018-10-11 08:00] VITALS: BP 128/83
[2018-10-11] MEDS: Wixela 250/50 Inhaler - 60 dose INH SCH (09:30)
[2018-10-11] MEDS: Metoprolol Tartrate 12.5mg TAB ORAL SCH (09:39)
[2018-10-11] MEDS: Docusate 250mg cap ORAL SCH ×2 (09:40→18:00)
[2018-10-11] MEDS: Lactobacillus-GG tablet ORAL SCH ×2 (09:40→18:00)
--- NOTE | 2018-10-11 10:48 | NUR ---
EVALUATORSWING SAW OPERATOR SI: PULMONARY EMBOLI T. 96.6 HR 79 RR 14 B/P 128/83 2L NC O2 SAT @ 98% PT 25.5 INR 2.5 APTT 62 IS: COUMADIN PO MEROPENEM IV JANUVIA PO ADVAIR HHN DCP TO [facility] STEP DOWN STATUS
--- NOTE | 2018-10-11 11:21 | Pulmonology Progress Note ---
Assessment/Plan Problems: (1) Acute massive pulmonary embolism (2) S/P right knee surgery Assessment/Plan off heparin drip and on Coumadin check INR daily, today is2.5 symptomatic treatment continue IV abx, Meropenem as per ID wound care working with PT very well Subjective ROS Limited/Unobtainable: No Constitutional: Reports: no symptoms HEENT: Repors: no symptoms Respiratory: Reports: no symptoms Allergies: Coded Allergies: CELECOXIB (Verified Allergy, Severe, dyspnea, 09/25/18) HYDROCODONE (Verified Allergy, Severe, Rash, 09/25/18) NSAIDS (NON-STEROIDAL ANTI-INFLAMMA (Verified Allergy, Severe, Shortness of Breath, 09/29/18) Objective Last 24 Hour Vital Signs Date Time Temp Pulse Resp B/P (MAP) Pulse Ox O2 Delivery O2 Flow Rate FiO2 10/11/18 09:39 80 128/83 10/11/18 09:29 80 14 98 Nasal Cannula 2.0 28 10/11/18 09:29 79 14 99 Nasal Cannula 2.0 28 10/11/18 08:00 96.6 92 18 128/83 (98) 96 10/11/18 07:51 83 10/11/18 07:04 95 Room Air 21 10/11/18 07:04 105 18 94 Room Air 21 10/11/18 04:00 Room Air 10/11/18 04:00 74 10/11/18 04:00 98.6 78 20 123/60 (81) 95 10/11/18 00:00 Room Air 10/11/18 00:00 97.9 86 20 142/74 (96) 95 10/11/18 00:00 86 10/10/18 21:29 90 16 95 Room Air 21 10/10/18 21:29 91 16 95 Room Air 21 10/10/18 21:29 95 Room Air 21 10/10/18 21:26 91 16 95 Room Air 21 10/10/18 21:01 98 130/85 10/10/18 20:00 98 10/10/18 20:00 Room Air 10/10/18 20:00 97.9 98 20 130/85 (100) 95 10/10/18 16:00 98.0 96 22 131/69 (89) 96 10/10/18 16:00 Room Air 10/10/18 15:16 97 10/10/18 12:00 98.0 84 22 132/68 (89) 94 10/10/18 12:00 Room Air 10/10/18 11:52 83 Intake and Output 10/10/18 10/11/18 19:00 07:00 Intake Total 933.10506 ml 686.666 ml Balance 933.32393 ml 686.666 ml Intake Oral 600 ml 480 ml IV Total 333.22149 ml 206.666 ml # Voids 2 2 # Bowel Movements 1 General Appearance: no acute distress HEENT: normocephalic Respiratory/Chest: chest wall non-tender, lungs clear Cardiovascular: normal peripheral pulses, normal rate Abdomen: normal bowel sounds, non distended Genitourinary: normal external genitalia Extremities: no clubbing Skin: no lesions Laboratory Tests 10/10/18 11:40: Activated Partial Thromboplast Time 46H 10/10/18 19:17: Activated Partial Thromboplast Time > 150*H 10/11/18 03:55: Activated Partial Thromboplast Time 62H, Prothrombin Time 25.5H, Prothromb Time International Ratio 2.5H Current Medications Medications (Trade) Dose Ordered Sig/Andres Route PRN Reason Start Time Stop Time Status Last Admin Dose Admin Chlorhexidine Gluconate (Laverne-Hex 2%) 1 applic DAILY@2000 TOPIC 10/05/18 20:00 10/30/18 19:59 10/10/18 21:01 Docusate Sodium (Colace) 250 mg BID ORAL 10/06/18 18:00 11/05/18 17:59 10/11/18 09:40 Lactobacillus Acidophilus (Culturelle) 1 tab TWICE A DAY ORAL 10/05/18 18:00 10/29/18 17:59 10/11/18 09:40 Magnesium Hydroxide (Mom) 30 ml DAILYPRN PRN ORAL Constipation 10/06/18 15:00 11/05/18 14:59 Meropenem 1 gm/ Sodium Chloride 55 ml @ 110 mls/hr Q8HR IVPB 10/05/18 22:00 10/27/18 23:59 10/11/18 05:36 Metoprolol Tartrate (Lopressor) 12.5 mg Q12HR ORAL 10/05/18 21:00 10/31/18 20:59 10/11/18 09:39 Montelukast Sodium (Singulair) 10 mg QPM ORAL 10/05/18 16:30 10/26/18 16:29 10/10/18 17:00 Ondansetron HCl (Zofran) 4 mg Q6H PRN IVP Nausea & Vomiting 10/05/18 20:45 10/31/18 14:42 10/08/18 14:22 Pantoprazole (Protonix) 40 mg DAILY ORAL 10/06/18 09:00 11/02/18 08:59 10/11/18 09:39 Salmeterol Xinafoate/ Fluticasone (Advair 250/50 Diskus) 1 puffs Q12HR INH 10/05/18 21:00 10/26/18 08:59 10/11/18 09:30 Sitagliptin Phosphate (Januvia) 100 mg ACBREAKFAST ORAL 10/07/18 06:30 11/06/18 06:29 10/11/18 05:37 Tramadol HCl (Ultram) 50 mg TIDPRN PRN ORAL Severe Breakthru Pain (>7) 10/05/18 19:00 10/12/18 18:59 10/10/18 02:56 Warfarin Sodium (Coumadin per pharmacy) 1 ea DAILY PRN MISC Per rx protocol 10/06/18 09:00 11/03/18 10:29 Warfarin Sodium (Coumadin) 10 mg COUMADIN ORAL 10/10/18 17:00 10/15/18 16:59 10/10/18 17:01 Mili Urbina MD Oct 11, 2018 11:21
--- NOTE | 2018-10-11 11:32 | NUR ---
NURSE NOTES: stable,sitting up on bed verbalized feeling better.
[2018-10-11 12:00] VITALS: BP 122/70
--- NOTE | 2018-10-11 12:51 | Infectious Diseases Prog Note ---
Assessment/Plan Assessment/Plan ASSESSMENT AND PLAN: 1. achromobacter right knee infected wound with possible septic arthritis and ? osteomyelitis massive PE - CT noted, ? pna but not presenting clinically like pna - meropenem - day # - sensitive to ertapenem -can give 1 gm iv daily, if needed, in place of meropenem - monitor labs and chest x-ray - likely will need 6 weeks iv total 2. Questionable history of diabetes and hypertension. Per the patient, she did have a history of elevated blood pressure and blood sugars, but now controlled. 3. History of obesity, but the patient has lost weight. 4. Asthma. 5. History of right knee arthroscopy. 6. History of internal knee derangement. 7. History of polycystic ovarian syndrome. 8. Social history is negative. 9. Family history is noncontributory. 10. MAR was noted. 11. Case was discussed with RN. 12. Allergies include celecoxib and hydrocodone. 13. MAR was noted. 14. Case was discussed with the patient and answered questions Subjective Constitutional: Denies: fever Respiratory: Denies: shortness of breath Cardiovascular: Denies: chest pain Gastrointestinal/Abdominal: Denies: nausea, vomiting, diarrhea Genitourinary: Reports: other - no novoa Neurologic: Denies: headache Psychiatric: Denies: depression Skin: Denies: rash Hematologic: Denies: bleeding Musculoskeletal: Denies: pain Allergies: Coded Allergies: CELECOXIB (Verified Allergy, Severe, dyspnea, 09/25/18) HYDROCODONE (Verified Allergy, Severe, Rash, 09/25/18) NSAIDS (NON-STEROIDAL ANTI-INFLAMMA (Verified Allergy, Severe, Shortness of Breath, 09/29/18) Objective Vital Signs Last 24 Hour Vital Signs Date Time Temp Pulse Resp B/P (MAP) Pulse Ox O2 Delivery O2 Flow Rate FiO2 10/11/18 12:00 97.2 80 18 122/70 (87) 96 10/11/18 09:39 80 128/83 10/11/18 09:29 80 14 98 Nasal Cannula 2.0 28 10/11/18 09:29 79 14 99 Nasal Cannula 2.0 28 10/11/18 08:00 96.6 92 18 128/83 (98) 96 10/11/18 07:51 83 10/11/18 07:04 95 Room Air 21 10/11/18 07:04 105 18 94 Room Air 21 10/11/18 04:00 Room Air 10/11/18 04:00 74 10/11/18 04:00 98.6 78 20 123/60 (81) 95 10/11/18 00:00 Room Air 10/11/18 00:00 97.9 86 20 142/74 (96) 95 10/11/18 00:00 86 10/10/18 21:29 90 16 95 Room Air 21 10/10/18 21:29 91 16 95 Room Air 21 10/10/18 21:29 95 Room Air 21 10/10/18 21:26 91 16 95 Room Air 21 10/10/18 21:01 98 130/85 10/10/18 20:00 98 10/10/18 20:00 Room Air 10/10/18 20:00 97.9 98 20 130/85 (100) 95 10/10/18 16:00 98.0 96 22 131/69 (89) 96 10/10/18 16:00 Room Air 10/10/18 15:16 97 Height (Feet): 5 Height (Inches): 5.00 Weight (Pounds): 345 General Appearance: no acute distress HEENT: normocephalic, atraumatic, anicteric Respiratory/Chest: lungs clear, normal breath sounds, no respiratory distress, no accessory muscle use Cardiovascular: normal rate, regular rhythm, no gallop/murmur, no JVD Abdomen: normal bowel sounds, soft, non tender, no organomegaly, non distended Genitourinary: other - no novoa Extremities: no cyanosis, other - right knee incision - clean and dry Skin: no rash Neurologic/Psychiatric: solid plasterer II-XII grossly normal, alert, oriented x 3, responsive Lymphatic: no neck adenopathy Musculoskeletal: no effusion, other - right knee rom is fairly good, no sig pain Objective Chest x-ray - nad Microbiology Date/Time Source Procedure Growth Status 09/25/18 19:31 Synovial Fluid Anaerobic Culture - Final NO ANAEROBES ISOLATED Complete right knee culture - achromobacter Labs Test 10/09/18 04:00 10/09/18 11:30 10/09/18 19:35 10/10/18 02:49 Prothrombin Time 18.8 SEC (9.30-11.50) 20.1 SEC (9.30-11.50) Prothromb Time International Ratio 1.8 (0.9-1.1) 2.0 (0.9-1.1) Activated Partial Thromboplast Time 52 SEC (23-33) > 150 SEC (23-33) 48 SEC (23-33) > 150 SEC (23-33) White Blood Count 6.4 K/UL (4.8-10.8) Red Blood Count 4.25 M/UL (4.20-5.40) Hemoglobin 12.7 G/DL (12.0-16.0) Hematocrit 37.9 % (37.0-47.0) Mean Corpuscular Volume 89 FL (80-99) Mean Corpuscular Hemoglobin 29.8 PG (27.0-31.0) Mean Corpuscular Hemoglobin Concent 33.4 G/DL (32.0-36.0) Red Cell Distribution Width 12.5 % (11.6-14.8) Platelet Count 276 K/UL (150-450) Mean Platelet Volume 5.9 FL (6.5-10.1) Neutrophils (%) (Auto) 65.9 % (45.0-75.0) Lymphocytes (%) (Auto) 20.9 % (20.0-45.0) Monocytes (%) (Auto) 6.3 % (1.0-10.0) Eosinophils (%) (Auto) 6.0 % (0.0-3.0) Basophils (%) (Auto) 0.9 % (0.0-2.0) Sodium Level 140 MMOL/L (136-145) Potassium Level 4.2 MMOL/L (3.5-5.1) Chloride Level 103 MMOL/L (98-107) Carbon Dioxide Level 27 MMOL/L (21-32) Anion Gap 10 mmol/L (5-15) Blood Urea Nitrogen 10 mg/dL (7-18) Creatinine 0.7 MG/DL (0.55-1.30) Estimat Glomerular Filtration Rate > 60 mL/min (>60) Glucose Level 215 MG/DL (74-106) Calcium Level 9.1 MG/DL (8.5-10.1) Total Bilirubin 0.2 MG/DL (0.2-1.0) Aspartate Amino Transf (AST/SGOT) 40 U/L (15-37) Alanine Aminotransferase (ALT/SGPT) 46 U/L (12-78) Alkaline Phosphatase 78 U/L (46-116) Total Protein 6.3 G/DL (6.4-8.2) Albumin 2.9 G/DL (3.4-5.0) Globulin 3.4 g/dL Albumin/Globulin Ratio 0.9 (1.0-2.7) Test 10/10/18 11:40 10/10/18 19:17 10/11/18 03:55 Activated Partial Thromboplast Time 46 SEC (23-33) > 150 SEC (23-33) 62 SEC (23-33) Prothrombin Time 25.5 SEC (9.30-11.50) Prothromb Time International Ratio 2.5 (0.9-1.1) Laboratory Tests Test 10/10/18 19:17 10/11/18 03:55 Activated Partial Thromboplast Time > 150 SEC (23-33) *H 62 SEC (23-33) H Prothrombin Time 25.5 SEC (9.30-11.50) H Prothromb Time International Ratio 2.5 (0.9-1.1) H Current Medications Medications (Trade) Dose Ordered Sig/Andres Route PRN Reason Start Time Stop Time Status Last Admin Dose Admin Chlorhexidine Gluconate (Laverne-Hex 2%) 1 applic DAILY@2000 TOPIC 10/05/18 20:00 10/30/18 19:59 10/10/18 21:01 Docusate Sodium (Colace) 250 mg BID ORAL 10/06/18 18:00 11/05/18 17:59 10/11/18 09:40 Lactobacillus Acidophilus (Culturelle) 1 tab TWICE A DAY ORAL 10/05/18 18:00 10/29/18 17:59 10/11/18 09:40 Magnesium Hydroxide (Mom) 30 ml DAILYPRN PRN ORAL Constipation 10/06/18 15:00 11/05/18 14:59 Meropenem 1 gm/ Sodium Chloride 55 ml @ 110 mls/hr Q8HR IVPB 10/05/18 22:00 10/27/18 23:59 10/11/18 05:36 Metoprolol Tartrate (Lopressor) 12.5 mg Q12HR ORAL 10/05/18 21:00 10/31/18 20:59 10/11/18 09:39 Montelukast Sodium (Singulair) 10 mg QPM ORAL 10/05/18 16:30 10/26/18 16:29 10/10/18 17:00 Ondansetron HCl (Zofran) 4 mg Q6H PRN IVP Nausea & Vomiting 10/05/18 20:45 10/31/18 14:42 10/08/18 14:22 Pantoprazole (Protonix) 40 mg DAILY ORAL 10/06/18 09:00 11/02/18 08:59 10/11/18 09:39 Salmeterol Xinafoate/ Fluticasone (Advair 250/50 Diskus) 1 puffs Q12HR INH 10/05/18 21:00 10/26/18 08:59 10/11/18 09:30 Sitagliptin Phosphate (Januvia) 100 mg ACBREAKFAST ORAL 10/07/18 06:30 11/06/18 06:29 10/11/18 05:37 Tramadol HCl (Ultram) 50 mg TIDPRN PRN ORAL Severe Breakthru Pain (>7) 10/05/18 19:00 10/12/18 18:59 10/10/18 02:56 Warfarin Sodium (Coumadin per pharmacy) 1 ea DAILY PRN MISC Per rx protocol 10/06/18 09:00 11/03/18 10:29 Warfarin Sodium (Coumadin) 10 mg COUMADIN ORAL 10/10/18 17:00 10/15/18 16:59 10/10/18 17:01 Mary Ellen Jaimes MD Oct 11, 2018 12:51
--- NOTE | 2018-10-11 14:19 | NUR ---
RETURNED GOODS SORTER NOTES SPOKE WITH DR WESTON DC ORDER GIVEN. PT TO GO TO [facility]LOOR. NURSE TO CALL REPORT TO [phone]. ACCEPTING , DR NIALL LLANOS. [facility] TO TRANSPORT PT. WITH ETA 1630. PT MADE AWARE AND IS IN AGREEMENT WITH DCP @ THIS TIME.
--- NOTE | 2018-10-11 14:47 | NUR ---
*-* DISCHARGE PLANNING *-* PATIENT [facility] BE[facility] F:[phone]
--- NOTE | 2018-10-11 15:00 | NUR ---
DISCHARGE PLANNING DISCHARGE ORDER NOTED Patient has been accepted to; [facility] [address] [place] [address] [address] [facility] [phone] for Nurse to Nurse report [facility] ETA for transportation: 16:30
--- NOTE | 2018-10-11 15:20 | NUR ---
*-* INSURANCE *-* UPDATED CLINICALS AND REVIEW HAVE BEEN FAXED TO: [facility] AUTH# [id number] [employer]: MARCO De La Vega FAX CLINICALS TO: [phone]
--- NOTE | 2018-10-11 15:38 | Cardiac Electrophysiology PN ---
Assessment/Plan Assessment/Plan 1. Sinus tachycardia. No fib or SVT due to acute pulmonary embolism. 2. Acute pulmonary embolism, on Coumadin Bilateral lower extremity duplex showed no DVT INR today 2.5 3. Troponin elevation, levels are low. EKG has nonischemic ST wave abnormality, likely due to the patient's acute bilateral pulmonary embolism. EKG No acute ischemia. On Lopressor 12.5 bid 4. Right knee infection with possible septic arthritis. On IV antibiotic per ID, status post incision and drainage by Dr. Del Angel on September 25, 2018. AZEEM RN Subjective Subjective On Coumadin INR now therapeutic. No CP or SOB. DC home in progress Objective Last 24 Hour Vital Signs Date Time Temp Pulse Resp B/P (MAP) Pulse Ox O2 Delivery O2 Flow Rate FiO2 10/11/18 12:00 97.2 80 18 122/70 (87) 96 10/11/18 12:00 Room Air 10/11/18 12:00 81 10/11/18 09:39 80 128/83 10/11/18 09:29 80 14 98 Nasal Cannula 2.0 28 10/11/18 09:29 79 14 99 Nasal Cannula 2.0 28 10/11/18 08:00 96.6 92 18 128/83 (98) 96 10/11/18 08:00 Room Air 10/11/18 07:51 83 10/11/18 07:04 95 Room Air 21 10/11/18 07:04 105 18 94 Room Air 21 10/11/18 04:00 Room Air 10/11/18 04:00 74 10/11/18 04:00 98.6 78 20 123/60 (81) 95 10/11/18 00:00 Room Air 10/11/18 00:00 97.9 86 20 142/74 (96) 95 10/11/18 00:00 86 10/10/18 21:29 90 16 95 Room Air 21 10/10/18 21:29 91 16 95 Room Air 21 10/10/18 21:29 95 Room Air 21 10/10/18 21:26 91 16 95 Room Air 21 10/10/18 21:01 98 130/85 10/10/18 20:00 98 10/10/18 20:00 Room Air 10/10/18 20:00 97.9 98 20 130/85 (100) 95 10/10/18 16:00 98.0 96 22 131/69 (89) 96 10/10/18 16:00 Room Air Intake and Output 10/10/18 10/11/18 19:00 07:00 Intake Total 933.86581 ml 686.666 ml Balance 933.87297 ml 686.666 ml Intake Oral 600 ml 480 ml IV Total 333.90898 ml 206.666 ml # Voids 2 2 # Bowel Movements 1 Laboratory Tests Test 10/10/18 19:17 10/11/18 03:55 Activated Partial Thromboplast Time > 150 SEC (23-33) *H 62 SEC (23-33) H Prothrombin Time 25.5 SEC (9.30-11.50) H Prothromb Time International Ratio 2.5 (0.9-1.1) H Objective HEAD AND NECK: No JVD. LUNGS: Clear. CARDIOVASCULAR: Tachycardic S1 and S2 regular. ABDOMEN: Soft. EXTREMITIES: No pitting edema, status post right knee surgery. Home Castaneda MD Oct 11, 2018 15:38
--- NOTE | 2018-10-11 15:50 | NUR ---
NURSE NOTES: Called Dr Jarred Gilbert to clarify medications, ordered to continue current orders.
[2018-10-11 16:01] VITALS: BP 125/73
--- NOTE | 2018-10-11 16:10 | NUR ---
NURSE NOTES: [facility]spoke with Maxwell Boston RN,updated re pt's diagnosis,medic history,V/S,BM.Pt will be going with PICC line to [facility] since she needs to continue her IV antibiotic Merropnem.
[2018-10-11] MEDS: Montelukast 10mg tablet ORAL SCH (16:50)
[2018-10-11] MEDS ORDERED: Warfarin Sod 4 MG, Warfarin Sod 5 MG PO SCH ×2 (17:00)
[2018-10-11] MEDS ORDERED: NS 275ml ONE (18:08)
--- NOTE | 2018-10-11 18:10 | NUR ---
NURSE NOTES: Pt discharged and out of the unit per marcioreva accompanied by ambulance personnel,awake,alert oriented x4,stable no resp distress noted with PICC to [facility] ,IV site intact.
--- NOTE | 2018-10-14 15:23 | NUR ---
*-* INSURANCE *-* DISCHARGE SUMMARY HAS BEEN FAXED TO: [facility] ROSS# [id number] [employer] OPERATOR: MARCO De La Vega FAX CLINICALS TO: [phone]
== END 2018-10-11 18:09 | disposition short-term general hospital (02) | DRG 856 ==
LOC: EMR 17:44 → SUR 18:15 → 3E 22:09 → 2E 09-30 22:53 → ICU 10-01 14:35 → 2W 10-05 18:45
PROC: 0SW Lower Joints, Revision (ICD-10-PCS; principal; 2018-09-25 18:00)
PROC: 0SBC4ZZ Excision of Right Knee Joint, Percutaneous Endoscopic Approach (ICD-10-PCS; principal; 2018-09-25 18:00)
PROC: 0S9C4ZZ Drainage of Right Knee Joint, Percutaneous Endoscopic Approach (ICD-10-PCS; principal; 2018-09-25 18:00)
PROC: 02HV33Z Insertion of Infusion Device into Superior Vena Cava, Percutaneous Approach (ICD-10-PCS; 2018-09-30)
PROC: B518ZZA Fluoroscopy of Superior Vena Cava, Guidance (ICD-10-PCS; 2018-09-30)
DX: T81.40XA Infection following a procedure, unspecified, initial encounter (principal); I26.99 Other pulmonary embolism without acute cor pulmonale; M00.861 Arthritis due to other bacteria, right knee; Z68.43 Body mass index [BMI] 50.0-59.9, adult; E66.01 Morbid (severe) obesity due to excess calories; B96.89 Other specified bacterial agents as the cause of diseases classified elsewhere; E28.2 Polycystic ovarian syndrome; R00.0 Tachycardia, unspecified
CPT/HCPCS: 36415; 36569; 71045; 71275; 76937; 80048; 80053; 82962; 83036; 83735; 83880; 84100; 84134; 84484; 85025; 85610; 85651; 85730; 86140; 87070; 87075; 87181; 87205; 89051; 93005; 93306; 93970; 94003; 94150; 94640; 94664; 99285; J2405; J8499